=== PATIENT | male | born 1950 | race Caucasian/White ===

== ENCOUNTER → 2020-09-30 11:00 | Outpatient (BNVA) | payer MEDICARE, OTHER, SELFPAY | PROVIDERS: Visit Provider Urology | DX: Z76.89 Persons encountering health services in other specified circumstances (principal) | CPT/HCPCS: 51705; 99212 ==

== ENCOUNTER → 2020-11-14 13:04 | Outpatient (BNVA) | payer MEDICARE, OTHER, SELFPAY | PROVIDERS: Visit Provider Urology | DX: N31.9 Neuromuscular dysfunction of bladder, unspecified (principal) | CPT/HCPCS: 51705; 51710; 99212 ==

== ENCOUNTER 2020-11-23 14:07 | Inpatient (IN) | payer MEDICARE, OTHER, SELFPAY ==
[2020-11-23 14:16] VITALS: BP 150/74; PULSE 87; RESP 16; TEMP 37; O2SAT 96; BMI 27.8
--- NOTE | 2020-11-23 14:19 | ECG_ITS ---
Test Reason : SOB Blood Pressure : / mmHG Vent. Rate : 085 BPM Atrial Rate : 085 BPM P-R Int : 168 ms QRS Dur : 124 ms QT Int : 400 ms P-R-T Axes : 030 -10 005 degrees QTc Int : 476 ms Normal sinus rhythm Left ventricular hypertrophy with QRS widening Abnormal ECG When compared with ECG of 28-MAY-2016 16:40, T wave inversion now evident in Inferior leads Referred By: Monica Quinteros Electronically Signed By:WENDY SIGALA
--- NOTE | 2020-11-23 14:20 | XR_ITS ---
EXAMINATION: XR CHEST, PORTABLE CLINICAL INFORMATION: 69-year-old male patient with cough. COMPARISON: Last chest x-ray on 05/28/2016. (No acute disease). TECHNIQUE: AP semierect portable view of the chest was obtained. The time of examination was 2:26 PM. FINDINGS: The heart is normal in size. There is moderate uncoiling of the thoracic aorta. 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 Lungs are clear. There is no evidence of acute pulmonary parenchymal or pleural disease. XR/XR chest 1V IMPRESSION: No pneumonia. Substernal goiter.
--- NOTE | 2020-11-23 14:23 | ED_ITS ---
HPI - General Adult General Chief complaint: General Medical Stated complaint: Covid Symptoms Time Seen by Provider: 11/23/20 14:14 Source: patient and EMS Mode of arrival: EMS History of Present Illness HPI narrative: 69-year-old male with past medical history of CHF, CKD on dialysis M/W/F, chronic indwelling suprapubic catheter, diabetes, presenting to the ED complaining of nausea, nonbloody emesis and diarrhea, and dry cough x a few days. Admits last dialysis was on , missed dialysis yesterday. Reports decreased p.o. intake and generalized fatigue fever, chills, CP/SOB, abdominal pain, dysuria/hematuria, recent travel, sick contacts. Denies suspicious food intake Related Data Home Medications Medication Instructions Recorded Confirmed carvedilol 12.5 mg tablet 12.5 mg PO BID 11/14/20 lisinopril 20 mg tablet 20 mg PO BEDTIME 11/14/20 metoprolol tartrate 25 mg tablet 25 mg PO BID 11/14/20 norflurane-pentafluoropropane spray TOPICAL 11/14/20 topical spray warfarin 1 mg tablet 1 mg PO DAILY 11/14/20 warfarin 5 mg tablet mg PO 11/14/20 Previous Rx's Medication Instructions Recorded albuterol sulfate 2 puff INHALATION Q4-6H PRN #6.7 g 11/23/20 azithromycin See Rx Instructions .ROUTE 11/23/20 .COMPLEX #6 tab cefuroxime axetil 250 mg PO ONCE 7 Days #7 tab 11/23/20 Allergies Allergy/AdvReac Type Severity Reaction Status Date / Time morphine [MORPHINE] Allergy Severe NAUSEA & Unverified 08/14/20 15:27 VOMITING, vomiting, nausea and vomiting cat Allergy Unknown Uncoded 01/20/17 00:00 dust Allergy Unknown Uncoded 01/20/17 00:00 Review of Systems Review of Systems: Constitutional: No Weight loss, No Fever, No Chills, +Fatigue, No Malaise Cardiovascular: No Chest Pain, No SOB, No Dyspnea on Exertion, No Orthopnea, No Edema, No Palpitations Respiratory: + Cough, No Sputum, No Wheezing Gastrointestinal: + Nausea, + Vomiting, + Diarrhea, No Constipation, No Abdominal pain Genitourinary: No irregular bleeding, No Dysuria, No Urinary Frequency, No Hematuria Musculoskeletal: No joint pain, No Myalgias, No Joint Swelling Skin: No Skin Lesions, No rash Yes all other systems are reviewed and are negative [facility] Past Medical History Attestation statement: The following information was validated with the patient. Social History Social History Advance Directives: No Advance Directives Information Provided: Yes Physical Exam Vital Signs: Vital Signs: Last Vital Signs Temp 98.6 F 11/23/20 14:16 Pulse 87 11/23/20 14:16 Resp 16 11/23/20 14:16 BP 150/74 H 11/23/20 14:16 Pulse Ox 96 11/23/20 14:16 Body Mass Index 27.8 Const: General: cooperative Orientation/consciousness: patient oriented x3 Limitations: no limitations HENMT: Head: Yes normal to inspection Ears: hearing grossly normal bilaterally General nose exam: Normal external nose present Face and sinus: Yes normal facial exam Eyes: General: appearance normal, both eyes and all related structures EOM: EOMs intact bilaterally Neck: Neck: Yes normal visual inspection Resp: Effort & Inspection: normal respiratory effort Auscultation: clear to auscultation bilaterally, no crackles, no rhonchi and no wheezes Cardio: Rate: regular rate Heart sounds: S1 normal heart sound present and S2 normal heart sound present GI: Other: Chronic indwelling suprapubic catheter without surrounding infection Inspection: Yes normal to inspection Palpation (GI): Soft to palpation, nontender, no guarding and not rigid Skin: Rashes: no rashes Wounds: no wounds Neuro: General: patient oriented x3 Extrem: General: Yes normal to inspection Course Course Course Narrative: * H&H at baseline. No leukocytosis * Lipase elevated 181 CXR: IMPRESSION: No pneumonia. Substernal goiter * Patient is COVID-19 positive, and has UTI > will dose Abx based on renal function * Creatinine 13.4, potassium WNL. No indication for emergent dialysis at this time. Discussed importance of dialysis tomorrow with patient. He verbalized understanding. * 1700-- ED care transferred to [facility] pending ambulation trial with pulse ox Medical Decision Making MDM Narrative Medical decision making narrative: 69-year-old male with past medical history of CHF, CKD on dialysis M/W/F, chronic indwelling suprapubic catheter, diabetes, presenting to the ED complaining of nausea, nonbloody emesis and diarrhea, and dry cough x a few days. On exam VSS, NAD, nontoxic appearing, abdomen soft and nontender, lungs CTA. Concern for gastroenteritis vs food poisoning vs dehydration vs viral syndrome/COVID-19. Concern for acute on chronic renal failure due to missed dialysis/metabolic abnormalities. Low concern for pneumonia/ACS/PE Plan: EKG, labs, UA, CXR, COVID-19, reassess Lab Data Result diagrams: 11/23/20 15:39 11/23/20 16:27 Labs: Lab Results 11/23/20 11/23/20 11/23/20 Range/Units 15:39 15:39 15:39 WBC 8.9 (4.8-10.8) X10*3/uL RBC 3.38 L (4.60-5.80) X10*6/uL Hgb 10.3 L (14.0-18.0) g/dl Hct 30.7 L (42-52) % MCV 90.8 (80-98) fL MCH 30.5 (27.0-33.0) pg MCHC 33.6 (31.0-36.0) g/dl RDW 14.5 (11.0-16.0) % Plt Count 294 (160-400) X10*3/uL MPV 9.9 (9.4-12.4) fL Immature Gran % (Auto) 0.5 H (0.0-0.4) % Neut % (Auto) 71.6 (45-73) % Lymph % (Auto) 17.7 L (20-40) % [place] % (Auto) 9.3 (2-11) % Eos % (Auto) 0.6 (0-4) % Baso % (Auto) 0.3 (0-2) % Lymph # (Auto) 1.6 (1.2-4.9) X10*3/uL [place] # (Auto) 0.8 (0.1-1.2) X10*3/uL Eos # (Auto) 0.1 (0.0-0.4) X10*3/uL Baso # (Auto) 0.0 (0.0-0.2) X10*3/uL Abs Immat Gran (auto) 0.04 H (0.00-0.03) X10*3/uL Absolute Neuts (auto) 6.4 (2.0-8.3) X10*3/uL Absolute Nucleated RBC 0.000 (0.0-0.012) X10*3/uL Nucleated RBC % (auto) 0.0 (0.0-0.2) /100WBC PT 15.3 H (10.8-13.0) SEC INR 1.3 H (0.9-1.1) APTT 31.7 (24.1-38.0) SEC Sodium Cancelled Potassium Cancelled Chloride Cancelled Carbon Dioxide Cancelled Anion Gap Cancelled BUN Cancelled Creatinine Cancelled Estim Creat Clear Calc Cancelled Estimated GFR Cancelled Random Glucose Cancelled Calcium Cancelled Magnesium 2.5 (1.6-2.6) mg/dL Total Bilirubin Cancelled Direct Bilirubin Cancelled AST Cancelled ALT Cancelled Alkaline Phosphatase Cancelled B-Natriuretic Peptide (<100) pg/mL Total Protein Cancelled Albumin Cancelled Lipase (8-78) U/L Urine Color Urine Appearance Urine pH (5.0-8.0) Ur Specific Rex (1.005-1.025) Urine Protein (NEG-TRACE) MG/DL Urine Glucose (UA) (NEG) MG/DL Urine Ketones (NEG) MG/DL Urine Blood (NEG) Urine Nitrite (NEG) Ur Leukocyte Esterase (NEG) Urine RBC (0) /HPF Urine WBC (0-4) /HPF Ur Squamous Epith Cells /LPF Urine Bacteria /LPF Coronavirus (PCR) (Negative) Influenza Type A (PCR) (Negative) Influenza Type B (PCR) (Negative) RSV RNA Qual (PCR) (Negative) 11/23/20 11/23/20 11/23/20 Range/Units 15:39 15:39 15:58 WBC (4.8-10.8) X10*3/uL RBC (4.60-5.80) X10*6/uL Hgb (14.0-18.0) g/dl Hct (42-52) % MCV (80-98) fL MCH (27.0-33.0) pg MCHC (31.0-36.0) g/dl RDW (11.0-16.0) % Plt Count (160-400) X10*3/uL MPV (9.4-12.4) fL Immature Gran % (Auto) (0.0-0.4) % Neut % (Auto) (45-73) % Lymph % (Auto) (20-40) % [place] % (Auto) (2-11) % Eos % (Auto) (0-4) % Baso % (Auto) (0-2) % Lymph # (Auto) (1.2-4.9) X10*3/uL [place] # (Auto) (0.1-1.2) X10*3/uL Eos # (Auto) (0.0-0.4) X10*3/uL Baso # (Auto) (0.0-0.2) X10*3/uL Abs Immat Gran (auto) (0.00-0.03) X10*3/uL Absolute Neuts (auto) (2.0-8.3) X10*3/uL Absolute Nucleated RBC (0.0-0.012) X10*3/uL Nucleated RBC % (auto) (0.0-0.2) /100WBC PT (10.8-13.0) SEC INR (0.9-1.1) APTT (24.1-38.0) SEC Sodium Potassium Chloride Carbon Dioxide Anion Gap BUN Creatinine Estim Creat Clear Calc Estimated GFR Random Glucose Calcium Magnesium (1.6-2.6) mg/dL Total Bilirubin Direct Bilirubin AST ALT Alkaline Phosphatase B-Natriuretic Peptide 20 (<100) pg/mL Total Protein Albumin Lipase 181 H (8-78) U/L Urine Color Urine Appearance Urine pH (5.0-8.0) Ur Specific Rex (1.005-1.025) Urine Protein (NEG-TRACE) MG/DL Urine Glucose (UA) (NEG) MG/DL Urine Ketones (NEG) MG/DL Urine Blood (NEG) Urine Nitrite (NEG) Ur Leukocyte Esterase (NEG) Urine RBC (0) /HPF Urine WBC (0-4) /HPF Ur Squamous Epith Cells /LPF Urine Bacteria /LPF Coronavirus (PCR) POSITIVE A (Negative) Influenza Type A (PCR) NEGATIVE (Negative) Influenza Type B (PCR) NEGATIVE (Negative) RSV RNA Qual (PCR) NEGATIVE (Negative) 11/23/20 11/23/20 11/23/20 Range/Units 15:59 16:27 16:27 WBC (4.8-10.8) X10*3/uL RBC (4.60-5.80) X10*6/uL Hgb (14.0-18.0) g/dl Hct (42-52) % MCV (80-98) fL MCH (27.0-33.0) pg MCHC (31.0-36.0) g/dl RDW (11.0-16.0) % Plt Count (160-400) X10*3/uL MPV (9.4-12.4) fL Immature Gran % (Auto) (0.0-0.4) % Neut % (Auto) (45-73) % Lymph % (Auto) (20-40) % [place] % (Auto) (2-11) % Eos % (Auto) (0-4) % Baso % (Auto) (0-2) % Lymph # (Auto) (1.2-4.9) X10*3/uL [place] # (Auto) (0.1-1.2) X10*3/uL Eos # (Auto) (0.0-0.4) X10*3/uL Baso # (Auto) (0.0-0.2) X10*3/uL Abs Immat Gran (auto) (0.00-0.03) X10*3/uL Absolute Neuts (auto) (2.0-8.3) X10*3/uL Absolute Nucleated RBC (0.0-0.012) X10*3/uL Nucleated RBC % (auto) (0.0-0.2) /100WBC PT (10.8-13.0) SEC INR (0.9-1.1) APTT (24.1-38.0) SEC Sodium 135 Potassium 3.8 Chloride 91 L Carbon Dioxide 21 L Anion Gap 27 H BUN 75 H Creatinine 13.40 H* Estim Creat Clear Calc 5.8 Estimated GFR 4 Random Glucose 136 H Calcium 8.6 Magnesium (1.6-2.6) mg/dL Total Bilirubin 0.6 Direct Bilirubin 0.3 AST 16 ALT 13 Alkaline Phosphatase 82 B-Natriuretic Peptide (<100) pg/mL Total Protein 7.6 Albumin 4.3 Lipase (8-78) U/L Urine Color YELLOW Urine Appearance TURBID Urine pH 6.5 (5.0-8.0) Ur Specific Rex 1.020 (1.005-1.025) Urine Protein 3+ H (NEG-TRACE) MG/DL Urine Glucose (UA) NEG (NEG) MG/DL Urine Ketones NEG (NEG) MG/DL Urine Blood 3+ H (NEG) Urine Nitrite NEG (NEG) Ur Leukocyte Esterase 3+ H (NEG) Urine RBC 5-9 H (0) /HPF Urine WBC TNTC H (0-4) /HPF Ur Squamous Epith Cells TRACE /LPF Urine Bacteria 3+ /LPF Coronavirus (PCR) (Negative) Influenza Type A (PCR) (Negative) Influenza Type B (PCR) (Negative) RSV RNA Qual (PCR) (Negative) Discharge Plan Discharge Clinical Impression: COVID-19, Acute UTI Patient Disposition: Home, Self-Care Instructions: Urinary Tract Infection in Men (ED), COVID-19 (Coronavirus Disease 2019) (ED) Additional Instructions: YOU NEED DIALYSIS TOMORROW YOU HAVE COVID-19, AND URINARY TRACT INFECTION AZITHROMYCIN ANTIBIOTIC, TAKE PRESCRIBED WHICH WILL HELP WITH COVID-19 CEFTIN IS AN ANTIBIOTIC WHICH WILL TREAT YOUR UTI IF YOU HAVE FEVER, CHEST PAIN, SHORTNESS OF BREATH, ABDOMINAL DISTENTION, OR SWELLING IN HER LEGS, OR CANNOT OBTAIN DIALYSIS TOMORROW RETURN TO THE ED IMMEDIATELY CDC Guidelines for home isolation: - Stay away from others - WEAR A MASK if you are sick AND STAY HOME - Cover your mouth and nose with a tissue when you cough or sneeze. Dispose of tissues in a lined trash can and wash your hands immediately with soap and water for at least 20 seconds. If soap and water are not available, clean hands with alcohol-based hand lighting engineering technician that contains at least 60% alcohol. - Clean your hands often with soap and water for at least 20 seconds - Avoid touching your eyes, nose and mouth with unwashed hands - Do not share dishes, drinking glasses, cups, eating utensils, towels, or bedding with other people in your home. After using these items, wash them thoroughly with soap and water or put in the intelligent systems engineer. - Clean high-touch surfaces in your isolation area ( sick room and bathroom) every day; let a caregiver clean and disinfect high-touch surfaces in other areas of the home. Clean the area or item with soap and water or another detergent if it is dirty. Then, use a household disinfectant. - Limit contact with pets and animals: If you must care for a pet, wash your hands before and after interacting with them) Prescriptions: New azithromycin 250 mg tablet See Rx Instructions .ROUTE .COMPLEX Qty: 6 RF: 0 cefuroxime axetil 250 mg tablet 250 mg PO ONCE 7 Days Qty: 7 RF: 0 albuterol sulfate 90 mcg/actuation HFA aerosol inhaler 2 puff inhalation Q4-6H PRN (Reason: shortness of breath or wheezing) Qty: 6.7 RF: 0 No Action warfarin 5 mg tablet PO RF: 0 warfarin 1 mg tablet 1 mg PO DAILY RF: 0 Pain Ease Mist Crumrod Aerosol,Crumrod topical RF: 0 metoprolol tartrate 25 mg tablet 25 mg PO BID RF: 0 carvedilol 12.5 mg tablet 12.5 mg PO BID RF: 0 lisinopril 20 mg tablet 20 mg PO BEDTIME RF: 0 Referrals: Physician,Unknown [Primary Care Provider] - 2 days
[2020-11-23 15:48] LABS: Basophils Percent Auto 0.3 % (0-2); Eosinophils Absolute Auto 0.1 X10*3/uL (0.0-0.4); Eosinophils Percent Auto 0.6 % (0-4); Hematocrit 30.7 % (42-52); Hemoglobin 10.3 g/dl (14.0-18.0); Imm Gran Abs Auto 0.04 X10*3/uL (0.00-0.03); Imm Gran Pct Auto 0.5 % (0.0-0.4); Lymphocytes Absolute Auto 1.6 X10*3/uL (1.2-4.9); Lymphocytes Percent Auto 17.7 % (20-40); MANUAL DIFF FLAG NO; Mean Corpuscular HGB Conc 33.6 g/dl (31.0-36.0); Mean Corpuscular Hemoglobin 30.5 pg (27.0-33.0); Mean Corpuscular Volume 90.8 fL (80-98); Mean Platelet Volume 9.9 fL (9.4-12.4); Monocytes Absolute Auto 0.8 X10*3/uL (0.1-1.2); Monocytes Percent Auto 9.3 % (2-11); Neutrophils Absolute Auto 6.4 X10*3/uL (2.0-8.3); Neutrophils Percent Auto 71.6 % (45-73); Platelet Count 294 X10*3/uL (160-400); Red Blood Count 3.38 X10*6/uL (4.60-5.80); Red Cell Distribution Width 14.5 % (11.0-16.0); White Blood Count 8.9 X10*3/uL (4.8-10.8)
[2020-11-23] MEDS: ondansetron HCL 4 MG/2 ML VIAL IVPUSH (15:49)
[2020-11-23 15:52] LABS: INTERNATIONAL NORM RATIO 1.3 (0.9-1.1); Prothrombin Time 15.3 SEC (10.8-13.0)
[2020-11-23 15:54] LABS: Partial Thromboplastin Time 31.7 SEC (24.1-38.0)
[2020-11-23 16:09] LABS: Lipase 181 U/L (8-78)
[2020-11-23 16:12] LABS: B Type Natriuretic Peptide 20 pg/mL (<100)
[2020-11-23 16:14] LABS: Glucose Urine UA NEG (NEG); Leukocyte Esterase Urine 3+ (NEG); Nitrite Urine NEG (NEG); PH 6.5 (5.0-8.0); Urine Blood 3+ (NEG); Urine Ketones NEG (NEG); Urine Protein 3+ MG/DL (NEG-TRACE)
[2020-11-23 16:14] LABS: Magnesium 2.5 mg/dL (1.6-2.6)
[2020-11-23 16:20] LABS: Appearance Urine TURBID; Color Urine YELLOW
[2020-11-23 16:41] LABS: Bacteria Urine 3+ /LPF; Squamous Epithelial Cell Urine TRACE /LPF; WBC Urine TNTC /HPF (0-4)
[2020-11-23 16:46] LABS: Influenza A PCR NEGATIVE (Negative); Influenza B PCR NEGATIVE (Negative); Resp Syncy Virus RNA Qual PCR NEGATIVE (Negative); SARS COV2 PCR INHOUSE POSITIVE (Negative)
[2020-11-23 17:03] LABS: Alanine Aminotransferase 13 U/L (0-40); Albumin Level 4.3 g/dL (3.5-5.0); Alkaline Phosphatase 82 U/L (39-117); Aspartate Amino Transferase 16 U/L (5-37); Bilirubin Direct 0.3 mg/dL (0.0-0.5); Bilirubin Total 0.6 mg/dL (0.0-1.0); Total Protein 7.6 g/dL (6.5-8.0)
[2020-11-23 17:06] LABS: Anion Gap 27 (12-20); Blood Urea Nitrogen 75 mg/dL (9-16); Calcium 8.6 mg/dL (8.4-10.2); Carbon Dioxide 21 mmol/L (22-29); Chloride 91 mmol/L (96-108); Creatinine Clr Calc Pharmacy 5.8; Estimated Glomerular Filt Rate 4; Glucose Random 136 mg/dL (60-115); Potassium 3.8 mmol/l (3.3-5.1); Sodium 135 mmol/L (135-145)
--- NOTE | 2020-11-23 18:16 | PC.NURSE ---
pt work up mostly negative, per provider, pt able to be discharged if able to ambulate and secure dialysis services for tomorrow. pt ambulated while maintaining sp02 > 95%. pt expressing to this rn he does not feel safe going home living by himself. provider at bedside to discuss plan of care.
[2020-11-23 18:50] VITALS: BP 134/71; PULSE 80; RESP 24; TEMP 37.2; O2SAT 97
--- NOTE | 2020-11-23 19:10 | PC.NURSE ---
PT RESTING IN STRETCHER AWAITING FURTHER ORDERS. PT DENIES ANY COMPLAINTS AT THIS TIME. PT ALERT, RESPIRATIONS N/L. SKIN W/D. PT AWAITING FOR POSSIBLE ADMISSION. WILL CONTINUE TO FARRUKH PT.
[2020-11-23 20:00] VITALS: BP 130/68; PULSE 88; RESP 16; O2SAT 97
--- NOTE | 2020-11-23 21:09 | PC.NURSE ---
PT RESTING IN STRETCHER, WAKES TO VERBAL STIMULI, RESPIRATIONS REMAINS N/L. SKIN W/D. WILL CONTINUE TO MONTIOR PT.
[2020-11-23 22:00] VITALS: BP 134/70; PULSE 86; RESP 16; O2SAT 97
[2020-11-23] MEDS: Azithromycin 500 MG TABLET PO (22:08)
--- NOTE | 2020-11-23 23:00 | PC.NURSE ---
PT EATING CRACKERS. PT AWAKE AND ALERT, RESPIRATIONS EASY N/L. SKIN W/D. PT AWAITING FOR CASE MGT IN THE MORNING ALONG WITH DIALYSIS. PT DENIES ANY COMPLAINTS. WILL CONTINUE TO MONITOR PT.
[2020-11-24] VITALS (9 sets, daily range): BP systolic 113–152; BP diastolic 64–82; PULSE 67–96; RESP 16–18; TEMP 36.8–37.5; O2SAT 95–98
--- NOTE | 2020-11-24 00:39 | PC.NURSE ---
PT RESTING IN NAD. AWAITING FURTHER ORDERS.
--- NOTE | 2020-11-24 02:48 | PC.NURSE ---
PT SLEEPING, WAKES TO VERBAL STIMULI, RESPIRATIONS EASY, AND N/L. SKIN W/D/P. PT WAKES AND VERBALIZED NO COMPLAINTS. PT AWAITING FOR CASE MGT IN AM. PT GIVEN BLANKET AND PILLOW FOR COMFORT. PT FINISHED EATING SANDWICH. PT APPEARS COMFORTABLE AND APPEARS TO BEING FALLING BACK TO SLEEP. VS OBTAINED AND WNL. WILL CONTINUE TO MONITOR PT.
--- NOTE | 2020-11-24 05:29 | PC.NURSE ---
PT RESTING IN STRETCHER. DENIES COMPLAINTS AND AWAITING FURTHER ORDERS. PT IN NAD. AWAITING FOR DIALYSIS IN AM
--- NOTE | 2020-11-24 06:30 | PC.NURSE ---
PT SLEEPING, CHEST WALL RISING UP AND DOWN, PT IN NAD. PT AWAITING FOR CASE MGT AND DIALYSIS. WILL CONTINUE TO MONITOR PT.
--- NOTE | 2020-11-24 07:30 | PC.NURSE ---
pt sleeping, but easily arusable, pt alert and oriented, x3, respirations even and unlabored, ls clear. pt denies pain at this time, does have a dry cough, fistual on the left upper arm and suppra pubic cath in place. pt does reports feeling general weakness and lives by himself. 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 pt aware of plan to meet with case management this. pt provided with breakfast jeanne.
--- NOTE | 2020-11-24 09:28 | PC.NURSE ---
pt resting comfortably in no apparent distress at this time, vs stable
--- NOTE | 2020-11-24 11:20 | MHC.CM.ED ---
Addendum entered by Noemí Castillo 11/24/20 11:23: When patient is ready for discharge, [facility] will need to be contacted so that a dialysis time can be set up with their Covid unit. Original Note: Received case management consult overnight. Patient came to ER and found to be Covid positive. Patient is a dialysis patient at [facility] in [place]. T/W spoke with Ambar, brood station manager of [facility] via telephone at [phone]. He is active with their company. They will not be able to dialysis until 11/25 in the evening. Monica PA aware and will speak to Nephrology because his baseline creat has doubled. Continue to monitor for d/c needs.
--- NOTE | 2020-11-24 11:28 | PM.IMHP ---
History of Present Illness Date of Service: 11/24/20 <Libertad Valdez NP - Last Filed: 11/24/20 13:35> Chief Complaint: Abnormal labs <Libertad Valdez NP - Last Filed: 11/24/20 13:35> 69 year old man presenting with He reported some nausea, dry cough and diarrhea. He had been tested last Tuesday after dialysis and it was negative. Due to the holiday his usual dialysis schedule was switched to M,W,S. Apparently he missed dialysis on Tuesday. His creatinine was noted to be elevated at 13.4 with no signs of uremia and also found to have UTI. He was also noted to be positive for covid-19 with normal oxygenation. He ws supposed to go to [facility] night. He requires dialysis today therefore he will be admitted for ESRD requiring dialysis and UTI. <Libertad Valdez NP - Last Filed: 11/24/20 13:35> Review of Systems Review of Systems: Denies any recent fever chills or decrease in appetite respiratory denies any shortness of breath coverage production cardiovascular is adjustment of any PND or edema gastrointestinal denies any dysphagia abdominal pain nausea vomiting or diarrhea genitourinary denies any dysuria frequency or hematuria musculoskeletal denies any joint pain or swelling neuropsych denies any weakness or seizures all other systems reviewed are negative <Libertad Valdez NP - Last Filed: 11/24/20 13:35> [facility] Medical History: Medical History (Updated 11/24/20 @ 13:28 by Libertad Valdez NP) CAD (coronary artery disease) CVA (cerebral vascular accident) Diabetes mellitus HTN (hypertension) with goal to be determined Hyperlipidemia Multiple sclerosis <Libertad Valdez NP - Last Filed: 11/24/20 13:35> Cognitive capacity: No cardiac disease <Libertad Valdez NP - Last Filed: 11/24/20 13:35> Surgical History: Surgical History (Updated 11/24/20 @ 13:28 by Libertad Valdez NP) H/O cystostomy History of back surgery <Libertad Valdez NP - Last Filed: 11/24/20 13:35> Social History: Social History Household Members: None Housing: Condominium Alcohol intake: former Smoking Status: Never smoker Smoked in Last 30 Days: No Second Hand Smoke Exposure: No Use of substances other than those prescribed or required for medical reasons: No Currently Displaying Signs/Symptoms of Drug Intoxication Withdrawal: No Have you been hit, kicked, punched, or otherwise hurt by someone within the past year? If so, by whom?: No Do you feel safe in your current relationship?: No Current Relationship Is there a partner from a previous relationship who is making you feel unsafe now?: No Are you made to feel afraid or neglected: No Advance Directives: No Advance Directives Information Provided: Yes Do you have thoughts of harming others: None Do you have a plan to hurt others: No Plan Recently lost weight without trying: Yes service: No Current occupational status: retired <Libertad Valdez NP - Last Filed: 11/24/20 13:35> Meds Allergies/Adverse reactions: Allergies Allergy/AdvReac Type Severity Reaction Status Date / Time morphine [MORPHINE] Allergy Severe NAUSEA & Verified 11/24/20 18:38 VOMITING, vomiting, nausea and vomiting dust Allergy Mild Dry Eye Uncoded 11/24/20 18:38 cat Allergy Unknown Dry Eye Uncoded 11/24/20 18:38 <Libertad Valdez NP - Last Filed: 11/24/20 13:35> Home medications: Home Medications Medication Instructions Recorded Confirmed Type carvedilol 12.5 mg tablet 12.5 mg PO BID 11/14/20 11/23/20 History lisinopril 20 mg tablet 20 mg PO BEDTIME 11/14/20 11/23/20 History metoprolol tartrate 25 mg tablet 25 mg PO BID 11/14/20 11/23/20 History warfarin 1 mg tablet 1 mg PO DAILY 11/14/20 11/23/20 History warfarin 5 mg tablet 5 mg PO DAILY 11/14/20 11/23/20 History <Libertad Valdez NP - Last Filed: 11/24/20 13:35> Physical Exam Vital Signs and Narrative: Vital Signs: Last Vital Signs Temp 98.3 F 11/24/20 09:29 Pulse 75 11/24/20 07:29 Resp 18 11/24/20 07:29 BP 129/66 11/24/20 09:29 Pulse Ox 98 11/24/20 09:29 Body Mass Index 27.8 <Libertad Valdez NP - Last Filed: 11/24/20 13:35> Appearing in no acute distress head is normocephalic atraumatic eyes pupils sclera is anicteric mouth throat mucous membranes are intact and moist lung normal expansion heart regular rate rhythm positive nontender neuro patient is alert x3, no focal deficits <Libertad Valdez NP - Last Filed: 11/24/20 13:35> Results Labs CBC and Chem 7: : 11/25/20 06:03 11/25/20 06:03 <Libertad Valdez ARCHITECTURAL ENGINEERING TEACHER - Last Filed: 11/24/20 13:35> Labs: Laboratory Results - last 24 hr 11/23/20 11/23/20 11/23/20 15:39 15:39 15:39 MCV 90.8 MCH 30.5 MCHC 33.6 RDW 14.5 Plt Count 294 MPV 9.9 Immature Gran % (Auto) 0.5 H Neut % (Auto) 71.6 Lymph % (Auto) 17.7 L [place] % (Auto) 9.3 Eos % (Auto) 0.6 Baso % (Auto) 0.3 Lymph # (Auto) 1.6 [place] # (Auto) 0.8 Eos # (Auto) 0.1 Baso # (Auto) 0.0 Abs Immat Gran (auto) 0.04 H Absolute Neuts (auto) 6.4 Absolute Nucleated RBC 0.000 Nucleated RBC % (auto) 0.0 PT 15.3 H INR 1.3 H APTT 31.7 Anion Gap Cancelled Estim Creat Clear Calc Cancelled Estimated GFR Cancelled Random Glucose Cancelled Calcium Cancelled Magnesium 2.5 Total Bilirubin Cancelled Direct Bilirubin Cancelled AST Cancelled ALT Cancelled Alkaline Phosphatase Cancelled B-Natriuretic Peptide Total Protein Cancelled Albumin Cancelled Lipase Urine Color Urine Appearance Urine pH Ur Specific [place] Urine Protein Urine Glucose (UA) Urine Ketones Urine Blood Urine Nitrite Ur Leukocyte Esterase Urine RBC Urine WBC Ur Squamous Epith Cells Urine Bacteria Coronavirus (PCR) Influenza Type A (PCR) Influenza Type B (PCR) RSV RNA Qual (PCR) 11/23/20 11/23/20 11/23/20 15:39 15:39 15:58 MCV MCH MCHC RDW Plt Count MPV Immature Gran % (Auto) Neut % (Auto) Lymph % (Auto) [place] % (Auto) Eos % (Auto) Baso % (Auto) Lymph # (Auto) [place] # (Auto) Eos # (Auto) Baso # (Auto) Abs Immat Gran (auto) Absolute Neuts (auto) Absolute Nucleated RBC Nucleated RBC % (auto) PT INR APTT Anion Gap Estim Creat Clear Calc Estimated GFR Random Glucose Calcium Magnesium Total Bilirubin Direct Bilirubin AST ALT Alkaline Phosphatase B-Natriuretic Peptide 20 Total Protein Albumin Lipase 181 H Urine Color Urine Appearance Urine pH Ur Specific [place] Urine Protein Urine Glucose (UA) Urine Ketones Urine Blood Urine Nitrite Ur Leukocyte Esterase Urine RBC Urine WBC Ur Squamous Epith Cells Urine Bacteria Coronavirus (PCR) POSITIVE A Influenza Type A (PCR) NEGATIVE Influenza Type B (PCR) NEGATIVE RSV RNA Qual (PCR) NEGATIVE 11/23/20 11/23/20 11/23/20 15:59 16:27 16:27 MCV MCH MCHC RDW Plt Count MPV Immature Gran % (Auto) Neut % (Auto) Lymph % (Auto) [place] % (Auto) Eos % (Auto) Baso % (Auto) Lymph # (Auto) [place] # (Auto) Eos # (Auto) Baso # (Auto) Abs Immat Gran (auto) Absolute Neuts (auto) Absolute Nucleated RBC Nucleated RBC % (auto) PT INR APTT Anion Gap 27 H Estim Creat Clear Calc 5.8 Estimated GFR 4 Random Glucose 136 H Calcium 8.6 Magnesium Total Bilirubin 0.6 Direct Bilirubin 0.3 AST 16 ALT 13 Alkaline Phosphatase 82 B-Natriuretic Peptide Total Protein 7.6 Albumin 4.3 Lipase Urine Color YELLOW Urine Appearance TURBID Urine pH 6.5 Ur Specific [place] 1.020 Urine Protein 3+ H Urine Glucose (UA) NEG Urine Ketones NEG Urine Blood 3+ H Urine Nitrite NEG Ur Leukocyte Esterase 3+ H Urine RBC 5-9 H Urine WBC TNTC H Ur Squamous Epith Cells TRACE Urine Bacteria 3+ Coronavirus (PCR) Influenza Type A (PCR) Influenza Type B (PCR) RSV RNA Qual (PCR) <Libertad Valdez NP - Last Filed: 11/24/20 13:35> Imaging Radiologist's Impressions: Impressions Chest X-Ray 11/23/20 14:20 IMPRESSION: No pneumonia. Substernal goiter. <Libertad Valdez NP - Last Filed: 11/24/20 13:35> Assessment and Plan (1) Acute UTI: Status: Acute <Libertad Valdez NP - Last Filed: 11/24/20 13:35> (2) COVID-19: Status: Acute <Libertad Valdez NP - Last Filed: 11/24/20 13:35> 69 year old man admitted with asymptomatic covid 19 and ESRD requiring dialysis today ESRD on dialysis. Will need dialysis today, Nephrology consult. UTI. No sepsis. Rocephin, renally dosed medication. Follow urine culture. COVID 19. Normal oxygen, no symptoms. Monitor on isolation. CAD. Continue home medications. HTN. Continue Lisinopril. DVT prophylaxis with Warfarin. Discussed with Dr. Schreiber Full code <Libertad Valdez NP - Last Filed: 11/24/20 13:35>
--- NOTE | 2020-11-24 11:37 | PC.NURSE ---
hospitalist at bedside for evaluation
--- NOTE | 2020-11-24 12:28 | PC.NURSE ---
called [facility] to give to report awaiting call back
--- NOTE | 2020-11-24 12:52 | PC.NURSE ---
REPORT GIVEN TO [facility] RN
--- NOTE | 2020-11-24 15:46 | P.EN_ITS ---
Event Note Date of Service: 11/24/20 Event Note: Date of Service: August, Addendum to H and P by Mid-level Provider I saw and examined the patient and participated in the soria portion of the E/M service. I agree with the history and exam as documented by PRINCIPAL CYBER ENGINEER. Patient likely covid and has ESRD and couldn't get into covid dialysis and may become fluid overloaded and uremic Will admit for urgent dialysis. He is assymptomatic from covid at this point. Otherwise, I agree with assessment and plan as outlined in the H and P.
[2020-11-24] MEDS: Warfarin Sodium 5 MG TABLET PO (17:54)
[2020-11-24] MEDS: cefTRIAXone sodium 1 GM in 0.9 % Sodium Chloride 50 ML IV (17:54)
[2020-11-24] MEDS: 0.9 % Sodium Chloride Flush 3 ML SYRINGE IVFLUSH (17:54)
[2020-11-24] MEDS: Warfarin Sodium 1 MG TABLET PO (17:55)
[2020-11-24] MEDS: Metoprolol Tartrate 25 MG TABLET PO (20:51)
[2020-11-24] MEDS: lisinopriL 20 MG TABLET PO (20:51)
[2020-11-24] MEDS: carvediloL 12.5 MG TABLET PO (20:51)
[2020-11-25] VITALS: BP 92/51; PULSE 71; RESP 16; TEMP 36.8; O2SAT 97
[2020-11-25] MEDS: 0.9 % Sodium Chloride Flush 3 ML SYRINGE IVFLUSH ×2 (00:41→07:51)
[2020-11-25 04:00] VITALS: BP 93/51; PULSE 64; RESP 16; TEMP 36.4; O2SAT 98
[2020-11-25 05:01] VITALS: BP 96/54
[2020-11-25 06:37] LABS: MANUAL DIFF FLAG NO
[2020-11-25 06:51] LABS: Basophils Percent Auto 0.5 % (0-2); Eosinophils Absolute Auto 0.1 X10*3/uL (0.0-0.4); Eosinophils Percent Auto 1.7 % (0-4); Hemoglobin 10.6 g/dl (14.0-18.0); Imm Gran Abs Auto 0.07 X10*3/uL (0.00-0.03); Imm Gran Pct Auto 0.8 % (0.0-0.4); Lymphocytes Absolute Auto 1.5 X10*3/uL (1.2-4.9); Lymphocytes Percent Auto 17.7 % (20-40); Mean Corpuscular HGB Conc 33.1 g/dl (31.0-36.0); Mean Corpuscular Volume 90.7 fL (80-98); Mean Platelet Volume 10.6 fL (9.4-12.4); Monocytes Absolute Auto 0.6 X10*3/uL (0.1-1.2); Monocytes Percent Auto 6.5 % (2-11); Neutrophils Absolute Auto 6.2 X10*3/uL (2.0-8.3); Neutrophils Percent Auto 72.8 % (45-73); Platelet Count 297 X10*3/uL (160-400); Red Blood Count 3.53 X10*6/uL (4.60-5.80); Red Cell Distribution Width 14.1 % (11.0-16.0); White Blood Count 8.5 X10*3/uL (4.8-10.8)
[2020-11-25 07:19] LABS: Anion Gap 23 (12-20); Blood Urea Nitrogen 53 mg/dL (9-16); Calcium 8.6 mg/dL (8.4-10.2); Carbon Dioxide 23 mmol/L (22-29); Chloride 93 mmol/L (96-108); Estimated Glomerular Filt Rate 5; Glucose Random 213 mg/dL (60-115); Potassium 4.1 mmol/l (3.3-5.1); Sodium 135 mmol/L (135-145)
[2020-11-25 07:51] VITALS: BP 102/52; PULSE 64
[2020-11-25] MEDS: Metoprolol Tartrate 25 MG TABLET PO (07:51)
[2020-11-25 07:52] VITALS: BP 102/52; PULSE 64
[2020-11-25] MEDS: carvediloL 12.5 MG TABLET PO (07:52)
[2020-11-25 08:00] VITALS: BP 102/56; PULSE 63; RESP 18; TEMP 36.6; O2SAT 97
[2020-11-25 10:27] LABS: INTERNATIONAL NORM RATIO 1.3 (0.9-1.1); Prothrombin Time 15.1 SEC (10.8-13.0)
--- NOTE | 2020-11-25 10:52 | P.DS_ITS ---
DS: Providers Provider Date of admission: 11/24/20 12:04 Primary care physician: Unknown Physician Consults: 11/24/20 12:37 Consult to Nephrology Routine Consulting Provider: Fan Cuevas Reason for consultation: ESRD on dialysis Has provider been notified: No DS: Diagnosis Discharge Diagnosis (1) Acute UTI: Status: Acute (2) COVID-19: Status: Acute DS: Medications Discharge Medications Home Medications: Home Medications Medication Instructions Recorded Confirmed carvedilol 12.5 mg tablet 12.5 mg PO BID 11/14/20 11/23/20 lisinopril 20 mg tablet 20 mg PO BEDTIME 11/14/20 11/23/20 metoprolol tartrate 25 mg tablet 25 mg PO BID 11/14/20 11/23/20 warfarin 1 mg tablet 1 mg PO DAILY 11/14/20 11/23/20 warfarin 5 mg tablet 5 mg PO DAILY 11/14/20 11/23/20 Previous Rx's Medication Instructions Recorded albuterol sulfate 2 puff INHALATION Q4-6H PRN #6.7 g 11/23/20 azithromycin See Rx Instructions .ROUTE 11/23/20 .COMPLEX #6 tab cefuroxime axetil 250 mg PO ONCE 7 Days #7 tab 11/23/20 DS: Summary Hospital Course Hospital Course: Chief Complaint: Abnormal labs 69 year old man presenting with He reported some nausea, dry cough and diarrhea. He had been tested last Tuesday after dialysis and it was negative. Due to the holiday his usual dialysis schedule was switched to M,W,S. Apparently he missed dialysis on Tuesday. His creatinine was noted to be elevated at 13.4 with no signs of uremia and also found to have UTI. He was also noted to be positive for covid-19 with normal oxygenation. He ws supposed to go to his normal dialysis center however the [facility] dialysis area had no openings until tomorrow night. He requires dialysis today therefore he will be admitted for ESRD requiring dialysis and UTI. Hospital course:Essentially patient was admitted because he had covid and covid dialysis unit could not accomodate him dialysis. He is assymptomatic from from covid and he was on Azithro and cefuroxim and he will be advised to continue these upon discharge and he is all for dialysis at the [facility] unit. He is to observe self isolation as stated Time Spent with Patient Time attestation: Total time spent providing and/or coordinating discharge services: Physical Exam Vital Signs: Vital Signs: Last Vital Signs Temp 97.9 F 11/25/20 08:00 Pulse 63 11/25/20 08:00 Resp 18 11/25/20 08:00 BP 102/56 L 11/25/20 08:00 Pulse Ox 97 11/25/20 08:00 Body Mass Index 27.8 General: AO X 3, no acute distress Resp: CTA bilateral CVS: S1,S2,RRR GI: +BS, NT, no distention Skin: No rash Neuro: motor grossly intact Psych: appropriate affect DS: Data Data Completed and Pending Labs on day of discharge: 11/23/20 14:19 ECG 12 lead EKG Stat EKG Documentation DIRECTED ondansetron HCL [Zofran] 4 mg IVPUSH ONCE ONE 11/23/20 14:20 XR chest 1V Stat 11/23/20 15:39 B Type Natriuretic Peptide Stat Complete Blood Count Auto Diff Stat Lipase Stat Magnesium Stat Partial Thromboplastin Time Stat Prothrombin Time INR Stat 11/23/20 15:58 SARS-CoV2/FLU/RSV Stat 11/23/20 16:00 Urine Culture Routine 11/23/20 16:27 Basic Metabolic Panel Stat Liver Panel Stat 11/23/20 21:48 Azithromycin [Zithromax] 500 mg PO ONCE STA cefUROXime axetiL [Ceftin] 500 mg PO ONCE STA 11/24/20 11:54 Transfer Order Routine 11/24/20 12:51 cefTRIAXone sodium [Rocephin] 1 gm 0.9 % Sodium Chloride [Ns] 50 ml IV Q24H 11/24/20 17:48 cefTRIAXone sodium [Rocephin] 1 gm .ROUTE .STK-MED ONE 11/25/20 06:03 Basic Metabolic Panel DAILY@0600 Complete Blood Count Auto Diff DAILY@0600 11/25/20 09:32 Prothrombin Time INR Stat Laboratory Last Values WBC 8.5 X10*3/uL (4.8-10.8) 11/25/20 06:03 RBC 3.53 X10*6/uL (4.60-5.80) L 11/25/20 06:03 Hgb 10.6 g/dl (14.0-18.0) L 11/25/20 06:03 Hct 32.0 % (42-52) L 11/25/20 06:03 MCV 90.7 fL (80-98) 11/25/20 06:03 MCH 30.0 pg (27.0-33.0) 11/25/20 06:03 MCHC 33.1 g/dl (31.0-36.0) 11/25/20 06:03 RDW 14.1 % (11.0-16.0) 11/25/20 06:03 Plt Count 297 X10*3/uL (160-400) 11/25/20 06:03 MPV 10.6 fL (9.4-12.4) 11/25/20 06:03 Immature Gran % (Auto) 0.8 % (0.0-0.4) H 11/25/20 06:03 Neut % (Auto) 72.8 % (45-73) 11/25/20 06:03 Lymph % (Auto) 17.7 % (20-40) L 11/25/20 06:03 [place] % (Auto) 6.5 % (2-11) 11/25/20 06:03 Eos % (Auto) 1.7 % (0-4) 11/25/20 06:03 Baso % (Auto) 0.5 % (0-2) 11/25/20 06:03 Lymph # (Auto) 1.5 X10*3/uL (1.2-4.9) 11/25/20 06:03 [place] # (Auto) 0.6 X10*3/uL (0.1-1.2) 11/25/20 06:03 Eos # (Auto) 0.1 X10*3/uL (0.0-0.4) 11/25/20 06:03 Baso # (Auto) 0.0 X10*3/uL (0.0-0.2) 11/25/20 06:03 Abs Immat Gran (auto) 0.07 X10*3/uL (0.00-0.03) H 11/25/20 06:03 Absolute Neuts (auto) 6.2 X10*3/uL (2.0-8.3) 11/25/20 06:03 Absolute Nucleated RBC 0.000 X10*3/uL (0.0-0.012) 11/25/20 06:03 Nucleated RBC % (auto) 0.0 /100WBC (0.0-0.2) 11/25/20 06:03 PT 15.1 SEC (10.8-13.0) H 11/25/20 09:32 INR 1.3 (0.9-1.1) H 11/25/20 09:32 APTT 31.7 SEC (24.1-38.0) 11/23/20 15:39 Sodium 135 mmol/L (135-145) 11/25/20 06:03 Potassium 4.1 mmol/l (3.3-5.1) 11/25/20 06:03 Chloride 93 mmol/L (96-108) L 11/25/20 06:03 Carbon Dioxide 23 mmol/L (22-29) 11/25/20 06:03 Anion Gap 23 (12-20) H 11/25/20 06:03 BUN 53 mg/dL (9-16) H 11/25/20 06:03 Creatinine 9.77 mg/dL (0.5-1.4) H* 11/25/20 06:03 Estim Creat Clear Calc 8.0 11/25/20 06:03 Estimated GFR 5 11/25/20 06:03 Random Glucose 213 mg/dL (60-115) H D 11/25/20 06:03 Calcium 8.6 mg/dL (8.4-10.2) 11/25/20 06:03 Magnesium 2.5 mg/dL (1.6-2.6) 11/23/20 15:39 Total Bilirubin 0.6 mg/dL (0.0-1.0) 11/23/20 16:27 Direct Bilirubin 0.3 mg/dL (0.0-0.5) 11/23/20 16:27 AST 16 U/L (5-37) 11/23/20 16:27 ALT 13 U/L (0-40) 11/23/20 16:27 Alkaline Phosphatase 82 U/L (39-117) 11/23/20 16:27 B-Natriuretic Peptide 20 pg/mL (<100) 11/23/20 15:39 Total Protein 7.6 g/dL (6.5-8.0) 11/23/20 16:27 Albumin 4.3 g/dL (3.5-5.0) 11/23/20 16:27 Lipase 181 U/L (8-78) H 11/23/20 15:39 Urine Color YELLOW 11/23/20 15:59 Urine Appearance TURBID 11/23/20 15:59 Urine pH 6.5 (5.0-8.0) 11/23/20 15:59 Ur Specific [place] 1.020 (1.005-1.025) 11/23/20 15:59 Urine Protein 3+ MG/DL (NEG-TRACE) H 11/23/20 15:59 Urine Glucose (UA) NEG MG/DL (NEG) 11/23/20 15:59 Urine Ketones NEG MG/DL (NEG) 11/23/20 15:59 Urine Blood 3+ (NEG) H 11/23/20 15:59 Urine Nitrite NEG (NEG) 11/23/20 15:59 Ur Leukocyte Esterase 3+ (NEG) H 11/23/20 15:59 Urine RBC 5-9 /HPF (0) H 11/23/20 15:59 Urine WBC TNTC /HPF (0-4) H 11/23/20 15:59 Ur Squamous Epith Cells TRACE /LPF 11/23/20 15:59 Urine Bacteria 3+ /LPF 11/23/20 15:59 Coronavirus (PCR) POSITIVE (Negative) A 11/23/20 15:58 Influenza Type A (PCR) NEGATIVE (Negative) 11/23/20 15:58 Influenza Type B (PCR) NEGATIVE (Negative) 11/23/20 15:58 RSV RNA Qual (PCR) NEGATIVE (Negative) 11/23/20 15:58 Discharge Plan Discharge Anticipated Discharge Date/Time: 11/25/20 10:42 Patient Disposition: Home, Self-Care Referrals: Physician,Unknown [Primary Care Provider] - 2 days Discharge Medications: New azithromycin 250 mg tablet See Rx Instructions .ROUTE .COMPLEX Qty: 6 RF: 0 cefuroxime axetil 250 mg tablet 250 mg PO ONCE 7 Days Qty: 7 RF: 0 albuterol sulfate 90 mcg/actuation HFA aerosol inhaler 2 puff inhalation Q4-6H PRN (Reason: shortness of breath or wheezing) Qty: 6.7 RF: 0 Continued warfarin 5 mg tablet 5 mg PO DAILY RF: 0 warfarin 1 mg tablet 1 mg PO DAILY RF: 0 metoprolol tartrate 25 mg tablet 25 mg PO BID RF: 0 carvedilol 12.5 mg tablet 12.5 mg PO BID RF: 0 lisinopril 20 mg tablet 20 mg PO BEDTIME RF: 0 Discharge Orders: Discharge Order (Routine); Ordered 11/25/20 Ordered By: Shaggy Schreiber Diet: advance to usual diet Activity on Discharge: As tolerated Patient Instructions: Urinary Tract Infection in Men (ED), COVID-19 (Coronavirus Disease 2019) (ED) Activity Restrictions/Additional Instructions: YOU NEED DIALYSIS TOMORROW YOU HAVE COVID-19, AND URINARY TRACT INFECTION AZITHROMYCIN ANTIBIOTIC, TAKE PRESCRIBED WHICH WILL HELP WITH COVID-19 CEFTIN IS AN ANTIBIOTIC WHICH WILL TREAT YOUR UTI IF YOU HAVE FEVER, CHEST PAIN, SHORTNESS OF BREATH, ABDOMINAL DISTENTION, OR SWELLING IN HER LEGS, OR CANNOT OBTAIN DIALYSIS TOMORROW RETURN TO THE ED IMMEDIATELY CDC Guidelines for home isolation: - Stay away from others - WEAR A MASK if you are sick AND STAY HOME - Cover your mouth and nose with a tissue when you cough or sneeze. Dispose of tissues in a lined trash can and wash your hands immediately with soap and water for at least 20 seconds. If soap and water are not available, clean hands with alcohol-based hand talent acquisition project manager that contains at least 60% alcohol. - Clean your hands often with soap and water for at least 20 seconds - Avoid touching your eyes, nose and mouth with unwashed hands - Do not share dishes, drinking glasses, cups, eating utensils, towels, or bedding with other people in your home. After using these items, wash them thoroughly with soap and water or put in the mid level java developer. - Clean high-touch surfaces in your isolation area ( sick room and bathroom) every day; let a caregiver clean and disinfect high-touch surfaces in other areas of the home. Clean the area or item with soap and water or another detergent if it is dirty. Then, use a household disinfectant. - Limit contact with pets and animals: If you must care for a pet, wash your hands before and after interacting with them) Visit Report Forms: Patient Portal Discharge page Care Plan Goals: full recovery from covid and return to dialysis Health Concerns: covid 19 Plan of Treatment: take Azithro and cefuroxime for uti, observe isolation instruction above. Go to dialysis as scheduled and follow up with your Doctor in a week, call for appointment
--- NOTE | 2020-11-25 11:28 | MHC.CM.PN ---
IMM 11/25/20 Male 69 dxUTI ESRD. Pt lives alone HD [facility]- [facility] in [place]. DP resume HD Family called to transport. Pt is DC today. Info faxed to [facility].
== END 2020-11-25 12:52 | disposition home or self-care (01) | DRG 177 ==
LOC: HO.ED 17:02 → HO.IMC 11-24 12:23
PROVIDERS: Internal Medicine; Nurse Practitioner Acute Care; Physician Assistant; Admitting Provider Internal Medicine; Emergency Provider Emergency Medicine Emergency Medical Services; Visit Provider Internal Medicine
DX: U07.1 COVID-19 (principal); N18.6 End stage renal disease; N39.0 Urinary tract infection, site not specified; I13.2 Hypertensive heart and chronic kidney disease with heart failure and with stage 5 chronic kidney disease, or end stage renal disease; G35 Multiple sclerosis; E78.5 Hyperlipidemia, unspecified; I25.10 Atherosclerotic heart disease of native coronary artery without angina pectoris; E11.22 Type 2 diabetes mellitus with diabetic chronic kidney disease; Z96.0 Presence of urogenital implants; Z88.5 Allergy status to narcotic agent; Z99.2 Dependence on renal dialysis; Z79.01 Long term (current) use of anticoagulants; Z79.899 Other long term (current) drug therapy
CPT/HCPCS: 0241U; 36415; 71045; 80048; 80076; 81001; 83690; 83735; 83880; 85025; 85610; 85730; 87086; 90999; 93005; 96374; 99284; 99285; J0696; J2405

== ENCOUNTER 2020-11-27 00:48 | Emergency (ER) | payer MEDICARE, SELFPAY ==
[2020-11-27 01:27] VITALS: BP 99/75; PULSE 89; RESP 15; TEMP 36.7; O2SAT 98; BMI 27.3
--- NOTE | 2020-11-27 03:18 | ED_ITS ---
HPI - Male Genitourinary General Chief complaint: Urogenital-Male Stated complaint: CATHETER ISSUES Time Seen by Provider: 11/27/20 01:10 Source: patient Mode of arrival: ambulatory History of Present Illness HPI Narrative: This is a 69-year-old male who comes in with concerns that his Leal catheter balloon has decreased as he states his urinary output has decreased. On review of his documentation he was recently discharged and at that time was placed on antibiotics and has had noted decrease in oral intake and denies any fevers, chills. Related Data Home Medications Medication Instructions Recorded Confirmed carvedilol 12.5 mg tablet 12.5 mg PO BID 11/14/20 11/23/20 lisinopril 20 mg tablet 20 mg PO BEDTIME 11/14/20 11/23/20 metoprolol tartrate 25 mg tablet 25 mg PO BID 11/14/20 11/23/20 warfarin 1 mg tablet 1 mg PO DAILY 11/14/20 11/23/20 warfarin 5 mg tablet 5 mg PO DAILY 11/14/20 11/23/20 Previous Rx's Medication Instructions Recorded albuterol sulfate 2 puff INHALATION Q4-6H PRN #6.7 g 11/23/20 azithromycin See Rx Instructions .ROUTE 11/23/20 .COMPLEX #6 tab cefuroxime axetil 250 mg PO ONCE 7 Days #7 tab 11/23/20 Allergies Allergy/AdvReac Type Severity Reaction Status Date / Time morphine [MORPHINE] Allergy Severe NAUSEA & Verified 11/24/20 18:38 VOMITING, vomiting, nausea and vomiting dust Allergy Mild Dry Eye Uncoded 11/24/20 18:38 cat Allergy Unknown Dry Eye Uncoded 11/24/20 18:38 Review of Systems Review of Systems: Pertinent positives and negatives as stated in HPI 10 point review of systems otherwise negative. [facility] Past Medical History Source: nursing notes reviewed Medical History CAD (coronary artery disease) CVA (cerebral vascular accident) Diabetes mellitus HTN (hypertension) with goal to be determined Hyperlipidemia Multiple sclerosis Surgical History H/O cystostomy History of back surgery Social History Social History Household Members: None Housing: Condominium Alcohol intake: former Smoking Status: Never smoker Second Hand Smoke Exposure: No Use of substances other than those prescribed or required for medical reasons: No Advance Directives: No service: No Current occupational status: retired Physical Exam Vital Signs: Vital Signs: Last Vital Signs Temp 98.0 F 11/27/20 01:27 Pulse 89 11/27/20 01:27 Resp 15 11/27/20 01:27 BP 99/75 11/27/20 01:27 Pulse Ox 98 11/27/20 01:27 Body Mass Index 27.3 Vital signs reviewed GEN: NAD PULM: CTAB, no tachypnea CVS: No murmurs ABD: soft, non-tender, non-distended. : suprapubic catheter noted in position, on gentle retraction it is not sliding out, urine present in catheter, bedside ultrasound demonstrates a collapsed bladder and catheter balloon appears to be in place Course Course Course Narrative: This is a 69M who was reassured that the catheter appears to be in place, encouraged to drink more water as his UO may have decreased due to appetite issues associated with his recent illness. He was encouraged to follow up with Urology in the morning and continue with all home medications. Discharge Plan Discharge Clinical Impression: Leal catheter problem Qualifiers: Encounter type: initial encounter Qualified Code(s): T83.9XXA - Unspecified complication of genitourinary prosthetic device, implant and graft, initial encounter Patient Disposition: Home, Self-Care Instructions: Leal Catheter Placement and Care (ED) Additional Instructions: Please follow-up with the Urology office by calling in the morning. The note of your visit will be sent over to the office. Please do not hesitate to return to the emergency department should the pain developed acutely worsening or you develop any fevers, chills. Prescriptions: No Action azithromycin 250 mg tablet See Rx Instructions .ROUTE .COMPLEX Qty: 6 RF: 0 cefuroxime axetil 250 mg tablet 250 mg PO ONCE 7 Days Qty: 7 RF: 0 albuterol sulfate 90 mcg/actuation HFA aerosol inhaler 2 puff inhalation Q4-6H PRN (Reason: shortness of breath or wheezing) Qty: 6.7 RF: 0 warfarin 5 mg tablet 5 mg PO DAILY RF: 0 warfarin 1 mg tablet 1 mg PO DAILY RF: 0 metoprolol tartrate 25 mg tablet 25 mg PO BID RF: 0 carvedilol 12.5 mg tablet 12.5 mg PO BID RF: 0 lisinopril 20 mg tablet 20 mg PO BEDTIME RF: 0 Referrals: Akhil Valentino MD [Physician] - 2 days (Please re-evaluate for patient complaints regarding his suprapubic catheter.) Interventions: ED Discharge Assessment Last Done: 11/27/20 03:32 Discharge Date/Time: 11/27/20 03:45
--- NOTE | 2020-11-27 03:36 | PC.NURSE ---
Patient had bedside ultrasound down by ED provider which revealed a empty bladder. Note was sent to Dr. Burton by ED Provider and patient was discharged home.
== END 2020-11-27 03:45 | disposition home or self-care (01) ==
PROVIDERS: Emergency Provider Student in an Organized Health Care Education/Training Program
DX: T83.9XXA Unspecified complication of genitourinary prosthetic device, implant and graft, initial encounter (principal); Y73.8 Miscellaneous gastroenterology and urology devices associated with adverse incidents, not elsewhere classified; Y92.9 Unspecified place or not applicable; Z79.899 Other long term (current) drug therapy
CPT/HCPCS: 99284

== ENCOUNTER → 2021-01-21 13:06 | Outpatient (BNVA) | payer MEDICARE, SELFPAY | PROVIDERS: PCP Internal Medicine; Visit Provider Urology | DX: Z13.89 Encounter for screening for other disorder (principal) | CPT/HCPCS: 51705; 99212 ==

== ENCOUNTER → 2021-02-27 09:58 | Outpatient (BNVA) | payer MEDICARE, SELFPAY | PROVIDERS: PCP Internal Medicine; Visit Provider Urology | DX: Z46.6 Encounter for fitting and adjustment of urinary device (principal); N31.9 Neuromuscular dysfunction of bladder, unspecified | CPT/HCPCS: 51705; 52332; 99212 ==

== ENCOUNTER → 2021-04-16 14:27 | Outpatient (BNVA) | payer MEDICARE, SELFPAY | PROVIDERS: PCP Internal Medicine; Visit Provider Urology | DX: Z43.5 Encounter for attention to cystostomy (principal); R33.8 Other retention of urine | CPT/HCPCS: 51705; 99212 ==

== ENCOUNTER → 2021-06-04 13:14 | Outpatient (BNVA) | payer MEDICARE, SELFPAY | PROVIDERS: PCP Internal Medicine; Visit Provider Urology | DX: Z46.6 Encounter for fitting and adjustment of urinary device (principal); N31.9 Neuromuscular dysfunction of bladder, unspecified | CPT/HCPCS: 51701; 51705; 99212 ==

== ENCOUNTER → 2021-07-14 12:53 | Outpatient (BNVA) | payer MEDICARE, SELFPAY | PROVIDERS: PCP Internal Medicine; Visit Provider Urology | DX: N31.9 Neuromuscular dysfunction of bladder, unspecified (principal) | CPT/HCPCS: 51705; 99212 ==

== ENCOUNTER → 2021-08-25 12:56 | Outpatient (BNVA) | payer MEDICARE, SELFPAY | PROVIDERS: PCP Internal Medicine; Visit Provider Urology | DX: N31.9 Neuromuscular dysfunction of bladder, unspecified (principal) | CPT/HCPCS: 51701; 51705; 99212 ==

== ENCOUNTER → 2021-10-06 09:29 | Outpatient (BNVA) | payer MEDICARE, SELFPAY | PROVIDERS: PCP Internal Medicine; Visit Provider Urology | DX: N31.9 Neuromuscular dysfunction of bladder, unspecified (principal) | CPT/HCPCS: 51705 ==

== ENCOUNTER → 2021-11-17 09:58 | Outpatient (BNVA) | payer MEDICARE, SELFPAY | PROVIDERS: PCP Internal Medicine; Visit Provider Urology | DX: N31.9 Neuromuscular dysfunction of bladder, unspecified (principal) | CPT/HCPCS: 51705 ==

== ENCOUNTER 2021-12-17 15:47 | Outpatient (REF) | payer MEDICARE, SELFPAY ==
--- NOTE | ~2021-12-17 | US_ITS ---
EXAMINATION: US VENOUS ULTRASOUND WITH DOPPLER LOWER EXTREMITY, LEFT CLINICAL INFORMATION: Edema COMPARISON: May 28, 2016 TECHNIQUE: Ultrasound of the deep veins is performed from the hip to the calf with compression sonography and color and pulse Doppler assessment. Spectral analysis with color-flow imaging is performed. FINDINGS: There is normal venous compression and respiratory variation and augmented flow. The visualized common femoral vein, superficial femoral vein, profunda femoral vein, popliteal vein, and the trifurcation region shows no evidence of deep venous thrombosis. There is no significant popliteal fossa cyst. No popliteal artery aneurysm. US/US venous duplex LE LT IMPRESSION: No acute DVT demonstrated in the left lower extremity.
== END 2021-12-17 15:48 | disposition home or self-care (01) ==
LOC: HO.HMGCX 15:47
PROVIDERS: Visit Provider Physician Assistant Medical
DX: R60.9 Edema, unspecified (principal)
CPT/HCPCS: 93971

== ENCOUNTER → 2021-12-29 09:50 | Outpatient (BNVA) | payer MEDICARE, SELFPAY | PROVIDERS: PCP Internal Medicine; Visit Provider Urology | DX: Z43.5 Encounter for attention to cystostomy (principal); N31.9 Neuromuscular dysfunction of bladder, unspecified | CPT/HCPCS: 51705 ==

== ENCOUNTER 2022-02-05 13:06 | Inpatient (IN) | payer MEDICARE, SELFPAY ==
--- NOTE | ~2022-02-05 | CT_ITS ---
EXAMINATION: CT ABDOMEN AND PELVIS WITHOUT CONTRAST CLINICAL INFORMATION: Bacteremia COMPARISON: May 2016 TECHNIQUE: Multidetector volumetric imaging was performed from the superior aspect of the liver through the pubic symphysis. Sagittal and coronal reformatted images were obtained on the technologist's workstation. This CT examination was performed using dose optimization techniques as appropriate, variously including the following: *Automated exposure control *Adjustment of mA and/or kV according to patient size (this includes techniques or standardized protocols for targeted exams where dose is matched to indication/reason for exam; i.e. extremities or head) *Use of iterative reconstruction technique DLP: 714 mGy-cm FINDINGS: LUNG BASES: There is small bilateral pleural effusion and bibasilar atelectasis. There is small pericardial effusion stable since previous study. LIVER, GALLBLADDER, AND BILIARY TREE: The liver is normal in size, shape, and attenuation. No focal hepatic lesion or biliary ductal dilatation is present. Multiple high attenuation foci seen in the gallbladder most likely combination of calculi and sludge. CBD is not dilated. PANCREAS: There is mild peripancreatic stranding surrounding pancreatic head most likely extending from the stomach and duodenum, and less likely due to groove pancreatitis. SPLEEN: Spleen is enlarged measured 13.4 cm. Small splenules are seen adjacent to the upper pole of the spleen. ADRENAL GLANDS: Unremarkable. KIDNEYS AND URETERS: There are bilateral calculi seen in the parenchyma of both kidneys as well as prominence of collecting system of both kidneys. Ureters are not dilated. Revealed no evidence of urolithiasis. BLADDER: Bladder is circumferentially irregular multicystic with suprapubic catheter present the bladder is decompressed. GASTROINTESTINAL TRACT: There is small hiatal hernia. Stomach is distended by fluid and gas there is. Gastric and. Duodenal mesenteric stranding. Duodenum is dilated. No evidence of diverticulitis. Appendix not visualized. Loops of small bowel are unremarkable. ABDOMINAL WALL: No significant hernia is appreciated. LYMPH NODES: There are small retroperitoneal lymph nodes seen bilaterally as well as mesenteric lymph nodes adjacent to the stomach and pancreatic head. The largest retroperitoneal lymph node the largest mesenteric lymph node measured 14 mm on image 36 series 4 VASCULAR: Aorta is tortuous calcified but not dilated. PELVIC VISCERA: Unremarkable. OSSEOUS STRUCTURES: There are mild multilevel degenerative changes and levoscoliosis. There is narrowing cough L-3, L3-L4, L4-L5 intervertebral disc spaces with vacuum phenomenon. CT/CT abdomen pelvis wo con IMPRESSION: Cholelithiasis. Most likely gastroduodenitis, pancreatitis couldn't be excluded. Scattered mesenteric and retroperitoneal lymphadenopathy. Nephrolithiasis without hydronephrosis. Suprapubic catheter. There is no significant wall urinary bladder. Fleischner guidelines were followed.
--- NOTE | ~2022-02-05 | XR_ITS ---
EXAMINATION: XR CHEST CLINICAL INFORMATION: Shortness of breath COMPARISON: 02/05/2022. TECHNIQUE: Frontal view of the chest was obtained. FINDINGS: Multiple external artifacts overlie the thorax. The heart size is normal. Moderate aortic calcific atherosclerosis noted. Mild blunting of left costophrenic sulcus is present. No pneumothoraces. Mild diffuse pulmonary vascular indistinctness and peribronchial wall thickening is identified. No focal pulmonary consolidation. Left axillary vascular stents are noted. XR/XR chest 1V IMPRESSION: *Findings suspicious for mild pulmonary edema and small left pleural effusion. Findings are new compared with 02/05/2022.
--- NOTE | ~2022-02-05 | XR_ITS ---
EXAMINATION: XR CHEST CLINICAL INFORMATION: SOB. COMPARISON: Chest x-ray 02/07/2022 TECHNIQUE: 2 views of the chest were obtained. FINDINGS: The lungs are well-expanded and clear of acute process. Minimal blunting of left CP angle likely small pleural effusion The heart size is enlarged. The pulmonary vascularity is normal. There is mild spondylosis dorsal spine. XR/XR chest 2V IMPRESSION: There is no evidence of pulmonary edema at this time. Mild improvement of left pleural effusion. No acute pneumonic process.
--- NOTE | ~2022-02-05 | XR_ITS ---
EXAMINATION: XR CHEST CLINICAL INFORMATION: Shortness of breath COMPARISON: Previous chest x-ray most recent October 2020 TECHNIQUE: Frontal view of the chest was obtained. FINDINGS: The cardiac silhouette is enlarged but stable. Hilar and mediastinal contours are unremarkable. The lungs are clear. There is no pleural effusion or pneumothorax. There are stents in the left upper arm and axilla. There are degenerative changes of the spine. XR/XR chest 1V IMPRESSION: Stable enlargement of the cardiac silhouette. No evidence for acute disease in the chest.
[2022-02-05 13:17] VITALS: BP 175/100; BP 193/99; PULSE 115; PULSE 121; RESP 18; TEMP 35.6; O2SAT 98; BMI 27.3
--- NOTE | 2022-02-05 13:40 | ECG_ITS ---
Test Reason : DIZZINESS Blood Pressure : / mmHG Vent. Rate : 122 BPM Atrial Rate : 122 BPM P-R Int : 156 ms QRS Dur : 092 ms QT Int : 324 ms P-R-T Axes : 054 -27 093 degrees QTc Int : 461 ms Sinus tachycardia Left ventricular hypertrophy with repolarization abnormality ( R in aVL , [place] product ) Abnormal ECG When compared with ECG of 23-NOV-2020 14:45, Vent. rate has increased Non-specific change in ST segment in Inferior leads ST now depressed in Lateral leads T wave inversion no longer evident in Inferior leads T wave inversion now evident in Lateral leads Referred By: Sofia Gerber Electronically Signed By:IVAN BANDA MD
[2022-02-05 13:55] LABS: Basophils Percent Auto 0.1 % (0-2); Hemoglobin 12.8 g/dl (14.0-18.0); Imm Gran Abs Auto 0.12 X10*3/uL (0.00-0.03); Imm Gran Pct Auto 0.8 % (0.0-0.4); Lymphocytes Absolute Auto 0.5 X10*3/uL (1.2-4.9); Lymphocytes Percent Auto 2.9 % (20-40); MANUAL DIFF FLAG SCAN; Mean Corpuscular HGB Conc 32.8 g/dl (31.0-36.0); Mean Corpuscular Hemoglobin 29.2 pg (27.0-33.0); Mean Corpuscular Volume 88.8 fL (80.0-98.0); Mean Platelet Volume 11.7 fL (9.4-12.4); Monocytes Absolute Auto 0.5 X10*3/uL (0.1-1.2); Monocytes Percent Auto 3.2 % (2-11); Neutrophils Absolute Auto 14.8 x10*3/uL (2.0-8.3); Platelet Count 123 X10*3/uL (160-400); Red Blood Count 4.39 X10*6/uL (4.60-5.80); Red Cell Distribution Width 14.2 % (11.0-16.0); SCAN SMEAR FLAG 1; White Blood Count 15.9 X10*3/uL (4.8-10.8)
--- NOTE | 2022-02-05 14:01 | ED_ITS ---
HPI - Weakness General Chief complaint: Weakness Stated complaint: found on floor x4 days Time Seen by Provider: 02/05/22 13:14 Source: patient and EMS Mode of arrival: EMS Limitations: no limitations History of Present Illness HPI Narrative: 71-year-old male with a history end-stage renal disease on dialysis (M,W,F), coronary artery disease, hypertension, chronic suprapubic tube, diabetes here with reports of generalized weakness. Patient tells me he had dialysis last on Tuesday. Tuesday evening and started to have some nausea and vomiting with generalized weakness. Tuesday morning he woke up and felt like he had flu-like symptoms. he did a home COVID test that was positive. He is vaccinated for COVID. he did previously have COVID 11/24/2020. patient tells me that he woke up Tuesday evening after taking a nap and decided to sit in his recliner. When he tried to get up both of his legs felt very weak and he slid down landing on his buttocks. There was no hitting of the head or loss of consciousness. He tells me since late Tuesday he has been an able to get up on his own. He missed dialysis Tuesday and today. EMS was called for well check and found patient on the floor. Patient is complaining of some chills but has no other complaints. Related Data Home Medications Medication Instructions Recorded Confirmed torsemide 20 mg tablet 40 mg PO DAILY 07/14/21 02/05/22 warfarin 6 mg tablet 6 mg PO DAILY 07/14/21 02/05/22 losartan 50 mg tablet 50 mg PO DAILY 12/17/21 02/05/22 amlodipine 10 mg tablet 1 tab PO BEDTIME 02/05/22 02/05/22 carvedilol 25 mg tablet 1 tab PO BID 02/05/22 02/05/22 Allergies Allergy/AdvReac Type Severity Reaction Status Date / Time morphine [MORPHINE] Allergy Severe NAUSEA & Verified 12/17/21 14:44 VOMITING, vomiting, nausea and vomiting dust Allergy Mild Dry Eye Uncoded 12/17/21 14:44 cat Allergy Unknown Dry Eye Uncoded 12/17/21 14:44 Review of Systems Review of Systems: Yes all other systems are reviewed and are negative Constitutional: Constitutional: Reports no additional constitutional complaints, Denies body ache(s), Reports chills, Denies fever(s), Denies heada valdemar(s) and Reports weakness Eyes: Eyes: Reports no additional eye complaints and Denies change in vision ENT: Reports system reviewed and no additional complaints, except as documented, Denies dizziness, Denies headache(s), Denies nasal congestion, Denies nasal discharge and Denies neck pain Cardiovascular: Cardiovascular: Reports no additional cardiovascular complaints, Denies chest pain, Denies leg edema and Denies dyspnea Respiratory: Respiratory: Reports no additional respiratory complaints, Denies cough and Denies dyspnea Gastrointestinal: Gastrointestinal: Reports no additional gastrointestinal complaints, Denies abdominal pain, Denies diarrhea, Denies nausea and Denies vomiting Genitourinary: Genitourinary: Denies urinary incontinence Musculoskeletal: Musculoskeletal: Reports no additional musculoskeletal complaints, Denies back pain, Denies arthralgias, Denies joint swelling, Denies neck pain, Denies numbness and Denies tingling Integumentary/Breasts: Skin/Breast: Reports system reviewed and no additional complaints, except as docu and Denies rash Neurologic: Reports system reviewed and no additional complaints, except as documented, Denies Abnormal speech present, Denies dizziness, Denies headache(s), Denies numbness, Denies tingling and Reports weakness PMFSH Past Medical History Attestation statement: The following information was validated with the patient. Source: old records reviewed and nursing notes reviewed Medical History (Updated 02/05/22 @ 19:17 by Sofia Gerber NP) CAD (coronary artery disease) CVA (cerebral vascular accident) Diabetes mellitus HTN (hypertension) with goal to be determined Hyperlipidemia Multiple sclerosis Surgical History H/O cystostomy History of back surgery Social History Social History Household Members: None Housing: Condominium Alcohol intake: former Second Hand Smoke Exposure: No Advance Directives: No Advance Directives Information Provided: No service: No Current occupational status: retired Physical Exam Vital Signs: Vital Signs: Last Vital Signs Temp 101.3 F H 02/05/22 18:00 Pulse 85 02/05/22 18:45 Resp 21 H 02/05/22 18:45 BP 100/56 L 02/05/22 18:45 Pulse Ox 97 03/11/22 18:45 BMI result Body Mass Index 27.3 Const: Other: patient unkept, clothes are saturated in urine General: ill appearing Orientation/consciousness: patient oriented x3 Limitations: no limitations HENMT: Other: Tacky mucous membranes Head: Yes normal to inspection Ears: hearing grossly normal bilaterally General nose exam: Normal external nose present Face and sinus: Yes normal facial exam Eyes: General: appearance normal, both eyes and all related structures Pupils: Equal, round and reactive pupils present Neck: Neck: Yes normal visual inspection, Yes full ROM, Yes no lymphadenopathy and Yes no meningeal signs Chest: Chest palpation & inspection: normal inspection of the chest Resp: Other: tachypnea with a rate of 28, diminished breath sounds throughout Cardio: Rate: tachycardic ( tachycardia 123) Rhythm: regular rhythm Peripheral pulses: Peripheral pulses 2+ throughout GI: Inspection: Yes normal to inspection Palpation (GI): Soft to palpation and nontender Auscultation: normal bowel sounds : Other: suprapubic catheter noted General: Yes no CVA tenderness Penis: normal penis Back/Spine/Pelvis: Other: non blanchable erythema to the coccyx and buttocks Back: no CVA tenderness Thoracic/Lumbar Spine: thoracic and lumbar spine normal to inspection Neuro: Other: patient is diffusely weak x all four extremities General: patient oriented x3, moves all extremities, no meningeal signs, no focal motor deficits, normal sensation to monofilament and Unable to assess gait Cranial nerves: Yes Equa l, round and reactive pupils present, Yes Normal facial strength present and Yes Midline tongue present Cognition (Neuro): normal cognition Speech: No Abnormal speech present Gait exam (Neuro): Unable to assess gait Extrem: General: Yes normal to inspection, Yes no pedal edema and Yes no calf tenderness Course Course Course Narrative: 71-year-old male with a history of end-stage renal failure on dialysis here after slipping out of his recliner on Tuesday evening with inability to get up independently since then subsequently missing to dialysis session. home COVID t est on Tuesday was positive. On arrival the patient is unkept, ill-appearing, tachypneic, tachycardic at this time assumed to be from viral infection. Blood pressure is stable. Oxygen is stable. Will check labs, COVID test, CXR, UA. 1500- COVID screen is negative. Will send flu, RSV, COVID testing, labs show leukocytosis. Labs also show chronic kidney disease but normal potassium. Anticipate that patient will need dialysis. Elevated troponin with no EKG changes or chest pain. Likely secondary to elevated creatinine. 1715- spoke to Dr. Crowell about the patient as I anticipate he will need dialysis during this admission. 1730- UA is consistent with UTI. At this time infection is suspected. Antibiotics ordered. 1820-Bp 89/45. Alert and Oriented. This is due to dehydration and not infection. Discussed case with Dr. Mejia who will admit the patient MDM - Weakness MDM Narrative Medical decision making narrative: acute on chronic renal failure Differential Diagnosis Differential diagnosis: Likely UTI, anemia, hypoglycemia, rhabdomyolysis, sepsis and dehydration Medical Records Attestation: I reviewed the patient's medical records. Lab Data Attestation: I reviewed the patient's lab results. Result diagrams: 02/05/22 13:43 02/05/22 14:58 Labs: Lab Results 02/05/22 02/05/22 02/05/22 Range/Units 13:40 13:43 13:43 WBC 15.9 H (4.8-10.8) X10*3/uL RBC 4.39 L (4.60-5.80) X10*6/uL Hgb 12.8 L (14.0-18.0) g/dl Hct 39.0 L (42.0-52.0) % MCV 88.8 (80.0-98.0) fL MCH 29.2 (27.0-33.0) pg MCHC 32.8 (31.0-36.0) g/dl RDW 14.2 (11.0-16.0) % Plt Count 123 L (160-400) X10*3/uL MPV 11.7 (9.4-12.4) fL Immature Gran % (Auto) 0.8 H (0.0-0.4) % Neut % (Auto) 93.0 H (45-73) % Lymph % (Auto) 2.9 L (20-40) % Barron % (Auto) 3.2 (2-11) % Eos % (Auto) 0.0 (0-4) % Baso % (Auto) 0.1 (0-2) % Lymph # (Auto) 0.5 L (1.2-4.9) X10*3/uL Barron # (Auto) 0.5 (0.1-1.2) X10*3/uL Eos # (Auto) 0.0 (0.0-0.4) X10*3/uL Baso # (Auto) 0.0 (0.0-0.2) X10*3/uL Abs Immat Gran (auto) 0.12 H (0.00-0.03) X10*3/uL Absolute Neuts (auto) 14.8 H (2.0-8.3) x10*3/uL Absolute Nucleated RBC 0.000 (0.0-0.012) X10*3/uL Nucleated RBC % (auto) 0.0 (0.0-0.2) /100WBC Smear Tech's Comments VERIFIED PT (9.9-13.0) SEC INR (0.9-1.1) Sodium (135-145) mmol/L Potassium (3.3-5.1) mmol/L Chloride (96-108) mmol/L Carbon Dioxide (22-29) mmol/L Anion Gap (12-20) BUN (9-16) mg/dL Creatinine (0.5-1.4) mg/dL Estim Creat Clear Calc Estimated GFR Random Glucose (60-115) mg/dL Lactic Acid 2.8 H* (0.5-2.0) mmol/L Lactic Acid F/U @ 2Hr (0.5-2.0) mmol/L Calcium (8.4-10.2) mg/dL Magnesium (1.6-2.6) mg/dL Total Bilirubin (0.0-1.0) mg/dL Direct Bilirubin (0.0-0.5) mg/dL AST (5-37) U/L ALT (0-40) U/L Alkaline Phosphatase (39-117) U/L Total Creatine Kinase (38-174) U/L Troponin I High Sens (<3.5-35.0) ng/L Total Protein (6.5-8.0) g/dL Albumin (3.5-5.0) g/dL Urine Color Urine Appearance Urine pH (5.0-8.0) Ur Specific [place] (1.005-1.025) Urine Protein (NEG-TRACE) MG/DL Urine Glucose (UA) (NEG) MG/DL Urine Ketones (NEG) MG/DL Urine Blood (NEG) Urine Nitrite (NEG) Ur Leukocyte Esterase (NEG) Urine RBC (0) /HPF Urine WBC (0-4) /HPF Ur Squamous Epith Cells /LPF Amorphous Sediment /LPF Urine Bacteria /LPF COVID-19 (STACI) Negative (Negative) COVID-19 Clin Com See Note Influenza Type A (PCR) (Negative) Influenza Type B (PCR) (Negative) RSV RNA Qual (PCR) (Negative) SARS-CoV-2 RNA (RT-PCR) (Negative) 02/05/22 02/05/22 02/05/22 Range/Units 13:43 13:43 14:58 WBC (4.8-10.8) X10*3/uL RBC (4.60-5.80) X10*6/uL Hgb (14.0-18.0) g/dl Hct (42.0-52.0) % MCV (80.0-98.0) fL MCH (27.0-33.0) pg MCHC (31.0-36.0) g/dl RDW (11.0-16.0) % Plt Count (160-400) X10*3/uL MPV (9.4-12.4) fL Immature Gran % (Auto) (0.0-0.4) % Neut % (Auto) (45-73) % Lymph % (Auto) (20-40) % Barron % (Auto) (2-11) % Eos % (Auto) (0-4) % Baso % (Auto) (0-2) % Lymph # (Auto) (1.2-4.9) X10*3/uL Barron # (Auto) (0.1-1.2) X10*3/uL Eos # (Auto) (0.0-0.4) X10*3/uL Baso # (Auto) (0.0-0.2) X10*3/uL Abs Immat Gran (auto) (0.00-0.03) X10*3/uL Absolute Neuts (auto) (2.0-8.3) x10*3/uL Absolute Nucleated RBC (0.0-0.012) X10*3/uL Nucleated RBC % (auto) (0.0-0.2) /100WBC Smear Tech's Comments PT 16.8 H (9.9-13.0) SEC INR 1.5 H (0.9-1.1) Sodium 138 (135-145) mmol/L Potassium 4.8 (3.3-5.1) mmol/L Chloride 95 L (96-108) mmol/L Carbon Dioxide 17 L (22-29) mmol/L Anion Gap 31 H (12-20) BUN 124 H (9-16) mg/dL Creatinine 12.49 H* (0.5-1.4) mg/dL Estim Creat Clear Calc 5.6 Estimated GFR 4 Random Glucose 260 H (60-115) mg/dL Lactic Acid (0.5-2.0) mmol/L Lactic Acid F/U @ 2Hr (0.5-2.0) mmol/L Calcium 10.5 H D (8.4-10.2) mg/dL Magnesium 2.5 (1.6-2.6) mg/dL Total Bilirubin 1.1 H (0.0-1.0) mg/dL Direct Bilirubin 0.5 (0.0-0.5) mg/dL AST 55 H (5-37) U/L ALT 49 H (0-40) U/L Alkaline Phosphatase 150 H D (39-117) U/L Total Creatine Kinase 1263 H (38-174) U/L Troponin I High Sens 247.0 H* (<3.5-35.0) ng/L Total Protein 8.0 (6.5-8.0) g/dL Albumin 4.4 (3.5-5.0) g/dL Urine Color Urine Appearance Urine pH (5.0-8.0) Ur Specific [place] (1.005-1.025) Urine Protein (NEG-TRACE) MG/DL Urine Glucose (UA) (NEG) MG/DL Urine Ketones (NEG) MG/DL Urine Blood (NEG) Urine Nitrite (NEG) Ur Leukocyte Esterase (NEG) Urine RBC (0) /HPF Urine WBC (0-4) /HPF Ur Squamous Epith Cells /LPF Amorphous Sediment /LPF Urine Bacteria /LPF COVID-19 ([facility]I) (Negative) COVID-19 [facility] Influenza Type A (PCR) (Negative) Influenza Type B (PCR) (Negative) RSV RNA Qual (PCR) (Negative) SARS-CoV-2 RNA (RT-PCR) (Negative) 02/05/22 02/05/22 02/05/22 Range/Units 14:58 16:46 18:11 WBC (4.8-10.8) X10*3/uL RBC (4.60-5.80) X10*6/uL Hgb (14.0-18.0) g/dl Hct (42.0-52.0) % MCV (80.0-98.0) fL MCH (27.0-33.0) pg MCHC (31.0-36.0) g/dl RDW (11.0-16.0) % Plt Count (160-400) X10*3/uL MPV (9.4-12.4) fL Immature Gran % (Auto) (0.0-0.4) % Neut % (Auto) (45-73) % Lymph % (Auto) (20-40) % Barron % (Auto) (2-11) % Eos % (Auto) (0-4) % Baso % (Auto) (0-2) % Lymph # (Auto) (1.2-4.9) X10*3/uL Barron # (Auto) (0.1-1.2) X10*3/uL Eos # (Auto) (0.0-0.4) X10*3/uL Baso # (Auto) (0.0-0.2) X10*3/uL Abs Immat Gran (auto) (0.00-0.03) X10*3/uL Absolute Neuts (auto) (2.0-8.3) x10*3/uL Absolute Nucleated RBC (0.0-0.012) X10*3/uL Nucleated RBC % (auto) (0.0-0.2) /100WBC Smear Tech's Comments PT (9.9-13.0) SEC INR (0.9-1.1) Sodium (135-145) mmol/L Potassium (3.3-5.1) mmol/L Chloride (96-108) mmol/L Carbon Dioxide (22-29) mmol/L Anion Gap (12-20) BUN (9-16) mg/dL Creatinine (0.5-1.4) mg/dL Estim Creat Clear Calc Estimated GFR Random Glucose (60-115) mg/dL Lactic Acid (0.5-2.0) mmol/L Lactic Acid F/U @ 2Hr 1.7 (0.5-2.0) mmol/L Calcium (8.4-10.2) mg/dL Magnesium (1.6-2.6) mg/dL Total Bilirubin (0.0-1.0) mg/dL Direct Bilirubin (0.0-0.5) mg/dL AST (5-37) U/L ALT (0-40) U/L Alkaline Phosphatase (39-117) U/L Total Creatine Kinase (38-174) U/L Troponin I High Sens (<3.5-35.0) ng/L Total Protein (6.5-8.0) g/dL Albumin (3.5-5.0) g/dL Urine Color YELLOW Urine Appearance CLOUDY Urine pH 6.0 (5.0-8.0) Ur Specific [place] 1.015 (1.005-1.025) Urine Protein 3+ H (NEG-TRACE) MG/DL Urine Glucose (UA) 500 H (NEG) MG/DL Urine Ketones 15 (NEG) MG/DL Urine Blood 3+ H (NEG) Urine Nitrite NEG (NEG) Ur Leukocyte Esterase 2+ H (NEG) Urine RBC 5-9 H (0) /HPF Urine WBC 15-29 H (0-4) /HPF Ur Squamous Epith Cells TRACE /LPF Amorphous Sediment 2+ /LPF Urine Bacteria 2+ /LPF COVID-19 (STACI) (Negative) COVID-19 Clin Com Influenza Type A (PCR) NEGATIVE (Negative) Influenza Type B (PCR) NEGATIVE (Negative) RSV RNA Qual (PCR) NEGATIVE (Negative) SARS-CoV-2 RNA (RT-PCR) NEGATIVE (Negative) 02/05/22 Range/Units 18:11 WBC (4.8-10.8) X10*3/uL RBC (4.60-5.80) X10*6/uL Hgb (14.0-18.0) g/dl Hct (42.0-52.0) % MCV (80.0-98.0) fL MCH (27.0-33.0) pg MCHC (31.0-36.0) g/dl RDW (11.0-16.0) % Plt Count (160-400) X10*3/uL MPV (9.4-12.4) fL Immature Gran % (Auto) (0.0-0.4) % Neut % (Auto) (45-73) % Lymph % (Auto) (20-40) % Barron % (Auto) (2-11) % Eos % (Auto) (0-4) % Baso % (Auto) (0-2) % Lymph # (Auto) (1.2-4.9) X10*3/uL [place] # (Auto) (0.1-1.2) X10*3/uL Eos # (Auto) (0.0-0.4) X10*3/uL Baso # (Auto) (0.0-0.2) X10*3/uL Abs Immat Gran (auto) (0.00-0.03) X10*3/uL Absolute Neuts (auto) (2.0-8.3) x10*3/uL Absolute Nucleated RBC (0.0-0.012) X10*3/uL Nucleated RBC % (auto) (0.0-0.2) /100WBC Smear Tech's Comments PT (9.9-13.0) SEC INR (0.9-1.1) Sodium (135-145) mmol/L Potassium (3.3-5.1) mmol/L Chloride (96-108) mmol/L Carbon Dioxide (22-29) mmol/L Anion Gap (12-20) BUN (9-16) mg/dL Creatinine (0.5-1.4) mg/dL Estim Creat Clear Calc Estimated GFR Random Glucose (60-115) mg/dL Lactic Acid (0.5-2.0) mmol/L Lactic Acid F/U @ 2Hr (0.5-2.0) mmol/L Calcium (8.4-10.2) mg/dL Magnesium (1.6-2.6) mg/dL Total Bilirubin (0.0-1.0) mg/dL Direct Bilirubin (0.0-0.5) mg/dL AST (5-37) U/L ALT (0-40) U/L Alkaline Phosphatase (39-117) U/L Total Creatine Kinase (38-174) U/L Troponin I High Sens 236.3 H* (<3.5-35.0) ng/L Total Protein (6.5-8.0) g/dL Albumin (3.5-5.0) g/dL Urine Color Urine Appearance Urine pH (5.0-8.0) Ur Specific [place] (1.005-1.025) Urine Protein (NEG-TRACE) MG/DL Urine Glucose (UA) (NEG) MG/DL Urine Ketones (NEG) MG/DL Urine Blood (NEG) Urine Nitrite (NEG) Ur Leukocyte Esterase (NEG) Urine RBC (0) /HPF Urine WBC (0-4) /HPF Ur Squamous Epith Cells /LPF Amorphous Sediment /LPF Urine Bacteria /LPF COVID-19 (STACI) (Negative) COVID-19 Clin Com Influenza Type A (PCR) (Negative) Influenza Type B (PCR) (Negative) RSV RNA Qual (PCR) (Negative) SARS-CoV-2 RNA (RT-PCR) (Negative) Imaging Data Chest x-ray: Attestation: I personally reviewed and interpreted this imaging study as follows: Radiologist's impression: [place] [id number] XRay Report Signed Patient: Wilfred Phillip MR#: [id number] : 1950 Acct:[id number] Age/Sex: 71 / M ADM Date: 02/05/22 Loc: .ED Attending Dr: Ordering Physician: Sofia Gerber NP Date of Service: 02/05/22 Procedure(s): XR chest 1V Accession Number(s): [id number] cc: Sofia Gerber NP~ EXAMINATION: XR CHEST CLINICAL INFORMATION: Shortness of breath COMPARISON: Previous chest x-ray most recent October 2020 TECHNIQUE: Frontal view of the chest was obtained. FINDINGS: The cardiac silhouette is enlarged but stable. Hilar and mediastinal contours are unremarkable. The lungs are clear. There is no pleural effusion or pneumothorax. There are stents in the left upper arm and axilla. There are degenerative changes of the spine. XR/XR chest 1V IMPRESSION: Stable enlargement of the cardiac silhouette. No evidence for acute disease in the chest. ? ECG Data Attestation: I personally reviewed and interpreted this ECG as follows: ECG interpretation date: 02/05/22 ECG interpretation time: 13:53 Interpretation: sinus tachycardia with a rate of 122, normal AL, normal QRS, normal QT Discharge Plan Discharge Clinical Impression: Acute UTI, Rhabdomyolysis, Febrile, Leukocytosis, [id number] renal failure Patient Disposition: Admitted As Inpatient
[2022-02-05 14:03] LABS: INTERNATIONAL NORM RATIO 1.5 (0.9-1.1); Prothrombin Time 16.8 SEC (9.9-13.0)
[2022-02-05 14:06] LABS: Lactic Acid 2.8 mmol/L (0.5-2.0)
[2022-02-05 14:07] LABS: COVID-19 Test Negative (Negative); IDNOW Serial# 16C4AD1C
--- NOTE | 2022-02-05 14:10 | PHA.MEDREC ---
Pharmacy Consult ? Medication Reconciliation Pharmacy has completed the medication reconciliation. Patient is a very poor historian. Not sure of medications, reports no one helps him at home. Reports on both carvedilol and metoprolol. Carvedilol has been most recently filled. Patient Alledgely takes 6 mg Warfarin daily. He is getting both 6 mg and 1 mg tablets filled. If admitted, will follow closely to INR. Gisella Bartlett, PadmajaD
[2022-02-05 14:21] LABS: SLIDE REVIEW VERIFIED
[2022-02-05 15:43] LABS: Alanine Aminotransferase 49 U/L (0-40); Albumin Level 4.4 g/dL (3.5-5.0); Alkaline Phosphatase 150 U/L (39-117); Anion Gap 31 (12-20); Aspartate Amino Transferase 55 U/L (5-37); Bilirubin Direct 0.5 mg/dL (0.0-0.5); Bilirubin Total 1.1 mg/dL (0.0-1.0); Blood Urea Nitrogen 124 mg/dL (9-16); Calcium 10.5 mg/dL (8.4-10.2); Carbon Dioxide 17 mmol/L (22-29); Chloride 95 mmol/L (96-108); Creatinine Clr Calc Pharmacy 5.6; Estimated Glomerular Filt Rate 4; Glucose Random 260 mg/dL (60-115); Magnesium 2.5 mg/dL (1.6-2.6); Potassium 4.8 mmol/L (3.3-5.1); Sodium 138 mmol/L (135-145)
[2022-02-05 15:45] VITALS: BP 154/83; PULSE 112; RESP 22; TEMP 39.4; O2SAT 98
[2022-02-05 15:48] LABS: Reflex Lactate? Lactic Acid Added
[2022-02-05 15:54] LABS: Influenza A PCR NEGATIVE (Negative); Influenza B PCR NEGATIVE (Negative); Resp Syncy Virus RNA Qual PCR NEGATIVE (Negative); SARS COV2 PCR INHOUSE NEGATIVE (Negative)
[2022-02-05] MEDS: Acetaminophen 325 MG TABLET 975 MG PO (15:57)
[2022-02-05 17:00] LABS: Appearance Urine CLOUDY; Color Urine YELLOW; Glucose Urine UA 500 MG/DL (NEG); Leukocyte Esterase Urine 2+ (NEG); Nitrite Urine NEG (NEG); Specific Gravity - Urine 1.015 (1.005-1.025); UACC Culture Trigger YES; Urine Blood 3+ (NEG); Urine Ketones 15 MG/DL (NEG); Urine Protein 3+ MG/DL (NEG-TRACE)
[2022-02-05 17:20] LABS: Amorphous Sediment Urine 2+ /LPF; Squamous Epithelial Cell Urine TRACE /LPF
[2022-02-05 17:21] LABS: Bacteria Urine 2+ /LPF
[2022-02-05 18:00] VITALS: BP 89/45; PULSE 97; RESP 21; TEMP 38.5; O2SAT 95
[2022-02-05] MEDS: cefTRIAXone sodium 1 GM in 0.9 % Sodium Chloride 50 ML IV (18:01)
[2022-02-05] MEDS: 0.9 % Sodium Chloride 500 ML 999 ML IV (18:21)
[2022-02-05 18:34] LABS: ~Lactic Acid-LAB USE ONLY 1.7 mmol/L (0.5-2.0)
[2022-02-05 18:45] VITALS: BP 100/56; PULSE 85; RESP 21; O2SAT 97
[2022-02-05 18:48] LABS: Troponin-I High Sensitivity 236.3 ng/L (<3.5-35.0)
--- NOTE | 2022-02-05 18:57 | PM.IMHP ---
History of Present Illness Date of Service: 02/05/22 Chief Complaint: fever 71-year-old male with a history? end-stage renal disease on dialysis (M,W,F),? coronary artery disease, hypertension,? chronic suprapubic tube,? diabetes? here with reports of generalized weakness. ? Patient tells me he had dialysis last on Tuesday.? Tuesday evening and started to have some nausea and vomiting with generalized weakness.? Tuesday morning he woke up and felt like he had flu-like symptoms.? he did a home COVID test that was positive. ? He is vaccinated for COVID.? he did previously have COVID 11/24/2020.? patient tells me that he woke up Tuesday evening after taking a nap and decided to sit in his recliner.? When he tried to get up both of his legs felt very weak and he slid down landing on his buttocks.? There was no hitting of the head or loss of consciousness.? He tells me since late Tuesday he has been an able to get up on his own.? He missed dialysis Tuesday and today.? EMS was called for well check and found patient on the floor. ? Patient is complaining of some chills but has no other complaints. Review of Systems Review of Systems: Denies chest pain Denies shortness of breath Denies nausea vomiting diarrhea Admits fever and chills [facility] Medical History (Updated 02/05/22 @ 19:02 by Jimmy Mejia DO) CAD (coronary artery disease) CVA (cerebral vascular accident) Diabetes mellitus HTN (hypertension) with goal to be determined Hyperlipidemia Multiple sclerosis Surgical History H/O cystostomy History of back surgery Social History Household Members: None Housing: Condominium Alcohol intake: former Second Hand Smoke Exposure: No Advance Directives: No Advance Directives Information Provided: No service: No Current occupational status: retired Meds Allergies Allergy/AdvReac Type Severity Reaction Status Date / Time morphine [MORPHINE] Allergy Severe NAUSEA & Verified 12/17/21 14:44 VOMITING, vomiting, nausea and vomiting dust Allergy Mild Dry Eye Uncoded 12/17/21 14:44 cat Allergy Unknown Dry Eye Uncoded 12/17/21 14:44 Active Medications: Current Medications Heparin Sodium (Porcine) (Heparin Sodium,Porcine 5,000 Unit/Ml Vial) 5,000 unit SUBCUT Q12H [facility] Ceftriaxone Sodium 1 gm/ (Sodium Chloride) 50 mls @ 100 mls/hr IV Q24H [facility] Pharmacy Consult (Consult Rx Perform Med Rec) 1 each MISCELLANE ONCE PRN PRN Reason: Consult order Sodium Chloride (0.9 % Sodium Chloride Flush 3 Ml Syringe) 3 ml IVFLUSH QSHIFT [facility] Home Medications Medication Instructions Recorded Confirmed Last Taken Type torsemide 20 mg tablet 40 mg PO DAILY 07/14/21 02/05/22 Unknown History warfarin 6 mg tablet 6 mg PO DAILY 07/14/21 02/05/22 Unknown History losartan 50 mg tablet 50 mg PO DAILY 12/17/21 02/05/22 Unknown History amlodipine 10 mg tablet 1 tab PO BEDTIME 02/05/22 02/05/22 Unknown History carvedilol 25 mg tablet 1 tab PO BID 02/05/22 02/05/22 Unknown History Physical Exam Vital Signs and Narrative: Vital Signs: Last Vital Signs Temp 101.3 F H 02/05/22 18:00 Pulse 97 02/05/22 18:00 Resp 21 H 02/05/22 18:00 BP 89/45 L 02/05/22 18:00 Pulse Ox 95 02/05/22 18:00 BMI result Body Mass Index 27.3 Const: Other: Awake alert oriented x3 no acute distress HENMT: Other: Membranes dry Resp: Other: Clear to auscultation bilaterally no rales rhonchi or wheezes Cardio: Other: No S4; positive S1-S2; no S3 murmurs rubs gallops GI: Other: Soft nontender nondistended with normoactive bowel sounds Neuro: Other: Cranial nerves 2-12 grossly intact as tested. Motor is 5/5 in all extremities. Sensation intact. Cognition appropriate Extrem: Other: No edema bilaterally Results Labs CBC and Chem 7: 02/05/22 13:43 02/05/22 14:58 Labs: Laboratory Results - last 24 hr 02/05/22 02/05/22 02/05/22 13:40 13:43 13:43 MCV 88.8 MCH 29.2 MCHC 32.8 RDW 14.2 Plt Count 123 L MPV 11.7 Immature Gran % (Auto) 0.8 H Neut % (Auto) 93.0 H Lymph % (Auto) 2.9 L [place] % (Auto) 3.2 Eos % (Auto) 0.0 Baso % (Auto) 0.1 Lymph # (Auto) 0.5 L [place] # (Auto) 0.5 Eos # (Auto) 0.0 Baso # (Auto) 0.0 Abs Immat Gran (auto) 0.12 H Absolute Neuts (auto) 14.8 H Absolute Nucleated RBC 0.000 Nucleated RBC % (auto) 0.0 Smear Tech's Comments VERIFIED PT INR Anion Gap Estim Creat Clear Calc Estimated GFR Random Glucose Lactic Acid 2.8 H* Lactic Acid F/U @ 2Hr Calcium Magnesium Total Bilirubin Direct Bilirubin AST ALT Alkaline Phosphatase Total Creatine Kinase Total Protein Albumin Urine Color Urine Appearance Urine pH Ur Specific [place] Urine Protein Urine Glucose (UA) Urine Ketones Urine Blood Urine Nitrite Ur Leukocyte Esterase Urine RBC Urine WBC Ur Squamous Epith Cells Amorphous Sediment Urine Bacteria COVID-19 (STACI) Negative COVID-19 Clin Com See Note Influenza Type A (PCR) Influenza Type B (PCR) RSV RNA Qual (PCR) SARS-CoV-2 RNA (RT-PCR) 02/05/22 02/05/22 02/05/22 13:43 14:58 14:58 MCV MCH MCHC RDW Plt Count MPV Immature Gran % (Auto) Neut % (Auto) Lymph % (Auto) [place] % (Auto) Eos % (Auto) Baso % (Auto) Lymph # (Auto) [place] # (Auto) Eos # (Auto) Baso # (Auto) Abs Immat Gran (auto) Absolute Neuts (auto) Absolute Nucleated RBC Nucleated RBC % (auto) Smear Tech's Comments PT 16.8 H INR 1.5 H Anion Gap 31 H Estim Creat Clear Calc 5.6 Estimated GFR 4 Random Glucose 260 H Lactic Acid Lactic Acid F/U @ 2Hr Calcium 10.5 H D Magnesium 2.5 Total Bilirubin 1.1 H Direct Bilirubin 0.5 AST 55 H ALT 49 H Alkaline Phosphatase 150 H D Total Creatine Kinase 1263 H Total Protein 8.0 Albumin 4.4 Urine Color Urine Appearance Urine pH Ur Specific [place] Urine Protein Urine Glucose (UA) Urine Ketones Urine Blood Urine Nitrite Ur Leukocyte Esterase Urine RBC Urine WBC Ur Squamous Epith Cells Amorphous Sediment Urine Bacteria COVID-19 (STACI) COVID-19 Clin Com Influenza Type A (PCR) NEGATIVE Influenza Type B (PCR) NEGATIVE RSV RNA Qual (PCR) NEGATIVE SARS-CoV-2 RNA (RT-PCR) NEGATIVE 02/05/22 02/05/22 16:46 18:11 MCV MCH MCHC RDW Plt Count MPV Immature Gran % (Auto) Neut % (Auto) Lymph % (Auto) [place] % (Auto) Eos % (Auto) Baso % (Auto) Lymph # (Auto) [place] # (Auto) Eos # (Auto) Baso # (Auto) Abs Immat Gran (auto) Absolute Neuts (auto) Absolute Nucleated RBC Nucleated RBC % (auto) Smear Tech's Comments PT INR Anion Gap Estim Creat Clear Calc Estimated GFR Random Glucose Lactic Acid Lactic Acid F/U @ 2Hr 1.7 Calcium Magnesium Total Bilirubin Direct Bilirubin AST ALT Alkaline Phosphatase Total Creatine Kinase Total Protein Albumin Urine Color YELLOW Urine Appearance CLOUDY Urine pH 6.0 Ur Specific [place] 1.015 Urine Protein 3+ H Urine Glucose (UA) 500 H Urine Ketones 15 Urine Blood 3+ H Urine Nitrite NEG Ur Leukocyte Esterase 2+ H Urine RBC 5-9 H Urine WBC 15-29 H Ur Squamous Epith Cells TRACE Amorphous Sediment 2+ Urine Bacteria 2+ COVID-19 (STACI) COVID-19 Clin Com Influenza Type A (PCR) Influenza Type B (PCR) RSV RNA Qual (PCR) SARS-CoV-2 RNA (RT-PCR) Imaging Radiologist's Impressions: Impressions Chest X-Ray 02/05/22 14:15 IMPRESSION: Stable enlargement of the cardiac silhouette. No evidence for acute disease in the chest. Assessment and Plan (1) Acute UTI: Status: Acute (2) Diabetes mellitus: Status: Acute (3) HTN (hypertension) with goal to be determined: Status: Acute (4) CAD (coronary artery disease): Status: Acute Plan 71-year-old male with end-stage renal disease in the backdrop of diabetes and coronary artery disease presents after falling out of his chair spending approximately 72 hours on the floor. He states his last dialysis was Tuesday and he has not eaten or drank anything of significance since that time. States police came to the house because of his missed dialysis. In the emergency room CK was fairly unremarkable at 1263; meets sepsis criteria with hypotension tachycardia for fever initial lactic acid 2.8. Urine with active sediment 1. UTI(meets sepsis criteria) -sepsis focused exam completed -fluids initially less than protocol secondary to ESRD/missed HD -Will cover with CTX pending cultures -Continue fluids 150/hr overnight(discussed with renal) 2. ESRD on [place] LINER -Renal to see in am and dialyze as indicated -follow renals/divalents 3.Rhabdomyolysis -no indication for alkalinization -IVF ..NSS overnight -follow CKS in am 4. DMII -Sliding scale until more stable intake 5. HTN/CAD -hold meds overnight and reassess in am - add back as clinically appropriate -recheck INR in am Full Code Heparin Hospitalization required giving urosepsis and need for IV antibiotics along with the need for urgent hemodialysis Quality Stroke Does the patient have a stroke diagnosis?: No VTE Prior VTE?: No VTE Risk Level:: Medical - moderate - high VTE Device Contraindication: Treatment Not Indicated VTE Drug Contraindication: N/A - Med Ordered
[2022-02-05 20:33] VITALS: BP 111/56; PULSE 84; RESP 22; O2SAT 99
[2022-02-05 21:30] VITALS: BP 132/70; PULSE 83; RESP 15; TEMP 37.3; O2SAT 99
[2022-02-05] MEDS: 0.9 % Sodium Chloride 1,000 ML 150 ML IVCONT (21:49)
[2022-02-05 22:07] LABS: Glucose, Whole Blood 246 mg/dL (60-115)
[2022-02-05] MEDS: Insulin Lispro 100 UNIT/ML 3 ML VIAL SUBCUT (22:29)
[2022-02-06] MEDS: vancomycin HCL 1,250 MG in 0.9 % Sodium Chloride 250 ML 166.67 MG IV (02:47)
--- NOTE | 2022-02-06 03:41 | PC.NURSE ---
CALL RECEIVED FROM MILKING MACHINE OPERATOR AT 0133 REPORTING PRELIMINARY BLOOD CULTURE RESULTS #1 OF 2 WITH GRAM POSITIVE COCCI. HOSPITALIST ON DUTY NOTIFIED AND SHE ORDERED IV VANCOMYCIN WHICH WAS ADMINISTERED AFTER ORDER CAME THRU PHARMACY/JAN. RECEIVED CALL AGAIN AT 0336 FROM LAB WITH REPORT THAT CULTURE #2 ALSO GRAM POSITIVE COCCI AND HOSPITALIST WAS UPDATED VIA TIGER TEXT.
[2022-02-06] MEDS: 0.9 % Sodium Chloride 1,000 ML 150 ML IVCONT ×3 (04:34→23:39)
[2022-02-06 04:49] VITALS: BP 151/77; PULSE 93; RESP 22; TEMP 37.7
[2022-02-06 05:52] VITALS: BP 144/73; PULSE 94; RESP 28; O2SAT 96
[2022-02-06 06:48] LABS: MANUAL DIFF FLAG NO
[2022-02-06 07:01] LABS: INTERNATIONAL NORM RATIO 1.6 (0.9-1.1); Prothrombin Time 18.7 SEC (9.9-13.0)
[2022-02-06 07:15] LABS: Alanine Aminotransferase 62 U/L (0-40); Albumin Level 3.7 g/dL (3.5-5.0); Alkaline Phosphatase 155 U/L (39-117); Anion Gap 27 (12-20); Aspartate Amino Transferase 63 U/L (5-37); Bilirubin Total 0.7 mg/dL (0.0-1.0); Calcium 9.7 mg/dL (8.4-10.2); Carbon Dioxide 14 mmol/L (22-29); Chloride 98 mmol/L (96-108); Creatinine Clr Calc Pharmacy 5.5; Estimated Glomerular Filt Rate 4; Glucose Fasting 266 mg/dL (60-99); Potassium 4.5 mmol/L (3.3-5.1); Sodium 134 mmol/L (135-145); Total Protein 6.9 g/dL (6.5-8.0)
[2022-02-06 07:21] LABS: Basophils Percent Auto 0.2 % (0-2); Eosinophils Percent Auto 0.1 % (0-4); Hematocrit 34.6 % (42.0-52.0); Hemoglobin 11.4 g/dl (14.0-18.0); Imm Gran Abs Auto 0.08 X10*3/uL (0.00-0.03); Imm Gran Pct Auto 0.6 % (0.0-0.4); Lymphocytes Absolute Auto 0.6 X10*3/uL (1.2-4.9); Lymphocytes Percent Auto 4.5 % (20-40); Mean Corpuscular HGB Conc 32.9 g/dl (31.0-36.0); Mean Corpuscular Hemoglobin 29.2 pg (27.0-33.0); Mean Corpuscular Volume 88.7 fL (80.0-98.0); Mean Platelet Volume 11.4 fL (9.4-12.4); Monocytes Absolute Auto 0.6 X10*3/uL (0.1-1.2); Neutrophils Absolute Auto 11.2 x10*3/uL (2.0-8.3); Neutrophils Percent Auto 89.6 % (45-73); Platelet Count 106 X10*3/uL (160-400); Red Cell Distribution Width 14.5 % (11.0-16.0); White Blood Count 12.5 X10*3/uL (4.8-10.8)
[2022-02-06 07:41] LABS: Blood Urea Nitrogen 131 mg/dL (9-16)
[2022-02-06 07:49] LABS: Troponin-I High Sensitivity 155.8 ng/L (<3.5-35.0)
[2022-02-06 08:02] VITALS: BP 133/74; PULSE 90; RESP 31; TEMP 37.4; O2SAT 95
[2022-02-06 08:02] LABS: Glucose, Whole Blood 227 mg/dL (60-115)
[2022-02-06] MEDS: Insulin Lispro 100 UNIT/ML 3 ML VIAL SUBCUT ×3 (08:27→20:55)
--- NOTE | 2022-02-06 11:55 | PC.NURSE ---
pt to dialysis.
--- NOTE | 2022-02-06 14:13 | PC.NURSE ---
pt still at dialysis. poc not done, fluids not done.
--- NOTE | 2022-02-06 15:26 | HO.PM.IMPN ---
Subjective Subjective Date of Service: 02/06/22 Review of Systems Denies chest pain Denies shortness of breath Denies nausea vomiting diarrhea Admits fever and chills Physical Exam Vital Signs: Vital Signs: Last Vital Signs Temp 99.3 F 02/06/22 08:02 Pulse 90 02/06/22 08:02 Resp 31 H 02/06/22 08:02 BP 133/74 02/06/22 08:02 Pulse Ox 95 02/06/22 08:02 BMI result Body Mass Index 27.3 Const: Other: Awake alert oriented x3 no acute distress HENMT: Other: Membranes dry Resp: Other: Clear to auscultation bilaterally no rales rhonchi or wheezes Cardio: Other: No S4; positive S1-S2; no S3 murmurs rubs gallops GI: Other: Soft nontender nondistended with normoactive bowel sounds Neuro: Other: Cranial nerves 2-12 grossly intact as tested. Motor is 5/5 in all extremities. Sensation intact. Cognition appropriate Extrem: Other: No edema bilaterally Objective Data Active Medications Ceftriaxone Sodium 1 gm/ (Sodium Chloride) 50 mls @ 100 mls/hr IV Q24H [facility] Sodium Chloride (Ns) 1,000 mls @ 150 mls/hr IVCONT .Q6H40M [facility] Last Infusion: 02/06/22 11:59 Dose: 0 mls/hr Documented by: JERI Vancomycin HCl 1,000 mg/ (Sodium Chloride) 270 mls @ 270 mls/hr IV MOWEFR@1645 [facility] Insulin Human Lispro (Insulin Lispro 100 Unit/Ml 3 Ml Vial) 0 unit SUBCUT QIDACHS [facility]; Protocol Last Admin: 02/06/22 08:27 Dose: 4 unit Documented by: JERI Pharmacy Consult (Consult Rx Perform Med Rec) 1 each MISCELLANE ONCE PRN PRN Reason: Consult order Pharmacy Consult (Consult Rx Vancomycin Dosing) 1 each MISCELLANE DAILY PRN PRN Reason: Consult order Sodium Chloride (0.9 % Sodium Chloride Flush 3 Ml Syringe) 3 ml IVFLUSH QSHIFT [facility] Last Admin: 02/06/22 07:55 Dose: Not Given Documented by: JERI Non-Admin Reason: IV Running Warfarin Sodium (Warfarin Sodium 6 Mg Tablet) 6 mg PO DAILY@1800 [facility] Labs CBC & Chem 7: 02/06/22 06:40 02/06/22 06:40 Labs: Laboratory Results - last 24 hr 02/05/22 02/05/22 02/05/22 14:58 14:58 16:46 MCV MCH MCHC RDW Plt Count MPV Immature Gran % (Auto) Neut % (Auto) Lymph % (Auto) [place] % (Auto) Eos % (Auto) Baso % (Auto) Lymph # (Auto) [place] # (Auto) Eos # (Auto) Baso # (Auto) Abs Immat Gran (auto) Absolute Neuts (auto) Absolute Nucleated RBC Nucleated RBC % (auto) PT INR Anion Gap 31 H Estim Creat Clear Calc 5.6 Estimated GFR 4 POC Glucose Random Glucose 260 H Fasting Glucose Lactic Acid F/U @ 2Hr Calcium 10.5 H D Magnesium 2.5 Total Bilirubin 1.1 H Direct Bilirubin 0.5 AST 55 H ALT 49 H Alkaline Phosphatase 150 H D Total Creatine Kinase 1263 H Total Protein 8.0 Albumin 4.4 Urine Color YELLOW Urine Appearance CLOUDY Urine pH 6.0 Ur Specific [place] 1.015 Urine Protein 3+ H Urine Glucose (UA) 500 H Urine Ketones 15 Urine Blood 3+ H Urine Nitrite NEG Ur Leukocyte Esterase 2+ H Urine RBC 5-9 H Urine WBC 15-29 H Ur Squamous Epith Cells TRACE Amorphous Sediment 2+ Urine Bacteria 2+ Influenza Type A (PCR) NEGATIVE Influenza Type B (PCR) NEGATIVE RSV RNA Qual (PCR) NEGATIVE SARS-CoV-2 RNA (RT-PCR) NEGATIVE 02/05/22 02/05/22 02/06/22 18:11 22:03 06:40 MCV MCH MCHC RDW Plt Count MPV Immature Gran % (Auto) Neut % (Auto) Lymph % (Auto) [place] % (Auto) Eos % (Auto) Baso % (Auto) Lymph # (Auto) [place] # (Auto) Eos # (Auto) Baso # (Auto) Abs Immat Gran (auto) Absolute Neuts (auto) Absolute Nucleated RBC Nucleated RBC % (auto) PT 18.7 H INR 1.6 H Anion Gap Estim Creat Clear Calc Estimated GFR POC Glucose 246 H Random Glucose Fasting Glucose Lactic Acid F/U @ 2Hr 1.7 Calcium Magnesium Total Bilirubin Direct Bilirubin AST ALT Alkaline Phosphatase Total Creatine Kinase Total Protein Albumin Urine Color Urine Appearance Urine pH Ur Specific [place] Urine Protein Urine Glucose (UA) Urine Ketones Urine Blood Urine Nitrite Ur Leukocyte Esterase Urine RBC Urine WBC Ur Squamous Epith Cells Amorphous Sediment Urine Bacteria Influenza Type A (PCR) Influenza Type B (PCR) RSV RNA Qual (PCR) SARS-CoV-2 RNA (RT-PCR) 02/06/22 02/06/22 02/06/22 06:40 06:40 06:40 MCV 88.7 MCH 29.2 MCHC 32.9 RDW 14.5 Plt Count 106 L MPV 11.4 Immature Gran % (Auto) 0.6 H Neut % (Auto) 89.6 H Lymph % (Auto) 4.5 L [place] % (Auto) 5.0 Eos % (Auto) 0.1 Baso % (Auto) 0.2 Lymph # (Auto) 0.6 L [place] # (Auto) 0.6 Eos # (Auto) 0.0 Baso # (Auto) 0.0 Abs Immat Gran (auto) 0.08 H Absolute Neuts (auto) 11.2 H Absolute Nucleated RBC 0.000 Nucleated RBC % (auto) 0.0 PT INR Anion Gap 27 H Estim Creat Clear Calc 5.5 Estimated GFR 4 POC Glucose Random Glucose Fasting Glucose 266 H Lactic Acid F/U @ 2Hr Calcium 9.7 D Magnesium Total Bilirubin 0.7 Direct Bilirubin AST 63 H ALT 62 H Alkaline Phosphatase 155 H Total Creatine Kinase 536 H D Total Protein 6.9 Albumin 3.7 Urine Color Urine Appearance Urine pH Ur Specific [place] Urine Protein Urine Glucose (UA) Urine Ketones Urine Blood Urine Nitrite Ur Leukocyte Esterase Urine RBC Urine WBC Ur Squamous Epith Cells Amorphous Sediment Urine Bacteria Influenza Type A (PCR) Influenza Type B (PCR) RSV RNA Qual (PCR) SARS-CoV-2 RNA (RT-PCR) 02/06/22 07:46 MCV MCH MCHC RDW Plt Count MPV Immature Gran % (Auto) Neut % (Auto) Lymph % (Auto) [place] % (Auto) Eos % (Auto) Baso % (Auto) Lymph # (Auto) [place] # (Auto) Eos # (Auto) Baso # (Auto) Abs Immat Gran (auto) Absolute Neuts (auto) Absolute Nucleated RBC Nucleated RBC % (auto) PT INR Anion Gap Estim Creat Clear Calc Estimated GFR POC Glucose 227 H Random Glucose Fasting Glucose Lactic Acid F/U @ 2Hr Calcium Magnesium Total Bilirubin Direct Bilirubin AST ALT Alkaline Phosphatase Total Creatine Kinase Total Protein Albumin Urine Color Urine Appearance Urine pH Ur Specific [place] Urine Protein Urine Glucose (UA) Urine Ketones Urine Blood Urine Nitrite Ur Leukocyte Esterase Urine RBC Urine WBC Ur Squamous Epith Cells Amorphous Sediment Urine Bacteria Influenza Type A (PCR) Influenza Type B (PCR) RSV RNA Qual (PCR) SARS-CoV-2 RNA (RT-PCR) Microbiology Microbiology Results: Microbiology 02/05/22 14:58 Blood Culture - Preliminary Blood - Venous Prelim: GPC Gram Stain only 02/05/22 13:43 Blood Culture - Preliminary Blood - Venous Prelim: GPC Gram Stain only Assessment and Plan (1) Acute pyelonephritis: Status: Acute (2) Rhabdomyolysis: Status: Acute (3) [id number] renal failure: Status: Acute (4) Diabetes mellitus: Status: Acute Plan 71-year-old male with end-stage renal disease in the backdrop of diabetes and coronary artery disease presents after falling out of his chair spending approximately 72 hours on the floor. He states his last dialysis was Tuesday and he has not eaten or drank anything of significance since that time. States police came to the house because of his missed dialysis. In the emergency room CK was fairly unremarkable at 1263; meets sepsis criteria with hypotension tachycardia for fever initial lactic acid 2.8. Urine with active sediment 1. Acute pyelonephritis -Good response to IVFs -continue CTX/Vanco pending cultures(prelim 2/2GPC) 2. 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 DMII -Sliding scale until more stable intake 5. HTN/CAD -hold meds overnight and reassess in am - add back as clinically appropriate -recheck INR in am Full Code Heparin Hospitalization required giving urosepsis and need for IV antibiotics along with the need for urgent hemodialysis Quality Stroke Does the patient have a stroke diagnosis?: No VTE Prior VTE?: No VTE Risk Level:: Medical - moderate - high VTE Device Contraindication: Treatment Not Indicated VTE Drug Contraindication: N/A - Med Ordered
--- NOTE | 2022-02-06 15:40 | PC.NURSE ---
pt back from dialysis. vss, poc 156. pt sleeping at this time.
[2022-02-06 15:43] VITALS: BP 145/66; PULSE 101; RESP 26; O2SAT 98
[2022-02-06 15:45] LABS: Glucose, Whole Blood 156 mg/dL (60-115)
[2022-02-06 16:24] LABS: Vancomycin Random 12.5 mcg/mL (15-20)
[2022-02-06] MEDS: vancomycin HCL 500 MG in 0.9 % Sodium Chloride 100 ML 110 MG IV (18:04)
[2022-02-06] MEDS: Warfarin Sodium 6 MG TABLET PO (18:05)
[2022-02-06] MEDS: cefTRIAXone sodium 1 GM in 0.9 % Sodium Chloride 50 ML IV (18:05)
[2022-02-06 19:01] VITALS: BP 144/78; PULSE 111; RESP 31; O2SAT 97
[2022-02-06 20:09] VITALS: BP 137/70; PULSE 97; RESP 20; TEMP 36.7; O2SAT 96
[2022-02-06 20:12] LABS: Glucose, Whole Blood 184 mg/dL (60-115)
--- NOTE | 2022-02-06 21:58 | PC.NURSE ---
PT INCONTINENT OF LARGE AMOUNT OF SOFT STOOL. PT CLEANED AND REPOSITIONED, BEDDING CHANGED AND BARRIER CREAM APPLIED TO BOTTOM. RN AWARE
--- NOTE | 2022-02-06 23:06 | PC.NURSE ---
P bilateral buttocks redness,incontinent of stool I patient cleansed,ecp cream applied e will reposition q 2hr and monitor
[2022-02-07 01:14] VITALS: BP 165/68; PULSE 106; RESP 30; TEMP 37.4; O2SAT 95
[2022-02-07 05:57] VITALS: BP 159/63; PULSE 85; RESP 26; TEMP 37.7; O2SAT 95
[2022-02-07 07:13] LABS: MANUAL DIFF FLAG NO
[2022-02-07 07:22] LABS: Glucose, Whole Blood 192 mg/dL (60-115)
[2022-02-07 07:36] LABS: Alanine Aminotransferase 53 U/L (0-40); Alkaline Phosphatase 169 U/L (39-117); Anion Gap 19 (12-20); Aspartate Amino Transferase 47 U/L (5-37); Bilirubin Total 0.5 mg/dL (0.0-1.0); Blood Urea Nitrogen 89 mg/dL (9-16); Calcium 8.7 mg/dL (8.4-10.2); Carbon Dioxide 16 mmol/L (22-29); Chloride 103 mmol/L (96-108); Creatinine Clr Calc Pharmacy 8.3; Estimated Glomerular Filt Rate 6; Glucose Fasting 211 mg/dL (60-99); Potassium 3.8 mmol/L (3.3-5.1); Sodium 134 mmol/L (135-145); Total Protein 5.4 g/dL (6.5-8.0)
[2022-02-07] MEDS: Insulin Lispro 100 UNIT/ML 3 ML VIAL SUBCUT ×4 (07:56→22:06)
[2022-02-07 08:10] LABS: Basophils Percent Auto 0.2 % (0-2); Eosinophils Percent Auto 0.3 % (0-4); Hemoglobin 9.7 g/dl (14.0-18.0); Imm Gran Pct Auto 1.9 % (0.0-0.4); Lymphocytes Percent Auto 6.5 % (20-40); Mean Corpuscular HGB Conc 32.3 g/dl (31.0-36.0); Mean Corpuscular Volume 89.8 fL (80.0-98.0); Mean Platelet Volume 11.9 fL (9.4-12.4); Monocytes Percent Auto 8.9 % (2-11); Neutrophils Percent Auto 82.2 % (45-73); Platelet Count 87 X10*3/uL (160-400); Red Blood Count 3.34 X10*6/uL (4.60-5.80); Red Cell Distribution Width 14.6 % (11.0-16.0); White Blood Count 12.4 X10*3/uL (4.8-10.8)
[2022-02-07 08:11] LABS: Imm Gran Abs Auto 0.23 X10*3/uL (0.00-0.03); Lymphocytes Absolute Auto 0.8 X10*3/uL (1.2-4.9); Monocytes Absolute Auto 1.1 X10*3/uL (0.1-1.2); Neutrophils Absolute Auto 10.2 x10*3/uL (2.0-8.3)
[2022-02-07 08:45] LABS: INTERNATIONAL NORM RATIO 1.8 (0.9-1.1)
[2022-02-07 10:12] LABS: B Type Natriuretic Peptide 219 pg/mL (<100)
--- NOTE | 2022-02-07 11:05 | MHC.CM.PN ---
Addendum entered by Juliana Rios 02/07/22 11:08: PT REPORTS HE IS VACCINATED AGAINST COVID-19 HOWEVER NOT YET ELIGIBLE FOR THE BOOSTER Original Note: PT REPORTS HE LIVES ALONE AND IS INDEPENDENT WITH CARE AND MOBILITY AT [place] PT REPORTS HE HAS NO HOME SERVICES AND GOES TO [facility] FOR HD M-W- (1130 TO 1530) PT REPORTS HE OWNS A WALKER BUT DOES NOT USE IT PT REPORTS HE IS A AND DID USE THEIR SERVICES BUT AFTER HAVING SOME TROUBLE GETTING HIS MEDS HE CHANGED TO [employer] [facility] AND [facility] PT DOES DRIVE AT [place] BUT DID NOT DRIVE TO THE HOSPITAL IMM DELIVERED [place] RIGHTS, COPIES WERE SENT TO [facility] CURRENT DC PLAN IS HOME WITH RESUMPTION OF OP HD SERVICES TRANSPORTATION WILL BE PROVIDED BY FAMILY VS TAXI
--- NOTE | 2022-02-07 11:09 | P.PNIM_ITS ---
Subjective Subjective Date of Service: 02/07/22 Interval History: Feels better after dialysis; mildly short of breath Review of Systems Denies chest pain Denies shortness of breath Denies nausea vomiting diarrhea Admits fever and chills Physical Exam Vital Signs: Vital Signs: Last Vital Signs Temp 99.8 F 02/07/22 05:57 Pulse 85 02/07/22 05:57 Resp 26 H 02/07/22 05:57 BP 159/63 H 02/07/22 05:57 Pulse Ox 95 02/07/22 05:57 BMI result Body Mass Index 27.3 Const: Other: Awake alert oriented x3 no acute distress HENMT: Other: Membranes dry Resp: Other: Diminished at bases with scant crackles Cardio: Other: No S4; positive S1-S2; no S3 murmurs rubs gallops GI: Other: Soft nontender nondistended with normoactive bowel sounds Neuro: Other: Cranial nerves 2-12 grossly intact as tested. Motor is 5/5 in all extremities. Sensation intact. Cognition appropriate Extrem: Other: No edema bilaterally Objective Data Active Medications Furosemide (Furosemide 20 Mg/2 Ml Vial) 20 mg IVPUSH Q12H [facility]; Protocol Ceftriaxone Sodium 1 gm/ (Sodium Chloride) 50 mls @ 100 mls/hr IV Q24H [facility] Last Infusion: 02/06/22 20:50 Dose: 0 mls/hr Documented by: RAVI Vancomycin HCl 1,000 mg/ (Sodium Chloride) 270 mls @ 270 mls/hr IV MOWEFR@1645 [facility] Insulin Human Lispro (Insulin Lispro 100 Unit/Ml 3 Ml Vial) 0 unit SUBCUT QIDACHS [facility]; Protocol Last Admin: 02/07/22 07:56 Dose: 2 unit Documented by: JERI Pharmacy Consult (Consult Rx Perform Med Rec) 1 each MISCELLANE ONCE PRN PRN Reason: Consult order Pharmacy Consult (Consult Rx Vancomycin Dosing) 1 each MISCELLANE DAILY PRN PRN Reason: Consult order Sodium Chloride (0.9 % Sodium Chloride Flush 3 Ml Syringe) 3 ml IVFLUSH QSHIFT [facility] Last Admin: 02/07/22 08:09 Dose: Not Given Documented by: JERI Non-Admin Reason: IV Running Warfarin Sodium (Warfarin Sodium 6 Mg Tablet) 6 mg PO DAILY@1800 [facility] Last Admin: 03/12/22 18:05 Dose: 6 mg Documented by: JERI Labs CBC & Chem 7: 02/07/22 06:49 02/07/22 06:49 Labs: Laboratory Results - last 24 hr 02/06/22 02/06/22 02/06/22 15:10 15:41 20:06 MCV MCH MCHC RDW Plt Count MPV Immature Gran % (Auto) Neut % (Auto) Lymph % (Auto) [place] % (Auto) Eos % (Auto) Baso % (Auto) Lymph # (Auto) [place] # (Auto) Eos # (Auto) Baso # (Auto) Abs Immat Gran (auto) Absolute Neuts (auto) Absolute Nucleated RBC Nucleated RBC % (auto) PT INR Anion Gap Estim Creat Clear Calc Estimated GFR POC Glucose 156 H 184 H Fasting Glucose Calcium Total Bilirubin AST ALT Alkaline Phosphatase B-Natriuretic Peptide Total Protein Albumin Random Vancomycin 12.5 L 02/07/22 02/07/22 02/07/22 06:49 06:49 06:49 MCV 89.8 MCH 29.0 MCHC 32.3 RDW 14.6 Plt Count 87 L MPV 11.9 Immature Gran % (Auto) 1.9 H Neut % (Auto) 82.2 H Lymph % (Auto) 6.5 L [place] % (Auto) 8.9 Eos % (Auto) 0.3 Baso % (Auto) 0.2 Lymph # (Auto) 0.8 L [place] # (Auto) 1.1 Eos # (Auto) 0.0 Baso # (Auto) 0.0 Abs Immat Gran (auto) 0.23 H Absolute Neuts (auto) 10.2 H Absolute Nucleated RBC 0.000 Nucleated RBC % (auto) 0.0 PT INR Anion Gap 19 Estim Creat Clear Calc 8.3 Estimated GFR 6 POC Glucose Fasting Glucose 211 H Calcium 8.7 D Total Bilirubin 0.5 AST 47 H ALT 53 H Alkaline Phosphatase 169 H B-Natriuretic Peptide 219 H Total Protein 5.4 L D Albumin 3.0 L Random Vancomycin 02/07/22 02/07/22 07:01 08:26 MCV MCH MCHC RDW Plt Count MPV Immature Gran % (Auto) Neut % (Auto) Lymph % (Auto) [place] % (Auto) Eos % (Auto) Baso % (Auto) Lymph # (Auto) [place] # (Auto) Eos # (Auto) Baso # (Auto) Abs Immat Gran (auto) Absolute Neuts (auto) Absolute Nucleated RBC Nucleated RBC % (auto) PT 21.0 H INR 1.8 H Anion Gap Estim Creat Clear Calc Estimated GFR POC Glucose 192 H Fasting Glucose Calcium Total Bilirubin AST ALT Alkaline Phosphatase B-Natriuretic Peptide Total Protein Albumin Random Vancomycin Microbiology Microbiology Results: Microbiology 02/06/22 08:17 Urine Culture - Preliminary Urine clean catch - Urine palumbo top Culture in progress. 02/05/22 14:58 Blood Culture - Preliminary Blood - Venous Prelim: GPC Gram Stain only 02/05/22 13:43 Blood Culture - Preliminary Blood - Venous Prelim: GPC Gram Stain only Assessment and Plan (1) Acute pyelonephritis: Status: Acute (2) Rhabdomyolysis: Status: Acute (3) Ybspi-nn-pysrpat renal failure: Status: Acute Plan 71-year-old male with end-stage renal disease in the backdrop of diabetes and coronary artery disease presents after falling out of his chair spending approximately 72 hours on the floor. He states his last dialysis was Tuesday and he has not eaten or drank anything of significance since that time. States police came to the house because of his missed dialysis. In the emergency room CK was fairly unremarkable at 1263; meets sepsis criteria with hypotension tachycardia for fever initial lactic acid 2.8. Urine with active sediment 1. Acute pyelonephritis -Good response to IVFs...will D/C -continue CTX/Vanco pending cultures(prelim 2/2GPC) 2.SOB(mild CHF on xray) -Lasix x 2 doses - HD in am -DC IVFs 2. ESRD on [employer] -HD scheduled for 02/08 -follow renals/divalents 3.Rhabdomyolysis -resolved..DC IVFs 4. DMII -Sliding scale until more stable intake 5. HTN/CAD -hold meds overnight and reassess in am - add back as clinically appropriate -recheck INR in am Full Code Heparin Hospitalization required giving urosepsis and need for IV antibiotics along with the need for HD 02/08 prior to DC Quality Stroke Does the patient have a stroke diagnosis?: No VTE Prior VTE?: No VTE Risk Level:: Medical - moderate - high VTE Device Contraindication: Treatment Not Indicated VTE Drug Contraindication: N/A - Med Ordered
[2022-02-07 11:12] VITALS: BP 136/62; PULSE 83; RESP 31; TEMP 36.9; O2SAT 94
[2022-02-07 13:18] LABS: Glucose, Whole Blood 257 mg/dL (60-115)
[2022-02-07] MEDS: Furosemide 20 MG/2 ML VIAL IVPUSH ×2 (13:30→22:06)
[2022-02-07 16:00] VITALS: BP 175/69; PULSE 87; RESP 16; TEMP 36.6; O2SAT 97
--- NOTE | 2022-02-07 16:31 | PC.NURSE ---
report given to LINDA Delgado. pt will be transported to room 483. pt aware of plan.
[2022-02-07 17:10] VITALS: BP 156/71; PULSE 87; RESP 20; TEMP 36.1; O2SAT 98
--- NOTE | 2022-02-07 17:13 | PM.PNNEP ---
Subjective Subjective Date of Service: 02/07/22 Interval history: Seen and examined, events noted Feeling better ( I dictated consult yesterday and still its not in the EHR) Physical Exam Vital Signs: Vital Signs: Last Vital Signs Temp 96.9 F 02/07/22 17:10 Pulse 87 02/07/22 17:10 Resp 20 02/07/22 17:10 BP 156/71 H 02/07/22 17:10 Pulse Ox 98 02/07/22 17:10 BMI result Body Mass Index 27.3 Const: Other: Awake alert oriented x3 no acute distress General: ill appearing Orientation/consciousness: patient oriented x3 Limitations: no limitations HENMT: Other: Membranes dry Head: Yes normal to inspection Ears: hearing grossly normal bilaterally General nose exam: Normal external nose present Face and sinus: Yes normal facial exam Eyes: General: appearance normal, both eyes and all related structures Pupils: Equal, round and reactive pupils present Neck: Neck: Yes normal visual inspection, Yes full ROM, Yes no lymphadenopathy and Yes no meningeal signs Chest: Chest palpation & inspection: normal inspection of the chest Resp: Other: Diminished at bases with scant crackles Cardio: Other: No S4; positive S1-S2; no S3 murmurs rubs gallops Rate: tachycardic ( tachycardia 123) Rhythm: regular rhythm Peripheral pulses: Peripheral pulses 2+ throughout GI: Other: Soft nontender nondistended with normoactive bowel sounds Inspection: Yes normal to inspection Palpation (GI): Soft to palpation and nontender Auscultation: normal bowel sounds : General: Yes no CVA tenderness Penis: normal penis Back/Spine/Pelvis: Back: no CVA tenderness Thoracic/Lumbar Spine: thoracic and lumbar spine normal to inspection Neuro: Other: Cranial nerves 2-12 grossly intact as tested. Motor is 5/5 in all extremities. Sensation intact. Cognition appropriate General: patient oriented x3, moves all extremities, no meningeal signs, no focal motor deficits, normal sensation to monofilament and Unable to assess gait Cranial nerves: Yes Equal, round and reactive pupils present, Yes Normal facial strength present and Yes Midline tongue present Cognition (Neuro): normal cognition Speech: No Abnormal speech present Gait exam (Neuro): Unable to assess gait Extrem: Other: No edema bilaterally General: Yes normal to inspection, Yes no pedal edema and Yes no calf tenderness Objective Data Labs CBC & Chem 7: 02/07/22 06:49 03/13/22 06:49 Labs: Laboratory Results - last 24 hr 02/06/22 02/06/22 02/07/22 15:10 20:06 06:49 WBC 12.4 H RBC 3.34 L Hgb 9.7 L Hct 30.0 L MCV 89.8 MCH 29.0 MCHC 32.3 RDW 14.6 Plt Count 87 L MPV 11.9 Immature Gran % (Auto) 1.9 H Neut % (Auto) 82.2 H Lymph % (Auto) 6.5 L [place] % (Auto) 8.9 Eos % (Auto) 0.3 Baso % (Auto) 0.2 Lymph # (Auto) 0.8 L [place] # (Auto) 1.1 Eos # (Auto) 0.0 Baso # (Auto) 0.0 Abs Immat Gran (auto) 0.23 H Absolute Neuts (auto) 10.2 H Absolute Nucleated RBC 0.000 Nucleated RBC % (auto) 0.0 PT INR Sodium Potassium Chloride Carbon Dioxide Anion Gap BUN Creatinine Estim Creat Clear Calc Estimated GFR POC Glucose 184 H Fasting Glucose Calcium Total Bilirubin AST ALT Alkaline Phosphatase B-Natriuretic Peptide Total Protein Albumin Random Vancomycin 12.5 L 02/07/22 02/07/22 02/07/22 06:49 06:49 07:01 WBC RBC Hgb Hct MCV MCH MCHC RDW Plt Count MPV Immature Gran % (Auto) Neut % (Auto) Lymph % (Auto) [place] % (Auto) Eos % (Auto) Baso % (Auto) Lymph # (Auto) [place] # (Auto) Eos # (Auto) Baso # (Auto) Abs Immat Gran (auto) Absolute Neuts (auto) Absolute Nucleated RBC Nucleated RBC % (auto) PT INR Sodium 134 L Potassium 3.8 Chloride 103 Carbon Dioxide 16 L Anion Gap 19 BUN 89 H D Creatinine 8.48 H* Estim Creat Clear Calc 8.3 Estimated GFR 6 POC Glucose 192 H Fasting Glucose 211 H Calcium 8.7 D Total Bilirubin 0.5 AST 47 H ALT 53 H Alkaline Phosphatase 169 H B-Natriuretic Peptide 219 H Total Protein 5.4 L D Albumin 3.0 L Random Vancomycin 02/07/22 02/07/22 08:26 12:58 WBC RBC Hgb Hct MCV MCH MCHC RDW Plt Count MPV Immature Gran % (Auto) Neut % (Auto) Lymph % (Auto) [place] % (Auto) Eos % (Auto) Baso % (Auto) Lymph # (Auto) [place] # (Auto) Eos # (Auto) Baso # (Auto) Abs Immat Gran (auto) Absolute Neuts (auto) Absolute Nucleated RBC Nucleated RBC % (auto) PT 21.0 H INR 1.8 H Sodium Potassium Chloride Carbon Dioxide Anion Gap BUN Creatinine Estim Creat Clear Calc Estimated GFR POC Glucose 257 H Fasting Glucose Calcium Total Bilirubin AST ALT Alkaline Phosphatase B-Natriuretic Peptide Total Protein Albumin Random Vancomycin Microbiology Microbiology Results: Microbiology 02/05/22 14:58 Blood - Venous Blood Culture - Preliminary Staphylococcus species 02/05/22 13:43 Blood - Venous Blood Culture - Preliminary Staphylococcus species 02/06/22 08:17 Urine clean catch - Urine palumbo top Urine Culture - Preliminary Culture in progress. Procedures Date of Service Date of Service: 02/07/22 Assessment & Plan Assessment and plan (1) Acute pyelonephritis: Status: Acute (2) Rhabdomyolysis: Status: Acute (3) Eexhx-ee-attchcw renal failure: Status: Acute Plan 1. ESRD: [facility]; normally followed by [facility] ( Dr Ortega) but they were not avail to see so I saw PT and performed HD yesterday 2. SOB: improved 3. Gen muscle weakness andunable to get off the floor and no medi-alert system--needtoassess safety of beingat home alone 4. UTI 5. Rhabdo: mild, d/t beingonthefloor REC: HD againMonday to[facility] on [facility] schedule; again let [facility] service know of PT beingin thehospital but for now [facility]will cnt to provide care for the patient until [facility] gets invovlved Time Spent With Patient Time: Total time spent is greater than 50% in coordination of care (as documented) at patient's floor/unit and/or counseling patient: Progress Note: Quality Stroke Does the patient have a stroke diagnosis?: No
[2022-02-07 17:18] LABS: Glucose, Whole Blood 295 mg/dL (60-115)
[2022-02-07] MEDS: Warfarin Sodium 6 MG TABLET PO (18:33)
[2022-02-07 18:37] VITALS: BMI 27.3
[2022-02-07] MEDS: cefTRIAXone sodium 1 GM in 0.9 % Sodium Chloride 50 ML IV (18:37)
[2022-02-07 18:40] VITALS: BMI 27.3
[2022-02-07 19:19] VITALS: BP 168/69; PULSE 88; RESP 20; TEMP 36.8; O2SAT 95
[2022-02-07] MEDS: 0.9 % Sodium Chloride Flush 3 ML SYRINGE IVFLUSH (22:10)
[2022-02-07 22:31] LABS: Glucose, Whole Blood 241 mg/dL (60-115)
[2022-02-08 00:13] VITALS: BP 163/74; PULSE 89; RESP 20; TEMP 37.3; O2SAT 96
[2022-02-08 04:20] VITALS: BP 192/78; PULSE 84
[2022-02-08] MEDS: hydrALAZINE HCl 20 MG/ML VIAL 5 MG IVPUSH (04:24)
[2022-02-08 05:52] LABS: MANUAL DIFF FLAG NO
[2022-02-08 05:57] LABS: Basophils Percent Auto 0.2 % (0-2); Eosinophils Absolute Auto 0.1 X10*3/uL (0.0-0.4); Eosinophils Percent Auto 1.1 % (0-4); Hematocrit 30.1 % (42.0-52.0); Hemoglobin 9.8 g/dl (14.0-18.0); Imm Gran Abs Auto 0.47 X10*3/uL (0.00-0.03); Imm Gran Pct Auto 3.8 % (0.0-0.4); Lymphocytes Absolute Auto 1.3 X10*3/uL (1.2-4.9); Lymphocytes Percent Auto 10.7 % (20-40); Mean Corpuscular HGB Conc 32.6 g/dl (31.0-36.0); Mean Corpuscular Hemoglobin 28.8 pg (27.0-33.0); Mean Corpuscular Volume 88.5 fL (80.0-98.0); Mean Platelet Volume 12.5 fL (9.4-12.4); Monocytes Absolute Auto 1.3 X10*3/uL (0.1-1.2); Monocytes Percent Auto 10.2 % (2-11); Neutrophils Absolute Auto 9.2 x10*3/uL (2.0-8.3); Platelet Count 102 X10*3/uL (160-400); Red Cell Distribution Width 14.7 % (11.0-16.0); White Blood Count 12.4 X10*3/uL (4.8-10.8)
[2022-02-08 06:09] LABS: INTERNATIONAL NORM RATIO 1.7 (0.9-1.1); Prothrombin Time 20.1 SEC (9.9-13.0)
[2022-02-08 06:14] LABS: Alanine Aminotransferase 98 U/L (0-40); Albumin Level 2.9 g/dL (3.5-5.0); Alkaline Phosphatase 317 U/L (39-117); Anion Gap 21 (12-20); Aspartate Amino Transferase 90 U/L (5-37); Bilirubin Total 0.5 mg/dL (0.0-1.0); Blood Urea Nitrogen 117 mg/dL (9-16); Calcium 9.1 mg/dL (8.4-10.2); Carbon Dioxide 14 mmol/L (22-29); Chloride 102 mmol/L (96-108); Creatinine Clr Calc Pharmacy 7.1; Estimated Glomerular Filt Rate 5; Glucose Fasting 215 mg/dL (60-99); Potassium 4.1 mmol/L (3.3-5.1); Sodium 133 mmol/L (135-145); Total Protein 5.5 g/dL (6.5-8.0)
[2022-02-08 07:33] LABS: Glucose, Whole Blood 217 mg/dL (60-115)
[2022-02-08 07:38] VITALS: BP 158/74; PULSE 79; RESP 20; TEMP 36.7; O2SAT 96
[2022-02-08] MEDS: Insulin Lispro 100 UNIT/ML 3 ML VIAL SUBCUT ×3 (07:54→21:14)
[2022-02-08] MEDS: 0.9 % Sodium Chloride Flush 3 ML SYRINGE IVFLUSH ×3 (07:54→21:14)
--- NOTE | 2022-02-08 10:04 | CONS_ITS ---
DATE OF SERVICE: 02/06/2022 REASON FOR CONSULTATION: I was asked to see the patient to assist in evaluation and management of patient's dialysis needs. HISTORY OF PRESENT ILLNESS: In summary, patient is a 71-year-old gentleman, normally dialyzes at the [facility] and followed by a kidney care and apparently the hospital is having some difficulties getting touch with the kidney care and so they asked me to see the patient and take care of his dialysis needs. In summary, this is a 78-year-old gentleman as mentioned ESRD, normally dialyzes Tuesday, Tuesday, Tuesday at the [facility], who apparently was feeling unwell on Tuesday and then Tuesday. He was unable to get up. He says his legs were quite weak. He missed his dialysis on Tuesday and on Tuesday and the dialysis unit called for wellness check. He has not answered. EMS was sent to the house and found him on the floor. He denies any loss of consciousness. No fever, sweats, or chills. PAST MEDICAL HISTORY: Notable for ESRD, coronary disease, history of stroke, diabetes, hypertension, hyperlipidemia, and multiple sclerosis. MEDICATIONS: His medications on admission are noted in the admitting notes. Current medications are on the JAN. ALLERGIES: HE HAS ALLERGIES TO MORPHINE. SOCIAL HISTORY: He is a nonsmoker, nondrinker. No illicit drug use. REVIEW OF SYSTEMS: As noted above. PHYSICAL EXAMINATION: VITAL SIGNS: Blood pressure 130/70, heart rate in the 90s. He is afebrile. Room air sat 96%. HEAD: Atraumatic, normocephalic. NECK: Supple. Mucous membranes are moist. LUNGS: Breath sounds bilaterally. CARDIAC: Regular rate and rhythm. ABDOMEN: Soft. EXTREMITIES: Show no edema. LABORATORY DATA: Showed hemoglobin 11.4, hematocrit 34.6, white blood cell count 12.5. Sodium 134, potassium 4.5, chloride 98, bicarb 14. IMPRESSION: 1. End-stage renal disease. Patient missed dialysis x2 treatments, found on the floor, unable to get up on his own. 2. End-stage renal disease with dialyzing today and then get him back on his Tuesday, Tuesday, Tuesday schedule. 3. Generalized weakness. This is being further evaluated by the team. 4. Diabetes. SUGGESTIONS: At this time include dialysis. Continue his routine medications and workup by Medicine team regarding his generalized weakness. Need to make sure that he is safe if he does indeed get discharged back to home that he is in alert system and place if this happens again. MD SHANNON Ramsey/GOMEZ / [phone]
[2022-02-08 10:49] VITALS: BP 157/67; PULSE 78; RESP 20; TEMP 36.9; O2SAT 97
[2022-02-08 11:15] LABS: Glucose, Whole Blood 223 mg/dL (60-115)
--- NOTE | 2022-02-08 12:05 | P.PNNP_ITS ---
Subjective Subjective Date of Service: 02/08/22 Interval history: Seen and examined on HD . D/W HD RN Physical Exam Vital Signs: Vital Signs: Last Vital Signs Temp 98.4 F 02/08/22 10:49 Pulse 78 02/08/22 10:49 Resp 20 02/08/22 10:49 BP 157/67 H 02/08/22 10:49 Pulse Ox 97 02/08/22 10:49 BMI result Body Mass Index 27.3 Const: General: no acute distress Orientation/consciousness: patient oriented x3 Eyes: EOM: EOMs intact bilaterally Resp: Auscultation: diminished lung sounds Cardio: Rate: regular rate GI: Palpation (GI): Soft to palpation Neuro: General: patient oriented x3 Objective Data Labs CBC & Chem 7: 02/08/22 05:34 02/08/22 05:34 Labs: Laboratory Results - last 24 hr 02/05/22 02/07/22 02/07/22 14:58 12:58 17:14 WBC RBC Hgb Hct MCV MCH MCHC RDW Plt Count MPV Immature Gran % (Auto) Neut % (Auto) Lymph % (Auto) [place] % (Auto) Eos % (Auto) Baso % (Auto) Lymph # (Auto) [place] # (Auto) Eos # (Auto) Baso # (Auto) Abs Immat Gran (auto) Absolute Neuts (auto) Absolute Nucleated RBC Nucleated RBC % (auto) PT INR Sodium 138 Potassium 4.8 Chloride 95 L Carbon Dioxide 17 L Anion Gap 31 H BUN 124 H Creatinine 12.49 H* Estim Creat Clear Calc 5.6 Estimated GFR 4 POC Glucose 257 H 295 H Random Glucose 260 H Fasting Glucose Calcium 10.5 H D Magnesium 2.5 Total Bilirubin 1.1 H Direct Bilirubin 0.5 AST 55 H ALT 49 H Alkaline Phosphatase 150 H D Total Creatine Kinase 1263 H Total Protein 8.0 Albumin 4.4 02/07/22 02/08/22 02/08/22 21:57 05:34 05:34 WBC 12.4 H RBC 3.40 L Hgb 9.8 L Hct 30.1 L MCV 88.5 MCH 28.8 MCHC 32.6 RDW 14.7 Plt Count 102 L MPV 12.5 H Immature Gran % (Auto) 3.8 H Neut % (Auto) 74.0 H Lymph % (Auto) 10.7 L [place] % (Auto) 10.2 Eos % (Auto) 1.1 Baso % (Auto) 0.2 Lymph # (Auto) 1.3 [place] # (Auto) 1.3 H Eos # (Auto) 0.1 Baso # (Auto) 0.0 Abs Immat Gran (auto) 0.47 H Absolute Neuts (auto) 9.2 H Absolute Nucleated RBC 0.000 Nucleated RBC % (auto) 0.0 PT INR Sodium 133 L Potassium 4.1 Chloride 102 Carbon Dioxide 14 L Anion Gap 21 H BUN 117 H D Creatinine 9.92 H* Estim Creat Clear Calc 7.1 Estimated GFR 5 POC Glucose 241 H Random Glucose Fasting Glucose 215 H Calcium 9.1 Magnesium Total Bilirubin 0.5 Direct Bilirubin AST 90 H ALT 98 H Alkaline Phosphatase 317 H D Total Creatine Kinase Total Protein 5.5 L Albumin 2.9 L 02/08/22 02/08/22 02/08/22 05:34 07:30 10:52 WBC RBC Hgb Hct MCV MCH MCHC RDW Plt Count MPV Immature Gran % (Auto) Neut % (Auto) Lymph % (Auto) [place] % (Auto) Eos % (Auto) Baso % (Auto) Lymph # (Auto) [place] # (Auto) Eos # (Auto) Baso # (Auto) Abs Immat Gran (auto) Absolute Neuts (auto) Absolute Nucleated RBC Nucleated RBC % (auto) PT 20.1 H INR 1.7 H Sodium Potassium Chloride Carbon Dioxide Anion Gap BUN Creatinine Estim Creat Clear Calc Estimated GFR POC Glucose 217 H 223 H Random Glucose Fasting Glucose Calcium Magnesium Total Bilirubin Direct Bilirubin AST ALT Alkaline Phosphatase Total Creatine Kinase Total Protein Albumin Microbiology Microbiology Results: Microbiology 02/06/22 08:17 Urine clean catch - Urine palumbo top Urine Culture - Preliminary Staphylococcus species 02/05/22 14:58 Blood - Venous Blood Culture - Final Staphylococcus aureus 02/05/22 13:43 Blood - Venous Blood Culture - Final Staphylococcus aureus Procedures Date of Service Date of Service: 02/08/22 Assessment & Plan Assessment and plan (1) ESRD (end stage renal disease) on dialysis: Status: Acute Assessment and Plan: End Stage Renal Disease Usually gets HD on MWF Seen on HD this AM Continued vol optimization on HD Renal Diet; Phos binders with meals Dr Herrera Ortega his reporting manager was notified of this admission He shall arrange further inpatient follow up Time Spent With Patient Time: Total time spent is greater than 50% in coordination of care (as documented) at patient's floor/unit and/or counseling patient: Progress Note: Quality Stroke Does the patient have a stroke diagnosis?: No
--- NOTE | 2022-02-08 12:25 | MHC.CLN ---
RECOMMEND 2000DM 2GM NA LOW K, LOW PHOS DIET SECONDARY TO ESRD ON HD PER RENAL
--- NOTE | 2022-02-08 14:07 | P.CDIC_ITS ---
CDI Concurrent Query Documentation Clarification: PHYSICIAN'S DOCUMENTATION REQUEST Date of Query: 02/08/22 1408 Patient Name: Wilfred Phillip Admit Date: 02/05/22 Dear Doctor, A review of the medical record indicates additional documentation may be needed. Please review below and update the documentation accordingly. Clinical Indicators: Risk Factors/Clinical Indicators/Treatments Per MD progress note 02/07/22: short of breath, mild CHF on chest x-ray IV Lasix Please provide further specificity regarding the most likely type and acuity of CHF you are evaluating, treating, or monitoring. Examples include: Type: * Systolic * Diastolic * Combined Systolic/Diastolic * Other ? please specify * Unable to determine Acuity: * Acute * Chronic * Acute on chronic * Unable to determine Use of terms such as suspected, likely, concern for, or probable (associated with a specific diagnosis that is being evaluated, monitored, or treated as if it exists) are acceptable and can be coded in the inpatient setting, when documented at the time of discharge. Thank you, Brigette Awan RN Extension: [phone] Please use your independent medical judgment in providing your response. THIS QUERY IS PART OF THE PERMANENT MEDICAL RECORD Provider Response: Other Other Diagnosis: Acute systolic CHF
--- NOTE | 2022-02-08 14:13 | P.CDIC_ITS ---
CDI Concurrent Query Documentation Clarification: PHYSICIAN'S DOCUMENTATION REQUEST Date of Query: 02/08/22 1413 Patient Name: Wilfred Phillip Admit Date: 02/05/22 Dear Doctor, A review of the medical record indicates additional documentation may be needed. Please review below and update the documentation accordingly. Risk Factors/Clinical Indicators/Treatments Per ED note: chronic suprapubic tube Per H&P: UTI, Acute Pyelonephritis Please clarify the relationship between these conditions: * Yes, UTI is related to / associated with / due to chronic suprapubic tube * No, UTI is not related to / associated with / due to chronic suprapubic tube * Unable to determine Use of terms such as suspected, likely, concern for, or probable (associated with a specific diagnosis that is being evaluated, monitored, or treated as if it exists) are acceptable and can be coded in the inpatient setting, when documented at the time of discharge. Thank you, Brigette Awan RN Extension: [phone] Please use your independent medical judgment in providing your response. THIS QUERY IS PART OF THE PERMANENT MEDICAL RECORD Provider Response: Other Other Diagnosis: UTI is likely related to chronic suprapubic tube
--- NOTE | 2022-02-08 14:39 | PM.CNNEP ---
History of Present Illness Reason for Consult Consult date: 02/08/22 Reason for consult: ESRD care Chief Complaint Chief complaint: UTI History of Present Illness Narrative: Very pleasant 71-year-old gentleman with known medical history of ESRD secondary to diabetic nephropathy on intermittent hemodialysis followed by my partner Dr. Diony Erickson at the [facility] dialysis center in [place], who was brought into the hospital after missing dialysis last week Tuesday and Tuesday, and Tuesday a wellness call was sent where he was found at home after falling unable to stand up, came to the emergency room where he had evaluation found to have a blood pressure of 89/45 temperature 101.3 white count of 15,000 - influenza Covid testing white cells in the urine with 2+ bacteria, chest x-ray with stable cardiomegaly with no evidence of acute disease, and subsequent 2 sets of blood cultures positive for Staph aureus. He has been initiated on IV ceftriaxone was given IV fluids as there was concern for rhabdomyolysis, fortunately fluids were stopped patient feels very weak fatigue most of his weakness is in his lower extremities. So far has not been able to stand up or walk while he was in the hospital. He is receiving dialysis today denies any specific symptoms other than weakness. He received dialysis on Tuesday ordered by renal transplant [facility] appreciate their care and medicine care for the patient. Review of Systems Review of Systems Yes all other systems are reviewed and are negative PMFSH Past Medical History Medical History (Updated 02/08/22 @ 12:08 by Robert Vora MD) CAD (coronary artery disease) CVA (cerebral vascular accident) Diabetes mellitus HTN (hypertension) with goal to be determined Hyperlipidemia Multiple sclerosis Surgical History Surgical History H/O cystostomy History of back surgery Social History Social History (Updated 02/07/22 @ 18:42 by Noel Valentino RN) Household Members: None Housing: Condominium Are you a primary critical care nurse to a significant other at home: No Do you presently have visiting nurse or other home services: No 75 years or older and lives alone: No Alcohol intake: former Patient Tobacco Use Status: Never used Tobacco Second Hand Smoke Exposure: No service: Yes Current occupational status: retired Meds Allergies Allergy/AdvReac Type Severity Reaction Status Date / Time morphine [MORPHINE] Allergy Severe NAUSEA & Verified 12/17/21 14:44 VOMITING, vomiting, nausea and vomiting dust Allergy Mild Dry Eye Uncoded 12/17/21 14:44 cat Allergy Unknown Dry Eye Uncoded 12/17/21 14:44 Active Medications: Current Medications Furosemide (Furosemide 20 Mg/2 Ml Vial) 20 mg IVPUSH Q12H [facility]; Protocol Last Admin: 02/08/22 12:02 Dose: Not Given Documented by: Ceftriaxone Sodium 1 gm/ (Sodium Chloride) 50 mls @ 100 mls/hr IV Q24H [facility] Last Infusion: 02/07/22 19:27 Dose: Infused Documented by: Vancomycin HCl 1,000 mg/ (Sodium Chloride) 270 mls @ 270 mls/hr IV MOWEFR@1645 [facility] Insulin Human Lispro (Insulin Lispro 100 Unit/Ml 3 Ml Vial) 0 unit SUBCUT QIDACHS [facility]; Protocol Last Admin: 02/08/22 12:02 Dose: Not Given Documented by: Pharmacy Consult (Consult Rx Perform Med Rec) 1 each MISCELLANE ONCE PRN PRN Reason: Consult order Pharmacy Consult (Consult Rx Vancomycin Dosing) 1 each MISCELLANE DAILY PRN PRN Reason: Consult order Sodium Chloride (0.9 % Sodium Chloride Flush 3 Ml Syringe) 3 ml IVFLUSH QSHIFT [facility] Last Admin: 02/08/22 07:54 Dose: 3 ml Documented by: Warfarin Sodium (Warfarin Sodium 6 Mg Tablet) 6 mg PO DAILY@1800 [facility] Last Admin: 02/07/22 18:33 Dose: 6 mg Documented by: Home Medications Medication Instructions Recorded Confirmed Last Taken Type torsemide 20 mg tablet 40 mg PO DAILY 07/14/21 02/05/22 Unknown History warfarin 6 mg tablet 6 mg PO DAILY 07/14/21 02/05/22 Unknown History losartan 50 mg tablet 50 mg PO DAILY 12/17/21 02/05/22 Unknown History amlodipine 10 mg tablet 1 tab PO BEDTIME 02/05/22 02/05/22 Unknown History carvedilol 25 mg tablet 1 tab PO BID 02/05/22 02/05/22 Unknown History Physical Exam Vital Signs: Last Vital Signs Temp 98.4 F 02/08/22 10:49 Pulse 78 02/08/22 10:49 Resp 20 02/08/22 10:49 BP 157/67 H 02/08/22 10:49 Pulse Ox 97 02/08/22 10:49 BMI result Body Mass Index 27.3 Oral moist mucosa neck supple lungs are clear bilaterally heart S1-S2 no S3 no S4 murmurs or rubs rectum appreciate abdomen soft nontender positive bowel sounds suprapubic catheter. Urine is clear. Extremities show trace edema. Neurologic examination nonfocal. Results Lab Results Result Diagrams: 02/08/22 05:34 02/08/22 05:34 Lab results: Chemistry 02/05/22 02/06/22 02/07/22 14:58 06:40 06:49 Sodium 138 134 L 134 L Potassium 4.8 4.5 3.8 Carbon Dioxide 17 L 14 L 16 L BUN 124 H 131 H 89 H D Creatinine 12.49 H* 12.76 H* 8.48 H* Calcium 10.5 H D 9.7 D 8.7 D 02/08/22 05:34 Sodium 133 L Potassium 4.1 Carbon Dioxide 14 L BUN 117 H D Creatinine 9.92 H* Calcium 9.1 Hematology 02/05/22 02/06/22 02/07/22 13:43 06:40 06:49 WBC 15.9 H 12.5 H 12.4 H Hgb 12.8 L 11.4 L 9.7 L Plt Count 123 L 106 L 87 L 02/08/22 05:34 WBC 12.4 H Hgb 9.8 L Plt Count 102 L Urinalysis 02/05/22 16:46 Urine Color YELLOW Urine Appearance CLOUDY Urine pH 6.0 Ur Specific Satin 1.015 Urine Protein 3+ H Urine Glucose (UA) 500 H Urine Ketones 15 Urine Blood 3+ H Urine Nitrite NEG Ur Leukocyte Esterase 2+ H Urine RBC 5-9 H Urine WBC 15-29 H Ur Squamous Epith Cells TRACE 02/05 Blood cultures growing Staph aureus urine culture showing same organism Staphylococcus species. Blood cultures antibiogram sensitive to all antibiotics except penicillin. Assessment and Plan (1) ESRD (end stage renal disease) on dialysis: Status: Acute Patient continues to receive dialysis as per schedule today as tolerated treatment well. We will remove fluids as tolerated by hemodynamics. We will resume dialysis on Tuesday. (2) Acute pyelonephritis: Status: Acute Patient presented with bacteremia sepsis and urine culture positive for the same organism. Presently received ceftriaxone and vancomycin which I agree. However current Staph aureus is resistant to penicillin G. I would suggest to consult infectious disease for guidance on antibiotic therapy, if patient in need of oxacillin antibiotic will need Coe catheter for outpatient management. I would also like to have infectious disease guide work-up the source although it seems quite likely that it is a urinary tract we would like to make sure if concern for other potential's bacterial source seeding such as heart or bone. Meanwhile I would suggest to do a CAT scan of the abdomen and pelvis. Rule out collection. (3) Neurogenic urinary bladder disorder: Status: Acute Continue draining urine. Procedures Date of Service Date of Service: 02/08/22
[2022-02-08 15:05] VITALS: BP 147/76; PULSE 85; RESP 18; TEMP 36.7; O2SAT 98
--- NOTE | 2022-02-08 15:10 | HO.PM.IMPN ---
Subjective Subjective Date of Service: 02/08/22 Interval History: Feels better after dialysis; mildly short of breath Review of Systems Denies chest pain Denies shortness of breath Denies nausea vomiting diarrhea Admits fever and chills Physical Exam Vital Signs: Vital Signs: Last Vital Signs Temp 98.4 F 02/08/22 10:49 Pulse 78 02/08/22 10:49 Resp 20 02/08/22 10:49 BP 157/67 H 02/08/22 10:49 Pulse Ox 97 02/08/22 10:49 BMI result Body Mass Index 27.3 Const: Other: Awake alert oriented x3 no acute distress HENMT: Other: Membranes dry Resp: Other: Diminished at bases with scant crackles Cardio: Other: No S4; positive S1-S2; no S3 murmurs rubs gallops GI: Other: Soft nontender nondistended with normoactive bowel sounds Neuro: Other: Cranial nerves 2-12 grossly intact as tested. Motor is 5/5 in all extremities. Sensation intact. Cognition appropriate Extrem: Other: No edema bilaterally Objective Data Active Medications Furosemide (Furosemide 20 Mg/2 Ml Vial) 20 mg IVPUSH Q12H [facility]; Protocol Last Admin: 02/08/22 12:02 Dose: Not Given Documented by: CATHERINE Non-Admin Reason: Off unit: Dialysis Ceftriaxone Sodium 1 gm/ (Sodium Chloride) 50 mls @ 100 mls/hr IV Q24H [facility] Last Infusion: 02/07/22 19:27 Dose: 0 mls/hr Documented by: TOBY Vancomycin HCl 1,000 mg/ (Sodium Chloride) 270 mls @ 270 mls/hr IV [id number]@1645 [facility] Insulin Human Lispro (Insulin Lispro 100 Unit/Ml 3 Ml Vial) 0 unit SUBCUT QIDACHS [facility]; Protocol Last Admin: 02/08/22 12:02 Dose: Not Given Documented by: CATHERINE Non-Admin Reason: Off unit: Dialysis Pharmacy Consult (Consult Rx Perform Med Rec) 1 each MISCELLANE ONCE PRN PRN Reason: Consult order Pharmacy Consult (Consult Rx Vancomycin Dosing) 1 each MISCELLANE DAILY PRN PRN Reason: Consult order Sodium Chloride (0.9 % Sodium Chloride Flush 3 Ml Syringe) 3 ml IVFLUSH QSHIFT [facility] Last Admin: 02/08/22 07:54 Dose: 3 ml Documented by: CATHERINE Warfarin Sodium (Warfarin Sodium 6 Mg Tablet) 6 mg PO DAILY@1800 [facility] Last Admin: 02/07/22 18:33 Dose: 6 mg Documented by: TOBY Labs CBC & Chem 7: 02/08/22 05:34 02/08/22 05:34 Labs: Laboratory Results - last 24 hr 02/05/22 02/07/22 02/07/22 14:58 17:14 21:57 MCV MCH MCHC RDW Plt Count MPV Immature Gran % (Auto) Neut % (Auto) Lymph % (Auto) [place] % (Auto) Eos % (Auto) Baso % (Auto) Lymph # (Auto) [place] # (Auto) Eos # (Auto) Baso # (Auto) Abs Immat Gran (auto) Absolute Neuts (auto) Absolute Nucleated RBC Nucleated RBC % (auto) PT INR Anion Gap 31 H Estim Creat Clear Calc 5.6 Estimated GFR 4 POC Glucose 295 H 241 H Random Glucose 260 H Fasting Glucose Calcium 10.5 H D Magnesium 2.5 Total Bilirubin 1.1 H Direct Bilirubin 0.5 AST 55 H ALT 49 H Alkaline Phosphatase 150 H D Total Creatine Kinase 1263 H Total Protein 8.0 Albumin 4.4 02/08/22 02/08/22 02/08/22 05:34 05:34 05:34 MCV 88.5 MCH 28.8 MCHC 32.6 RDW 14.7 Plt Count 102 L MPV 12.5 H Immature Gran % (Auto) 3.8 H Neut % (Auto) 74.0 H Lymph % (Auto) 10.7 L [place] % (Auto) 10.2 Eos % (Auto) 1.1 Baso % (Auto) 0.2 Lymph # (Auto) 1.3 [place] # (Auto) 1.3 H Eos # (Auto) 0.1 Baso # (Auto) 0.0 Abs Immat Gran (auto) 0.47 H Absolute Neuts (auto) 9.2 H Absolute Nucleated RBC 0.000 Nucleated RBC % (auto) 0.0 PT 20.1 H INR 1.7 H Anion Gap 21 H Estim Creat Clear Calc 7.1 Estimated GFR 5 POC Glucose Random Glucose Fasting Glucose 215 H Calcium 9.1 Magnesium Total Bilirubin 0.5 Direct Bilirubin AST 90 H ALT 98 H Alkaline Phosphatase 317 H D Total Creatine Kinase Total Protein 5.5 L Albumin 2.9 L 02/08/22 02/08/22 07:30 10:52 MCV MCH MCHC RDW Plt Count MPV Immature Gran % (Auto) Neut % (Auto) Lymph % (Auto) [place] % (Auto) Eos % (Auto) Baso % (Auto) Lymph # (Auto) [place] # (Auto) Eos # (Auto) Baso # (Auto) Abs Immat Gran (auto) Absolute Neuts (auto) Absolute Nucleated RBC Nucleated RBC % (auto) PT INR Anion Gap Estim Creat Clear Calc Estimated GFR POC Glucose 217 H 223 H Random Glucose Fasting Glucose Calcium Magnesium Total Bilirubin Direct Bilirubin AST ALT Alkaline Phosphatase Total Creatine Kinase Total Protein Albumin Microbiology Microbiology Results: Microbiology 02/06/22 08:17 Urine Culture - Preliminary Urine clean catch - Urine palumbo top Staphylococcus species 02/05/22 14:58 Blood Culture - Final Blood - Venous Staphylococcus aureus 02/05/22 13:43 Blood Culture - Final Blood - Venous Staphylococcus aureus Assessment and Plan (1) Acute pyelonephritis: Status: Acute (2) ESRD (end stage renal disease) on dialysis: Status: Acute (3) Diabetes mellitus: Status: Acute Plan 71-year-old male with end-stage renal disease in the backdrop of diabetes and coronary artery disease presents after falling out of his chair spending approximately 72 hours on the floor. He states his last dialysis was Tuesday and he has not eaten or drank anything of significance since that time. [facility] police came to the house because of his missed dialysis. In the emergency room CK was fairly unremarkable at 1263; meets sepsis criteria with hypotension tachycardia for fever initial lactic acid 2.8. Urine with active sediment 1. 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 DMII -Sliding scale until more stable intake 5. HTN/CAD -hold meds overnight and reassess in am - add back as clinically appropriate -recheck INR in am Full Code Heparin Hospitalization required ; likely require 2 midnights secondary to GP bacteremia Quality Stroke Does the patient have a stroke diagnosis?: No VTE Prior VTE?: No VTE Risk Level:: Medical - moderate - high VTE Device Contraindication: Treatment Not Indicated VTE Drug Contraindication: N/A - Med Ordered
--- NOTE | 2022-02-08 15:37 | W.PM.IDCN ---
History of Present Illness Data of Consult Service Date: 02/08/22 Requesting physician: Jimmy Mejia Primary Care Provider: Cathy De La Cruz MD [facility] Reason for consult: MSSA bacteremia He presents with weakness and chills. He gets HD and has no problems with left dialysis graft put in in 2017. He has suprapubic catheter changed every six weeks since makes urine and last changed five weeks ago. He has some intermittent cloudy urine. Review of Systems Review of Systems: Yes all other systems are reviewed and are negative [facility] Past Medical History Medical History (Updated 02/08/22 @ 15:42 by Magdalene Stapleton MD) Bacteremia due to methicillin susceptible Staphylococcus aureus (MSSA) CAD (coronary artery disease) CVA (cerebral vascular accident) Diabetes mellitus HTN (hypertension) with goal to be determined Hyperlipidemia Multiple sclerosis Surgical History Surgical History H/O cystostomy History of back surgery Social History Social History Household Members: None Housing: Condominium Are you a primary transitional care liaison to a significant other at home: No Do you presently have visiting nurse or other home services: No 75 years or older and lives alone: No Alcohol intake: former Patient Tobacco Use Status: Never used Tobacco Second Hand Smoke Exposure: No service: Yes Current occupational status: retired [employer] Allergies Allergy/AdvReac Type Severity Reaction Status Date / Time morphine [MORPHINE] Allergy Severe NAUSEA & Verified 12/17/21 14:44 VOMITING, vomiting, nausea and vomiting dust Allergy Mild Dry Eye Uncoded 12/17/21 14:44 cat Allergy Unknown Dry Eye Uncoded 12/17/21 14:44 Active Medications: Current Medications Insulin Human Lispro (Insulin Lispro 100 Unit/Ml 3 Ml Vial) 0 unit SUBCUT QIDACHS [facility]; Protocol Last Admin: 02/08/22 12:02 Dose: Not Given Documented by: Pharmacy Consult (Consult Rx Perform Med Rec) 1 each MISCELLANE ONCE PRN PRN Reason: Consult order Pharmacy Consult (Consult Rx Vancomycin Dosing) 1 each MISCELLANE DAILY PRN PRN Reason: Consult order Sodium Chloride (0.9 % Sodium Chloride Flush 3 Ml Syringe) [facility] Last Admin: 02/08/22 07:54 Dose: 3 ml Documented by: Warfarin Sodium (Warfarin Sodium 6 Mg Tablet) 6 mg PO DAILY@1800 [facility] Last Admin: 02/07/22 18:33 Dose: 6 mg Documented by: Home Medications Medication Instructions Recorded Confirmed Last Taken Type torsemide 20 mg tablet 40 mg PO DAILY 07/14/21 02/05/22 Unknown History warfarin 6 mg tablet 6 mg PO DAILY 07/14/21 02/05/22 Unknown History losartan 50 mg tablet 50 mg PO DAILY 12/17/21 02/05/22 Unknown History amlodipine 10 mg tablet 1 tab PO BEDTIME 02/05/22 02/05/22 Unknown History carvedilol 25 mg tablet 1 tab PO BID 02/05/22 02/05/22 Unknown History Physical Exam Vital Signs: Vital Signs: Last Vital Signs Temp 98.0 F 02/08/22 15:05 Pulse 85 02/08/22 15:05 Resp 18 02/08/22 15:05 BP 147/76 H 02/08/22 15:05 Pulse Ox 98 02/08/22 15:05 BMI result Body Mass Index 27.3 Const: General: cooperative HENMT: Head: Yes normal to inspection Mouth: Normal oral and palatal mucosa present Eyes: General: appearance normal, both eyes and all related structures Resp: Effort & Inspection: normal respiratory effort Cardio: Rate: regular rate Rhythm: regular rhythm GI: Palpation (GI): Soft to palpation and nontender Extrem: Other: left arm graft looks clear suprapubic catheter looks unremarkable Results Labs CBC & Chem 7: 02/08/22 05:34 02/08/22 05:34 Labs: Short CBC 02/08/22 Range/Units 05:34 WBC 12.4 H (4.8-10.8) X10*3/uL Hgb 9.8 L (14.0-18.0) g/dl Hct 30.1 L (42.0-52.0) % Plt Count 102 L (160-400) X10*3/uL BMP 02/05/22 02/08/22 14:58 05:34 Sodium 138 133 L Potassium 4.8 4.1 Chloride 95 L 102 Carbon Dioxide 17 L 14 L BUN 124 H 117 H D Creatinine 12.49 H* 9.92 H* Calcium 10.5 H D 9.1 Cardiac Enzymes 02/05/22 Range/Units 14:58 Total Creatine Kinase 1263 H (38-174) U/L Liver Function 02/05/22 02/08/22 Range/Units 14:58 05:34 Total Bilirubin 1.1 H 0.5 (0.0-1.0) mg/dL Direct Bilirubin 0.5 (0.0-0.5) mg/dL AST 55 H 90 H (5-37) U/L ALT 49 H 98 H (0-40) U/L Alkaline Phosphatase 150 H D 317 H D (39-117) U/L Albumin 4.4 2.9 L (3.5-5.0) g/dL Microbiology Microbiology Results: Microbiology 02/06/22 08:17 Urine clean catch - Urine palumbo top Urine Culture - Preliminary Staphylococcus species 02/05/22 14:58 Blood - Venous Blood Culture - Final Staphylococcus aureus 02/05/22 13:43 Blood - Venous Blood Culture - Final Staphylococcus aureus Assessment and Plan (1) ESRD (end stage renal disease) on dialysis: Status: Acute (2) Acute pyelonephritis: Status: Acute (3) Bacteremia due to methicillin susceptible Staphylococcus aureus (MSSA): Status: Acute He has likely urine source of MSSA bacteremia as urine shows staph aureus. He has graft which looks unremarkable. He has no other complaints. Plan Would give IV Kefzol 2 g IV after each hemodialysis. for six weeks, done on February. Check echo if not done
[2022-02-08 16:54] LABS: Glucose, Whole Blood 206 mg/dL (60-115)
[2022-02-08] MEDS: ceFAZolin Sodium/Dextrose,Iso 2 GM/50 ML PIGGYBACK IV (17:47)
[2022-02-08 19:34] VITALS: BP 173/78; PULSE 85; RESP 18; TEMP 37.2; O2SAT 98
[2022-02-08 21:12] LABS: Glucose, Whole Blood 220 mg/dL (60-115)
[2022-02-09] VITALS: BP 134/62; PULSE 84; RESP 18; TEMP 37.1; O2SAT 97
[2022-02-09 03:17] VITALS: BP 163/78; PULSE 83; RESP 18; TEMP 36.9; O2SAT 98
[2022-02-09 07:32] VITALS: BP 163/76; PULSE 80; RESP 24; TEMP 36.8; O2SAT 97
[2022-02-09 08:40] LABS: Glucose, Whole Blood 220 mg/dL (60-115)
[2022-02-09] MEDS: Insulin Lispro 100 UNIT/ML 3 ML VIAL SUBCUT ×4 (08:56→21:55)
[2022-02-09] MEDS: 0.9 % Sodium Chloride Flush 3 ML SYRINGE IVFLUSH ×3 (08:56→23:49)
[2022-02-09 11:04] LABS: Glucose, Whole Blood 249 mg/dL (60-115)
[2022-02-09 11:51] VITALS: BP 164/86; PULSE 86; RESP 20; TEMP 36.7; O2SAT 99
--- NOTE | 2022-02-09 12:07 | P.CONNP_ITS ---
History of Present Illness Reason for Consult Consult date: 02/09/22 Chief Complaint Chief complaint: UTI History of Present Illness Narrative: jim jimenez 71-year-old gentleman with known medical history of ESRD secondary to diabetic nephropathy on intermittent hemodialysis followed by my partner Dr. Diony Erickson at the [facility] dialysis center in [place], who was brought into the hospital after missing dialysis last week Tuesday and Tuesday, and Tuesday a wellness call was sent where he was found at home after fa lling unable to stand up, came to the emergency room where he had evaluation found to have a blood pressure of 89/45 temperature 101.3 white count of 15,000 - influenza Covid testing white cells in the urine with 2+ bacteria, chest x-ray with stable cardiomegaly with no evidence of acute disease, and subsequent 2 sets of blood cultures positive for Staph aureus.? He has been initiated on IV ceftriaxone was given IV fluids as there was concern for rhabdomyolysis, fortunately fluids were stopped patient feels very weak fatigue most of his weakness is in his lower extremities.? So far has not been able to stand up or walk while he was in the hospital.? He is receiving dialysis today denies any specific symptoms other than weakness. He received dialysis on Tuesday ordered by [facility] appreciate their care and medicine care for the patient. Review of Systems Review of Systems Yes all other systems are reviewed and are negative PMFSH Past Medical History Medical History (Updated 02/08/22 @ 15:42 by Magdalene Stapleton MD) Bacteremia due to methicillin susceptible Staphylococcus aureus (MSSA) CAD (coronary artery disease) CVA (cerebral vascular accident) Diabetes mellitus HTN (hypertension) with goal to be determined Hyperlipidemia Multiple sclerosis Surgical History Surgical History H/O cystostomy History of back surgery Social History Social History Household Members: None Housing: Condominium Are you a primary hiv/aids care nurse to a significant other at home: No Do you presently have visiting nurse or other home services: No 75 years or older and lives alone: No Alcohol intake: former Patient Tobacco Use Status: Never used Tobacco Second Hand Smoke Exposure: No service: Yes Current occupational status: retired Meds Allergies Allergy/AdvReac Type Severity Reaction Status Date / Time morphine [MORPHINE] Allergy Severe NAUSEA & Verified 12/17/21 14:44 VOMITING, vomiting, nausea and vomiting dust Allergy Mild Dry Eye Uncoded 12/17/21 14:44 cat Allergy Unknown Dry Eye Uncoded 12/17/21 14:44 Active Medications: Current Medications Cefazolin Sodium/Dextrose (Ancef) 2 gm in 50 mls @ 100 mls/hr IV [id number] [facility] Last Infusion: 02/08/22 18:30 Dose: Infused Documented by: Insulin Human Lispro (Insulin Lispro 100 Unit/Ml 3 Ml Vial) 0 unit SUBCUT QIDACHS [facility]; Protocol Last Admin: 02/09/22 11:58 Dose: 4 unit Documented by: Pharmacy Consult (Consult Rx Perform Med Rec) 1 each MISCELLANE ONCE PRN PRN Reason: Consult order Pharmacy Consult (Consult Rx Vancomycin Dosing) 1 each MISCELLANE DAILY PRN PRN Reason: Consult order Sodium Chloride (0.9 % Sodium Chloride Flush 3 Ml Syringe) 3 ml IVFLUSH QSHIFT [facility] Last Admin: 02/09/22 08:56 Dose: 3 ml Documented by: Warfarin Sodium (Warfarin Sodium 6 Mg Tablet) 6 mg PO DAILY@1800 [facility] Last Admin: 02/07/22 18:33 Dose: 6 mg Documented by: Home Medications Medication Instructions Recorded Confirmed Last Taken Type torsemide 20 mg tablet 40 mg PO DAILY 07/14/21 02/05/22 Unknown History warfarin 6 mg tablet 6 mg PO DAILY 07/14/21 02/05/22 Unknown History losartan 50 mg tablet 50 mg PO DAILY 12/17/21 02/05/22 Unknown History amlodipine 10 mg tablet 1 tab PO BEDTIME 02/05/22 02/05/22 Unknown History carvedilol 25 mg tablet 1 tab PO BID 02/05/22 02/05/22 Unknown History Physical Exam Vital Signs: Last Vital Signs Temp 98.0 F 02/09/22 11:51 Pulse 86 02/09/22 11:51 Resp 20 02/09/22 11:51 BP 164/86 H 02/09/22 11:51 Pulse Ox 99 02/09/22 11:51 BMI result Body Mass Index 27.3 oral moist mucosa lungs clear s1s2 abd soft SP cath ext trace edema LUE AVG OK neuro non focal Results Lab Results Result Diagrams: 02/08/22 05:34 02/08/22 05:34 Lab results: Chemistry 02/05/22 02/07/22 02/08/22 14:58 06:49 05:34 Sodium 138 134 L 133 L Potassium 4.8 3.8 4.1 Carbon Dioxide 17 L 16 L 14 L BUN 124 H 89 H D 117 H D Creatinine 12.49 H* 8.48 H* 9.92 H* Calcium 10.5 H D 8.7 D 9.1 Hematology 02/07/22 02/08/22 06:49 05:34 WBC 12.4 H 12.4 H Hgb 9.7 L 9.8 L Plt Count 87 L 102 L 02/05 and 02/06 BCs and UCX Stap aureus Resistant to PCN Assessment and Plan (1) Bacteremia due to methicillin susceptible Staphylococcus aureus (MSSA): Status: Acute (2) ESRD (end stage renal disease) on dialysis: Status: Acute (3) Acute pyelonephritis: Status: Acute Plan HD as planned tomorrow MWF IV Antibx as per ID recs, will need 6 weeks antibx *source likely urinary tract, agree needs ECHO and consider ABD PELVIS CT r/o collection, repeat BCXs to document clearance consider Urology follow up to exchange SP Cath sooner than usual date on sched ule. Procedures Date of Service Date of Service: 02/09/22
--- NOTE | 2022-02-09 12:10 | P.CDIC_ITS ---
CDI Concurrent Query Documentation Clarification: PHYSICIAN'S DOCUMENTATION REQUEST Date of Query: 02/09/22 1212 Patient Name: Wilfred Phillip Admit Date: 02/05/22 Dear Doctor, A review of the medical record indicates additional documentation may be needed. Please review below and update the documentation accordingly. Clinical Indicators: Documentation includes the conditions of Sepsis and bacteremia. Additional clinical indicators in the record include: Risk Factors/Clinical Indicators/Treatments Per ID consult 02/08/22: He has likely urine source of MSSA bacteremia as urine shows staph aureus. Per H&P: Sepsis Has a chronic suprapubic tube blood culture: MSSA urine culture: staphylococcus Please clarify the relationship between these conditions: * Yes, Sepsis is related to / associated with / due to urine MSSA bacteremia * No, Sepsis is not related to / associated with / due to urine MSSA bacteremia * Unable to determine Use of terms such as suspected, likely, concern for, or probable (associated with a specific diagnosis that is being evaluated, monitored, or treated as if it exists) are acceptable and can be coded in the inpatient setting, when documented at the time of discharge. Thank you, Brigette Awan RN Extension: [phone] Please use your independent medical judgment in providing your response. THIS QUERY IS PART OF THE PERMANENT MEDICAL RECORD Provider Response: Other Other Diagnosis: Sepsis related to MSSA bacteremia
--- NOTE | 2022-02-09 13:00 | CA_ITS ---
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 Probable low normal LVEF. - Study is inadequate to evaluate for endocarditis. - There is a small loculated pericardial effusion overlying the left ventricle. Findings Left Ventricle Normal left ventricular cavity size. There is mildly increased left ventricular wall thickness. Diastolic function is indeterminate on the basis of available data. Due to poor image quality, LVEF cannot be assessed accurately. Probable low normal LVEF. Right Ventricle Normal right ventricular cavity size and systolic function. Atria The left atrium is normal in size. The right atrium was not well visualized. Aortic Valve The aortic valve was not well visualized. The mean gradient is 11 mmHg. Aortic valve measurements appear inaccurate due to being off axis. Mitral Valve The mitral valve appears normal. There is mild mitral annular calcification. There is no mitral valve regurgitation. There is no mitral valve stenosis. Pulmonic Valve The pulmonic valve was not well visualized. Tricuspid Valve There is trace tricuspid valve regurgitation. The pulmonary artery systolic pressure is normal. Great Vessels The asc aorta is normal in size. Venous The inferior vena cava is normal in size and collapses greater than 50% with inspiration. Pericardium/Pleural There is a small loculated pericardial effusion overlying the left ventricle. Prior Study Comparison No prior study available for comparison. Measurements 2D Linear Measurements IVSd: 1.23 0.6-0.9/0.6-1.0 cm LVIDd: 4.98 3.9-5.3/4.2-5.9 cm LVIDd Index: 2.44 2.4-3.2/2.2-3.1 cm/m2 LVIDs: 3.47 2.0-3.6 cm LVPWd: 1.23 0.7-1.1 cm LA Diam: 2.30 2.7-3.8/3.0-4.0 cm LAIDs Index: 1.13 1.5-2.3 cm/m2 LV Mass: 299.86 67-162/88-224 g LV Mass Index: 146.99 43-95/49-115 g/m2 LVOT Diam: 2.00 3.0+(-)1.3 cm Mitral Valve MV Pk E: 0.55 MV PK A: 0.76 MV Decel Time: 170.00 E/A: 0.70 E'Lateral: 7.29 E'Medial: 5.00 E/E' Med: 11.10 E/E' Lat: 7.60 PHT: 50.00 MVA PHT: 4.40 Decel [place]: 3.24 Aortic Valve AoV Pk Isacc: 2.02 AoV Mn Isacc: 1.53 AoV VTI: 0.38 AoV Pk Grad: 16.00 Aov Mn Grad: 11.00 FLOYD Cont.VTI: 0.89 LVOT LVOT Pk Isacc: 0.57 LVOT Mn Isacc: 0.38 LVOT VTI: 0.11 LVOT Pk Grad: 1.00 LVOT Mn Grad: 1.00 LVOT Diam: 2.00 LVOT Area: 3.14 Diastolic Function MV Pk E: 0.55 MV Pk A: 0.76 E/A: 0.70 E'Medial: 5.00 E/E' Med: 11.10 E' Laterial: 7.29 E/E' Lat: 7.60 Tricuspid Valve TR Pk Isacc: 1.94 TR Pk Grad: 15.00 Great Vessels Aorta Ao Asc: 3.70 2.1-3.4 cm Pulmonary Valve PV Pk Isacc: 1.28 Peak PV Grad: 7.00 Updated in Other Vendor System with Status of Final Deejay Delaney MD electronically signed on 02/09/2022 4:44:39 PM with status of Final
[2022-02-09] MEDS: Acetaminophen 325 MG TABLET 650 MG PO (13:06)
--- NOTE | 2022-02-09 15:01 | P.PNIM_ITS ---
Subjective Subjective Date of Service: 02/09/22 Interval History: Feels better after dialysis; noacute issues Review of Systems Denies chest pain Denies shortness of breath Denies nausea vomiting diarrhea Admits fever and chills Physical Exam Vital Signs: Vital Signs: Last Vital Signs Temp 98.0 F 02/09/22 11:51 Pulse 86 02/09/22 11:51 Resp 20 02/09/22 11:51 BP 164/86 H 02/09/22 11:51 Pulse Ox 99 02/09/22 11:51 BMI result Body Mass Index 27.3 Const: Other: Awake alert oriented x3 no acute distress HENMT: Other: Membranes dry Resp: Other: Diminished at bases with scant crackles Cardio: Other: No S4; positive S1-S2; no S3 murmurs rubs gallops GI: Other: Soft nontender nondistended with normoactive bowel sounds Neuro: Other: Cranial nerves 2-12 grossly intact as tested. Motor is 5/5 in all extremities. Sensation intact. Cognition appropriate Extrem: Other: No edema bilaterally Objective Data Active Medications Acetaminophen (Acetaminophen 325 Mg Tablet) 650 mg PO Q4H PRN PRN Reason: Pain, Moderate (Pain Scale 4-6 Last Admin: 02/09/22 13:06 Dose: 650 mg Documented by: LISA Cefazolin Sodium/Dextrose (Ancef) 2 gm in 50 mls @ 100 mls/hr IV [id number] [facility] Last Infusion: 02/08/22 18:30 Dose: 0 mls/hr Documented by: CATHERINE Insulin Human Lispro (Insulin Lispro 100 Unit/Ml 3 Ml Vial) 0 unit SUBCUT QIDAS [facility]; Protocol Last Admin: 02/09/22 11:58 Dose: 4 unit Documented by: LISA Pharmacy Consult (Consult Rx Perform Med Rec) 1 each MISCELLANE ONCE PRN PRN Reason: Consult order Pharmacy Consult (Consult Rx Vancomycin Dosing) 1 each MISCELLANE DAILY PRN PRN Reason: Consult order Sodium Chloride (0.9 % Sodium Chloride Flush 3 Ml Syringe) 3 ml IVFLUSH QSHIFT [facility] Last Admin: 02/09/22 08:56 Dose: 3 ml Documented by: LISA Warfarin Sodium (Warfarin Sodium 6 Mg Tablet) 6 mg PO DAILY@1800 [facility] Last Admin: 02/07/22 18:33 Dose: 6 mg Documented by: TOBY Labs CBC & Chem 7: 02/08/22 05:34 02/08/22 05:34 Labs: Laboratory Results - last 24 hr 02/08/22 02/08/22 02/09/22 16:50 21:09 08:36 POC Glucose 206 H 220 H 220 H 02/09/22 10:53 POC Glucose 249 H Microbiology Microbiology Results: Microbiology 02/06/22 08:17 Urine Culture - Final Urine clean catch - Urine palumbo top Staphylococcus aureus Assessment and Plan (1) Bacteremia due to methicillin susceptible Staphylococcus aureus (MSSA): Status: Acute (2) Acute pyelonephritis: Status: Acute (3) Diabetes mellitus: Status: Acute Plan 71-year-old male with end-stage renal disease in the backdrop of diabetes and c oronary artery disease presents after falling out of his chair spending approximately 72 hours on the floor. He states his last dialysis was Tuesday and he has not eaten or drank anything of significance since that time. States police came to the house because of his missed dialysis. In the emergency room CK was fairly unremarkable at 1263; meets sepsis criteria with hypotension tachycardia for fever initial lactic acid 2.8. Urine with active sediment 1. Acute pyelonephritiswith MSSA bacteremia -ID recommendations note. Kefzol 2g after HD -check CT abd/pelvis -check echo 2 ESRD on [employer] -HD scheduled for 02/08 -follow renals/divalents 3.Rhabdomyolysis -resolved..DC IVFs 4. DMII -Sliding scale until more stable intake 5. HTN/CAD -hold meds overnight and reassess in am - add back as clinically appropriate -recheck INR in am Full Code Heparin Hospitalization required ; likely require 1 midnights secondary to GP bacteremia Quality Stroke Does the patient have a stroke diagnosis?: No VTE Prior VTE?: No VTE Risk Level:: Medical - moderate - high VTE Device Contraindication: Treatment Not Indicated VTE Drug Contraindication: N/A - Med Ordered
[2022-02-09 15:28] LABS: INTERNATIONAL NORM RATIO 2.1 (0.9-1.1); Prothrombin Time 23.7 SEC (9.9-13.0)
[2022-02-09 17:08] LABS: Glucose, Whole Blood 232 mg/dL (60-115)
[2022-02-09 20:00] VITALS: BP 178/83; PULSE 80; RESP 16; TEMP 37.1; O2SAT 99
[2022-02-09 20:20] LABS: Glucose, Whole Blood 218 mg/dL (60-115)
[2022-02-09 23:34] VITALS: BP 171/89; PULSE 82; RESP 16; O2SAT 98
[2022-02-10] MEDS: Melatonin 3 MG TABLET 6 MG PO (00:58)
[2022-02-10] MEDS: Acetaminophen 325 MG TABLET 650 MG PO ×2 (03:42→10:28)
[2022-02-10 03:47] VITALS: BP 101/84; PULSE 70; RESP 16; O2SAT 94
[2022-02-10 07:10] LABS: Glucose, Whole Blood 199 mg/dL (60-115)
[2022-02-10 07:14] VITALS: BP 162/76; PULSE 75; RESP 20; TEMP 36.6; O2SAT 98
[2022-02-10] MEDS: Insulin Lispro 100 UNIT/ML 3 ML VIAL SUBCUT ×2 (07:50→12:15)
[2022-02-10] MEDS: 0.9 % Sodium Chloride Flush 3 ML SYRINGE IVFLUSH (07:51)
[2022-02-10 11:22] VITALS: BP 176/76; PULSE 83; RESP 18; TEMP 36.6; O2SAT 100
[2022-02-10 11:27] LABS: Glucose, Whole Blood 270 mg/dL (60-115)
[2022-02-10 11:34] LABS: COVID-19 Test Negative (Negative)
--- NOTE | 2022-02-10 12:34 | MHC.CM.PN ---
Per MD, Patient will be medically cleared for dc to SNF/STR today. Patient will dc to [facility] via [facility] today at 4PM. IMM addressed with Patient and a HCP completed; Original IMM given to Patient and a copy has been placed on the chart. HCP/Niece/Ekaterina has been notified of the dc plan. Patient is aware of and in agreement with the dc plan.
--- NOTE | 2022-02-10 13:49 | PM.DS ---
DS: Providers Provider Date of Service: 02/10/22 Date of admission: 02/05/22 18:45 Date of discharge: 02/10/22 Primary care physician: Cathy De La Cruz MD Consults: 02/05/22 18:48 Consult to Nephrology Routine Consulting Provider: Lloyd Crowell Reason for consultation: ESRD missed HD Has provider been notified: No 02/08/22 08:47 Consult to Infectious Diseases Routine Consulting Provider: Magdalene Stapleton Reason for consultation: MSSA bacteremia Has provider been notified: No DS: Diagnosis Discharge Diagnosis (1) Bacteremia due to methicillin susceptible Staphylococcus aureus (MSSA): Status: Acute (2) Acute pyelonephritis: Status: Acute (3) Diabetes mellitus: Status: Acute DS: Summary Hospital Course Hospital Course: 71-year-old male with a history? end-stage renal disease on dialysis (M,W,F),? coronary artery disease, hypertension,? chronic suprapubic tube,? diabetes? here with reports of generalized weakness. ? Patient tells me he had dialysis last on Tuesday.? Tuesday evening and started to have some nausea and vomiting with generalized weakness.? Tuesday morning he woke up and felt like he had flu-like symptoms.? he did a home COVID test that was positive. ? He is vaccinated for COVID.? he did previously have COVID 11/24/2020.? patient tells me that he woke up Tuesday evening after taking a nap and decided to sit in his recliner.? When he tried to get up both of his legs felt very weak and he slid down landing on his buttocks.? There was no hitting of the head or loss of consciousness.? He tells me since late Tuesday evening he has been an able to get up on his own.? He missed dialysis Tuesday and today.? EMS was called for well check and found patient on the floor. ? Patient is complaining of some chills but has no other complaints. Hospital Course Patient to telemetry and covered with ceftriaxone and vancomycin pending cultures. Ultimately blood cultures and urine cultures grew out methicillin sensitive Staph aureus. Infectious Disease was consulted and given culture results recommended Kefzol 2 g IV after each dialysis last dose to be given 03/19/2022. Patient is superpubic catheter was changed prior to his discharge should be changed every 6 weeks thereafter. He was dialyzed without issue while in-house. He will follow-up with Dr. Ortega as outpatient for ongoing dialysis. Dr. Ortega is aware of hospitalization and of medication regimen Time Spent with Patient Time attestation: Total time spent providing and/or coordinating discharge services: Discharge coordination time: Greater than 30 minutes Quality: Stroke Does the patient have a stroke diagnosis?: No Physical Exam Vital Signs: Vital Signs: Last Vital Signs Temp 97.8 F 02/10/22 11:22 Pulse 83 02/10/22 11:22 Resp 18 02/10/22 11:22 BP 176/76 H 02/10/22 11:22 Pulse Ox 100 02/10/22 11:22 BMI result Body Mass Index 27.3 Const: Other: Awake alert oriented x3 no acute distress HENMT: Other: Membranes dry Resp: Other: Diminished at bases with scant crackles Cardio: Other: No S4; positive S1-S2; no S3 murmurs rubs gallops GI: Other: Soft nontender nondistended with normoactive bowel sounds Neuro: Other: Cranial nerves 2-12 grossly intact as tested. Motor is 5/5 in all extremities. Sensation intact. Cognition appropriate Extrem: Other: No edema bilaterally DS: Data Data Completed and Pending Labs on day of discharge: Laboratory Results - last 24 hr 02/09/22 02/09/22 02/09/22 15:12 17:03 20:14 PT 23.7 H INR 2.1 H POC Glucose 232 H 218 H COVID-19 ([facility]) COVID-19 Clin Com 02/10/22 02/10/22 02/10/22 07:07 11:00 11:21 PT INR POC Glucose 199 H 270 H COVID-19 ([facility]) Negative COVID-19 Clin Com See Note Discharge Plan Discharge Patient Disposition: Xfer SNF Discharge Diagnosis: MSSA Bacteremia Referrals: [facility] [Outside] - 1 Week Cathy De La Cruz MD [Primary Care Provider] - 1 Week Discharge Medications: New cefazolin in dextrose (iso-os) 2 gram/50 mL Piggyback 2 g IV [id number] Qty: 18 0RF Continued carvedilol 25 mg tablet 1 tab PO BID 0RF amlodipine 10 mg tablet 1 tab PO BEDTIME 0RF losartan 50 mg tablet 50 mg PO DAILY 0RF warfarin 6 mg tablet 6 mg PO DAILY 0RF torsemide 20 mg tablet 40 mg PO DAILY 0RF Discharge Orders: Discharge Order (Routine); Ordered 02/10/22 Ordered By: Jimmy Mejia Diet: advance to usual diet Activity on Discharge: As tolerated Stand Alone Forms: Patient Portal Discharge page Care Plan Goals: Continue Kefzol 2 g after each dialysis for a total of 6 weeks. Last dose due 03/19/2022 Health Concerns: Continue previous meds as ordered. Any changes based on receiving facility Plan of Treatment: Suprapubic cath needs to be changed every 6 weeks Assessment: As per discharge summary
== END 2022-02-10 16:25 | disposition skilled nursing facility (03) | DRG 698 ==
LOC: HO.ED 13:57 → HO.EDOVER 18:55 → HO.IMC 02-07 15:49
PROVIDERS: Internal Medicine; Nurse Practitioner Family; Admitting Provider Hospitalist; Emergency Provider Emergency Medicine; PCP Internal Medicine; Visit Provider Hospitalist
DX: T83.518A Infection and inflammatory reaction due to other urinary catheter, initial encounter (principal); A41.01 Sepsis due to Methicillin susceptible Staphylococcus aureus; N18.6 End stage renal disease; I50.21 Acute systolic (congestive) heart failure; N10 Acute pyelonephritis; I13.2 Hypertensive heart and chronic kidney disease with heart failure and with stage 5 chronic kidney disease, or end stage renal disease; M62.82 Rhabdomyolysis; I25.10 Atherosclerotic heart disease of native coronary artery without angina pectoris; Z96.0 Presence of urogenital implants; Z20.822 Contact with and (suspected) exposure to COVID-19; E11.22 Type 2 diabetes mellitus with diabetic chronic kidney disease; Z86.16 Personal history of COVID-19; Z91.15 Patient's noncompliance with renal dialysis; Z99.2 Dependence on renal dialysis; Z86.73 Personal history of transient ischemic attack (TIA), and cerebral infarction without residual deficits; Z88.5 Allergy status to narcotic agent; Z79.01 Long term (current) use of anticoagulants; Z79.899 Other long term (current) drug therapy
CPT/HCPCS: 0241U; 36415; 71045; 71046; 74176; 80048; 80053; 80076; 80202; 81001; 81003; 82550; 82947; 83605; 83735; 83880; 84484; 85025; 85610; 87040; 87077; 87086; 87186; 87205; 87635; 90999; 93005; 93306; 96365; 97162; 99285; J0690; J0696; J1940; J3370

== ENCOUNTER 2022-02-11 06:05 | Outpatient (REF) | payer MEDICARE, SELFPAY ==
[2022-02-11 06:16] LABS: Basophils Absolute Auto 0.1 X10*3/uL (0.0-0.2); Basophils Percent Auto 0.3 % (0-2); Eosinophils Absolute Auto 0.3 X10*3/uL (0.0-0.4); Eosinophils Percent Auto 1.2 % (0-4); Hematocrit 30.7 % (42.0-52.0); Hemoglobin 10.2 g/dl (14.0-18.0); Imm Gran Pct Auto 4.3 % (0.0-0.4); Lymphocytes Absolute Auto 2.1 X10*3/uL (1.2-4.9); Lymphocytes Percent Auto 10.2 % (20-40); MANUAL DIFF FLAG SCAN; Mean Corpuscular HGB Conc 33.2 g/dl (31.0-36.0); Mean Corpuscular Hemoglobin 29.6 pg (27.0-33.0); Monocytes Absolute Auto 1.1 X10*3/uL (0.1-1.2); Monocytes Percent Auto 5.4 % (2-11); Neutrophils Absolute Auto 16.3 x10*3/uL (2.0-8.3); Neutrophils Percent Auto 78.6 % (45-73); Platelet Count 163 X10*3/uL (160-400); Red Blood Count 3.45 X10*6/uL (4.60-5.80); Red Cell Distribution Width 14.8 % (11.0-16.0); SCAN SMEAR FLAG 1; White Blood Count 20.7 X10*3/uL (4.8-10.8)
[2022-02-11 06:22] LABS: INTERNATIONAL NORM RATIO 1.7 (0.9-1.1); Prothrombin Time 19.4 SEC (9.9-13.0)
[2022-02-11 06:34] LABS: SLIDE REVIEW VERIFIED
[2022-02-11 06:35] LABS: Alanine Aminotransferase 21 U/L (0-40); Albumin Level 3.1 g/dL (3.5-5.0); Alkaline Phosphatase 552 U/L (39-117); Anion Gap 22 (12-20); Aspartate Amino Transferase 52 U/L (5-37); Bilirubin Total 0.6 mg/dL (0.0-1.0); Blood Urea Nitrogen 109 mg/dL (9-16); Calcium 9.1 mg/dL (8.4-10.2); Carbon Dioxide 14 mmol/L (22-29); Chloride 100 mmol/L (96-108); Estimated Glomerular Filt Rate 6; Glucose Random 273 mg/dL (60-115); Potassium 4.2 mmol/L (3.3-5.1); Sodium 132 mmol/L (135-145); Total Protein 6.1 g/dL (6.5-8.0)
== END 2022-02-11 06:06 | disposition home or self-care (01) ==
LOC: HO.MMNH1L 06:05
PROVIDERS: Visit Provider Family Medicine
DX: I25.10 Atherosclerotic heart disease of native coronary artery without angina pectoris (principal); I10 Essential (primary) hypertension
CPT/HCPCS: 36415; 80053; 85025; 85610

== ENCOUNTER 2022-02-15 00:47 | Outpatient (REF) | payer MEDICARE, SELFPAY ==
[2022-02-15 07:16] LABS: MANUAL DIFF FLAG NO
[2022-02-15 07:24] LABS: Prothrombin Time 34.7 SEC (9.9-13.0)
[2022-02-15 07:25] LABS: Basophils Percent Auto 0.2 % (0-2); Eosinophils Absolute Auto 0.3 X10*3/uL (0.0-0.4); Eosinophils Percent Auto 1.5 % (0-4); Hematocrit 25.8 % (42.0-52.0); Hemoglobin 8.4 g/dl (14.0-18.0); Imm Gran Abs Auto 0.35 X10*3/uL (0.00-0.03); Imm Gran Pct Auto 2.2 % (0.0-0.4); Lymphocytes Absolute Auto 1.7 X10*3/uL (1.2-4.9); Lymphocytes Percent Auto 10.5 % (20-40); Mean Corpuscular HGB Conc 32.6 g/dl (31.0-36.0); Mean Platelet Volume 11.3 fL (9.4-12.4); Monocytes Percent Auto 6.2 % (2-11); Neutrophils Absolute Auto 12.9 x10*3/uL (2.0-8.3); Neutrophils Percent Auto 79.4 % (45-73); Platelet Count 222 X10*3/uL (160-400); Red Cell Distribution Width 14.6 % (11.0-16.0); White Blood Count 16.2 X10*3/uL (4.8-10.8)
[2022-02-15 08:04] LABS: Anion Gap 23 (12-20); Blood Urea Nitrogen 88 mg/dL (9-16); Calcium 8.2 mg/dL (8.4-10.2); Carbon Dioxide 18 mmol/L (22-29); Chloride 94 mmol/L (96-108); Estimated Glomerular Filt Rate 6; Glucose Random 250 mg/dL (60-115); Potassium 4.7 mmol/L (3.3-5.1); Sodium 130 mmol/L (135-145)
== END 2022-02-15 00:48 | disposition home or self-care (01) ==
LOC: HO.MMNH1L 00:47
PROVIDERS: Visit Provider Family Medicine
DX: M62.82 Rhabdomyolysis (principal); I63.9 Cerebral infarction, unspecified; I25.10 Atherosclerotic heart disease of native coronary artery without angina pectoris; I10 Essential (primary) hypertension
CPT/HCPCS: 36415; 80048; 85025; 85610

== ENCOUNTER 2022-02-18 11:02 | Outpatient (REF) | payer MEDICARE, SELFPAY ==
[2022-02-18 11:34] LABS: INTERNATIONAL NORM RATIO 3.2 (0.9-1.1); Prothrombin Time 37.1 SEC (9.9-13.0)
== END 2022-02-18 11:03 | disposition home or self-care (01) ==
LOC: HO.MMNH1L 11:02
PROVIDERS: Visit Provider Family Medicine
DX: I48.91 Unspecified atrial fibrillation (principal)
CPT/HCPCS: 36415; 85610

== ENCOUNTER 2022-02-22 01:07 | Outpatient (REF) | payer MEDICARE, SELFPAY ==
[2022-02-22 06:53] LABS: INTERNATIONAL NORM RATIO 2.3 (0.9-1.1); Prothrombin Time 27.1 SEC (9.9-13.0)
[2022-02-22 07:29] LABS: Anion Gap 21 (12-20); Blood Urea Nitrogen 44 mg/dL (9-16); Calcium 8.9 mg/dL (8.4-10.2); Carbon Dioxide 21 mmol/L (22-29); Chloride 97 mmol/L (96-108); Estimated Glomerular Filt Rate 7; Glucose Random 191 mg/dL (60-115); Potassium 5.3 mmol/L (3.3-5.1); Sodium 134 mmol/L (135-145)
[2022-02-22 07:37] LABS: Hematocrit 29.1 % (42.0-52.0); Hemoglobin 8.7 g/dl (14.0-18.0); Mean Corpuscular HGB Conc 29.9 g/dl (31.0-36.0); Mean Corpuscular Hemoglobin 28.3 pg (27.0-33.0); Mean Platelet Volume 10.7 fL (9.4-12.4); Platelet Count 316 X10*3/uL (160-400); Red Blood Count 3.07 X10*6/uL (4.60-5.80); Red Cell Distribution Width 14.4 % (11.0-16.0); White Blood Count 11.5 X10*3/uL (4.8-10.8)
[2022-02-22 07:58] LABS: Mean Corpuscular Volume 94.8 fL (80.0-98.0)
== END 2022-02-22 01:08 | disposition home or self-care (01) ==
LOC: HO.MMNH1L 01:07
PROVIDERS: Visit Provider Family Medicine
DX: I25.10 Atherosclerotic heart disease of native coronary artery without angina pectoris (principal); I10 Essential (primary) hypertension
CPT/HCPCS: 36415; 80048; 85027; 85610

== ENCOUNTER 2022-03-04 10:41 | Outpatient (REF) | payer MEDICARE, SELFPAY | END 2022-03-04 10:42 | disposition home or self-care (01) | LOC: HO.MMNH1L 10:41 | PROVIDERS: Visit Provider Family Medicine | DX: Z13.89 Encounter for screening for other disorder (principal) ==

== ENCOUNTER → 2022-06-30 13:17 | Outpatient (BNVA) | payer MEDICARE, SELFPAY | PROVIDERS: PCP Internal Medicine; Visit Provider Urology | DX: N31.9 Neuromuscular dysfunction of bladder, unspecified (principal) | CPT/HCPCS: 51705 ==

== ENCOUNTER → 2022-08-26 08:34 | Outpatient (BNVA) | payer MEDICARE, SELFPAY | PROVIDERS: PCP Internal Medicine; Visit Provider Urology | DX: N31.9 Neuromuscular dysfunction of bladder, unspecified (principal) | CPT/HCPCS: 51705; 99212 ==

== ENCOUNTER 2022-10-15 16:52 | Inpatient (IN) | payer OTHER, MEDICARE, SELFPAY ==
--- NOTE | ~2022-10-15 | MR_ITS ---
EXAMINATION: MR LUMBAR SPINE WITHOUT AND WITH CONTRAST CLINICAL INFORMATION: Concern for osteomyelitis COMPARISON: CT abdomen and pelvis 10/15/2022, TECHNIQUE: MRI of the lumbar spine was obtained using routine sequences with and without contrast. Intravenous contrast: Gadavist 7 mL FINDINGS: Significantly motion degraded examination Destructive changes centered along the L4-L5 endplates with inferior subsidence of the vertebral body and L5, the latter of which demonstrates mild height loss is better demonstrated on prior CT. There is minimal edema in the L4-L5 disc space but significant marrow edema and enhancement involving the L4 and L5 vertebral bodies extending into the posterior elements. No paravertebral fluid collection or enhancement. No epidural fluid collection is identified. Disc osteophyte complex, facet arthropathy, and ligamentum flavum thickening at L4-L5 contribute to severe spinal canal stenosis with compression of the cauda equina nerve roots and moderate to severe bilateral neural foraminal narrowing. There is mild ventral epidural enhancement which is likely reactive. At L3-L4, multifactorial degenerative changes including disc bulge, facet arthropathy, and ligamentum flavum thickening contribute to moderate to severe spinal canal stenosis and moderate bilateral neural foraminal narrowing. No other significant spinal canal stenosis or high-grade neural foraminal narrowing. The remaining vertebral body heights are maintained. Degenerative disc space narrowing at L2-L3 and L3-L4. There are notable rounded T2/STIR hyperintense enhancing lesions involving the T12-L3 vertebral bodies as well as the left T11 articular pillar and left T12 pedicle which appear faintly present on prior CT and are favored to represent atypical hemangiomas. The conus medullaris terminates at T12-L1. The distal spinal cord appears normal. The cauda equina nerve roots appear normal where visualized superior to the L3-L4 disc space. Cholelithiasis. Multicystic kidneys and bilateral extrarenal pelvises versus pelviectasis. MR/MR lumbar spine wo/w con IMPRESSION: Significantly motion limited examination. 1. Redemonstration of destructive endplate changes at L4-L5 with inferior subsidence of the L4 vertebral body and mild L5 vertebral body height loss. This region demonstrates significant marrow edema and enhancement in the L4 and L5 vertebral bodies extending into the posterior elements but without significant paravertebral edema or fluid collection and minimal fluid in the disc space would be an unusual appearance for discitis osteomyelitis. Differential considerations include sequela of advanced degenerative changes and/or neurogenic/amyloid spondyloarthropathy depending on the clinical history. Multifactorial degenerative changes at L4-L5 also contributes to severe spinal canal stenosis with cauda equina nerve root compression and moderate to severe bilateral neural foraminal narrowing. 2. At L3-L4, multifactorial degenerative changes contribute to moderate to severe spinal canal stenosis and moderate bilateral neural foraminal narrowing. There is no other high-grade canal or neural foraminal stenosis. 3. 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
--- NOTE | ~2022-10-15 | CT_ITS ---
PROCEDURE: CT GUIDED BIOPSY, BONE CLINICAL INFORMATION: Destructive endplate changes L4 and L5 vertebra. COMPARISON: None TECHNIQUE: Following explaining CT fluoroscopy-guided L4 and L5 endplate/vertebral body biopsy and aspiration procedure, benefits and risk, a written consent was obtained. Patient was placed prone on CT fluoroscopy table and preliminary imaging was obtained through the lower lumbar spine. A marker was placed along the left para-midline region overlying the L4-L5 disc level. An optimal marker was selected, and the area cleaned and draped in the usual sterile manner. 1% local Xylocaine was injected at the marked site. Through a small skin incision, a 14-gauge guide needle was advanced from the skin into the L4-L5 vertebra with battery operated drill. A coaxial needle was advanced and 2 core bone biopsies were obtained. Bone marrow aspiration was performed with a syringe attached to the needle. Postprocedure, the guide needle was withdrawn and complete. Hemostasis achieved. Conscious sedation was utilized and patient monitored for [address] examination was performed using dose optimization techniques as appropriate, variously including the following: *Automated exposure control. *Adjustment of mA and/or kV according to patient size (this includes techniques or standardized protocols for targeted exams where dose is matched to indication/reason for exam; i.e. extremities or head). *Use of iterative reconstruction technique. DLP: 239 mGy-cm FINDINGS: On preliminary CT imaging, there is sclerosis involving the inferior endplate of L4 and superior endplate of L5 vertebra with heterogeneous-appearing bone marrow. A 2-core bone biopsies obtained at L4-L5 vertebra under CT fluoroscopy. CT/CT biopsy bone deep IMPRESSION: Successful CT fluoroscopy-guided 2-core bone biopsies at L4 and L5 vertebra and bone marrow aspiration was performed.
--- NOTE | ~2022-10-15 | CT_ITS ---
EXAMINATION: CT head/brain wo IV con CLINICAL INFORMATION: Reason for Exam vomiting, HTN COMPARISON: None. TECHNIQUE: Contiguous axial imaging was performed from the skull base to vertex without intravenous contrast. Sagittal and coronal reformatted images were obtained. This CT examination was performed using dose optimization techniques as appropriate, variously including the following: * Automated exposure control * Adjustment of mA and/or kV according to patient size (this includes techniques or standardized protocols for targeted exams where dose is matched to indication/reason for exam; i.e. extremities or head) Use of iterative reconstruction technique DLP: Total DLP for the CT brain, chest, abdomen and pelvis is 2006 mGy-cm with the CT chest abdomen pelvis reported separately FINDINGS: No acute osseous or soft tissue abnormality. Patchy paranasal sinus mucosal thickening. Physiologic mineralization in the basal ganglia. There is no evidence of acute intracranial hemorrhage or territorial infarction. No abnormal mass effect or midline shift is seen. Lindsey to white matter differentiation is well preserved. No extra-axial fluid collections are identified. No hydrocephalus. Proportional prominence of the ventricles and sulcal spaces is consistent with mild volume loss. Patchy periventricular and deep white matter hypoattenuation is consistent with mild small vessel ischemic changes. CT/CT head/brain wo IV con IMPRESSION: 1. No acute intracranial abnormality.
--- NOTE | ~2022-10-15 | XR_ITS ---
EXAMINATION: XR CHEST CLINICAL INFORMATION: Weakness COMPARISON: Chest x-ray 02/09/2022 TECHNIQUE: 2 views of the chest were obtained. FINDINGS: The lungs appear clear. No airspace consolidation, pleural effusion, or pneumothorax. Mildly tortuous descending thoracic aorta. No cardiomegaly or evidence of active pulmonary edema. No acute osseous injury. Multiple overlapping left axillary and brachial stents noted. XR/XR chest 2V IMPRESSION: No acute pulmonary process.
--- NOTE | ~2022-10-15 | CT_ITS ---
EXAMINATION: CT CHEST, ABDOMEN AND PELVIS WITHOUT CONTRAST CLINICAL INFORMATION: Abdominal pain and vomiting COMPARISON: CT abdomen pelvis 02/09/2022 TECHNIQUE: Multidetector volumetric imaging was performed from the thoracic inlet through the pubic symphysis. Sagittal and coronal reformatted images were obtained on the technologist's workstation. Axial MIP volume rendering provided. This CT examination was performed using dose optimization techniques as appropriate, variously including the following: *Automated exposure control *Adjustment of mA and/or kV according to patient size (this includes techniques or standardized protocols for targeted exams where dose is matched to indication/reason for exam; i.e. extremities or head) *Use of iterative reconstruction technique DLP: 2006 mGy-cm FINDINGS: CHEST: Lungs: No airspace consolidation. There are a few small sub-4 mm bilateral pulmonary nodules in the upper lobes, largest in the right upper lobe volume series 18 image 206 measuring 3 mm in size. Couple small calcified granulomas in the right lung as well. No suspicious appearing pulmonary nodules. Central through segmental airways are clear. Mediastinum: Normal heart size. Trace pericardial fluid. Extensive three-vessel coronary calcifications. Normal caliber thoracic aorta with mild vascular calcifications. No mediastinal or hilar lymphadenopathy. Multinodular appearance of the thyroid gland with enlargement of the right lobe due to a approximately 3.4 cm low-density nodule. Some of the smaller nodules have peripheral calcifications. Pleura: There is no significant effusion. No pleural mass or thickening. Chest Wall/Axilla: No axillary lymphadenopathy. Left brachial/axillary vascular stents and graft noted. ABDOMEN/PELVIS: Liver, Gallbladder, Biliary Tree: The liver is normal in size, shape, and attenuation. No focal hepatic lesion or biliary ductal dilatation is present. Cholelithiasis. No gallbladder wall thickening or pericholecystic inflammatory change. Pancreas: Unremarkable. Spleen: Unremarkable. Adrenal Glands: Unremarkable. Kidneys and Ureters: There are several small nonobstructing bilateral renal calculi. Mild fullness/distention of the renal pelvis bilaterally left greater than right. No significant hydronephrosis. Lobular renal cortical contours with small subcentimeter hypodense cortical lesions, likely small cysts, but too small to reliably characterize. Symmetric bilateral perirenal fascial stranding, nonspecific. Bladder: Diffusely thick-walled with suprapubic tube in place. Gastrointestinal Tract: Mild colonic diverticulosis. No evidence of acute diverticulitis. No dilated bowel loops to suggest obstruction. Normal appendix. No ascites or free air. Abdominal Wall: Small fat-containing left inguinal hernia. Lymphovascular Structures: Lymph nodes: No lymphadenopathy. Vascular: Mildly tortuous normal caliber abdominal aorta. Moderate vascular calcifications. Pelvic Viscera: Markedly enlarged prostate gland indenting into the bladder base. OSSEOUS STRUCTURES: Subacute healing appearing fractures of the left superior and inferior pubic rami. Subacute healing left sacral ala fracture. Development of severe endplate erosive change with sclerosis at L4-L5 highly suspicious for skeletal discitis osteomyelitis complex. No gross paravertebral fluid collection. Otherwise, similar appearance of multilevel degenerative disc disease in the lumbar spine. CT/CT abdomen pelvis wo IV con IMPRESSION: 1. 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 Recommend clinical correlation with history of discitis, pain and with elevated inflammatory markers. Alternatively, destructive amyloid spondyloarthropathy could have a similar appearance in the appropriate clinical setting/hemodialysis. 2. No acute intra-abdominal process identified. No evidence of bowel obstruction. 3. Prostatomegaly thick-walled urinary bladder with suprapubic tube in place. 4. Subacute healing fractures of the left superior and inferior pubic rami and left sacral ala. 5. Cholelithiasis. 6. Small nonobstructing bilateral renal calculi. 7. A few small sub-4 mm pulmonary nodules, likely benign. If patient is high risk for primary pulmonary malignancy consider optional chest CT follow-up in 12 months. If low risk, no further follow-up required for Fleischner Society guidelines. 8. Multinodular appearance of the thyroid gland approximately 3.4 cm nodule in the right thyroid lobe. Suggest nonemergent targeted ultrasound for evaluation.
[2022-10-15 17:12] VITALS: BP 164/75; BP 192/82; PULSE 77; PULSE 88; RESP 18; TEMP 36.7; O2SAT 98
--- NOTE | 2022-10-15 17:16 | ECG_ITS ---
Test Reason : NAUSEA Blood Pressure : / mmHG Vent. Rate : 078 BPM Atrial Rate : 078 BPM P-R Int : 166 ms QRS Dur : 092 ms QT Int : 436 ms P-R-T Axes : 000 211 123 degrees QTc Int : 497 ms Sinus rhythm with Premature supraventricular complexes Right superior axis deviation Prolonged QT Abnormal ECG When compared with ECG of 05-FEB-2022 13:53, Premature supraventricular complexes are now Present Vent. rate has decreased BY 44 BPM Questionable change in QRS axis ST no longer depressed in Lateral leads Referred By: Sofia Gerber Electronically Signed By:MIRYAM HUGGINS MD
--- NOTE | 2022-10-15 17:17 | ED_ITS ---
HPI - Nausea/Vomiting/Diarrhea General Chief complaint: Nausea/Vomiting/Diarrhea Stated complaint: vomiting x 1 week Time Seen by Provider: 10/15/22 16:52 Source: patient and EMS Mode of arrival: EMS Limitations: no limitations History of Present Illness HPI Narrative: 71-year-old male with a history of end-stage renal disease on dialysis (M,W,F),? coronary artery disease, hypertension,? chronic suprapubic tube,? diabetes presents with complaints of nausea, vomiting intermittent over the last 3 weeks with associated dizziness and weakness which is generalized. Patient denies any associated abdominal pain, diarrhea, constipation, fevers, cough, difficulty breathing, chest pain, headache. Patient reports prolonged hospitalization in January due to bacteremia. Patient reports since January he has had a 54 lb weight loss. Patient has been trying to drink Ensure and boost intermittently. He does have a chronic suprapubic catheter which he tells me is draining greater than a 1000 mL of urine daily which is unchanged from his baseline. Of note, the patient was recently diagnosed with a thyroid nodule which was felt to be cancers. Patient is pending surgery out in [place] for thyroidectomy. Also +black stool. No blood and no associated abdominal pain, hematemesis Associated nausea: Yes Related Data Home Medications Medication Instructions Recorded Confirmed torsemide 20 mg tablet 40 mg PO DAILY 07/14/21 10/14/22 losartan 50 mg tablet 50 mg PO DAILY 12/17/21 10/14/22 amlodipine 10 mg tablet 1 tab PO BEDTIME 02/05/22 10/14/22 carvedilol 25 mg tablet 1 tab PO BID 02/05/22 10/14/22 duloxetine 20 mg capsule,delayed 20 mg PO BID 10/14/22 10/14/22 release pantoprazole 40 mg tablet,delayed 40 mg PO DAILY 10/14/22 10/14/22 release vitamin B comp no.3-folic acid 1 1 tab PO DAILY 10/14/22 10/14/22 mg-vit C 60 mg-biotin 300 mcg tablet ([facility]) Allergies Allergy/AdvReac Type Severity Reaction Status Date / Time morphine [MORPHINE] Allergy Severe NAUSEA & Verified 10/14/22 15:36 VOMITING, vomiting, nausea and vomiting dust Allergy Mild Dry Eye Uncoded 10/14/22 15:36 cat Allergy Unknown Dry Eye Uncoded 11/17/22 15:36 Review of Systems Review of Systems: Yes all other systems are reviewed and are negative Constitutional: Constitutional: Reports no additional constitutional complai nts, Denies body ache(s), Denies chills, Denies fever(s), Denies headache(s), Reports weakness and Reports weight loss Eyes: Eyes: Reports no additional eye complaints and Denies change in vision ENT: Reports system reviewed and no additional complaints, except as documented, Denies dizziness, Denies headache(s), Denies nasal congestion, Denies nasal discharge and Denies neck pain Cardiovascular: Cardiovascular: Reports no additional cardiovascular complaint s, Denies chest pain, Denies leg edema and Denies dyspnea Respiratory: Respiratory: Reports no additional respiratory complaints, Denies cough and Denies dyspnea Gastrointestinal: Gastrointestinal: Reports no additional gastrointestinal complaints, Denies abdominal pain, Reports melena, Denies hematochezia, Denies diarrhea, Reports nausea, Reports vomiting and Denies hematemesis Genitourinary: Genitourinary: Denies urinary incontinence Musculoskeletal: Musculoskeletal: Reports no additional musculoskeletal complaints, Denies back pain, Denies arthralgias, Denies joint swelling, Denies neck pain, Denies numbness and Denies tingling Integumentary/Breasts: Skin/Breast: Reports system reviewed and no additional complaints, except as docu and Denies rash Neurologic: Reports system reviewed and no additional complaints, except as documented, Denies Abnormal speech present, Denies dizziness, Denies headache(s), Denies numbness, Denies tingling and Reports weakness PMFSH Past Medical History Attestation statement: The following information was validated with the patient. Source: old records reviewed and nursing notes reviewed Medical History Bacteremia due to methicillin susceptible Staphylococcus aureus (MSSA) CAD (coronary artery disease) CVA (cerebral vascular accident) Diabetes mellitus HTN (hypertension) with goal to be determined Hyperlipidemia Multiple sclerosis Surgical History H/O cystostomy History of back surgery Social History Social History Household Members: None Housing: Condominium Are you a primary urgent care technician to a significant other at home: No Do you presently have visiting nurse or other home services: No Alcohol intake: former Patient Tobacco Use Status: Never used Tobacco Second Hand Smoke Exposure: No Use of substances other than those prescribed or required for medical reasons: No Advance Directives: No Advance Directives Information Provided: No service: Yes Current occupational status: retired Physical Exam Vital Signs: Vital Signs: Last Vital Signs Temp 98.1 F 10/15/22 17:12 Pulse 74 10/15/22 23:21 Resp 18 10/15/22 23:21 BP 179/85 H 10/15/22 23:21 Pulse Ox 98 10/15/22 23:21 O2 Del Method 10/15/22 23:21 BMI result Body Mass Index 0.3 Const: General: cooperative, healthy appearing, comfortable and no acute distress Orientation/consciousness: patient oriented x3 Limitations: no limitations HEENT: Head: Yes normal to inspection Ears: hearing grossly normal bilaterally and TM's normal bilaterally General nose exam: Normal external nose present Face and sinus: Yes normal facial exam Mouth: Normal oral and palatal mucosa present Throat: Yes posterior oropharynx normal, Yes tonsils normal and Yes uvula midline Eyes: General: appearance normal, both eyes and all related structures Pupils: Equal, round and reactive pupils present Neck: Neck: Yes normal visual inspection, Yes full ROM, Yes no lymphadenopathy and Yes no meningeal signs Chest: Chest palpation & inspection: normal inspection of the chest Resp: Effort & Inspection: normal respiratory effort Auscultation: clear to auscultation bilaterally Cardio: Rate: regular rate Rhythm: regular rhythm Peripheral pulses: Peripheral pulses 2+ throughout GI: Other: +black stool on exam Inspection: Yes normal to inspection Palpation (GI): Soft to palpation and nontender Auscultation: normal bowel sounds Back/Spine/Pelvis: Thoracic/Lumbar Spine: thoracic and lumbar spine normal to inspection Skin: General skin exam: no rashes or lesions noted Neuro: General: patient oriented x3, moves all extremities, no meningeal signs, no focal motor deficits and normal sensation to monofilament Cranial nerves: Yes Equal, round and reactive pupils present Cognition (Neuro): normal cognition Speech: No Abnormal speech present Motor exam (neuro): 5/5 motor strength present throughout Sensory Exam: Normal double simultaneous stimulation for sensation Extrem: General: Yes normal to inspection, Yes no pedal edema and Yes no calf tenderness Course Course Course Narrative: Elevated BUN and creatinine with underlying chronic kidney disease. Patient did not go to dialysis today due to feeling unwell. Potassium is normal. Patient is elevated troponin which is likely secondary to chronic kidney disease. No reports of chest pain. EKG shows no ischemic changes. Plan to trend Reevaluation(s) Reevaluation #1: 2150- .? 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 Recommend clinical correlation with history of discitis, pain and with elevated inflammatory markers. Alternatively, destructive amyloid spondyloarthropathy could have a similar appearance in the appropriate clinical setting/hemodialysis. -of note patient was admitted in January of 2022 for MRSA bacteremia secondary to UTI. Patient was treated with IV Kefzol for 6 weeks. Patient denies any back pain. Planned add on inflammatory markers, repeat troponin. Will need admission Reevaluation #2: 0000-repeat troponin unchanged. Likely secondary to chronic kidney disease and not from ACS. EKG has no ischemic changes. Elevated inflammatory markers. Will discuss with Medicine for admission Medications Administered Discontinued Medications Generic Name Dose Route Start Last Admin Trade Name Freq PRN Reason Stop Dose Admin Ceftriaxone Sodium 1 gm/ 50 mls @ 100 mls/hr 10/15/22 22:10 10/15/22 23:16 Sodium Chloride IV 10/15/22 22:39 Infused ONCE ONE Infusion Vancomycin HCl 1,000 mg/ 535 mls @ 267.5 mls/hr 10/15/22 22:10 10/15/22 23:16 Vancomycin HCl 750 mg/ Sodium IV 10/16/22 00:09 267.5 mls/hr Chloride ONCE ONE Administration MDM - Nausea/Vomiting/Diarrhea MDM Narrative Medical decision making narrative: 71-year-old male with multiple medical problems with prolonged hospitalization earlier this year for bacteremia reports today a gradual weight loss since January of 54 lb which was unintentional now with 3 weeks of nausea, vomiting, generalized weakness and dizziness with position changes. Of note patient recently diagnosed with thyroid cancer with plans for total thyroidectomy out in [place]. On exam vitals are stable. No focal neurological finding. Lungs are clear. Abdomen soft nontender. Patient did miss dialysis today due to not feeling well. His business practices officer is Dr. Erickson Will need labs including blood cultures lactic acid, UA, EKG, chest x-ray, COVID screen, occcult stool, CT head/chest/abdomen Consider malignancy, metabolic cause, underlying infection, GI bleed Medical Records Attestation: I reviewed the patient's medical records. Lab Data Attestation: I reviewed the patient's lab results. Result diagrams: 10/15/22 17:56 10/15/22 17:56 Labs: Lab Results 10/15/22 10/15/2218 Range/Units 17:56 17:56 17:56 WBC 9.3 (4.8-10.8) X10*3/uL RBC 3.44 L (4.60-5.80) X10*6/uL Hgb 9.9 L (14.0-18.0) g/dl Hct 31.2 L (42.0-52.0) % MCV 90.7 (80.0-98.0) fL MCH 28.8 (27.0-33.0) pg MCHC 31.7 (31.0-36.0) g/dl RDW 14.9 (11.0-16.0) % Plt Count 205 D (160-400) X10*3/uL MPV 11.4 (9.4-12.4) fL Immature Gran % (Auto) 0.2 (0.0-0.4) % Neut % (Auto) 75.5 H (45-73) % Lymph % (Auto) 14.6 L (20-40) % Dixon % (Auto) 7.4 (2-11) % Eos % (Auto) 1.6 (0-4) % Baso % (Auto) 0.7 (0-2) % Lymph # (Auto) 1.4 (1.2-4.9) X10*3/uL Dixon # (Auto) 0.7 (0.1-1.2) X10*3/uL Eos # (Auto) 0.2 (0.0-0.4) X10*3/uL Baso # (Auto) 0.1 (0.0-0.2) X10*3/uL Abs Immat Gran (auto) 0.02 (0.00-0.03) X10*3/uL Absolute Neuts (auto) 7.1 (2.0-8.3) x10*3/uL Absolute Nucleated RBC 0.000 (0.0-0.012) X10*3/uL Nucleated RBC % (auto) 0.0 (0.0-0.2) /100WBC ESR (0-15) MM/HR Sodium 140 (135-145) mmol/L Potassium 5.0 (3.3-5.1) mmol/L Chloride 96 (96-108) mmol/L Carbon Dioxide 24 (22-29) mmol/L Anion Gap 25 H (12-20) BUN 150 H (9-16) mg/dL Creatinine 10.71 H* (0.5-1.4) mg/dL Estim Creat Clear Calc 6.4 Estimated GFR 5 Random Glucose 191 H (60-115) mg/dL Lactic Acid (0.5-2.0) mmol/L Calcium 10.3 H D (8.4-10.2) mg/dL Magnesium 2.7 H (1.6-2.6) mg/dL Total Bilirubin 0.5 (0.0-1.0) mg/dL Direct Bilirubin < 0.2 (0.0-0.5) mg/dL AST 18 (5-37) U/L ALT 12 (0-40) U/L Alkaline Phosphatase 107 (39-117) U/L Troponin I High Sens 123.1 H* (<3.5-35.0) ng/L C-Reactive Protein (< or = 0.50) mg/dL B-Natriuretic Peptide (<100) pg/mL Total Protein 7.3 (6.5-8.0) g/dL Albumin 4.4 (3.5-5.0) g/dL TSH 1.60 (0.32-4.0) uIU/mL Urine Color Urine Appearance Urine pH (5.0-9.0) Ur Specific [place] (1.005-1.025) Urine Protein (Neg-Trace) mg/dL Urine Glucose (UA) (Negative) mg/dL Urine Ketones (Negative) mg/dL Urine Blood (Negative) Urine Nitrite (Negative) Ur Leukocyte Esterase (Negative) Urine RBC (0-2) /HPF Urine WBC (0-5) /HPF Ur Squamous Epith Cells (0-2) /HPF Urine Bacteria (None Seen) Hyaline Casts (0-2) /LPF Stool Occult Blood (NEGATIVE) COVID-19 ([facility]ACI) (Negative) COVID-19 Clin Com 10/15/22 10/15/22 10/15/22 Range/Units 17:56 17:56 17:56 WBC (4.8-10.8) X10*3/uL RBC (4.60-5.80) X10*6/uL Hgb (14.0-18.0) g/dl Hct (42.0-52.0) % MCV (80.0-98.0) fL MCH (27.0-33.0) pg MCHC (31.0-36.0) g/dl RDW (11.0-16.0) % Plt Count (160-400) X10*3/uL MPV (9.4-12.4) fL Immature Gran % (Auto) (0.0-0.4) % Neut % (Auto) (45-73) % Lymph % (Auto) (20-40) % Dixon % (Auto) (2-11) % Eos % (Auto) (0-4) % Baso % (Auto) (0-2) % Lymph # (Auto) (1.2-4.9) X10*3/uL Dixon # (Auto) (0.1-1.2) X10*3/uL Eos # (Auto) (0.0-0.4) X10*3/uL Baso # (Auto) (0.0-0.2) X10*3/uL Abs Immat Gran (auto) (0.00-0.03) X10*3/uL Absolute Neuts (auto) (2.0-8.3) x10*3/uL Absolute Nucleated RBC (0.0-0.012) X10*3/uL Nucleated RBC % (auto) (0.0-0.2) /100WBC ESR (0-15) MM/HR Sodium (135-145) mmol/L Potassium (3.3-5.1) mmol/L Chloride (96-108) mmol/L Carbon Dioxide (22-29) mmol/L Anion Gap (12-20) BUN (9-16) mg/dL Creatinine (0.5-1.4) mg/dL Estim Creat Clear Calc Estimated GFR Random Glucose (60-115) mg/dL Lactic Acid 0.5 (0.5-2.0) mmol/L Calcium (8.4-10.2) mg/dL Magnesium (1.6-2.6) mg/dL Total Bilirubin (0.0-1.0) mg/dL Direct Bilirubin (0.0-0.5) mg/dL AST (5-37) U/L ALT (0-40) U/L Alkaline Phosphatase (39-117) U/L Troponin I High Sens (<3.5-35.0) ng/L C-Reactive Protein (< or = 0.50) mg/dL B-Natriuretic Peptide 1467 H (<100) pg/mL Total Protein (6.5-8.0) g/dL Albumin (3.5-5.0) g/dL TSH (0.32-4.0) uIU/mL Urine Color Urine Appearance Urine pH (5.0-9.0) Ur Specific [place] (1.005-1.025) Urine Protein (Neg-Trace) mg/dL Urine Glucose (UA) (Negative) mg/dL Urine Ketones (Negative) mg/dL Urine Blood (Negative) Urine Nitrite (Negative) Ur Leukocyte Esterase (Negative) Urine RBC (0-2) /HPF Urine WBC (0-5) /HPF Ur Squamous Epith Cells (0-2) /HPF Urine Bacteria (None Seen) Hyaline Casts (0-2) /LPF Stool Occult Blood (NEGATIVE) COVID-19 (STACI) Negative (Negative) COVID-19 Clin Com See Note 10/15/22 10/15/22 10/15/22 Range/Units 19:30 21:45 23:09 WBC (4.8-10.8) X10*3/uL RBC (4.60-5.80) X10*6/uL Hgb (14.0-18.0) g/dl Hct (42.0-52.0) % MCV (80.0-98.0) fL MCH (27.0-33.0) pg MCHC (31.0-36.0) g/dl RDW (11.0-16.0) % Plt Count (160-400) X10*3/uL MPV (9.4-12.4) fL Immature Gran % (Auto) (0.0-0.4) % Neut % (Auto) (45-73) % Lymph % (Auto) (20-40) % Dixon % (Auto) (2-11) % Eos % (Auto) (0-4) % Baso % (Auto) (0-2) % Lymph # (Auto) (1.2-4.9) X10*3/uL Dixon # (Auto) (0.1-1.2) X10*3/uL Eos # (Auto) (0.0-0.4) X10*3/uL Baso # (Auto) (0.0-0.2) X10*3/uL Abs Immat Gran (auto) (0.00-0.03) X10*3/uL Absolute Neuts (auto) (2.0-8.3) x10*3/uL Absolute Nucleated RBC (0.0-0.012) X10*3/uL Nucleated RBC % (auto) (0.0-0.2) /100WBC ESR (0-15) MM/HR Sodium (135-145) mmol/L Potassium (3.3-5.1) mmol/L Chloride (96-108) mmol/L Carbon Dioxide (22-29) mmol/L Anion Gap (12-20) BUN (9-16) mg/dL Creatinine (0.5-1.4) mg/dL Estim Creat Clear Calc Estimated GFR Random Glucose (60-115) mg/dL Lactic Acid (0.5-2.0) mmol/L Calcium (8.4-10.2) mg/dL Magnesium (1.6-2.6) mg/dL Total Bilirubin (0.0-1.0) mg/dL Direct Bilirubin (0.0-0.5) mg/dL AST (5-37) U/L ALT (0-40) U/L Alkaline Phosphatase (39-117) U/L Troponin I High Sens 112.0 H* (<3.5-35.0) ng/L C-Reactive Protein (< or = 0.50) mg/dL B-Natriuretic Peptide (<100) pg/mL Total Protein (6.5-8.0) g/dL Albumin (3.5-5.0) g/dL TSH (0.32-4.0) uIU/mL Urine Color Yellow Urine Appearance Clear Urine pH 8.5 (5.0-9.0) Ur Specific [place] 1.015 (1.005-1.025) Urine Protein >=1000 (4+) H (Neg-Trace) mg/dL Urine Glucose (UA) 250 H (Negative) mg/dL Urine Ketones Negative (Negative) mg/dL Urine Blood Small (1+) H (Negative) Urine Nitrite Negative (Negative) Ur Leukocyte Esterase Large (3+) H (Negative) Urine RBC 11-20 H (0-2) /HPF Urine WBC >50 H (0-5) /HPF Ur Squamous Epith Cells 0-2 (0-2) /HPF Urine Bacteria Trace (None Seen) Hyaline Casts 0-2 (0-2) /LPF Stool Occult Blood NEGATIVE (NEGATIVE) COVID-19 ([facility]ACI) (Negative) COVID-19 Clin Com 10/15/22 10/15/22 Range/Units 23:09 23:09 WBC (4.8-10.8) X10*3/uL RBC (4.60-5.80) X10*6/uL Hgb (14.0-18.0) g/dl Hct (42.0-52.0) % MCV (80.0-98.0) fL MCH (27.0-33.0) pg MCHC (31.0-36.0) g/dl RDW (11.0-16.0) % Plt Count (160-400) X10*3/uL MPV (9.4-12.4) fL Immature Gran % (Auto) (0.0-0.4) % Neut % (Auto) (45-73) % Lymph % (Auto) (20-40) % Dixon % (Auto) (2-11) % Eos % (Auto) (0-4) % Baso % (Auto) (0-2) % Lymph # (Auto) (1.2-4.9) X10*3/uL Dixon # (Auto) (0.1-1.2) X10*3/uL Eos # (Auto) (0.0-0.4) X10*3/uL Baso # (Auto) (0.0-0.2) X10*3/uL Abs Immat Gran (auto) (0.00-0.03) X10*3/uL Absolute Neuts (auto) (2.0-8.3) x10*3/uL Absolute Nucleated RBC (0.0-0.012) X10*3/uL Nucleated RBC % (auto) (0.0-0.2) /100WBC ESR 30 H (0-15) MM/HR Sodium (135-145) mmol/L Potassium (3.3-5.1) mmol/L Chloride (96-108) mmol/L Carbon Dioxide (22-29) mmol/L Anion Gap (12-20) BUN (9-16) mg/dL Creatinine (0.5-1.4) mg/dL Estim Creat Clear Calc Estimated GFR Random Glucose (60-115) mg/dL Lactic Acid (0.5-2.0) mmol/L Calcium (8.4-10.2) mg/dL Magnesium (1.6-2.6) mg/dL Total Bilirubin (0.0-1.0) mg/dL Direct Bilirubin (0.0-0.5) mg/dL AST (5-37) U/L ALT (0-40) U/L Alkaline Phosphatase (39-117) U/L Troponin I High Sens (<3.5-35.0) ng/L C-Reactive Protein 1.54 H (< or = 0.50) mg/dL B-Natriuretic Peptide (<100) pg/mL Total Protein (6.5-8.0) g/dL Albumin (3.5-5.0) g/dL TSH (0.32-4.0) uIU/mL Urine Color Urine Appearance Urine pH (5.0-9.0) Ur Specific [place] (1.005-1.025) Urine Protein (Neg-Trace) mg/dL Urine Glucose (UA) (Negative) mg/dL Urine Ketones (Negative) mg/dL Urine Blood (Negative) Urine Nitrite (Negative) Ur Leukocyte Esterase (Negative) Urine RBC (0-2) /HPF Urine WBC (0-5) /HPF Ur Squamous Epith Cells (0-2) /HPF Urine Bacteria (None Seen) Hyaline Casts (0-2) /LPF Stool Occult Blood (NEGATIVE) COVID-19 ([facility]ACI) (Negative) COVID-19 Clin Com Imaging Data Chest x-ray: Attestation: I personally reviewed and interpreted this imaging study as follows: Radiologist's impression: [address] [address] XRay Report Signed Patient: Wilfred Phillip MR#: [id number] : 1950 Acct:[id number] Age/Sex: 71 / M ADM Date: 10/15/22 Loc: HO.ED Attending Dr: Ordering Physician: Sofia Gerber NP Date of Service: 10/15/22 Procedure(s): XR chest 2V Accession Number(s): [id number] cc: Sofia Gerber DIE MECHANIC~ EXAMINATION: XR CHEST CLINICAL INFORMATION: Weakness COMPARISON: Chest x-ray 02/09/2022 TECHNIQUE: 2 views of the chest were obtained. FINDINGS: The lungs appear clear. No airspace consolidation, pleural effusion, or pneumothorax. Mildly tortuous descending thoracic aorta. No cardiomegaly or evidence of active pulmonary edema. No acute osseous injury. Multiple overlapping left axillary and brachial stents noted. XR/XR chest 2V IMPRESSION: No acute pulmonary process. ? Ct chest: Attestation: I personally reviewed and interpreted this imaging study as follows: Radiologist's impression: [address] [address] [address] Scan Report Signed Patient: Wilfred Phillip MR#: [id number] : 1950 Acct:[id number] Age/Sex: 71 / M ADM Date: 10/15/22 Loc: HO.ED Attending Dr: Ordering Physician: Sofia Gerber NP Date of Service: 10/15/22 Procedure(s): CT chest wo IV con Accession Number(s): [id number] cc: Sofia Gerber DIE MECHANIC~ EXAMINATION: CT CHEST, ABDOMEN AND PELVIS WITHOUT CONTRAST CLINICAL INFORMATION: Abdominal pain and vomiting COMPARISON: CT abdomen pelvis 02/09/2022 TECHNIQUE: Multidetector volumetric imaging was performed from the thoracic inlet through the pubic symphysis. Sagittal and coronal reformatted images were obtained on the technologist's workstation. Axial MIP volume rendering provided. This CT examination was performed using dose optimization techniques as appropriate, variously including the following: *Automated exposure control *Adjustment of mA and/or kV according to patient size (this includes techniques or standardized protocols for targeted exams where dose is matched to indication/reason for exam; i.e. extremities or head) *Use of iterative reconstruction technique DLP: 2006 mGy-cm FINDINGS: CHEST: Lungs: No airspace consolidation. There are a few small sub-4 mm bilateral pulmonary nodules in the upper lobes, largest in the right upper lobe volume series 18 image 206 measuring 3 mm in size. Couple small calcified granulomas in the right lung as well. No suspicious appearing pulmonary nodules. Central through segmental airways are clear. Mediastinum: Normal heart size. Trace pericardial fluid. Extensive three-vessel coronary calcifications. Normal caliber thoracic aorta with mild vascular calcifications. No mediastinal or hilar lymphadenopathy. Multinodular appearance of the thyroid gland with enlargement of the right lobe due to a approximately 3.4 cm low-density nodule. Some of the smaller nodules have peripheral calcifications. Pleura: There is no significant effusion. No pleural mass or thickening. Chest Wall/Axilla: No axillary lymphadenopathy. Left brachial/axillary vascular stents and graft noted. CT scan - abdomen: Attestation: I personally reviewed and interpreted this imaging study as follows: Radiologist's impression: ABDOMEN/PELVIS: Liver, Gallbladder, Biliary Tree: The liver is normal in size, shape, and attenuation. No focal hepatic lesion or biliary ductal dilatation is present. Cholelithiasis. No gallbladder wall thickening or pericholecystic inflammatory change. Pancreas: Unremarkable. Spleen: Unremarkable. Adrenal Glands: Unremarkable. Kidneys and Ureters: There are several small nonobstructing bilateral renal calculi. Mild fullness/distention of the renal pelvis bilaterally left greater than right. No significant hydronephrosis. Lobular renal cortical contours with small subcentimeter hypodense cortical lesions, likely small cysts, but too small to reliably characterize. Symmetric bilateral perirenal fascial stranding, nonspecific. Bladder: Diffusely thick-walled with suprapubic tube in place. Gastrointestinal Tract: Mild colonic diverticulosis. No evidence of acute diverticulitis. No dilated bowel loops to suggest obstruction. Normal appendix. No ascites or free air. Abdominal Wall: Small fat-containing left inguinal hernia. Lymphovascular Structures: Lymph nodes: No lymphadenopathy. Vascular: Mildly tortuous normal caliber abdominal aorta. Moderate vascular calcifications. Pelvic Viscera: Markedly enlarged prostate gland indenting into the bladder base. CT scan - head: Attestation: I personally reviewed and interpreted this imaging study as follows: Radiologist's impression: [address] [address] [address] Scan Report Signed Patient: Wilfred Phillip MR#: [id number] : 1950 Acct:[id number] Age/Sex: 71 / M ADM Date: 10/15/22 Loc: HO.ED Attending Dr: Ordering Physician: Sofia Gerber NP Date of Service: 10/15/22 Procedure(s): CT head/brain wo IV con Accession Number(s): [id number] cc: Sofia Gerber NP~ EXAMINATION: ?CT head/brain wo IV con CLINICAL INFORMATION: Reason for Exam vomiting, HTN COMPARISON: None. TECHNIQUE: Contiguous axial imaging was performed from the skull base to vertex without intravenous contrast. Sagittal and coronal reformatted images were obtained. This CT examination was performed using dose optimization techniques as appropriate, variously including the following: *? Automated exposure control *? Adjustment of mA and/or kV according to patient size (this includes techniques or standardized protocols for targeted exams where dose is matched to indication/reason for exam; i.e. extremities or head) Use of iterative reconstruction technique DLP: Total DLP for the CT brain, chest, abdomen and pelvis is 2006? mGy-cm with the CT chest abdomen pelvis reported separately FINDINGS: No acute osseous or soft tissue abnormality.? Patchy paranasal sinus mucosal thickening. Physiologic mineralization in the basal ganglia. There is no evidence of acute intracranial hemorrhage or territorial infarction.? No abnormal mass effect or midline shift is seen.? Lindsey to white matter differentiation is well preserved. No extra-axial fluid collections are identified. No hydrocephalus. Proportional prominence of the ventricles and sulcal spaces is consistent with mild volume loss. Patchy periventricular and deep white matter hypoattenuation is consistent with mild small vessel ischemic changes. ? CT/CT head/brain wo IV con IMPRESSION: ? 1.? No acute intracranial abnormality. ? ECG Data Attestation: I personally reviewed and interpreted this ECG as follows: ECG interpretation date: 10/15/22 ECG interpretation time: 18:36 Interpretation: Sinus rhythm with PVCs with rate is 78, normal AR, normal QRS, QTC is prolonged at 497 Discharge Plan Discharge Clinical Impression: Osteomyelitis Patient Disposition: Admitted As Inpatient
[2022-10-15 18:03] LABS: MANUAL DIFF FLAG NO
[2022-10-15 18:06] LABS: Basophils Absolute Auto 0.1 X10*3/uL (0.0-0.2); Basophils Percent Auto 0.7 % (0-2); Eosinophils Absolute Auto 0.2 X10*3/uL (0.0-0.4); Eosinophils Percent Auto 1.6 % (0-4); Hematocrit 31.2 % (42.0-52.0); Hemoglobin 9.9 g/dl (14.0-18.0); Imm Gran Abs Auto 0.02 X10*3/uL (0.00-0.03); Imm Gran Pct Auto 0.2 % (0.0-0.4); Lymphocytes Absolute Auto 1.4 X10*3/uL (1.2-4.9); Lymphocytes Percent Auto 14.6 % (20-40); Mean Corpuscular HGB Conc 31.7 g/dl (31.0-36.0); Mean Corpuscular Hemoglobin 28.8 pg (27.0-33.0); Mean Corpuscular Volume 90.7 fL (80.0-98.0); Mean Platelet Volume 11.4 fL (9.4-12.4); Monocytes Absolute Auto 0.7 X10*3/uL (0.1-1.2); Monocytes Percent Auto 7.4 % (2-11); Neutrophils Absolute Auto 7.1 x10*3/uL (2.0-8.3); Neutrophils Percent Auto 75.5 % (45-73); Platelet Count 205 X10*3/uL (160-400); Red Blood Count 3.44 X10*6/uL (4.60-5.80); Red Cell Distribution Width 14.9 % (11.0-16.0); White Blood Count 9.3 X10*3/uL (4.8-10.8)
[2022-10-15 18:20] LABS: Lactic Acid 0.5 mmol/L (0.5-2.0)
[2022-10-15 18:28] LABS: COVID-19 Test Negative (Negative); IDNOW Serial# 9DB6401D
[2022-10-15 18:31] LABS: B Type Natriuretic Peptide 1467 pg/mL (<100)
[2022-10-15 18:40] LABS: Alanine Aminotransferase 12 U/L (0-40); Albumin Level 4.4 g/dL (3.5-5.0); Alkaline Phosphatase 107 U/L (39-117); Anion Gap 25 (12-20); Aspartate Amino Transferase 18 U/L (5-37); Bilirubin Direct < 0.2 mg/dL (0.0-0.5); Bilirubin Total 0.5 mg/dL (0.0-1.0); Blood Urea Nitrogen 150 mg/dL (9-16); Calcium 10.3 mg/dL (8.4-10.2); Carbon Dioxide 24 mmol/L (22-29); Chloride 96 mmol/L (96-108); Creatinine Clr Calc Pharmacy 6.4; Estimated Glomerular Filt Rate 5; Glucose Random 191 mg/dL (60-115); Magnesium 2.7 mg/dL (1.6-2.6); Sodium 140 mmol/L (135-145); Total Protein 7.3 g/dL (6.5-8.0)
[2022-10-15 18:42] LABS: Troponin-I High Sensitivity 123.1 ng/L (<3.5-35.0)
[2022-10-15 19:40] LABS: OBS Int Ctl Valid YES; OBS1 NEGATIVE (NEGATIVE)
[2022-10-15 21:50] LABS: Appearance Urine Clear; Color Urine Yellow; Glucose Urine UA 250 mg/dL (Negative); Leukocyte Esterase Urine Large (3+) (Negative); Nitrite Urine Negative (Negative); PH 8.5 (5.0-9.0); Specific Gravity - Urine 1.015 (1.005-1.025); UMIC TRIGGER UACC YES; Urine Blood Small (1+) (Negative); Urine Ketones Negative (Negative); Urine Protein >=1000 (4+) mg/dL (Neg-Trace)
[2022-10-15 22:01] LABS: Bacteria Urine Trace (None Seen); Hyaline Casts Urine 0-2 /LPF (0-2); Squamous Epithelial Cell Urine 0-2 /HPF (0-2); UACC Culture Trigger YES; WBC Urine >50 /HPF (0-5)
[2022-10-15] MEDS: cefTRIAXone sodium 1 GM in 0.9 % Sodium Chloride 50 ML IV (22:52)
[2022-10-15] MEDS: vancomycin HCL 1,000 MG, vancomycin HCL 750 MG in 0.9 % Sodium Chloride 500 ML 267.5 MG IV (23:16)
[2022-10-15 23:21] VITALS: BP 179/85; PULSE 74; RESP 18; O2SAT 98
[2022-10-15 23:36] LABS: C Reactive Protein 1.54 mg/dL (< or = 0.50)
[2022-10-15 23:55] LABS: Erythrocyte Sedimentation Rate 30 MM/HR (0-15)
--- NOTE | 2022-10-16 00:48 | PM.IMHP ---
History of Present Illness Date of Service: 10/16/22 Chief Complaint: Nausea/vomiting This is a 71-year-old male with pertinent history of ESRD on dialysis (M/ W/ F), coronary artery disease, essential hypertension, chronic suprapubic catheter, PTSD, gastroesophageal reflux disease who presents to the emergency department for evaluation of generalized weakness /nausea/ vomiting. Patient states he has had nausea and nonbloody emesis for the last 2 weeks. He has gotten progressively weaker over the course of last 2-3 weeks. Admits chills but denies any fever. No change in color or odor of urine. No abdominal pain, chest discomfort, palpitations, shortness of breath. Patient states he only did 3-1/2 hours of dialysis session on Tuesday and missed is dialysis session on Tuesday as he was feeling unwell. Patient was admitted in January for bacteremia due to MSSA. States he has been losing weight since. Also complains of black stools, intermittently that he 1st noticed this week. Did not notice blood in stool or urine. Patient states he was diagnosed with a thyroid nodule and he was told he will need surgery for it In [place]. He has not scheduled it yet as he has been feeling unwell for the last few days. In the ER, imaging was concerning for ?vertebral osteomyelitis/discitis. Review of Systems Constitutional: Constitutional: Reports chills, Reports lethargy, Reports malaise and Reports weight loss Cardiovascular: Cardiovascular: Reports no additional cardiovascular complaints Respiratory: Respiratory: Reports no additional respiratory complaints Gastrointestinal: Gastrointestinal: Reports nausea and Reports vomiting Genitourinary: Genitourinary: Reports no additional male genitourinary complaints [facility] Medical History Bacteremia due to methicillin susceptible Staphylococcus aureus (MSSA) CAD (coronary artery disease) CVA (cerebral vascular accident) Diabetes mellitus HTN (hypertension) with goal to be determined Hyperlipidemia Multiple sclerosis Surgical History H/O cystostomy History of back surgery Social History Household Members: None Housing: Condominium Are you a primary memory care program director to a significant other at home: No Do you presently have visiting nurse or other home services: No Alcohol intake: former Patient Tobacco Use Status: Never used Tobacco Second Hand Smoke Exposure: No Use of substances other than those prescribed or required for medical reasons: No Advance Directives: No Advance Directives Information Provided: No service: Yes Current occupational status: retired Meds Allergies Allergy/AdvReac Type Severity Reaction Status Date / Time morphine [MORPHINE] Allergy Severe NAUSEA & Verified 10/14/22 15:36 VOMITING, vomiting, nausea and vomiting dust Allergy Mild Dry Eye Uncoded 10/14/22 15:36 cat Allergy Unknown Dry Eye Uncoded 10/14/22 15:36 Active Medications: Current Medications Acetaminophen (Acetaminophen 325 Mg Tablet) 650 mg PO Q6H PRN PRN Reason: Pain, Mild (Pain Scale 1-3) Enoxaparin Sodium (Enoxaparin Sodium 30 Mg/0.3 Ml Syringe) 30 mg SUBCUT Q24H [facility] Melatonin (Melatonin 3 Mg Tablet) 6 mg PO BEDTIME PRN PRN Reason: Insomnia Ondansetron HCl (Ondansetron Hcl 4 Mg/2 Ml Vial) 4 mg IVPUSH Q8H PRN PRN Reason: Nausea and Vomiting Pharmacy Consult (Consult Rx Perform Med Rec) 1 each MISCELLANE ONCE PRN PRN Reason: Consult order Pharmacy Consult (Consult Rx Vancomycin Dosing) 1 each MISCELLANE DAILY PRN PRN Reason: Consult order Sodium Chloride (0.9 % Sodium Chloride Flush 3 Ml Syringe) 3 ml IVFLUSH QSHIFT [facility] Home Medications Medication Instructions Recorded Confirmed Last Taken Type torsemide 20 mg tablet 40 mg PO DAILY 07/14/21 10/14/22 Unknown History losartan 50 mg tablet 50 mg PO DAILY 12/17/21 10/14/22 Unknown History amlodipine 10 mg tablet 1 tab PO BEDTIME 02/05/22 10/14/22 Unknown History carvedilol 25 mg tablet 1 tab PO BID 02/05/22 10/14/22 Unknown History duloxetine 20 mg capsule,delayed 20 mg PO BID 10/14/22 10/14/22 Unknown History release pantoprazole 40 mg tablet,delayed 40 mg PO DAILY 10/14/22 10/14/22 Unknown History release vitamin B comp no.3-folic acid 1 1 tab PO DAILY 10/14/22 10/14/22 Unknown History mg-vit C 60 mg-biotin 300 mcg tablet ([facility]-Thiago Rx) Physical Exam Vital Signs and Narrative: Vital Signs: Last Vital Signs Temp 98.1 F 10/15/22 17:12 Pulse 74 10/15/22 23:21 Resp 18 10/15/22 23:21 BP 179/85 H 10/15/22 23:21 Pulse Ox 98 10/15/22 23:21 O2 Del Method 10/15/22 23:21 BMI result Body Mass Index 0.3 Middle-aged male lying in bed in no distress Neck supple, no JVD Regular rate and rhythm, S1-S2 heard Regular breath sounds bilaterally, no wheezing or crackles appreciated Abdomen soft nontender, no guarding, no rigidity Patient is awake, alert and oriented to self, place, time and person ; no focal motor deficit Suprapubic catheter with clean site No spinal tenderness ; maculopapular rash over back Psych: Normal mood No pedal edema Results Labs CBC and Chem 7: 10/15/22 17:56 10/15/22 17:56 Labs: Laboratory Results - last 24 hr 10/15/22 10/15/22 10/15/22 17:56 17:56 17:56 MCV 90.7 MCH 28.8 MCHC 31.7 RDW 14.9 Plt Count 205 D MPV 11.4 Immature Gran % (Auto) 0.2 Neut % (Auto) 75.5 H Lymph % (Auto) 14.6 L [place] % (Auto) 7.4 Eos % (Auto) 1.6 Baso % (Auto) 0.7 Lymph # (Auto) 1.4 [place] # (Auto) 0.7 Eos # (Auto) 0.2 Baso # (Auto) 0.1 Abs Immat Gran (auto) 0.02 Absolute Neuts (auto) 7.1 Absolute Nucleated RBC 0.000 Nucleated RBC % (auto) 0.0 ESR Anion Gap 25 H Estim Creat Clear Calc 6.4 Estimated GFR 5 Random Glucose 191 H Lactic Acid Calcium 10.3 H D Magnesium 2.7 H Total Bilirubin 0.5 Direct Bilirubin < 0.2 AST 18 ALT 12 Alkaline Phosphatase 107 Troponin I High Sens 123.1 H* C-Reactive Protein B-Natriuretic Peptide Total Protein 7.3 Albumin 4.4 TSH 1.60 Urine Color Urine Appearance Urine pH Ur Specific Stewart Urine Protein Urine Glucose (UA) Urine Ketones Urine Blood Urine Nitrite Ur Leukocyte Esterase Urine RBC Urine WBC Ur Squamous Epith Cells Urine Bacteria Hyaline Casts Stool Occult Blood COVID-19 (STACI) COVID-19 Clin Com 10/15/22 10/15/22 10/15/22 17:56 17:56 17:56 MCV MCH MCHC RDW Plt Count MPV Immature Gran % (Auto) Neut % (Auto) Lymph % (Auto) [place] % (Auto) Eos % (Auto) Baso % (Auto) Lymph # (Auto) [place] # (Auto) Eos # (Auto) Baso # (Auto) Abs Immat Gran (auto) Absolute Neuts (auto) Absolute Nucleated RBC Nucleated RBC % (auto) ESR Anion Gap Estim Creat Clear Calc Estimated GFR Random Glucose Lactic Acid 0.5 Calcium Magnesium Total Bilirubin Direct Bilirubin AST ALT Alkaline Phosphatase Troponin I High Sens C-Reactive Protein B-Natriuretic Peptide 1467 H Total Protein Albumin TSH Urine Color Urine Appearance Urine pH Ur Specific Stewart Urine Protein Urine Glucose (UA) Urine Ketones Urine Blood Urine Nitrite Ur Leukocyte Esterase Urine RBC Urine WBC Ur Squamous Epith Cells Urine Bacteria Hyaline Casts Stool Occult Blood COVID-19 (STACI) Negative COVID-19 First Aid Shot Therapy Com See Note 10/15/22 10/15/22 10/15/22 19:30 21:45 23:09 MCV MCH MCHC RDW Plt Count MPV Immature Gran % (Auto) Neut % (Auto) Lymph % (Auto) [place] % (Auto) Eos % (Auto) Baso % (Auto) Lymph # (Auto) [place] # (Auto) Eos # (Auto) Baso # (Auto) Abs Immat Gran (auto) Absolute Neuts (auto) Absolute Nucleated RBC Nucleated RBC % (auto) ESR Anion Gap Estim Creat Clear Calc Estimated GFR Random Glucose Lactic Acid Calcium Magnesium Total Bilirubin Direct Bilirubin AST ALT Alkaline Phosphatase Troponin I High Sens 112.0 H* C-Reactive Protein B-Natriuretic Peptide Total Protein Albumin TSH Urine Color Yellow Urine Appearance Clear Urine pH 8.5 Ur Specific Stewart 1.015 Urine Protein >=1000 (4+) H Urine Glucose (UA) 250 H Urine Ketones Negative Urine Blood Small (1+) H Urine Nitrite Negative Ur Leukocyte Esterase Large (3+) H Urine RBC 11-20 H Urine WBC >50 H Ur Squamous Epith Cells 0-2 Urine Bacteria Trace Hyaline Casts 0-2 Stool Occult Blood NEGATIVE COVID-19 (STACI) COVID-19 First Aid Shot Therapy Com 10/15/22 10/15/22 23:09 23:09 MCV MCH MCHC RDW Plt Count MPV Immature Gran % (Auto) Neut % (Auto) Lymph % (Auto) [place] % (Auto) Eos % (Auto) Baso % (Auto) Lymph # (Auto) [place] # (Auto) Eos # (Auto) Baso # (Auto) Abs Immat Gran (auto) Absolute Neuts (auto) Absolute Nucleated RBC Nucleated RBC % (auto) ESR 30 H Anion Gap Estim Creat Clear Calc Estimated GFR Random Glucose Lactic Acid Calcium Magnesium Total Bilirubin Direct Bilirubin AST ALT Alkaline Phosphatase Troponin I High Sens C-Reactive Protein 1.54 H B-Natriuretic Peptide Total Protein Albumin TSH Urine Color Urine Appearance Urine pH Ur Specific Stewart Urine Protein Urine Glucose (UA) Urine Ketones Urine Blood Urine Nitrite Ur Leukocyte Esterase Urine RBC Urine WBC Ur Squamous Epith Cells Urine Bacteria Hyaline Casts Stool Occult Blood COVID-19 (STACI) COVID-19 Clin Com Imaging Radiologist's Impressions: Impressions Chest X-Ray 10/15/22 18:06 IMPRESSION: No acute pulmonary process. Head CT 10/15/22 21:03 IMPRESSION: 1. No acute intracranial abnormality. Abdomen/Pelvis CT 10/15/22 21:04 IMPRESSION: 1. 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 Recommend clinical correlation with history of discitis, pain and with elevated inflammatory markers. Alternatively, destructive amyloid spondyloarthropathy could have a similar appearance in the appropriate clinical setting/hemodialysis. 2. No acute intra-abdominal process identified. No evidence of bowel obstruction. 3. Prostatomegaly thick-walled urinary bladder with suprapubic tube in place. 4. Subacute healing fractures of the left superior and inferior pubic rami and left sacral ala. 5. Cholelithiasis. 6. Small nonobstructing bilateral renal calculi. 7. A few small sub-4 mm pulmonary nodules, likely benign. If patient is high risk for primary pulmonary malignancy consider optional chest CT follow-up in 12 months. If low risk, no further follow-up required for Fleischner Society guidelines. 8. Multinodular appearance of the thyroid gland approximately 3.4 cm nodule in the right thyroid lobe. Suggest nonemergent targeted ultrasound for evaluation. Chest CT 10/15/22 21:05 IMPRESSION: 1. 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 Recommend clinical correlation with history of discitis, pain and with elevated inflammatory markers. Alternatively, destructive amyloid spondyloarthropathy could have a similar appearance in the appropriate clinical setting/hemodialysis. 2. No acute intra-abdominal process identified. No evidence of bowel obstruction. 3. Prostatomegaly thick-walled urinary bladder with suprapubic tube in place. 4. Subacute healing fractures of the left superior and inferior pubic rami and left sacral ala. 5. Cholelithiasis. 6. Small nonobstructing bilateral renal calculi. 7. A few small sub-4 mm pulmonary nodules, likely benign. If patient is high risk for primary pulmonary malignancy consider optional chest CT follow-up in 12 months. If low risk, no further follow-up required for Fleischner Society guidelines. 8. Multinodular appearance of the thyroid gland approximately 3.4 cm nodule in the right thyroid lobe. Suggest nonemergent targeted ultrasound for evaluation. Assessment and Plan (1) Osteomyelitis: Status: Acute (2) ESRD (end stage renal disease) on dialysis: Status: Acute (3) CAD (coronary artery disease): Status: Acute (4) HTN (hypertension) with goal to be determined: Status: Acute (5) Neurogenic urinary bladder disorder: Status: Acute Plan This is a 71-year-old male with pertinent history of ESRD on dialysis (M/ W/ F), coronary artery disease, essential hypertension, chronic suprapubic catheter, PTSD, gastroesophageal reflux disease who presents to the emergency department for evaluation of generalized weakness /nausea/ vomiting. #. Imaging concerning for vertebral osteomyelitis/discitis -Patient has a history of bacteremia due to MSSA. Will admit patient and initiate empiric IV antibiotics (renally dosed). Consulting Infectious Disease for assistance. Obtaining MRI to further delineate the anatomy. Follow blood cultures. #. ESRD on dialysis (M/W/F) - Missed last hemodialysis session. Consulting Nephrology. #. Thyroid nodule -was diagnosed recently and states he needs sx for it. Will obtain TSH #. ?History of intermittent black stool -will repeat stool occult blood #. Pyuria in a pt with chronic suprapubic catheter -on abx as above. Follow urine culture #. Hyperglycemia with glycosuria -?history of DM. Iniaite accuchecks with SSI. Obtain A1c #. Elevated troponin -type 2, due to increased demand #. CAD #. HTN -continue home medications #. PTSD -continue duloxetine #. GERD -on pantoprazole #. Anemia of CKD -hb above transfusion threshold Med rec pending DVT Prophylaxis: Lovenox 30mg daily Full code Low salt diet with ensure Admit as inpatient and will require two night minimum hospital stay for IV antibiotics. Quality Stroke Does the patient have a stroke diagnosis?: No VTE Prior VTE?: No VTE Risk Level:: Medical - moderate - high VTE Device Contraindication: Treatment Not Indicated VTE Drug Contraindication: N/A - Med Ordered
[2022-10-16 01:29] VITALS: BP 166/86; PULSE 86; RESP 18; TEMP 36.7; O2SAT 96
[2022-10-16] MEDS: Enoxaparin Sodium 30 MG/0.3 ML SYRINGE SUBCUT ×2 (01:31→22:14)
[2022-10-16] MEDS: ondansetron HCL 4 MG/2 ML VIAL IVPUSH ×2 (03:32→11:50)
[2022-10-16 03:36] VITALS: BP 175/84; PULSE 78; RESP 14; TEMP 36.6; O2SAT 97
[2022-10-16 04:18] VITALS: BMI 22.7
[2022-10-16 06:33] LABS: MANUAL DIFF FLAG NO
[2022-10-16 06:44] LABS: Basophils Absolute Auto 0.1 X10*3/uL (0.0-0.2); Basophils Percent Auto 0.7 % (0-2); Eosinophils Absolute Auto 0.2 X10*3/uL (0.0-0.4); Eosinophils Percent Auto 2.2 % (0-4); Hematocrit 27.6 % (42.0-52.0); Imm Gran Abs Auto 0.04 X10*3/uL (0.00-0.03); Imm Gran Pct Auto 0.4 % (0.0-0.4); Lymphocytes Absolute Auto 1.4 X10*3/uL (1.2-4.9); Lymphocytes Percent Auto 13.5 % (20-40); Mean Corpuscular HGB Conc 32.6 g/dl (31.0-36.0); Mean Corpuscular Hemoglobin 29.5 pg (27.0-33.0); Mean Corpuscular Volume 90.5 fL (80.0-98.0); Mean Platelet Volume 11.7 fL (9.4-12.4); Monocytes Absolute Auto 0.8 X10*3/uL (0.1-1.2); Monocytes Percent Auto 7.2 % (2-11); Neutrophils Absolute Auto 8.1 x10*3/uL (2.0-8.3); Platelet Count 187 X10*3/uL (160-400); Red Blood Count 3.05 X10*6/uL (4.60-5.80); Red Cell Distribution Width 14.8 % (11.0-16.0); White Blood Count 10.6 X10*3/uL (4.8-10.8)
[2022-10-16 07:24] LABS: Glucose, Whole Blood 135 mg/dL (60-115)
[2022-10-16 07:24] LABS: Anion Gap 23 (12-20); Blood Urea Nitrogen 154 mg/dL (9-16); Calcium 9.5 mg/dL (8.4-10.2); Carbon Dioxide 19 mmol/L (22-29); Chloride 101 mmol/L (96-108); Creatinine Clr Calc Pharmacy 6.4; Estimated Glomerular Filt Rate 5; Glucose Random 151 mg/dL (60-115); Potassium 4.5 mmol/L (3.3-5.1); Sodium 138 mmol/L (135-145)
--- NOTE | 2022-10-16 07:39 | PHA.PROG ---
Admission Date/Time: October 16, 2022 00:43 Indication: OSTEO/DISCITIS Weight in k kg Adjusted body weight in Kg: [place] body weight in K Obesity Dosing Indication % IBW:0 Serum Creatinine - Last 168 Hours 10/15/22 10/16/22 17:56 06:06 Creatinine 10.71 H* 10.88 H* Estimated CrCl and GFR - Last 168 Hours 10/15/22 10/16/22 17:56 06:06 Estim Creat Clear Calc 6.4 6.4 Estimated GFR 5 5 Vancomycin Loading Dose: 1750 MG Current Vancomycin Dosing Regimen: POST DIALYSIS Vancomycin Monitoring using AUC goal of 400 - 600 range with trough as surrogate marker: Date and Time for next Vancomycin Level to be drawn: PRE-DIALYSIS RANDOM Pharmacist Comments on Vancomycin Plan:WILL NEED TO GET RANDOM LEVELS PRE-DIALYSIS AND DOSE PRN POST DIALYSIS Vancomycin dosing will take advantage of [employer] as a clinical decision support tool that uses Bayesian modeling to calculate individual patient's pharmacokinetic parameters and forecast the patient's drug concentration time course with the target goal AUC 24 range of 400 - 600 mg/L/hr.
[2022-10-16 08:00] VITALS: BP 193/92; PULSE 79; RESP 18; TEMP 36.7; O2SAT 94
--- NOTE | 2022-10-16 08:36 | PHA.MEDREC ---
Pharmacy Consult ? Medication Reconciliation Pharmacy has completed the medication reconciliation Patient had their own list with them..
[2022-10-16 09:20] LABS: Estimated Average Glucose 140 mg/dL; Hemoglobin A1c % 6.5 %
[2022-10-16] MEDS: cefEPime HCl 1 GM in 0.9 % Sodium Chloride 50 ML IV (11:08)
[2022-10-16] MEDS: 0.9 % Sodium Chloride Flush 3 ML SYRINGE IVFLUSH ×3 (11:13→22:39)
[2022-10-16 11:14] LABS: Glucose, Whole Blood 212 mg/dL (60-115)
[2022-10-16] MEDS: carvediloL 25 MG TABLET PO ×2 (11:34→22:14)
[2022-10-16] MEDS: QUEtiapine Fumarate 25 MG TABLET PO (11:35)
[2022-10-16] MEDS: ALPRAZolam 0.5 MG TABLET PO (11:35)
[2022-10-16] MEDS: Omeprazole 40 MG CAPSULE.DR PO (11:35)
[2022-10-16] MEDS: hydrOXYzine HCL 50 MG/ML VIAL IM (11:36)
--- NOTE | 2022-10-16 13:31 | HO.PM.IMPN ---
Subjective Subjective Date of Service: 10/16/22 Physical Exam Vital Signs: Vital Signs: Last Vital Signs Temp 98.0 F 10/16/22 08:00 Pulse 79 10/16/22 08:00 Resp 18 10/16/22 08:00 BP 193/92 H 10/16/22 08:00 Pulse Ox 94 10/16/22 08:00 O2 Del Method 10/16/22 08:00 BMI result Body Mass Index 22.7 Objective Data Active Medications Acetaminophen (Acetaminophen 325 Mg Tablet) 650 mg PO Q6H PRN PRN Reason: Pain, Mild (Pain Scale 1-3) Alprazolam (Alprazolam 0.5 Mg Tablet) 0.5 mg PO ONCE PRN PRN Reason: Anxiety Last Admin: 10/16/22 11:35 Dose: 0.5 mg Documented By: NOLAN Carvedilol (Carvedilol 25 Mg Tablet) 25 mg PO BID [facility]; Protocol Last Admin: 10/16/22 11:34 Dose: 25 mg Documented By: NOLAN Dextrose (Dextrose 50 % 25 Gm/50 Ml Syringe) 25 gm IVPUSH Q15M PRN; Protocol PRN Reason: per Hypoglycemia Standing Ord. Duloxetine HCl (Duloxetine Hcl 20 Mg Capsule.Dr) 20 mg PO DAILY [facility] Enoxaparin Sodium (Enoxaparin Sodium 30 Mg/0.3 Ml Syringe) 30 mg SUBCUT 2200 [facility] Last Admin: 10/16/22 01:31 Dose: 30 mg Documented By: WILTON Glucose (Glucose Gel 15 Gm Gel..Gram.) 15 gm PO Q15M PRN; Protocol PRN Reason: per Hypoglycemia Standing Ord. Hydrocortisone (Hydrocortisone 1 % Cream 28.35 Gm Tube) 1 appl TOPICAL BID [facility]; Protocol Cefepime HCl 1 gm/ Sodium (Chloride) 50 mls @ 100 mls/hr IV DAILY [facility] Last Admin: 10/16/22 11:08 Dose: 100 mls/hr Documented By: NOLAN Insulin Human Lispro (Insulin Lispro 100 Unit/Ml 3 Ml Vial) 0 unit SUBCUT QIDACHS [facility]; Protocol Last Admin: 10/16/22 10:32 Dose: Not Given Documented By: NOLAN Non-Admin Reason: No Insulin Coverage Melatonin (Melatonin 3 Mg Tablet) 6 mg PO BEDTIME PRN PRN Reason: Insomnia Multivitamins/Vitamin C (Multivitamin Tablet) 1 tab PO DAILY [facility] Omeprazole (Omeprazole 40 Mg Capsule.Dr) 40 mg PO DAILY@0630 [facility] Last Admin: 10/16/22 11:35 Dose: 40 mg Documented By: NOLAN Ondansetron HCl (Ondansetron Hcl 4 Mg/2 Ml Vial) 4 mg IVPUSH Q8H PRN PRN Reason: Nausea and Vomiting Last Admin: 10/16/22 11:50 Dose: 4 mg Documented By: NOLAN Pharmacy Consult (Consult Rx Vancomycin Dosing) 1 each MISCELLANE DAILY PRN PRN Reason: Consult order Pharmacy Consult (Consult Rx Perform Med Rec) 1 each MISCELLANE ONCE PRN PRN Reason: Consult order Quetiapine Fumarate (Quetiapine Fumarate 25 Mg Tablet) 25 mg PO ONCE PRN PRN Reason: anxiety/restlessness Last Admin: 10/16/22 11:35 Dose: 25 mg Documented By: NOLAN Sodium Chloride (0.9 % Sodium Chloride Flush 3 Ml Syringe) 3 ml IVFLUSH QSHIFT [facility] Last Admin: 10/16/22 11:13 Dose: 3 ml Documented By: NOALN Torsemide (Torsemide 20 Mg Tablet) 20 mg PO DAILY [facility]; Protocol Labs CBC & Chem 7: 10/16/22 06:06 10/16/22 06:06 Labs: Laboratory Results - last 24 hr 10/15/22 10/15/22 10/15/22 17:56 17:56 17:56 MCV 90.7 MCH 28.8 MCHC 31.7 RDW 14.9 Plt Count 205 D MPV 11.4 Immature Gran % (Auto) 0.2 Neut % (Auto) 75.5 H Lymph % (Auto) 14.6 L [place] % (Auto) 7.4 Eos % (Auto) 1.6 Baso % (Auto) 0.7 Lymph # (Auto) 1.4 [place] # (Auto) 0.7 Eos # (Auto) 0.2 Baso # (Auto) 0.1 Abs Immat Gran (auto) 0.02 Absolute Neuts (auto) 7.1 Absolute Nucleated RBC 0.000 Nucleated RBC % (auto) 0.0 ESR Anion Gap 25 H Estim Creat Clear Calc 6.4 Estimated GFR 5 POC Glucose Random Glucose 191 H Estimat Average Glucose Hemoglobin A1c % Lactic Acid Calcium 10.3 H D Magnesium 2.7 H Total Bilirubin 0.5 Direct Bilirubin < 0.2 AST 18 ALT 12 Alkaline Phosphatase 107 Troponin I High Sens 123.1 H* C-Reactive Protein B-Natriuretic Peptide Total Protein 7.3 Albumin 4.4 TSH 1.60 Urine Color Urine Appearance Urine pH Ur Specific [place] Urine Protein Urine Glucose (UA) Urine Ketones Urine Blood Urine Nitrite Ur Leukocyte Esterase Urine RBC Urine WBC Ur Squamous Epith Cells Urine Bacteria Hyaline Casts Stool Occult Blood COVID-19 ([facility]) COVID-19 Clin Com 10/15/22 10/15/22 10/15/22 17:56 17:56 17:56 MCV MCH MCHC RDW Plt Count MPV Immature Gran % (Auto) Neut % (Auto) Lymph % (Auto) [place] % (Auto) Eos % (Auto) Baso % (Auto) Lymph # (Auto) [place] # (Auto) Eos # (Auto) Baso # (Auto) Abs Immat Gran (auto) Absolute Neuts (auto) Absolute Nucleated RBC Nucleated RBC % (auto) ESR Anion Gap Estim Creat Clear Calc Estimated GFR POC Glucose Random Glucose Estimat Average Glucose Hemoglobin A1c % Lactic Acid 0.5 Calcium Magnesium Total Bilirubin Direct Bilirubin AST ALT Alkaline Phosphatase Troponin I High Sens C-Reactive Protein B-Natriuretic Peptide 1467 H Total Protein Albumin TSH Urine Color Urine Appearance Urine pH Ur Specific [place] Urine Protein Urine Glucose (UA) Urine Ketones Urine Blood Urine Nitrite Ur Leukocyte Esterase Urine RBC Urine WBC Ur Squamous Epith Cells Urine Bacteria Hyaline Casts Stool Occult Blood COVID-19 ([facility]I) Negative COVID-19 Clin Com See Note 10/15/22 10/15/22 10/15/22 19:30 21:45 23:09 MCV MCH MCHC RDW Plt Count MPV Immature Gran % (Auto) Neut % (Auto) Lymph % (Auto) [place] % (Auto) Eos % (Auto) Baso % (Auto) Lymph # (Auto) [place] # (Auto) Eos # (Auto) Baso # (Auto) Abs Immat Gran (auto) Absolute Neuts (auto) Absolute Nucleated RBC Nucleated RBC % (auto) ESR Anion Gap Estim Creat Clear Calc Estimated GFR POC Glucose Random Glucose Estimat Average Glucose Hemoglobin A1c % Lactic Acid Calcium Magnesium Total Bilirubin Direct Bilirubin AST ALT Alkaline Phosphatase Troponin I High Sens 112.0 H* C-Reactive Protein B-Natriuretic Peptide Total Protein Albumin TSH Urine Color Yellow Urine Appearance Clear Urine pH 8.5 Ur Specific [place] 1.015 Urine Protein >=1000 (4+) H Urine Glucose (UA) 250 H Urine Ketones Negative Urine Blood Small (1+) H Urine Nitrite Negative Ur Leukocyte Esterase Large (3+) H Urine RBC 11-20 H Urine WBC >50 H Ur Squamous Epith Cells 0-2 Urine Bacteria Trace Hyaline Casts 0-2 Stool Occult Blood NEGATIVE COVID-19 ([facility]I) COVID-19 [employer] Com 10/15/22 10/15/22 10/16/22 23:09 23:09 06:06 MCV 90.5 MCH 29.5 MCHC 32.6 RDW 14.8 Plt Count 187 MPV 11.7 Immature Gran % (Auto) 0.4 Neut % (Auto) 76.0 H Lymph % (Auto) 13.5 L [place] % (Auto) 7.2 Eos % (Auto) 2.2 Baso % (Auto) 0.7 Lymph # (Auto) 1.4 [place] # (Auto) 0.8 Eos # (Auto) 0.2 Baso # (Auto) 0.1 Abs Immat Gran (auto) 0.04 H Absolute Neuts (auto) 8.1 Absolute Nucleated RBC 0.000 Nucleated RBC % (auto) 0.0 ESR 30 H Anion Gap Estim Creat Clear Calc Estimated GFR POC Glucose Random Glucose Estimat Average Glucose Hemoglobin A1c % Lactic Acid Calcium Magnesium Total Bilirubin Direct Bilirubin AST ALT Alkaline Phosphatase Troponin I High Sens C-Reactive Protein 1.54 H B-Natriuretic Peptide Total Protein Albumin TSH Urine Color Urine Appearance Urine pH Ur Specific [place] Urine Protein Urine Glucose (UA) Urine Ketones Urine Blood Urine Nitrite Ur Leukocyte Esterase Urine RBC Urine WBC Ur Squamous Epith Cells Urine Bacteria Hyaline Casts Stool Occult Blood COVID-19 ([facility]ACI) COVID-19 Clin Com 10/16/22 10/16/22 10/16/22 06:06 06:06 07:09 MCV MCH MCHC RDW Plt Count MPV Immature Gran % (Auto) Neut % (Auto) Lymph % (Auto) [place] % (Auto) Eos % (Auto) Baso % (Auto) Lymph # (Auto) [place] # (Auto) Eos # (Auto) Baso # (Auto) Abs Immat Gran (auto) Absolute Neuts (auto) Absolute Nucleated RBC Nucleated RBC % (auto) ESR Anion Gap 23 H Estim Creat Clear Calc 6.4 Estimated GFR 5 POC Glucose 135 H Random Glucose 151 H Estimat Average Glucose 140 Hemoglobin A1c % 6.5 Lactic Acid Calcium 9.5 D Magnesium Total Bilirubin Direct Bilirubin AST ALT Alkaline Phosphatase Troponin I High Sens C-Reactive Protein B-Natriuretic Peptide Total Protein Albumin TSH Urine Color Urine Appearance Urine pH Ur Specific [place] Urine Protein Urine Glucose (UA) Urine Ketones Urine Blood Urine Nitrite Ur Leukocyte Esterase Urine RBC Urine WBC Ur Squamous Epith Cells Urine Bacteria Hyaline Casts Stool Occult Blood COVID-19 ([facility]ACI) COVID-19 [employer] Com 10/16/22 11:01 MCV MCH MCHC RDW Plt Count MPV Immature Gran % (Auto) Neut % (Auto) Lymph % (Auto) [place] % (Auto) Eos % (Auto) Baso % (Auto) Lymph # (Auto) [place] # (Auto) Eos # (Auto) Baso # (Auto) Abs Immat Gran (auto) Absolute Neuts (auto) Absolute Nucleated RBC Nucleated RBC % (auto) ESR Anion Gap Estim Creat Clear Calc Estimated GFR POC Glucose 212 H Random Glucose Estimat Average Glucose Hemoglobin A1c % Lactic Acid Calcium Magnesium Total Bilirubin Direct Bilirubin AST ALT Alkaline Phosphatase Troponin I High Sens C-Reactive Protein B-Natriuretic Peptide Total Protein Albumin TSH Urine Color Urine Appearance Urine pH Ur Specific [place] Urine Protein Urine Glucose (UA) Urine Ketones Urine Blood Urine Nitrite Ur Leukocyte Esterase Urine RBC Urine WBC Ur Squamous Epith Cells Urine Bacteria Hyaline Casts Stool Occult Blood COVID-19 (STACI) COVID-19 [employer] Com Microbiology Microbiology Results: Microbiology 10/15/22 21:45 Urine Culture - Preliminary Urine Catheterized - Leal Catheter Culture in progress. Assessment and Plan (1) ESRD (end stage renal disease) on dialysis: Status: Acute (2) Abnormal magnetic resonance imaging of bone: Status: Acute Plan This is a 71-year-old male with pertinent history of ESRD on dialysis (M/ W/ F), coronary artery disease, essential hypertension, chronic suprapubic catheter, PTSD, gastroesophageal reflux disease who presents to the emergency department for evaluation of generalized weakness /nausea/ vomiting. # concern for vertebral osteomyelitis/discitis Patient has a history of bacteremia due to MSSA Empiric IV antibiotics (renally dosed) Consulting Infectious Disease MRI showing no significant evidence for OM, concern over metastatic lesions?, reported spinal stenosis. Follow blood cultures. # ESRD on dialysis (M/W/F) Missed last hemodialysis session. Consulting Nephrology. # Thyroid nodule was diagnosed recently and states he needs sx for it. Will obtain TSH # History of intermittent black stool will repeat stool occult blood # Pyuria in a pt with chronic suprapubic catheter on abx as above. Follow urine culture # Hyperglycemia with glycosuria history of DM. Iniaite accuchecks with SSI. Obtain A1c # Elevated troponin type 2, due to increased demand # CAD # HTN continue home medications # PTSD continue duloxetine # GERD on pantoprazole # Anemia of CKD hb above transfusion threshold DVT Prophylaxis Lovenox 30mg Admit as inpatient and will require overnight minimum hospital stay for IV antibiotics pending ID eval and MRI result Quality Stroke Does the patient have a stroke diagnosis?: No VTE Prior VTE?: No VTE Risk Level:: Medical - moderate - high VTE Device Contraindication: Treatment Not Indicated VTE Drug Contraindication: N/A - Med Ordered
--- NOTE | 2022-10-16 14:18 | MHC.CM.PN ---
PT REPORTS HE LIVES ALONE AND IS INDEPENDENT WITH CARE HE SAYS HE HAS A WALKER THAT HE DOES NOT USE, AND HAS NO HOME SERVICES HE REPORTS [facility] [address] HCP ON FILE HE IS COVID [facility] IMM AND [facility] RIGHTS DELIVERED CURRENT DC PLAN IS HOME WITH NO SERVICES PT WILL ATTEMPT TO ARRANGE TRANSPORT, BUT MAY NEED SHUTTLE/LYFT
[2022-10-16 15:30] VITALS: BP 166/81; PULSE 63; RESP 20; TEMP 36.4; O2SAT 96
[2022-10-16] MEDS: Torsemide 20 MG TABLET PO (15:33)
[2022-10-16 15:57] LABS: Glucose, Whole Blood 205 mg/dL (60-115)
[2022-10-16] MEDS: Insulin Lispro 100 UNIT/ML 3 ML VIAL SUBCUT ×2 (16:49→22:14)
[2022-10-16] MEDS: Hydrocortisone 1 % Cream 28.35 GM TUBE 1 APPL TOPICAL ×2 (16:49→22:15)
--- NOTE | 2022-10-16 16:57 | PM.CNNEP ---
History of Present Illness Reason for Consult Consult date: 10/16/22 Reason for consult: ESRD needing dialysis Chief Complaint Chief complaint: Nausea/vomiting History of Present Illness Narrative: 71-year-old male with a history of end-stage renal disease on dialysis (M,W,F),? coronary artery disease, hypertension,? chronic suprapubic tube,? diabetes presents with complaints of nausea, vomiting intermittent over the last 3 weeks with associated dizziness and weakness.? He has also had melena and hematemesis. His BUN is very high at 150. He missed his dialysis yesterday.? Patient reports since January he has had a 54 lb weight loss.? Patient has been trying to drink Ensure and boost intermittently.? He does continue to make a liter of urine daily. Of note, the patient was recently diagnosed with a thyroid cancer and is scheduled for thyroidectomy in [place]. He had an MrI of his back showing findings of possible discitis. He had prior MRSA bacteremia in January. ID is to see pt to advise further. Review of Systems Review of Systems Yes all other systems are reviewed and are negative Constitutional: Reports no additional constitutional complaints, Denies body ache(s), Reports chills, Denies fever(s), Denies headache(s), Reports lethargy, Reports malaise, Reports weakness and Reports weight loss Eyes: Reports no additional eye complaints and Denies change in vision Reports system reviewed and no additional complaints, except as documented, Denies dizziness, Denies headache(s), Denies nasal congestion, Denies nasal discharge and Denies neck pain Cardiovascular: Reports no additional cardiovascular complaints, Denies chest pain, Denies leg edema and Denies dyspnea Respiratory: Reports no additional respiratory complaints, Denies cough and Denies dyspnea Gastrointestinal: Reports no additional gastrointestinal complaints, Denies abdominal pain, Reports melena, Denies hematochezia, Denies diarrhea, Reports nausea, Reports vomiting and Denies hematemesis Genitourinary: Reports no additional male genitourinary complaints and Denies urinary incontinence Musculoskeletal: Reports no additional musculoskeletal complaints, Denies back pain, Denies arthralgias, Denies joint swelling, Denies neck pain, Denies numbness and Denies tingling Skin/Breast: Reports system reviewed and no additional complaints, except as docu and Denies rash Reports system reviewed and no additional complaints, except as documented, Denies Abnormal speech present, Denies dizziness, Denies headache(s), Denies numbness, Denies tingling and Reports weakness PMFSH Past Medical History Medical History Bacteremia due to methicillin susceptible Staphylococcus aureus (MSSA) CAD (coronary artery disease) CVA (cerebral vascular accident) Diabetes mellitus HTN (hypertension) with goal to be determined Hyperlipidemia Multiple sclerosis Surgical History Surgical History H/O cystostomy History of back surgery Social History Social History Household Members: None Housing: House Are you a primary inspector health care facilities to a significant other at home: No Do you presently have visiting nurse or other home services: Yes (one more PT apt per pt) 75 years or older and lives alone: No Alcohol intake: former Patient Tobacco Use Status: Never used Tobacco Second Hand Smoke Exposure: No service: Yes Current occupational status: retired Meds Allergies Allergy/AdvReac Type Severity Reaction Status Date / Time morphine [MORPHINE] Allergy Severe NAUSEA & Verified 10/14/22 15:36 VOMITING, vomiting, nausea and vomiting dust Allergy Mild Dry Eye Uncoded 10/14/22 15:36 cat Allergy Unknown Dry Eye Uncoded 10/14/22 15:36 Active Medications: Current Medications Acetaminophen (Acetaminophen 325 Mg Tablet) 650 mg PO Q6H PRN PRN Reason: Pain, Mild (Pain Scale 1-3) Alprazolam (Alprazolam 0.5 Mg Tablet) 0.5 mg PO ONCE PRN PRN Reason: Anxiety Last Admin: 10/16/22 11:35 Dose: 0.5 mg Carvedilol (Carvedilol 25 Mg Tablet) 25 mg PO BID [facility]; Protocol Last Admin: 10/16/22 11:34 Dose: 25 mg Dextrose (Dextrose 50 % 25 Gm/50 Ml Syringe) 25 gm IVPUSH Q15M PRN; Protocol PRN Reason: per Hypoglycemia Standing Ord. Duloxetine HCl (Duloxetine Hcl 20 Mg Capsule.Dr) 20 mg PO DAILY [facility] Enoxaparin Sodium (Enoxaparin Sodium 30 Mg/0.3 Ml Syringe) 30 mg SUBCUT 2200 [facility] Last Admin: 10/16/22 01:31 Dose: 30 mg Glucose (Glucose Gel 15 Gm Gel..Gram.) 15 gm PO Q15M PRN; Protocol PRN Reason: per Hypoglycemia Standing Ord. Hydrocortisone (Hydrocortisone 1 % Cream 28.35 Gm Tube) 1 appl TOPICAL BID [facility]; Protocol Last Admin: 10/16/22 16:49 Dose: 1 appl Cefepime HCl 1 gm/ Sodium (Chloride) 50 mls @ 100 mls/hr IV DAILY [facility] Last Infusion: 10/16/22 14:58 Dose: Infused Insulin Human Lispro (Insulin Lispro 100 Unit/Ml 3 Ml Vial) 0 unit SUBCUT QIDACHS [facility]; Protocol Last Admin: 10/16/22 16:49 Dose: 4 unit Melatonin (Melatonin 3 Mg Tablet) 6 mg PO BEDTIME PRN PRN Reason: Insomnia Multivitamins/Vitamin C (Multivitamin Tablet) 1 tab PO DAILY [facility] Omeprazole (Omeprazole 40 Mg Capsule.Dr) 40 mg PO DAILY@0630 [facility] Last Admin: 10/16/22 11:35 Dose: 40 mg Ondansetron HCl (Ondansetron Hcl 4 Mg/2 Ml Vial) 4 mg IVPUSH Q8H PRN PRN Reason: Nausea and Vomiting Last Admin: 10/16/22 11:50 Dose: 4 mg Pharmacy Consult (Consult Rx Vancomycin Dosing) 1 each MISCELLANE DAILY PRN PRN Reason: Consult order Pharmacy Consult (Consult Rx Perform Med Rec) 1 each MISCELLANE ONCE PRN PRN Reason: Consult order Quetiapine Fumarate (Quetiapine Fumarate 25 Mg Tablet) 25 mg PO ONCE PRN PRN Reason: anxiety/restlessness Last Admin: 10/16/22 11:35 Dose: 25 mg Sodium Chloride (0.9 % Sodium Chloride Flush 3 Ml Syringe) [address] [facility] Last Admin: 10/16/22 16:54 Dose: 3 ml Torsemide (Torsemide 20 Mg Tablet) 20 mg PO DAILY [facility]; Protocol Last Admin: 10/16/22 15:33 Dose: 20 mg Home Medications Medication Instructions Recorded Confirmed Last Taken Type torsemide 20 mg tablet 20 mg PO DAILY 07/14/21 10/16/22 10/15/22 History carvedilol 25 mg tablet 1 tab PO BID 02/05/22 10/16/22 10/15/22 History duloxetine 20 mg capsule,delayed 20 mg PO DAILY 1110/16/22 10/15/22 History release pantoprazole 40 mg tablet,delayed 40 mg PO DAILY@0630 10/14/22 10/16/22 10/15/22 History release vitamin B comp no.3-folic acid 1 1 tab PO DAILY 10/14/22 10/16/22 10/15/22 History mg-vit C 60 mg-biotin 300 mcg tablet ([facility]) Physical Exam Vital Signs: Last Vital Signs Temp 97.6 F 10/16/22 15:30 Pulse 63 10/16/22 15:30 Resp 20 10/16/22 15:30 BP 166/81 H 10/16/22 15:30 Pulse Ox 96 10/16/22 15:30 O2 Del Method 10/16/22 15:30 BMI result Body Mass Index 22.7 Pt is lethargic and difficult to arouse during my exam He is unable to give me a history Const General: cooperative, healthy appearing, comfortable and no acute distress Orientation/consciousness: patient oriented x3 Limitations: no limitations HEENT Head: Yes normal to inspection Ears: hearing grossly normal bilaterally and TM's normal bilaterally General nose exam: Normal external nose present Face and sinus: Yes normal facial exam Mouth: Normal oral and palatal mucosa present Throat: Yes posterior oropharynx normal, Yes tonsils normal and Yes uvula midline Eyes General: appearance normal, both eyes and all related structures Pupils: Equal, round and reactive pupils present Neck Neck: Yes normal visual inspection, Yes full ROM, Yes no lymphadenopathy and Yes no meningeal signs Chest Chest palpation & inspection: normal inspection of the chest Resp Effort & Inspection: normal respiratory effort Auscultation: clear to auscultation bilaterally Cardio Other: The pt has a LUe AVG with bruit and thrill He has no JVD but has a Harsh decrescendo systolic murmur RUSB Rate: regular rate Rhythm: regular rhythm Peripheral pulses: Peripheral pulses 2+ throughout GI Other: +black stool on exam Inspection: Yes normal to inspection Palpation (GI): Soft to palpation and nontender Auscultation: normal bowel sounds Back/Spine/Pelvis Thoracic/Lumbar Spine: thoracic and lumbar spine normal to inspection Skin General skin exam: no rashes or lesions noted Neuro General: patient oriented x3, moves all extremities, no meningeal signs, no focal motor deficits and normal sensation to monofilament Cranial nerves: Yes Equal, round and reactive pupils present Cognition (Neuro): normal cognition Speech: No Abnormal speech present Gait exam (Neuro): Normal gait present Motor exam (neuro): 5/5 motor strength present throughout Sensory Exam: Normal double simultaneous stimulation for sensation Extrem General: Yes normal to inspection, Yes no pedal edema and Yes no calf tenderness Results Lab Results Result Diagrams: 10/16/22 06:06 10/16/22 06:06 Lab results: Chemistry 10/15/22 10/16/22 17:56 06:06 Sodium 140 138 Potassium 5.0 4.5 Carbon Dioxide 24 19 L BUN 150 H 154 H Creatinine 10.71 H* 10.88 H* Calcium 10.3 H D 9.5 D Hematology 10/15/22 10/16/22 17:56 06:06 WBC 9.3 10.6 Hgb 9.9 L 9.0 L Plt Count 205 D 187 Urinalysis 10/15/22 21:45 Urine Color Yellow Urine Appearance Clear Urine pH 8.5 Ur Specific [place] 1.015 Urine Protein >=1000 (4+) H Urine Glucose (UA) 250 H Urine Ketones Negative Urine Blood Small (1+) H Urine Nitrite Negative Ur Leukocyte Esterase Large (3+) H Urine RBC 11-20 H Urine WBC >50 H Ur Squamous Epith Cells 0-2 Hyaline Casts 0-2 Assessment and Plan (1) ESRD (end stage renal disease) on dialysis: Status: Acute (2) Neurogenic urinary bladder disorder: Status: Acute (3) Azotemia: Status: Acute (4) Anemia: Status: Acute (5) Obtundation: Status: Acute Plan This is a 71-year-old male with pertinent history of ESRD on dialysis (M/ W/ F), coronary artery disease, essential hypertension, chronic suprapubic catheter, PTSD, gastroesophageal reflux disease who presents to the emergency department for evaluation of generalized weakness /nausea/ vomiting. He missed dialysis yesterday. He is marked azotemic and obtunded presently. He may have a GIB given drop in Hg and report of melena. There is also concern for vertebral osteo/discitis and he may be septic. 1. ESRD: given azotemia, obtundation, may be uremic and will dialyze tonight and tomorrow 2. Azotemia /possible GIB: recommend DDAVP 30 mcg IV; track H/H 3. Discitis: ID to see and advise Procedures Date of Service Date of Service: 10/16/22
[2022-10-16 18:10] LABS: Glucose, Whole Blood 172 mg/dL (60-115)
--- NOTE | 2022-10-16 19:10 | PC.NURSE ---
Patient not in room , in dialysis at this time.
--- NOTE | 2022-10-16 22:00 | PC.NURSE ---
Patient return to room from dialysis on a stretcher. Pt is A/O X 4, respiration is even and non-labored. Bleeding to fistula/ access, bleeding under control, dressing applied and IS C/D/I. Pt is aware of paln of care.
[2022-10-16 22:05] LABS: Glucose, Whole Blood 193 mg/dL (60-115)
[2022-10-16 23:49] VITALS: BP 160/80; PULSE 66; RESP 14; TEMP 36.3; O2SAT 93
[2022-10-17] MEDS: Omeprazole 40 MG CAPSULE.DR PO (06:18)
[2022-10-17 06:24] LABS: Hematocrit 28.7 % (42.0-52.0); Mean Corpuscular HGB Conc 31.4 g/dl (31.0-36.0); Mean Corpuscular Hemoglobin 28.4 pg (27.0-33.0); Mean Corpuscular Volume 90.5 fL (80.0-98.0); Mean Platelet Volume 11.3 fL (9.4-12.4); Platelet Count 163 X10*3/uL (160-400); Red Blood Count 3.17 X10*6/uL (4.60-5.80); Red Cell Distribution Width 14.6 % (11.0-16.0); White Blood Count 7.6 X10*3/uL (4.8-10.8)
[2022-10-17 07:23] LABS: Anion Gap 17 (12-20); Blood Urea Nitrogen 74 mg/dL (9-16); Calcium 9.4 mg/dL (8.4-10.2); Carbon Dioxide 23 mmol/L (22-29); Chloride 102 mmol/L (96-108); Creatinine Clr Calc Pharmacy 10.2; Estimated Glomerular Filt Rate 8; Glucose Random 92 mg/dL (60-115); Sodium 138 mmol/L (135-145); Thyroid Stimulating Hormone 1.82 uIU/mL (0.32-4.0)
[2022-10-17 07:49] VITALS: BP 198/91; PULSE 67; RESP 20; TEMP 36.9; O2SAT 96
[2022-10-17 07:59] LABS: Glucose, Whole Blood 97 mg/dL (60-115)
--- NOTE | 2022-10-17 12:22 | P.PNIM_ITS ---
Subjective Subjective Date of Service: 10/17/22 Interval History: the patient was seen and evaluated this morning Laying in bed, feels better overall after 1st session of dialysis Denies any fever, chills or shortness of breath No reported other overnight events. Systemic review: No fever, chills or weakness No chest pain, palpitation No shortness of breath or coughing No abdominal pain, nausea or vomiting No urinary symptoms No reported rash Physical Exam Vital Signs: Vital Signs: Last Vital Signs Temp 98.4 F 10/17/22 07:49 Pulse 67 10/17/22 07:49 Resp 20 10/17/22 07:49 BP 198/91 H 10/17/22 07:49 Pulse Ox 96 10/17/22 07:49 O2 Del Method 10/17/22 07:49 BMI result Body Mass Index 22.7 Const: Other: Constitutional : Awake, interactive, not in distress Neck : Normal inspection, Supple Cardiovascular : RRR, no JVP, no lower extremity edema Respiratory : good bilateral air entry, no crackles, wheezes or rhonchi Gastrointestinal: soft, lax, Normal bowel sounds, Non tender Skin : Warm, Dry, fistula site rash of 2 x 2 cm Neurological : Alert & oriented x3, No focal deficit , CN 2-12 within normal Objective Data Active Medications Acetaminophen (Acetaminophen 325 Mg Tablet) 650 mg PO Q6H PRN PRN Reason: Pain, Mild (Pain Scale 1-3) Alprazolam (Alprazolam 0.5 Mg Tablet) 0.5 mg PO ONCE PRN PRN Reason: Anxiety Last Admin: 10/16/22 11:35 Dose: 0.5 mg Documented By: NOLAN Carvedilol (Carvedilol 25 Mg Tablet) 25 mg PO BID [facility]; Protocol Last Admin: 10/16/22 22:14 Dose: 25 mg Documented By: MARY Dextrose (Dextrose 50 % 25 Gm/50 Ml Syringe) 25 gm IVPUSH Q15M PRN; Protocol PRN Reason: per Hypoglycemia Standing Ord. Duloxetine HCl (Duloxetine Hcl 20 Mg Capsule.Dr) 20 mg PO DAILY [facility] Enoxaparin Sodium (Enoxaparin Sodium 30 Mg/0.3 Ml Syringe) 30 mg SUBCUT 2200 [facility] Last Admin: 10/16/22 22:14 Dose: 30 mg Documented By: MARY Glucose (Glucose Gel 15 Gm Gel..Gram.) 15 gm PO Q15M PRN; Protocol PRN Reason: per Hypoglycemia Standing Ord. Hydrocortisone (Hydrocortisone 1 % Cream 28.35 Gm Tube) 1 appl TOPICAL BID [facility]; Protocol Last Admin: 10/16/22 22:15 Dose: 1 appl Documented By: MARY Cefepime HCl 1 gm/ Sodium (Chloride) 50 mls @ 100 mls/hr IV DAILY [facility] Last Infusion: 10/16/22 14:58 Dose: 0 mls/hr Documented By: NOLAN Vancomycin HCl 750 mg/ Sodium (Chloride) 265 mls @ 265 mls/hr IV [id number] [facility] Insulin Human Lispro (Insulin Lispro 100 Unit/Ml 3 Ml Vial) 0 unit SUBCUT QIDACHS [facility]; Protocol Last Admin: 10/17/22 09:21 Dose: Not Given Documented By: DENNIS Non-Admin Reason: No Insulin Coverage Melatonin (Melatonin 3 Mg Tablet) 6 mg PO BEDTIME PRN PRN Reason: Insomnia Multivitamins/Vitamin C (Multivitamin Tablet) 1 tab PO DAILY [facility] Omeprazole (Omeprazole 40 Mg Capsule.Dr) 40 mg PO DAILY@0630 [facility] Last Admin: 10/17/22 06:18 Dose: 40 mg Documented By: MARY Ondansetron HCl (Ondansetron Hcl 4 Mg/2 Ml Vial) 4 mg IVPUSH Q8H PRN PRN Reason: Nausea and Vomiting Last Admin: 10/16/22 11:50 Dose: 4 mg Documented By: NOLAN Pharmacy Consult (Consult Rx Vancomycin Dosing) 1 each MISCELLANE DAILY PRN PRN Reason: Consult order Pharmacy Consult (Consult Rx Perform Med Rec) 1 each MISCELLANE ONCE PRN PRN Reason: Consult order Quetiapine Fumarate (Quetiapine Fumarate 25 Mg Tablet) 25 mg PO ONCE PRN PRN Reason: anxiety/restlessness Last Admin: 10/16/22 11:35 Dose: 25 mg Documented By: NOLAN Sodium Chloride (0.9 % Sodium Chloride Flush 3 Ml Syringe) 3 ml IVFLUSH QSHIFT [facility] Last Admin: 10/17/22 10:59 Dose: Not Given Documented By: NOLAN Non-Admin Reason: Given in Dialysis Torsemide (Torsemide 20 Mg Tablet) 20 mg PO DAILY [facility]; Protocol Last Admin: 10/16/22 15:33 Dose: 20 mg Documented By: NOLAN Labs CBC & Chem 7: 10/17/22 06:04 10/17/22 06:04 Labs: Laboratory Results - last 24 hr 10/16/22 10/16/22 10/16/22 15:39 18:06 21:59 MCV MCH MCHC RDW Plt Count MPV Absolute Nucleated RBC Nucleated RBC % (auto) Anion Gap Estim Creat Clear Calc Estimated GFR POC Glucose 205 H 172 H 193 H Random Glucose Calcium TSH 10/17/22 10/17/22 10/17/22 06:04 06:04 07:51 MCV 90.5 MCH 28.4 MCHC 31.4 RDW 14.6 Plt Count 163 MPV 11.3 Absolute Nucleated RBC 0.000 Nucleated RBC % (auto) 0.0 Anion Gap 17 Estim Creat Clear Calc 10.2 Estimated GFR 8 POC Glucose 97 Random Glucose 92 Calcium 9.4 TSH 1.82 Microbiology Microbiology Results: Microbiology 10/15/22 21:45 Urine Culture - Final Urine Catheterized - Leal Catheter 10/15/22 19:31 Blood Culture - Preliminary Blood - Venous No growth after 24 hours. 10/15/22 19:30 Blood Culture - Preliminary Blood - Venous No growth after 24 hours. Assessment and Plan (1) Abnormal magnetic resonance imaging of bone: Status: Acute (2) Azotemia: Status: Acute (3) ESRD (end stage renal disease) on dialysis: Status: Acute Plan This is a 71-year-old male with pertinent history of ESRD on dialysis (M/ W/ F), coronary artery disease, essential hypertension, chronic suprapubic catheter, PTSD, gastroesophageal reflux disease who presents to the emergency department for evaluation of generalized weakness /nausea/ vomiting. 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 Will likely need outpatient neurosurgery evaluation Pending ID evaluation Follow blood cultures. # ESRD on dialysis (M/W/F) Had dialysis session yesterday, secondary as such in today Continue after that on his regular schedule MWF Nephrology following # Thyroid nodule was diagnosed recently and states he needs sx for it. Will obtain TSH # History of intermittent black stool will repeat stool occult blood # Pyuria in a pt with chronic suprapubic catheter on abx as above. Follow urine culture # Hyperglycemia with glycosuria history of DM. Iniaite accuchecks with SSI. Obtain A1c # Elevated troponin type 2, due to increased demand # CAD # HTN continue home medications # PTSD continue duloxetine # GERD on pantoprazole # Anemia of CKD hb above transfusion threshold DVT Prophylaxis Lovenox 30mg Admit as inpatient and will require overnight minimum hospital stay for IV antibiotics pending ID eval and HD session for safe discharge plan Quality Stroke Does the patient have a stroke diagnosis?: No VTE Prior VTE?: No VTE Risk Level:: Medical - moderate - high VTE Device Contraindication: Treatment Not Indicated VTE Drug Contraindication: N/A - Med Ordered
[2022-10-17 12:46] VITALS: BP 163/72; PULSE 67; RESP 20; TEMP 36.7; O2SAT 99
[2022-10-17 13:06] LABS: Glucose, Whole Blood 141 mg/dL (60-115)
--- NOTE | 2022-10-17 14:19 | P.PNNP_ITS ---
Subjective Subjective Date of Service: 10/17/22 Interval history: the patient was seen and evaluated this morning Laying in bed, feels better overall after 1st session of dialysis Denies any fever, chills or shortness of breath No reported other overnight events. Systemic review: No fever, chills or weakness No chest pain, palpitation No shortness of breath or coughing No abdominal pain, nausea or vomiting No urinary symptoms No reported rash Physical Exam Vital Signs: Vital Signs: Last Vital Signs Temp 98.0 F 10/17/22 12:46 Pulse 67 10/17/22 12:46 Resp 20 10/17/22 12:46 BP 163/72 H 10/17/22 12:46 Pulse Ox 99 10/17/22 12:46 O2 Del Method 10/17/22 12:46 BMI result Body Mass Index 22.7 Const: Other: Constitutional : Awake, interactive, not in distress Neck : Normal inspection, Supple Cardiovascular : RRR, no JVP, no lower extremity edema Respiratory : good bilateral air entry, no crackles, wheezes or rhonchi Gastrointestinal: soft, lax, Normal bowel sounds, Non tender Skin : Warm, Dry, fistula site rash of 2 x 2 cm Neurological : Alert & oriented x3, No focal deficit , CN 2-12 within normal General: cooperative, healthy appearing, comfortable and no acute distress HEENT: Head: Yes normal to inspection Ears: hearing grossly normal bilaterally and TM's normal bilaterally General nose exam: Normal external nose present Face and sinus: Yes normal facial exam Mouth: Normal oral and palatal mucosa present Throat: Yes posterior oropharynx normal, Yes tonsils normal and Yes uvula midline Neck: Neck: Yes normal visual inspection, Yes full ROM and Yes no lymphadenopathy Resp: Effort & Inspection: normal respiratory effort Auscultation: clear to auscultation bilaterally Cardio: Other: The pt has a LUe AVG with bruit and thrill He has no JVD but has a Harsh decrescendo systolic murmur RUSB Rate: regular rate Rhythm: regular rhythm Peripheral pulses: Peripheral pulses 2+ t hroughout GI: Other: +black stool on exam Inspection: Yes normal to inspection Palpation (GI): Soft to palpation and nontender Auscultation: normal bowel sounds Back/Spine/Pelvis: Thoracic/Lumbar Spine: thoracic and lumbar spine normal to inspection Skin: General skin exam: no rashes or lesions noted Neuro: General: moves all extremities, no focal motor deficits and normal sens ation to monofilament Cognition (Neuro): normal cognition Speech: No Abnormal speech present Gait exam (Neuro): Normal gait present Motor exam (neuro): 5/5 motor strength present throughout Sensory Exam: Normal double simultaneous stimulation for sensation Extrem: General: Yes normal to inspection, Yes no pedal edema and Yes no calf tenderness Objective Data Labs CBC & Chem 7: 10/17/22 06:04 10/17/22 06:04 Labs: Laboratory Results - last 24 hr 10/16/22 10/16/22 10/16/22 15:39 18:06 21:59 WBC RBC Hgb Hct MCV MCH MCHC RDW Plt Count MPV Absolute Nucleated RBC Nucleated RBC % (auto) Sodium Potassium Chloride Carbon Dioxide Anion Gap BUN Creatinine Estim Creat Clear Calc Estimated GFR POC Glucose 205 H 172 H 193 H Random Glucose Calcium TSH 10/17/22 10/17/22 10/17/22 06:04 06:04 07:51 WBC 7.6 RBC 3.17 L Hgb 9.0 L Hct 28.7 L MCV 90.5 MCH 28.4 MCHC 31.4 RDW 14.6 Plt Count 163 MPV 11.3 Absolute Nucleated RBC 0.000 Nucleated RBC % (auto) 0.0 Sodium 138 Potassium 4.0 Chloride 102 Carbon Dioxide 23 Anion Gap 17 BUN 74 H Creatinine 6.83 H* Estim Creat Clear Calc 10.2 Estimated GFR 8 POC Glucose 97 Random Glucose 92 Calcium 9.4 TSH 1.82 10/17/22 12:48 WBC RBC Hgb Hct MCV MCH MCHC RDW Plt Count MPV Absolute Nucleated RBC Nucleated RBC % (auto) Sodium Potassium Chloride Carbon Dioxide Anion Gap BUN Creatinine Estim Creat Clear Calc Estimated GFR POC Glucose 141 H Random Glucose Calcium TSH Microbiology Microbiology Results: Microbiology 10/15/22 21:45 Urine Catheterized - Leal Catheter Urine Culture - Final 10/15/22 19:31 Blood - Venous Blood Culture - Preliminary No growth after 24 hours. 10/15/22 19:30 Blood - Venous Blood Culture - Preliminary No growth after 24 hours. Procedures Date of Service Date of Service: 10/17/22 Assessment & Plan Assessment and plan (1) ESRD (end stage renal disease) on dialysis: Status: Acute (2) Neurogenic urinary bladder disorder: Status: Acute (3) Osteomyelitis: Status: Acute Plan the pt has ESRD and presented quite uremic with very high BUN and creat. He undertook dialysis yesterday and today he is more alert and feeling better. He may also have been septic as etiology of obtundation yesterday with abnormal MRI showing osteomyelitis. Plan: Dialysis today Id to see and advise Time Spent With Patient Time: Total time spent is greater than 50% in coordination of care (as documented) at patient's floor/unit and/or counseling patient: Progress Note: Quality Stroke Does the patient have a stroke diagnosis?: No
[2022-10-17] MEDS: Multivitamin TABLET 1 TAB PO (14:48)
[2022-10-17] MEDS: carvediloL 25 MG TABLET PO ×2 (14:48→20:16)
[2022-10-17] MEDS: DULoxetine HCl 20 MG CAPSULE.DR PO (14:49)
[2022-10-17] MEDS: amLODIPine Besylate 5 MG TABLET PO (14:49)
[2022-10-17] MEDS: Torsemide 20 MG TABLET PO (14:49)
[2022-10-17] MEDS: 0.9 % Sodium Chloride Flush 3 ML SYRINGE IVFLUSH (14:51)
[2022-10-17] MEDS: cefEPime HCl 1 GM in 0.9 % Sodium Chloride 50 ML IV (14:56)
[2022-10-17] MEDS: Hydrocortisone 1 % Cream 28.35 GM TUBE 1 APPL TOPICAL ×2 (14:59→20:40)
[2022-10-17 15:14] LABS: Vancomycin Random 13.7 mcg/mL (15-20)
[2022-10-17 16:00] VITALS: BP 152/74; PULSE 70; RESP 18; TEMP 37.1; O2SAT 98
--- NOTE | 2022-10-17 16:39 | PC.NURSE ---
skin cleansed around suprapubic catheter,dry and intact
[2022-10-17 16:43] LABS: Glucose, Whole Blood 232 mg/dL (60-115)
[2022-10-17] MEDS: Insulin Lispro 100 UNIT/ML 3 ML VIAL SUBCUT (16:47)
[2022-10-17] MEDS: vancomycin HCL 500 MG in 0.9 % Sodium Chloride 100 ML 110 MG IV (17:09)
[2022-10-17 19:53] VITALS: BP 149/66; PULSE 68; RESP 16; TEMP 36.7; O2SAT 99
[2022-10-17 20:13] LABS: Glucose, Whole Blood 107 mg/dL (60-115)
[2022-10-17] MEDS: Acetaminophen 325 MG TABLET 650 MG PO (20:39)
[2022-10-17 23:48] VITALS: BP 151/72; PULSE 67; RESP 16; TEMP 37; O2SAT 98
[2022-10-18] MEDS: 0.9 % Sodium Chloride Flush 3 ML SYRINGE IVFLUSH ×3 (01:08→15:58)
[2022-10-18] MEDS: ondansetron HCL 4 MG/2 ML VIAL IVPUSH (01:32)
[2022-10-18 07:54] VITALS: BP 168/79; PULSE 68; RESP 17; TEMP 36.6; O2SAT 98
[2022-10-18] MEDS: cefEPime HCl 1 GM in 0.9 % Sodium Chloride 50 ML IV (08:24)
[2022-10-18 08:26] LABS: Glucose, Whole Blood 117 mg/dL (60-115)
[2022-10-18] MEDS: Hydrocortisone 1 % Cream 28.35 GM TUBE 1 APPL TOPICAL ×2 (08:32→18:15)
--- NOTE | 2022-10-18 10:18 | PM.PNNEP ---
Subjective Subjective Date of Service: 10/19/22 Interval history: the patient was seen and evaluated this morning Laying in bed, feels better overall after 1st session of dialysis Denies any fever, chills or shortness of breath No reported other overnight events. Systemic review: No fever, chills or weakness No chest pain, palpitation No shortness of breath or coughing No abdominal pain, nausea or vomiting No urinary symptoms No reported rash Physical Exam Vital Signs: Vital Signs: Last Vital Signs Temp 97.8 F 10/18/22 07:54 Pulse 68 10/18/22 07:54 Resp 17 10/18/22 07:54 BP 168/79 H 10/18/22 07:54 Pulse Ox 98 10/18/22 07:54 O2 Del Method 10/18/22 07:54 BMI result Body Mass Index 22.7 Const: Other: Constitutional : Awake, interactive, not in distress Neck : Normal inspection, Supple Cardiovascular : RRR, no JVP, no lower extremity edema Respiratory : good bilateral air entry, no crackles, wheezes or rhonchi Gastrointestinal: soft, lax, Normal bowel sounds, Non tender Skin : Warm, Dry, fistula site rash of 2 x 2 cm Neurological : Alert & oriented x3, No focal deficit , CN 2-12 within normal Objective Data Labs CBC & Chem 7: 10/17/22 06:04 10/17/22 06:04 Labs: Laboratory Results - last 24 hr 10/17/22 10/17/22 10/17/22 06:04 12:48 14:30 POC Glucose 141 H Estimat Average Glucose Cancelled Hemoglobin A1c % Cancelled Random Vancomycin 13.7 L 10/17/22 10/17/22 10/18/22 16:30 20:06 07:57 POC Glucose 232 H 107 117 H Estimat Average Glucose Hemoglobin A1c % Random Vancomycin Microbiology Microbiology Results: Microbiology 10/15/22 19:31 Blood - Venous Blood Culture - Preliminary No growth after 48 hours. 10/15/22 19:30 Blood - Venous Blood Culture - Preliminary No growth after 48 hours. 10/15/22 21:45 Urine Catheterized - Leal Catheter Urine Culture - Final Procedures Date of Service Date of Service: 10/18/22 Assessment & Plan Assessment and plan (1) ESRD (end stage renal disease) on dialysis: Status: Acute Plan ESRD Had HD yesterday No s/s of uremia Await MRI Resume DAVID for anemia Progress Note: Quality Stroke Does the patient have a stroke diagnosis?: No
[2022-10-18 11:23] VITALS: BP 164/76; PULSE 66; RESP 19; TEMP 36.6; O2SAT 100
[2022-10-18 12:17] LABS: Glucose, Whole Blood 116 mg/dL (60-115)
--- NOTE | 2022-10-18 12:31 | HE.PHANOTE ---
VANCO DOSING PATIENT NOT SCHEDULED FOR DIALYSIS TODAY. WILL FOLLOW UP IN AM TOMRROW 10/19
--- NOTE | 2022-10-18 14:13 | HO.PM.IMPN ---
Subjective Subjective Date of Service: 10/18/22 Interval History: the patient was seen and evaluated this morning Laying in bed, feels better overall after 2 sessions of dialysis no more nausea No reported other overnight events. Systemic review: No fever, chills or weakness No chest pain, palpitation No shortness of breath or coughing No abdominal pain, nausea or vomiting No urinary symptoms No reported rash Physical Exam Vital Signs: Vital Signs: Last Vital Signs Temp 97.9 F 10/18/22 11:23 Pulse 66 10/18/22 11:23 Resp 19 10/18/22 11:23 BP 164/76 H 10/18/22 11:23 Pulse Ox 100 10/18/22 11:23 O2 Del Method 10/18/22 11:23 BMI result Body Mass Index 22.7 Const: Other: Constitutional : Awake, interactive, not in distress Neck : Normal inspection, Supple Cardiovascular : RRR, no JVP, no lower extremity edema Respiratory : good bilateral air entry, no crackles, wheezes or rhonchi Gastrointestinal: soft, lax, Normal bowel sounds, Non tender Skin : Warm, Dry, fistula site rash of 2 x 2 cm Neurological : Alert & oriented x3, No focal deficit , CN 2-12 within normal Objective Data Active Medications Acetaminophen (Acetaminophen 325 Mg Tablet) 650 mg PO Q6H PRN PRN Reason: Pain, Mild (Pain Scale 1-3) Last Admin: 10/17/22 20:39 Dose: 650 mg Documented By: RAVI Alprazolam (Alprazolam 0.5 Mg Tablet) 0.5 mg PO ONCE PRN PRN Reason: Anxiety Last Admin: 10/16/22 11:35 Dose: 0.5 mg Documented By: NOLAN Carvedilol (Carvedilol 25 Mg Tablet) 25 mg PO BID [facility]; Protocol Last Admin: 10/18/22 08:32 Dose: Not Given Documented By: LIONEL Non-Admin Reason: NPO Dextrose (Dextrose 50 % 25 Gm/50 Ml Syringe) 25 gm IVPUSH Q15M PRN; Protocol PRN Reason: per Hypoglycemia Standing Ord. Duloxetine HCl (Duloxetine Hcl 20 Mg Capsule.Dr) 20 mg PO DAILY [facility] Last Admin: 10/18/22 08:32 Dose: Not Given Documented By: LIONEL Non-Admin Reason: NPO Enoxaparin Sodium (Enoxaparin Sodium 30 Mg/0.3 Ml Syringe) 30 mg SUBCUT 2200 [facility] Last Admin: 10/16/22 22:14 Dose: 30 mg Documented By: MARY Glucose (Glucose Gel 15 Gm Gel..Gram.) 15 gm PO Q15M PRN; Protocol PRN Reason: per Hypoglycemia Standing Ord. Hydrocortisone (Hydrocortisone 1 % Cream 28.35 Gm Tube) 1 appl TOPICAL BID [facility]; Protocol Last Admin: 10/18/22 08:32 Dose: 1 appl Documented By: LIONEL Cefepime HCl 1 gm/ Sodium (Chloride) 50 mls @ 100 mls/hr IV DAILY [facility] Last Infusion: 10/18/22 10:05 Dose: 0 mls/hr Documented By: LIONEL Vancomycin HCl 750 mg/ Sodium (Chloride) 265 mls @ 265 mls/hr IV [id number] [facility] Insulin Human Lispro (Insulin Lispro 100 Unit/Ml 3 Ml Vial) 0 unit SUBCUT QIDACHS [facility]; Protocol Last Admin: 10/18/22 13:20 Dose: Not Given Documented By: LIONEL Non-Admin Reason: No Insulin Coverage Melatonin (Melatonin 3 Mg Tablet) 6 mg PO BEDTIME PRN PRN Reason: Insomnia Multivitamins/Vitamin C (Multivitamin Tablet) 1 tab PO DAILY [facility] Last Admin: 10/18/22 10:05 Dose: Not Given Documented By: LIONEL Non-Admin Reason: NPO Omeprazole (Omeprazole 40 Mg Capsule.Dr) 40 mg PO DAILY@0630 [facility] Last Admin: 10/18/22 05:50 Dose: Not Given Documented By: KATHRIN Non-Admin Reason: PLANNED PROCEDURE, ?NPO Ondansetron HCl (Ondansetron Hcl 4 Mg/2 Ml Vial) 4 mg IVPUSH Q8H PRN PRN Reason: Nausea and Vomiting Last Admin: 10/18/22 01:32 Dose: 4 mg Documented By: KATHRIN Pharmacy Consult (Consult Rx Vancomycin Dosing) 1 each MISCELLANE DAILY PRN PRN Reason: Consult order Pharmacy Consult (Consult Rx Perform Med Rec) 1 each MISCELLANE ONCE PRN PRN Reason: Consult order Quetiapine Fumarate (Quetiapine Fumarate 25 Mg Tablet) 25 mg PO ONCE PRN PRN Reason: anxiety/restlessness Last Admin: 10/16/22 11:35 Dose: 25 mg Documented By: NOLAN Sodium Chloride (0.9 % Sodium Chloride Flush 3 Ml Syringe) 3 ml IVFLUSH QSHIFT [facility] Last Admin: 10/18/22 08:25 Dose: 3 ml Documented By: LIONEL Torsemide (Torsemide 20 Mg Tablet) 20 mg PO DAILY [facility]; Protocol Last Admin: 10/18/22 10:05 Dose: Not Given Documented By: LIONEL Non-Admin Reason: NPO Labs CBC & Chem 7: 10/17/22 06:04 10/17/22 06:04 Labs: Laboratory Results - last 24 hr 10/17/22 10/17/22 10/17/22 06:04 14:30 16:30 POC Glucose 232 H Estimat Average Glucose Cancelled Hemoglobin A1c % Cancelled Random Vancomycin 13.7 L 10/17/22 10/18/22 10/18/22 20:06 07:57 11:21 POC Glucose 107 117 H 116 H Estimat Average Glucose Hemoglobin A1c % Random Vancomycin Microbiology Microbiology Results: Microbiology 10/15/22 19:31 Blood Culture - Preliminary Blood - Venous No growth after 48 hours. 10/15/22 19:30 Blood Culture - Preliminary Blood - Venous No growth after 48 hours. Assessment and Plan (1) ESRD (end stage renal disease) on dialysis: Status: Acute (2) Abnormal magnetic resonance imaging of bone: Status: Acute Plan This is a 71-year-old male with pertinent history of ESRD on dialysis (M/ W/ F), coronary artery disease, essential hypertension, chronic suprapubic catheter, PTSD, gastroesophageal reflux disease who presents to the emergency department for evaluation of generalized weakness /nausea/ vomiting. 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 Will likely need outpatient neurosurgery evaluation ID input appreciated: DC Abx to do bone biopsy for definite answer Follow blood cultures. # ESRD on dialysis (M/W/F) Had dialysis session yesterday, secondary as such in today Continue after that on his regular schedule MWF Nephrology following # Thyroid nodule was diagnosed recently and states he needs sx for it. Will obtain TSH # History of intermittent black stool will repeat stool occult blood # Pyuria in a pt with chronic suprapubic catheter on abx as above. Follow urine culture # Hyperglycemia with glycosuria history of DM. Iniaite accuchecks with SSI. Obtain A1c # Elevated troponin type 2, due to increased demand # CAD # HTN continue home medications # PTSD continue duloxetine # GERD on pantoprazole # Anemia of CKD hb above transfusion threshold DVT Prophylaxis Lovenox 30mg Admit as inpatient and will require overnight minimum hospital stay for bone biopsy and HD session for safe discharge plan Quality Stroke Does the patient have a stroke diagnosis?: No VTE Prior VTE?: No VTE Risk Level:: Medical - moderate - high VTE Device Contraindication: Treatment Not Indicated VTE Drug Contraindication: N/A - Med Ordered
[2022-10-18 14:58] LABS: Prothrombin Time 11.8 SEC (10.0-13.1)
[2022-10-18 15:01] LABS: Partial Thromboplastin Time 27.5 SEC (26.0-36.4)
--- NOTE | 2022-10-18 15:52 | W.PM.IDCN ---
History of Present Illness Data of Consult Service Date: 10/18/22 Requesting physician: Radha Dos Santos Primary Care Provider: Unknown Physician HPI Reason for consult: possible osteomyelitis/diskiitis He presents with nausea and vomiting. CT concern and then MRI over osteomyelitis spine. Patient says had fall in January and spent six months unable to walk. He has had three herniated discs in past. He has no back complaints at this time and no neuropathy. Review of Systems Review of Systems: Yes all other systems are reviewed and are negative PMFSH Past Medical History Medical History Bacteremia due to methicillin susceptible Staphylococcus aureus (MSSA) CAD (coronary artery disease) CVA (cerebral vascular accident) Diabetes mellitus HTN (hypertension) with goal to be determined Hyperlipidemia Multiple sclerosis Family History Family history: reviewed and not pertinent Surgical History Surgical History H/O cystostomy History of back surgery Social History Social History Household Members: None Housing: House Are you a primary care process manager to a significant other at home: No Do you presently have visiting nurse or other home services: Yes (one more PT apt per pt) 75 years or older and lives alone: No Alcohol intake: former Patient Tobacco Use Status: Never used Tobacco Second Hand Smoke Exposure: No service: Yes Current occupational status: retired Meds Allergies Allergy/AdvReac Type Severity Reaction Status Date / Time morphine [MORPHINE] Allergy Severe NAUSEA & Verified 10/14/22 15:36 VOMITING, vomiting, nausea and vomiting dust Allergy Mild Dry Eye Uncoded 10/14/22 15:36 cat Allergy Unknown Dry Eye Uncoded 10/14/22 15:36 Active Medications: Current Medications Acetaminophen (Acetaminophen 325 Mg Tablet) 650 mg PO Q6H PRN PRN Reason: Pain, Mild (Pain Scale 1-3) Last Admin: 10/17/22 20:39 Dose: 650 mg Alprazolam (Alprazolam 0.5 Mg Tablet) 0.5 mg PO ONCE PRN PRN Reason: Anxiety Last Admin: 10/16/22 11:35 Dose: 0.5 mg Carvedilol (Carvedilol 25 Mg Tablet) 25 mg PO BID [facility]; Protocol Last Admin: 10/18/22 08:32 Dose: Not Given Dextrose (Dextrose 50 % 25 Gm/50 Ml Syringe) 25 gm IVPUSH Q15M PRN; Protocol PRN Reason: per Hypoglycemia Standing Ord. Duloxetine HCl (Duloxetine Hcl 20 Mg Capsule.) 20 mg PO DAILY [facility] Last Admin: 10/18/22 08:32 Dose: Not Given Enoxaparin Sodium (Enoxaparin Sodium 30 Mg/0.3 Ml Syringe) 30 mg SUBCUT 2200 [facility] Last Admin: 10/16/22 22:14 Dose: 30 mg Glucose (Glucose Gel 15 Gm Gel..Gram.) 15 gm PO Q15M PRN; Protocol PRN Reason: per Hypoglycemia Standing Ord. Hydrocortisone (Hydrocortisone 1 % Cream 28.35 Gm Tube) 1 appl TOPICAL BID [facility]; Protocol Last Admin: 10/18/22 08:32 Dose: 1 appl Insulin Human Lispro (Insulin Lispro 100 Unit/Ml 3 Ml Vial) 0 unit SUBCUT QIDACHS [facility]; Protocol Last Admin: 10/18/22 13:20 Dose: Not Given Melatonin (Melatonin 3 Mg Tablet) 6 mg PO BEDTIME PRN PRN Reason: Insomnia Multivitamins/Vitamin C (Multivitamin Tablet) 1 tab PO DAILY [facility] Last Admin: 10/18/22 10:05 Dose: Not Given Omeprazole (Omeprazole 40 Mg Capsule.) 40 mg PO DAILY@0630 [facility] Last Admin: 10/18/22 05:50 Dose: Not Given Ondansetron HCl (Ondansetron Hcl 4 Mg/2 Ml Vial) 4 mg IVPUSH Q8H PRN PRN Reason: Nausea and Vomiting Last Admin: 10/18/22 01:32 Dose: 4 mg Pharmacy Consult (Consult Rx Perform Med Rec) 1 each MISCELLANE ONCE PRN PRN Reason: Consult order Quetiapine Fumarate (Quetiapine Fumarate 25 Mg Tablet) 25 mg PO ONCE PRN PRN Reason: anxiety/restlessness Last Admin: 10/16/22 11:35 Dose: 25 mg Sodium Chloride (0.9 % Sodium Chloride Flush 3 Ml Syringe) 3 ml IVFLUSH QSHIFT [facility] Last Admin: 10/18/22 08:25 Dose: 3 ml Torsemide (Torsemide 20 Mg Tablet) 20 mg PO DAILY [facility]; Protocol Last Admin: 10/18/22 10:05 Dose: Not Given Home Medications Medication Instructions Recorded Confirmed Last Taken Type torsemide 20 mg tablet 20 mg PO DAILY 07/14/21 10/16/22 10/15/22 History carvedilol 25 mg tablet 1 tab PO BID 02/05/22 10/16/22 10/15/22 History duloxetine 20 mg capsule,delayed 20 mg PO DAILY 10/14/22 10/16/22 10/15/22 History release pantoprazole 40 mg tablet,delayed 40 mg PO DAILY@0630 10/14/22 10/16/22 10/15/22 History release vitamin B comp no.3-folic acid 1 1 tab PO DAILY 10/14/22 10/16/22 10/15/22 History mg-vit C 60 mg-biotin 300 mcg tablet ([facility]) Physical Exam Vital Signs: Vital Signs: Last Vital Signs Temp 97.9 F 10/18/22 11:23 Pulse 66 10/18/22 11:23 Resp 19 10/18/22 11:23 BP 164/76 H 10/18/22 11:23 Pulse Ox 100 10/18/22 11:23 O2 Del Method 10/18/22 11:23 BMI result Body Mass Index 22.7 Const: General: cooperative HEENT: Head: Yes normal to inspection Face and sinus: Yes normal facial exam Mouth: Normal oral and palatal mucosa present Teeth and gingiva: dentition normal Eyes: General: appearance normal, both eyes and all related structures Pupils: Equal, round and reactive pupils present Resp: Effort & Inspection: normal respiratory effort Cardio: Rate: regular rate Rhythm: regular rhythm GI: Palpation (GI): Soft to palpation and nontender : General: Yes no CVA tenderness Back/Spine/Pelvis: Back: no CVA tenderness Skin: General skin exam: no rashes or lesions noted Neuro: General: moves all extremities Cranial nerves: Yes Equal, round and reactive pupils present Extrem: General: Yes normal to inspection Psych: Appearance: grossly normal Results Labs CBC & Chem 7: 10/17/22 06:04 10/17/22 06:04 Microbiology Microbiology Results: Microbiology 10/15/22 19:31 Blood - Venous Blood Culture - Preliminary No growth after 48 hours. 10/15/22 19:30 Blood - Venous Blood Culture - Preliminary No growth after 48 hours. 10/15/22 21:45 Urine Catheterized - Leal Catheter Urine Culture - Final Assessment and Plan (1) ESRD (end stage renal disease) on dialysis: Status: Acute (2) Abnormal magnetic resonance imaging of bone: Status: Acute He has currently no back pain or weakness. ESR is not very high. Acute osteomyelitis is unlikely Plan Would not give antibiotics at this time. Biopsy evaluate malignancy versus infection IR biopsy
--- NOTE | 2022-10-18 16:07 | MHC.CLN ---
NUTRITION CONSULT FOR WEIGHT LOSS. WEIGHT LOSS X 8 MONTHS=-16.9%. PATIENT WITH BACTEREMIA 02/16 AND REPORTS WEIGHT LOSS SINCE THEN. RECEIVES HEMODIALYSIS. DIET=2 GRAM SODIUM. NPO 10/19 FOR PROCEDURE. LIKES CHOCOLATE ENSURE BUT PRODUCT NOT RECOMMENDED WITH DIALYSIS AND DM. INTAKE VARIABLE WITH AVERAGE ABOUT 50%. CONTINUE TO PROVIDE FOOD PREFERENCES ABLE. RD WILL FOLLOW UP 10/20 FOR INTAKE/POSSIBLE SUPPLEMENT.
[2022-10-18 16:16] VITALS: BMI 22.7
[2022-10-18 16:16] LABS: Glucose, Whole Blood 214 mg/dL (60-115)
[2022-10-18 16:28] VITALS: BP 160/70; PULSE 70; RESP 20; TEMP 36.5; O2SAT 98
[2022-10-18] MEDS: Insulin Lispro 100 UNIT/ML 3 ML VIAL SUBCUT (16:34)
[2022-10-18] MEDS: Multivitamin TABLET 1 TAB PO (18:12)
[2022-10-18] MEDS: DULoxetine HCl 20 MG CAPSULE.DR PO ×2 (18:13→18:19)
[2022-10-18] MEDS: Omeprazole 40 MG CAPSULE.DR PO (18:13)
[2022-10-18] MEDS: carvediloL 25 MG TABLET PO (18:13)
[2022-10-18] MEDS: Torsemide 20 MG TABLET PO (18:14)
[2022-10-18 20:54] LABS: Glucose, Whole Blood 93 mg/dL (60-115)
[2022-10-18 23:01] VITALS: BP 156/68; PULSE 68; RESP 18; TEMP 36.7; O2SAT 99
[2022-10-19] VITALS (9 sets, daily range): BP systolic 136–188; BP diastolic 37–86; PULSE 56–71; RESP 17–18; TEMP 36.1–37.1; O2SAT 96–100
[2022-10-19] MEDS: 0.9 % Sodium Chloride Flush 3 ML SYRINGE IVFLUSH ×2 (00:22→16:53)
[2022-10-19 02:03] LABS: OBS Int Ctl Valid YES; OBS1 NEGATIVE (NEGATIVE)
[2022-10-19 07:21] LABS: Glucose, Whole Blood 114 mg/dL (60-115)
[2022-10-19] MEDS: amLODIPine Besylate 5 MG TABLET PO (09:54)
[2022-10-19] MEDS: carvediloL 25 MG TABLET PO ×2 (09:54→21:12)
--- NOTE | 2022-10-19 10:35 | PM.PNNEP ---
Subjective Subjective Date of Service: 10/20/22 Interval history: Events noted Await Bone biopsy Refusing HD today Physical Exam Vital Signs: Vital Signs: Last Vital Signs Temp 98.7 F 10/19/22 07:12 Pulse 69 10/19/22 07:12 Resp 18 10/19/22 07:12 BP 188/86 H 10/19/22 07:25 Pulse Ox 96 10/19/22 07:25 O2 Del Method 10/19/22 07:25 BMI result Body Mass Index 22.7 Const: Other: Constitutional : Awake, interactive, not in distress Neck : Normal inspection, Supple Cardiovascular : RRR, no JVP, no lower extremity edema Respiratory : good bilateral air entry, no crackles, wheezes or rhonchi Gastrointestinal: soft, lax, Normal bowel sounds, Non tender Skin : Warm, Dry, fistula site rash of 2 x 2 cm Neurological : Alert & oriented x3, No focal deficit , CN 2-12 within normal Objective Data Labs CBC & Chem 7: 10/17/22 06:04 10/17/22 06:04 Labs: Laboratory Results - last 24 hr 10/18/22 10/18/22 10/18/22 11:21 14:29 15:55 PT 11.8 INR 1.0 APTT 27.5 POC Glucose 116 H 214 H Stool Collect Date Stool Occult Blood Stool 2 Collect Date Stool Occult Blood #2 Stool 3 Collect Date Stool Occult Blood #3 10/18/22 10/19/22 10/19/22 19:53 01:36 01:36 PT INR APTT POC Glucose 93 Stool Collect Date Cancelled Stool Occult Blood Cancelled NEGATIVE Stool 2 Collect Date Cancelled Stool Occult Blood #2 Cancelled Stool 3 Collect Date Cancelled Stool Occult Blood #3 Cancelled 10/19/22 07:10 PT INR APTT POC Glucose 114 Stool Collect Date Stool Occult Blood Stool 2 Collect Date Stool Occult Blood #2 Stool 3 Collect Date Stool Occult Blood #3 Microbiology Microbiology Results: Microbiology 10/15/22 19:31 Blood - Venous Blood Culture - Preliminary No growth after 48 hours. 10/15/22 19:30 Blood - Venous Blood Culture - Preliminary No growth after 48 hours. 10/15/22 21:45 Urine Catheterized - Leal Catheter Urine Culture - Final Procedures Date of Service Date of Service: 10/19/22 Assessment & Plan Assessment and plan (1) ESRD (end stage renal disease) on dialysis: Status: Acute Plan ESRD Had HD 10/17 Refusing HD todayWill need HD tomorrow No s/s of uremia Resume DAVID for anemia Time Spent With Patient Time: Total time spent is greater than 50% in coordination of care (as documented) at patient's floor/unit and/or counseling patient: Progress Note: Quality Stroke Does the patient have a stroke diagnosis?: No
--- NOTE | 2022-10-19 11:29 | PM.DS ---
DS: Providers Provider Date of admission: 10/16/22 00:43 Primary care physician: Unknown Physician Consults: 10/16/22 00:43 Consult to Infectious Diseases Routine Consulting Provider: Magdalene Stapleton Reason for consultation: vertebral osteomyelitis/discitis Consult to Nephrology Routine Consulting Provider: Sudha Rowland Reason for consultation: ESRD on dailysis DS: Diagnosis Discharge Diagnosis (1) ESRD (end stage renal disease) on dialysis: Status: Acute (2) Missed dialysis: Status: Acute (3) Azotemia: Status: Acute (4) Abnormal magnetic resonance imaging of bone: Status: Acute DS: Summary Hospital Course Hospital Course: Admission note HPI This is a 71-year-old male with pertinent history of ESRD on dialysis (M/ W/ F), coronary artery disease, essential hypertension, chronic suprapubic catheter, PTSD, gastroesophageal reflux disease who presents to the emergency department for evaluation of generalized weakness /nausea/ vomiting.? Patient states he has had nausea and nonbloody emesis for the last 2 weeks.? He has gotten progressively weaker over the course of last 2-3 weeks.? Admits chills but denies any fever.? No change in color or odor of urine.? No abdominal pain, chest discomfort, palpitations, shortness of breath.? Patient states he only did 3-1/2 hours of dialysis session on Tuesday and missed is dialysis session on Tuesday as he was feeling unwell.? Patient was admitted in January for bacteremia due to MSSA.? States he has been losing weight since.? Also complains of black stools, intermittently that he 1st noticed this week.? Did not notice blood in stool or urine.? Patient states he was diagnosed with a thyroid nodule and he was told he will need surgery for it? In [place].? He has not scheduled it yet as he has been feeling unwell for the last few days. In the ER, imaging was concerning for ?vertebral osteomyelitis/discitis. Hospital course The patient was admitted to the hospital for evaluation of nausea and vomiting. Believed to be secondary to missing dialysis as outpatient. Abdominal pain was evaluated by CT scan which was concerning for abnormal finding suggestive of possible vertebral osteomyelitis/discitis. The patient was started on IV antibiotics of vancomycin given previous history of MSSA bacteremia. MRI was done showing no concerns over osteomyelitis with lower than expected ESR. Evaluated by Infectious Disease specialist who recommended to discontinue antibiotic with no evidence of acute osteomyelitis. The area of question at L4-L5 level was biopsied to rule out any possible malignancy versus dystrophic changes from being on dialysis. MRI was also showing signs of spinal stenosis which will need further evaluation as outpatient with Neurosurgery. The patient had 2 surgeons of dialysis on Tuesday and Tuesday. Refused to do section on Tuesday reporting that he will follow with his regular dialysis on Tuesday. Followed by Nephrology during hospital stay. Amlodipine was added to his medications for better control of blood pressure. Continue dialysis as scheduled. Follow with PCP for pathology result To see neurosurgery as outpatient for evaluation of spinal stenosis Amlodipine prescribed for elevated BP readings. monitor BP at home for 1 week and discuss findings with PCP. Time Spent with Patient Time attestation: Total time spent providing and/or coordinating discharge services: Physical Exam Vital Signs: Vital Signs: Last Vital Signs Temp 98.7 F 10/19/22 07:12 Pulse 69 10/19/22 07:12 Resp 18 10/19/22 07:12 BP 188/86 H 10/19/22 07:25 Pulse Ox 96 10/19/22 07:25 O2 Del Method 10/19/22 07:25 BMI result Body Mass Index 22.7 Const: Other: Constitutional : Awake, interactive, not in distress Neck : Normal inspection, Supple Cardiovascular : RRR, no JVP, no lower extremity edema Respiratory : good bilateral air entry, no crackles, wheezes or rhonchi Gastrointestinal: soft, lax, Normal bowel sounds, Non tender Skin : Warm, Dry, fistula site rash of 2 x 2 cm Neurological : Alert & oriented x3, No focal deficit , CN 2-12 within normal DS: Data Data Completed and Pending Completed studies during hospitalization [Text1]: Procedures Performance of Urinary Filtration, Intermittent, Less than 6 Hours Per Day (02/05/22) Labs on day of discharge: Laboratory Results - last 24 hr 10/18/22 10/18/22 10/18/22 11: 14:29 15:55 PT 11.8 INR 1.0 APTT 27.5 POC Glucose 116 H 214 H Stool Collect Date Stool Occult Blood Stool 2 Collect Date Stool Occult Blood #2 Stool 3 Collect Date Stool Occult Blood #3 10/18/22 10/19/22 10/19/22 19:53 01:36 01:36 PT INR APTT POC Glucose 93 Stool Collect Date Cancelled Stool Occult Blood Cancelled NEGATIVE Stool 2 Collect Date Cancelled Stool Occult Blood #2 Cancelled Stool 3 Collect Date Cancelled Stool Occult Blood #3 Cancelled 10/19/22 07:10 PT INR APTT POC Glucose 114 Stool Collect Date Stool Occult Blood Stool 2 Collect Date Stool Occult Blood #2 Stool 3 Collect Date Stool Occult Blood #3 Preliminary micro results at discharge 10/15/22 19:31 Blood Culture - Preliminary Blood - Venous No growth after 48 hours. 10/15/22 19:30 Blood Culture - Preliminary Blood - Venous No growth after [address] scan - abdomen: Radiologist's impression: ITS Impressions Chest X-Ray 10/15/22 18:06 IMPRESSION: No acute pulmonary process. Head CT 10/15/22 21:03 IMPRESSION: 1. No acute intracranial abnormality. Abdomen/Pelvis CT 10/15/22 21:04 IMPRESSION: 1. 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 Recommend clinical correlation with history of discitis, pain and with elevated inflammatory markers. Alternatively, destructive amyloid spondyloarthropathy could have a similar appearance in the appropriate clinical setting/hemodialysis. 2. No acute intra-abdominal process identified. No evidence of bowel obstruction. 3. Prostatomegaly thick-walled urinary bladder with suprapubic tube in place. 4. Subacute healing fractures of the left superior and inferior pubic rami and left sacral ala. 5. Cholelithiasis. 6. Small nonobstructing bilateral renal calculi. 7. A few small sub-4 mm pulmonary nodules, likely benign. If patient is high risk for primary pulmonary malignancy consider optional chest CT follow-up in 12 months. If low risk, no further follow-up required for Fleischner Society guidelines. 8. Multinodular appearance of the thyroid gland approximately 3.4 cm nodule in the right thyroid lobe. Suggest nonemergent targeted ultrasound for evaluation. Chest CT 10/15/22 21:05 IMPRESSION: 1. 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 Recommend clinical correlation with history of discitis, pain and with elevated inflammatory markers. Alternatively, destructive amyloid spondyloarthropathy could have a similar appearance in the appropriate clinical setting/hemodialysis. 2. No acute intra-abdominal process identified. No evidence of bowel obstruction. 3. Prostatomegaly thick-walled urinary bladder with suprapubic tube in place. 4. Subacute healing fractures of the left superior and inferior pubic rami and left sacral ala. 5. Cholelithiasis. 6. Small nonobstructing bilateral renal calculi. 7. A few small sub-4 mm pulmonary nodules, likely benign. If patient is high risk for primary pulmonary malignancy consider optional chest CT follow-up in 12 months. If low risk, no further follow-up required for Fleischner Society guidelines. 8. Multinodular appearance of the thyroid gland approximately 3.4 cm nodule in the right thyroid lobe. Suggest nonemergent targeted ultrasound for evaluation. Lumbar Spine MRI 10/16/22 13:18 IMPRESSION: Significantly motion limited examination. 1. Redemonstration of destructive endplate changes at L4-L5 with inferior subsidence of the L4 vertebral body and mild L5 vertebral body height loss. This region demonstrates significant marrow edema and enhancement in the L4 and L5 vertebral bodies extending into the posterior elements but without significant paravertebral edema or fluid collection and minimal fluid in the disc space would be an unusual appearance for discitis osteomyelitis. Differential considerations include sequela of advanced degenerative changes and/or neurogenic/amyloid spondyloarthropathy depending on the clinical history. Multifactorial degenerative changes at L4-L5 also contributes to severe spinal canal stenosis with cauda equina nerve root compression and moderate to severe bilateral neural foraminal narrowing. 2. At L3-L4, multifactorial degenerative changes contribute to moderate to severe spinal canal stenosis and moderate bilateral neural foraminal narrowing. There is no other high-grade canal or neural foraminal stenosis. 3. There are multiple rounded enhancing lesions involving the lower thoracic and lumbar spine, which likely represent atypical hemangiomas Above impression was discussed with Dr Dos Santos on 10/16/2022 at 2:30 PM Discharge Plan Discharge Anticipated Discharge Date/Time: 10/19/22 14:00 Patient Disposition: Home, Self-Care Discharge Diagnosis: Missed dialysis Abnormal lumbar MRI Referrals: Physician,Unknown J [Primary Care Provider] - 1 Week Discharge Medications: New amlodipine 5 mg Tablet 5 mg PO DAILY Qty: 30 0RF Protocol: Hold for SBP< HOLD for SBP < : 90 Continued carvedilol 25 mg tablet 1 tab PO BID pantoprazole 40 mg tablet,delayed release (/GUILLERMO) 40 mg PO DAILY@0630 [facility] 1-60-300 mg-mg-mcg tablet 1 tab PO DAILY duloxetine 20 mg capsule,delayed release(DR/EC) 20 mg PO DAILY torsemide 20 mg tablet 20 mg PO DAILY Diet: Advance to usual diet Activity on Discharge: As tolerated Stand Alone Forms: Patient Portal Discharge page Care Plan Goals: Read below Health Concerns: Read below Plan of Treatment: Read below Assessment: You were admitted to the hospital for evaluation of weakness and nausea. believed to be a result of missing dialysis. an image of your back was concerning for abnormal findings of L4-L5. you were treated primarly with antibiotics which was discontinued as no evidenece of infection found. bone biopsy was done to L4-L5 area pending final result. Continue dialysis as scheduled. Follow with PCP for pathology result To see neurosurgery as outpatient for evaluation of spinal stenosis Amlodipine prescribed for elevated BP readings. monitor BP at home for 1 week and discuss findings with PCP.
--- NOTE | 2022-10-19 12:40 | MHC.CM.PN ---
HOME - SELF CARE RN AWARE OF PLAN.
[2022-10-19] MEDS: Lidocaine HCl 1 % MPF 5 ML VIAL SUBCUT (13:20)
[2022-10-19 13:55] LABS: Glucose, Whole Blood 155 mg/dL (60-115)
--- NOTE | 2022-10-19 15:09 | HO.PM.IMPN ---
Subjective Subjective Date of Service: 10/19/22 Interval History: the patient was seen and evaluated this morning Laying in bed, feels better overall after 2 sessions of dialysis no more nausea, refused dialysis today No reported other overnight events. Systemic review: No fever, chills or weakness No chest pain, palpitation No shortness of breath or coughing No abdominal pain, nausea or vomiting No urinary symptoms No reported rash Physical Exam Vital Signs: Vital Signs: Last Vital Signs Temp 97.2 F 10/19/22 13:27 Pulse 61 10/19/22 13:27 Resp 18 10/19/22 13:27 BP 140/64 H 10/19/22 13:27 Pulse Ox 99 10/19/22 13:27 O2 Del Method 10/19/22 13:27 BMI result Body Mass Index 22.7 Const: Other: Constitutional : Awake, interactive, not in distress Neck : Normal inspection, Supple Cardiovascular : RRR, no JVP, no lower extremity edema Respiratory : good bilateral air entry, no crackles, wheezes or rhonchi Gastrointestinal: soft, lax, Normal bowel sounds, Non tender Skin : Warm, Dry, fistula site rash of 2 x 2 cm Neurological : Alert & oriented x3, No focal deficit , CN 2-12 within normal Objective Data Active Medications Acetaminophen (Acetaminophen 325 Mg Tablet) 650 mg PO Q6H PRN PRN Reason: Pain, Mild (Pain Scale 1-3) Last Admin: 10/17/22 20:39 Dose: 650 mg Documented By: RAVI Alprazolam (Alprazolam 0.5 Mg Tablet) 0.5 mg PO ONCE PRN PRN Reason: Anxiety Last Admin: 10/16/22 11:35 Dose: 0.5 mg Documented By: NOLAN Amlodipine Besylate (Amlodipine Besylate 5 Mg Tablet) 5 mg PO DAILY [facility]; Protocol Last Admin: 10/19/22 09:54 Dose: 5 mg Documented By: MANUEL Carvedilol (Carvedilol 25 Mg Tablet) 25 mg PO BID [facility]; Protocol Last Admin: 10/19/22 09:54 Dose: 25 mg Documented By: MANUEL Dextrose (Dextrose 50 % 25 Gm/50 Ml Syringe) 25 gm IVPUSH Q15M PRN; Protocol PRN Reason: per Hypoglycemia Standing Ord. Duloxetine HCl (Duloxetine Hcl 20 Mg Capsule.Dr) 20 mg PO DAILY [facility] Last Admin: 10/18/22 18:13 Dose: 20 mg Documented By: RAVI Enoxaparin Sodium (Enoxaparin Sodium 30 Mg/0.3 Ml Syringe) 30 mg SUBCUT 2200 [facility] Last Admin: 10/16/22 22:14 Dose: 30 mg Documented By: MARY Glucose (Glucose Gel 15 Gm Gel..Gram.) 15 gm PO Q15M PRN; Protocol PRN Reason: per Hypoglycemia Standing Ord. Hydrocortisone (Hydrocortisone 1 % Cream 28.35 Gm Tube) 1 appl TOPICAL BID [facility]; Protocol Last Admin: 10/19/22 09:42 Dose: Not Given Documented By: MANUEL Non-Admin Reason: Patient Refused Insulin Human Lispro (Insulin Lispro 100 Unit/Ml 3 Ml Vial) 0 unit SUBCUT QIDACHS [facility]; Protocol Last Admin: 10/19/22 11:15 Dose: Not Given Documented By: MANUEL Non-Admin Reason: Not In Room Melatonin (Melatonin 3 Mg Tablet) 6 mg PO BEDTIME PRN PRN Reason: Insomnia Multivitamins/Vitamin C (Multivitamin Tablet) 1 tab PO DAILY [facility] Last Admin: 10/19/22 09:42 Dose: Not Given Documented By: MANUEL Non-Admin Reason: Patient Refused Omeprazole (Omeprazole 40 Mg Capsule.) 40 mg PO DAILY@0630 [facility] Last Admin: 10/19/22 05:50 Dose: Not Given Documented By: KATHRIN Non-Admin Reason: NPO Ondansetron HCl (Ondansetron Hcl 4 Mg/2 Ml Vial) 4 mg IVPUSH Q8H PRN PRN Reason: Nausea and Vomiting Last Admin: 10/18/22 01:32 Dose: 4 mg Documented By: KATHRIN Quetiapine Fumarate (Quetiapine Fumarate 25 Mg Tablet) 25 mg PO ONCE PRN PRN Reason: anxiety/restlessness Last Admin: 10/16/22 11:35 Dose: 25 mg Documented By: NOLAN Sodium Chloride (0.9 % Sodium Chloride Flush 3 Ml Syringe) 3 ml IVFLUSH QSHIFT [facility] Last Admin: 10/19/22 09:31 Dose: Not Given Documented By: MANUEL Non-Admin Reason: NPO Torsemide (Torsemide 20 Mg Tablet) 20 mg PO DAILY [facility]; Protocol Last Admin: 10/19/22 09:42 Dose: Not Given Documented By: MANUEL Non-Admin Reason: Patient Refused Labs CBC & Chem 7: 10/17/22 06:04 10/17/22 06:04 Labs: Laboratory Results - last 24 hr 10/18/22 10/18/22 10/19/22 15:55 19:53 01:36 POC Glucose 214 H 93 Stool Collect Date Cancelled Stool Occult Blood Cancelled Stool 2 Collect Date Cancelled Stool Occult Blood #2 Cancelled Stool 3 Collect Date Cancelled Stool Occult Blood #3 Cancelled 10/19/22 10/19/22 10/19/22 01:36 07:10 13:51 POC Glucose 114 155 H Stool Collect Date Stool Occult Blood NEGATIVE Stool 2 Collect Date Stool Occult Blood #2 Stool 3 Collect Date Stool Occult Blood #3 Assessment and Plan (1) Missed dialysis: Status: Acute (2) ESRD (end stage renal disease) on dialysis: Status: Acute Plan This is a 71-year-old male with pertinent history of ESRD on dialysis (M/ W/ F), coronary artery disease, essential hypertension, chronic suprapubic catheter, PTSD, gastroesophageal reflux disease who presents to the emergency department for evaluation of generalized weakness /nausea/ vomiting. 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 Will likely need outpatient neurosurgery evaluation DC Empiric IV antibiotics ID input appreciated: DC Abx to do bone biopsy for definite answer Follow blood cultures. # ESRD on dialysis (M/W/F) Had dialysis session yesterday, secondary as such in today Continue after that on his regular schedule F Nephrology following, to do HD tomorrow before DC home # Thyroid nodule was diagnosed recently and states he needs sx for it. Will obtain TSH # History of intermittent black stool will repeat stool occult blood # Pyuria in a pt with chronic suprapubic catheter on abx as above. Follow urine culture # Hyperglycemia with glycosuria history of DM. Iniaite accuchecks with SSI. Obtain A1c # Elevated troponin type 2, due to increased demand # CAD # HTN continue home medications # PTSD continue duloxetine # GERD on pantoprazole # Anemia of CKD hb above transfusion threshold DVT Prophylaxis Lovenox 30mg Admit as inpatient and will require overnight minimum hospital stay for bone biopsy and HD session for safe discharge plan Quality Stroke Does the patient have a stroke diagnosis?: No VTE Prior VTE?: No VTE Risk Level:: Medical - moderate - high VTE Device Contraindication: Treatment Not Indicated VTE Drug Contraindication: N/A - Med Ordered
--- NOTE | 2022-10-19 15:18 | MHC.CM.PN ---
PATIENT ACTIVE WITH [facility] HE [facility] HE HAS A WALKER AND WHEELCHAIR BUT PRIMARILY USES THE WHEEL CHAIR. PLAN IS HD HERE TOMORROW AND DC HOME. PATIENT WILL CALL [facility] IMM 10/19 IN CHART
[2022-10-19 15:45] LABS: Glucose, Whole Blood 244 mg/dL (60-115)
[2022-10-19 15:46] LABS: Vancomycin Random 14.2 mcg/mL (15-20)
--- NOTE | 2022-10-19 15:57 | HE.PHANOTE ---
YOEL ALICIA PT GOT DIALYSIS, NO NEED FOR DOSE TODAY. WILL GET ANOTHER TROUGH FOR TOMORROW AFTER DIALYSIS PHILIP
[2022-10-19] MEDS: Insulin Lispro 100 UNIT/ML 3 ML VIAL SUBCUT ×2 (16:53→21:14)
[2022-10-19 20:00] LABS: Glucose, Whole Blood 224 mg/dL (60-115)
[2022-10-20 07:13] VITALS: BP 172/74; PULSE 67; RESP 19; TEMP 36.6; O2SAT 98
[2022-10-20 07:27] LABS: Glucose, Whole Blood 90 mg/dL (60-115)
[2022-10-20] MEDS: DULoxetine HCl 20 MG CAPSULE.DR PO (08:23)
[2022-10-20] MEDS: Multivitamin TABLET 1 TAB PO (08:23)
[2022-10-20] MEDS: carvediloL 25 MG TABLET PO ×2 (08:23→20:43)
[2022-10-20] MEDS: Torsemide 20 MG TABLET PO (08:23)
[2022-10-20] MEDS: amLODIPine Besylate 5 MG TABLET PO (08:24)
[2022-10-20 10:58] LABS: Glucose, Whole Blood 180 mg/dL (60-115)
--- NOTE | 2022-10-20 11:15 | MHC.CLN ---
F/U RECEIVES HEMODIALYSIS. DIET=2 GRAM SODIUM. INTAKE 50-100%. WAS NPO 10/19 FOR PROCEDURE. CONTINUE TO PROVIDE FOOD PREFERENCES ABLE. FOLLOW FOR INTAKE, LABS.
--- NOTE | 2022-10-20 11:50 | PM.PNNEP ---
Subjective Subjective Date of Service: 11/08/22 Interval history: Events noted Seen during HD s/p Bone biopsy Physical Exam Vital Signs: Vital Signs: Last Vital Signs Temp 98 F 10/20/22 07:13 Pulse 67 10/20/22 07:13 Resp 19 10/20/22 07:13 BP 172/74 H 10/20/22 07:13 Pulse Ox 98 10/20/22 07:13 O2 Del Method 10/20/22 07:13 BMI result Body Mass Index 22.7 Const: General: cooperative and no acute distress Eyes: General: appearance normal, both eyes and all related structures Resp: Auscultation: clear to auscultation bilaterally GI: Palpation (GI): Soft to palpation and nontender : General: Yes no CVA tenderness Back/Spine/Pelvis: Back: no CVA tenderness Objective Data Labs CBC & Chem 7: 10/17/22 06:04 10/17/22 06:04 Labs: Laboratory Results - last 24 hr 10/19/22 10/19/22 10/19/22 13:51 15:03 15:22 POC Glucose 155 H 244 H Random Vancomycin 14.2 L 10/19/22 10/20/22 10/20/22 19:49 07:11 10:53 POC Glucose 224 H 90 180 H Random Vancomycin Microbiology Microbiology Results: Microbiology 10/19/22 12:00 Bone Gram Stain - Final 10/19/22 12:00 Bone Routine Culture - Preliminary No growth to date. 10/19/22 12:00 Bone Anaerobic Culture - Preliminary No growth to date. 10/15/22 19:31 Blood - Venous Blood Culture - Preliminary No growth after 48 hours. 10/15/22 19:30 Blood - Venous Blood Culture - Preliminary No growth after 48 hours. 10/15/22 21:45 Urine Catheterized - Leal Catheter Urine Culture - Final Procedures Date of Service Date of Service: 10/20/22 Assessment & Plan Assessment and plan (1) ESRD (end stage renal disease) on dialysis: Status: Acute Plan HD today No s.s of uremia HTN Volume removal with HD and reassess BP s/p Bone biopsy Time Spent With Patient Time: Total time spent is greater than 50% in coordination of care (as documented) at patient's floor/unit and/or counseling patient: Progress Note: Quality Stroke Does the patient have a stroke diagnosis?: No
--- NOTE | 2022-10-20 12:32 | PM.DS ---
DS: Providers Provider Date of Service: 10/21/22 Date of admission: 10/16/22 00:43 Primary care physician: Unknown Physician Consults: 10/16/22 00:43 Consult to Infectious Diseases Routine Consulting Provider: Magdalene Stapleton Reason for consultation: vertebral osteomyelitis/discitis Consult to Nephrology Routine Consulting Provider: Sudha Rowland Reason for consultation: ESRD on dailysis DS: Diagnosis Discharge Diagnosis (1) ESRD (end stage renal disease) on dialysis: Status: Acute DS: Summary Hospital Course Hospital Course: Admission note HPI This is a 71-year-old male with pertinent history of ESRD on dialysis (M/ W/ F), coronary artery disease, essential hypertension, chronic suprapubic catheter, PTSD, gastroesophageal reflux disease who presents to the emergency department for evaluation of generalized weakness /nausea/ vomiting.? Patient states he has had nausea and nonbloody emesis for the last 2 weeks.? He has gotten progressively weaker over the course of last 2-3 weeks.? Admits chills but denies any fever.? No change in color or odor of urine.? No abdominal pain, chest discomfort, palpitations, shortness of breath.? Patient states he only did 3-1/2 hours of dialysis session on Tuesday and missed is dialysis session on Tuesday as he was feeling unwell.? Patient was admitted in January for bacteremia due to MSSA.? States he has been losing weight since.? Also complains of black stools, intermittently that he 1st noticed this week.? Did not notice blood in stool or urine.? Patient states he was diagnosed with a thyroid nodule and he was told he will need surgery for it? In [place].? He has not scheduled it yet as he has been feeling unwell for the last few days. In the ER, imaging was concerning for ?vertebral osteomyelitis/discitis. Hospital course The patient was admitted to the hospital for evaluation of nausea and vomiting. Believed to be secondary to missing dialysis as outpatient. Abdominal pain was evaluated by CT scan which was concerning for abnormal finding suggestive of possible vertebral osteomyelitis/discitis. The patient was started on IV antibiotics of vancomycin given previous history of MSSA bacteremia. MRI was done showing no concerns over osteomyelitis with lower than expected ESR. Evaluated by Infectious Disease specialist who recommended to discontinue antibiotic with no evidence of acute osteomyelitis. The area of question at L4-L5 level was biopsied to rule out any possible malignancy versus dystrophic changes from being on dialysis. MRI was also showing signs of spinal stenosis which will need further evaluation as outpatient with Neurosurgery. The patient had 2 surgeons of dialysis on Tuesday and Tuesday. Refused to do section on Tuesday reporting that he will follow with his regular dialysis on Tuesday. Followed by Nephrology during hospital stay. Amlodipine was added to his medications for better control of blood pressure. prior to discharge there was concern about suicidal ideation, he was seen by N who felt this would be best managed as outpatient. Continue dialysis as scheduled. Follow with PCP for pathology result To see neurosurgery as outpatient for evaluation of spinal stenosis Amlodipine prescribed for elevated BP readings. monitor BP at home for 1 week and discuss findings with PCP. Time Spent with Patient Time attestation: Total time spent providing and/or coordinating discharge services: Discharge coordination time: Greater than 30 minutes Quality: Safe Use of Opioids Does Pt have an Active Cancer Diagnosis on the Problem List?: No Quality: Stroke Does the patient have a stroke diagnosis?: No Physical Exam Vital Signs: Vital Signs: Last Vital Signs Temp 98 F 10/20/22 07:13 Pulse 67 10/20/22 07:13 Resp 19 10/20/22 07:13 BP 172/74 H 10/20/22 07:13 Pulse Ox 98 10/20/22 07:13 O2 Del Method 10/20/22 07:13 BMI result Body Mass Index 22.7 Const: General: cooperative and no acute distress Eyes: General: appearance normal, both eyes and all related structures Resp: Auscultation: clear to auscultation bilaterally GI: Palpation (GI): Soft to palpation and nontender : General: Yes no CVA tenderness Back/Spine/Pelvis: Back: no CVA tenderness Neuro: Other: no signs of cauda equina, denies saddle anasthesia, fecal incontinence DS: Data Data Completed and Pending Completed studies during hospitalization [Text1]: Procedures Performance of Urinary Filtration, Intermittent, Less than 6 Hours Per Day (02/05/22) Pending studies at discharge: Pending at discharge 10/19/22 12:29 Surgical Path [Surgical] [PTH] Routine Labs on day of discharge: Laboratory Results - last 24 hr 10/19/22 10/19/22 10/19/22 13:51 15:03 15:22 POC Glucose 155 H 244 H Random Vancomycin 14.2 L 10/19/22 10/20/22 10/20/22 19:49 07:11 10:53 POC Glucose 224 H 90 180 H Random Vancomycin Preliminary micro results at discharge 10/19/22 12:00 Routine Culture - Preliminary Bone No growth to date. Anaerobic Culture - Preliminary No growth to date. 10/15/22 19:31 Blood Culture - Preliminary Blood - Venous No growth after 48 hours. 10/15/22 19:30 Blood Culture - Preliminary Blood - Venous No growth after 48 hours. Discharge Plan Discharge Anticipated Discharge Date/Time: 10/20/22 12:31 Patient Disposition: Home Health Service Discharge Diagnosis: Missed dialysis Abnormal lumbar MRI Referrals: Physician,Unknown J [Primary Care Provider] - 1 Week Discharge Medications: New amlodipine 5 mg Tablet 5 mg PO DAILY Qty: 30 0RF Protocol: Hold for SBP< HOLD for SBP < : 90 Continued carvedilol 25 mg tablet 1 tab PO BID pantoprazole 40 mg tablet,delayed release (DR/EC) 40 mg PO DAILY@0630 [facility] 1-60-300 mg-mg-mcg tablet 1 tab PO DAILY duloxetine 20 mg capsule,delayed release(DR/EC) 20 mg PO DAILY torsemide 20 mg tablet 20 mg PO DAILY Discharge Orders: Discharge Order (Routine); Ordered 10/21/22 Ordered By: Hernandez Dotson Diet: Advance to usual diet Activity on Discharge: As tolerated Stand Alone Forms: Patient Portal Discharge page Care Plan Goals: Read below Health Concerns: Read below Plan of Treatment: Read below Assessment: You were admitted to the hospital for evaluation of weakness and nausea. believed to be a result of missing dialysis. an image of your back was concerning for abnormal findings of L4-L5. you were treated primarly with antibiotics which was discontinued as no evidenece of infection found. bone biopsy was done to L4-L5 area pending final result. Continue dialysis as scheduled. Follow with PCP for pathology result To see neurosurgery as outpatient for evaluation of spinal stenosis Amlodipine prescribed for elevated BP readings. monitor BP at home for 1 week and discuss findings with PCP. Discharge Date/Time: 10/21/22 13:48
[2022-10-20] MEDS: Insulin Lispro 100 UNIT/ML 3 ML VIAL SUBCUT ×3 (12:57→20:43)
--- NOTE | 2022-10-20 13:55 | HO.PM.IMPN ---
Subjective Subjective Date of Service: 10/20/22 Interval History: cc: N/V interval history: suicidal ideation Cardiovascular Cardiovascular: Reports no additional cardiovascular complaints Respiratory Respiratory: Reports no additional respiratory complaints Physical Exam Vital Signs: Vital Signs: Last Vital Signs Temp 98 F 10/20/22 07:13 Pulse 67 10/20/22 07:13 Resp 19 10/20/22 07:13 BP 172/74 H 10/20/22 07:13 Pulse Ox 98 10/20/22 07:13 O2 Del Method 10/20/22 07:13 BMI result Body Mass Index 22.7 Const: General: cooperative and no acute distress Eyes: General: appearance normal, both eyes and all related structures Resp: Auscultation: clear to auscultation bilaterally GI: Palpation (GI): Soft to palpation and nontender : General: Yes no CVA tenderness Back/Spine/Pelvis: Back: no CVA tenderness Neuro: Other: no signs of cauda equina, denies saddle anasthesia, fecal incontinence Objective Data Active Medications Acetaminophen (Acetaminophen 325 Mg Tablet) 650 mg PO Q6H PRN PRN Reason: Pain, Mild (Pain Scale 1-3) Last Admin: 10/17/22 20:39 Dose: 650 mg Documented By: RAVI Alprazolam (Alprazolam 0.5 Mg Tablet) 0.5 mg PO ONCE PRN PRN Reason: Anxiety Last Admin: 10/16/22 11:35 Dose: 0.5 mg Documented By: NOLAN Amlodipine Besylate (Amlodipine Besylate 5 Mg Tablet) 5 mg PO DAILY [facility]; Protocol Last Admin: 10/20/22 08:24 Dose: 5 mg Documented By: CATHERINE Carvedilol (Carvedilol 25 Mg Tablet) 25 mg PO BID [facility]; Protocol Last Admin: 10/20/22 08:23 Dose: 25 mg Documented By: CATHERINE Dextrose (Dextrose 50 % 25 Gm/50 Ml Syringe) 25 gm IVPUSH Q15M PRN; Protocol PRN Reason: per Hypoglycemia Standing Ord. Duloxetine HCl (Duloxetine Hcl 20 Mg Capsule.Dr) 20 mg PO DAILY [facility] Last Admin: 10/20/22 08:23 Dose: 20 mg Documented By: CATHERINE Enoxaparin Sodium (Enoxaparin Sodium 30 Mg/0.3 Ml Syringe) 30 mg SUBCUT 2200 [facility] Last Admin: 10/16/22 22:14 Dose: 30 mg Documented By: MARY Glucose (Glucose Gel 15 Gm Gel..Gram.) 15 gm PO Q15M PRN; Protocol PRN Reason: per Hypoglycemia Standing Ord. Hydrocortisone (Hydrocortisone 1 % Cream 28.35 Gm Tube) 1 appl TOPICAL BID [facility]; Protocol Last Admin: 10/20/22 08:25 Dose: Not Given Documented By: CATHERINE Non-Admin Reason: Patient Refused Vancomycin HCl 750 mg/ Sodium (Chloride) 265 mls @ 265 mls/hr IV MoWeFr@2000 [facility] Insulin Human Lispro (Insulin Lispro 100 Unit/Ml 3 Ml Vial) 0 unit SUBCUT QIDACHS [facility]; Protocol Last Admin: 10/20/22 12:57 Dose: 2 unit Documented By: CATHERINE Melatonin (Melatonin 3 Mg Tablet) 6 mg PO BEDTIME PRN PRN Reason: Insomnia Multivitamins/Vitamin C (Multivitamin Tablet) 1 tab PO DAILY [facility] Last Admin: 10/20/22 08:23 Dose: 1 tab Documented By: CATHERINE Omeprazole (Omeprazole 40 Mg Capsule.Dr) 40 mg PO DAILY@0630 [facility] Last Admin: 10/20/22 05:48 Dose: Not Given Documented By: HANY Non-Admin Reason: Patient Refused Ondansetron HCl (Ondansetron Hcl 4 Mg/2 Ml Vial) 4 mg IVPUSH Q8H PRN PRN Reason: Nausea and Vomiting Last Admin: 10/18/22 01:32 Dose: 4 mg Documented By: KATHRIN Quetiapine Fumarate (Quetiapine Fumarate 25 Mg Tablet) 25 mg PO ONCE PRN PRN Reason: anxiety/restlessness Last Admin: 10/16/22 11:35 Dose: 25 mg Documented By: NOLAN Sodium Chloride (0.9 % Sodium Chloride Flush 3 Ml Syringe) 3 ml IVFLUSH QSHIFT [facility] Last Admin: 10/20/22 08:30 Dose: Not Given Documented By: CATHERINE Non-Admin Reason: Patient Refused Torsemide (Torsemide 20 Mg Tablet) 20 mg PO DAILY [facility]; Protocol Last Admin: 10/20/22 08:23 Dose: 20 mg Documented By: CATHERINE Labs CBC & Chem 7: 10/17/22 06:04 10/17/22 06:04 Labs: Laboratory Results - last 24 hr 10/19/22 10/19/22 10/19/22 13:51 15:03 15:22 POC Glucose 155 H 244 H Random Vancomycin 14.2 L 10/19/22 10/20/22 10/20/22 19:49 07:11 10:53 POC Glucose 224 H 90 180 H Random Vancomycin Microbiology Microbiology Results: Microbiology 10/19/22 12:00 Gram Stain - Final Bone Routine Culture - Preliminary No growth to date. Anaerobic Culture - Preliminary No growth to date. Assessment and Plan (1) Missed dialysis: Status: Acute (2) ESRD (end stage renal disease) on dialysis: Status: Acute Plan This is a 71-year-old male with pertinent history of ESRD on dialysis (M/ W/ F), coronary artery disease, essential hypertension, chronic suprapubic catheter, PTSD, gastroesophageal reflux disease who presents to the emergency department for evaluation of generalized weakness /nausea/ vomiting. 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 Will likely need outpatient neurosurgery evaluation DC Empiric IV antibiotics ID input appreciated: DC Abx s/p bone biopsy follow up path Follow blood cultures - negative to date no signs of cauda equina SI 1:1, BHN eval ESRD on dialysis (M/W/F) continue HD Thyroid nodule was diagnosed recently and states he needs sx for it. Will obtain TSH History of intermittent black stool hgb stable DM insulin pocs ?CAD not on antiplatlet HTN coreg PTSD continue duloxetine GERD on pantoprazole DVT Prophylaxis Lovenox 30mg reason for continued hospitalization:SI Quality Stroke Does the patient have a stroke diagnosis?: No VTE Prior VTE?: No VTE Risk Level:: Medical - moderate - high VTE Device Contraindication: Treatment Not Indicated VTE Drug Contraindication: N/A - Med Ordered
--- NOTE | 2022-10-20 14:00 | MHC.CM.PN ---
[facility] MADE AWARE THAT DC WILL NOT OCCUR TODAY ORIGINALLY PLANNED. RN AND UNIT ALSO AWARE.
--- NOTE | 2022-10-20 14:16 | PC.NURSE ---
Patient is suicidal, he said he would end his life anytime before tonight midnight at home after he gets discharged. Dr marcus, cancelled his discharge. Nurse central office operator supervisor and nurse manage are aware, 1:1 sitter in the room.
[2022-10-20] MEDS: QUEtiapine Fumarate 25 MG TABLET PO (14:34)
[2022-10-20 15:15] VITALS: BP 150/68; PULSE 67; RESP 20; TEMP 36.5; O2SAT 99
[2022-10-20 15:30] LABS: Glucose, Whole Blood 267 mg/dL (60-115)
[2022-10-20] MEDS: 0.9 % Sodium Chloride Flush 3 ML SYRINGE IVFLUSH ×2 (17:05→19:29)
[2022-10-20 17:10] LABS: Vancomycin Random 11.8 mcg/mL (15-20)
[2022-10-20] MEDS: vancomycin HCL 500 MG in 0.9 % Sodium Chloride 100 ML 110 MG IV (18:30)
[2022-10-20 19:23] VITALS: BP 147/74; PULSE 72; RESP 19; TEMP 36.8; O2SAT 98
[2022-10-20 19:33] LABS: Glucose, Whole Blood 284 mg/dL (60-115)
[2022-10-20] MEDS: Hydrocortisone 1 % Cream 28.35 GM TUBE 1 APPL TOPICAL (20:45)
[2022-10-21] VITALS: BP 168/85; PULSE 62; RESP 18; TEMP 36.7; O2SAT 100
[2022-10-21] MEDS: Omeprazole 40 MG CAPSULE.DR PO (06:27)
[2022-10-21 07:04] VITALS: BP 158/70; PULSE 65; RESP 18; TEMP 36.1; O2SAT 100
[2022-10-21 07:11] LABS: Glucose, Whole Blood 145 mg/dL (60-115)
--- NOTE | 2022-10-21 08:02 | P.PNNP_ITS ---
Subjective Subjective Date of Service: 10/21/22 Interval history: cc: N/V interval history: suicidal ideation Physical Exam Vital Signs: Vital Signs: Last Vital Signs Temp 97 F 10/21/22 07:04 Pulse 65 10/21/22 07:04 Resp 18 10/21/22 07:04 BP 158/70 H 10/21/22 07:04 Pulse Ox 100 10/21/22 07:04 O2 Del Method 10/21/22 07:04 BMI result Body Mass Index 22.7 Const: General: cooperative, healthy appearing, comfortable and no acute d istress Orientation/consciousness: patient oriented x3 Limitations: no limitations HEENT: Head: Yes normal to inspection Ears: hearing grossly normal bilaterally and TM's normal bilaterally General nose exam: Normal external nose present Face and sinus: Yes normal facial exam Mouth: Normal oral and palatal mucosa present Teeth and gingiva: dentition normal Throat: Yes posterior oropharynx normal, Yes tonsils normal and Yes uvula midline Eyes: General: appearance normal, both eyes and all related structures Pupils: Equal, round and reactive pupils present Neck: Neck: Yes normal visual inspection, Yes full ROM, Yes no lymphadenopathy and Yes no meningeal signs Chest: Chest palpation & inspection: normal inspection of the chest Resp: Effort & Inspection: normal respiratory effort Auscultation: clear to auscultation bilaterally Cardio: Rate: regular rate Rhythm: regular rhythm Peripheral pulses: Peripheral pulses 2+ throughout GI: Inspection: Yes normal to inspection Palpation (GI): Soft to palpation and nontender Auscultation: normal bowel sounds : General: Yes no CVA tenderness Back/Spine/Pelvis: Back: no CVA tenderness Thoracic/Lumbar Spine: thoracic and lumbar spine normal to inspection Skin: General skin exam: no rashes or lesions noted Neuro: Other: no signs of cauda equina, denies saddle anasthesia, fecal incontinence General: patient oriented x3, moves all extremities, no meningeal signs, no focal motor deficits and normal sensation to monofilament Cranial nerves: Yes Equal, round and reactive pupils present Cognition (Neuro): normal cognition Speech: No Abnormal speech present Gait exam (Neuro): Normal gait present Motor exam (neuro): 5/5 motor strength present throughout Sensory Exam: Normal double simultaneous stimulation for sensation Extrem: General: Yes normal to inspection, Yes no pedal edema and Yes no calf tenderness Psych: Appearance: grossly normal Objective Data Labs CBC & Chem 7: 10/17/22 06:04 10/17/22 06:04 Labs: Laboratory Results - last 24 hr 10/20/22 10/20/22 10/20/22 10:53 15:19 15:45 POC Glucose 180 H 267 H Random Vancomycin 11.8 L 10/20/22 10/21/22 19:26 07:04 POC Glucose 284 H 145 H Random Vancomycin Microbiology Microbiology Results: Microbiology 10/19/22 12:00 Bone Gram Stain - Final 10/19/22 12:00 Bone Routine Culture - Final No growth after 2 days 10/19/22 12:00 Bone Anaerobic Culture - Preliminary No growth to date. 10/15/22 19:31 Blood - Venous Blood Culture - Final No growth after 5 days. 10/15/22 19:30 Blood - Venous Blood Culture - Final No growth after 5 days. 10/15/22 21:45 Urine Catheterized - Leal Catheter Urine Culture - Final Procedures Date of Service Date of Service: 10/21/22 Assessment & Plan Assessment and plan (1) Missed dialysis: Status: Acute (2) ESRD (end stage renal disease) on dialysis: Status: Acute Plan This is a 71-year-old male with pertinent history of ESRD on dialysis (M/ W/ F), coronary artery disease, essential hypertension, chronic suprapubic catheter, PTSD, gastroesophageal reflux disease who presents to the emergency department for evaluation of generalized weakness /nausea/ vomiting. 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 Will likely need outpatient neurosurgery evaluation DC Empiric IV antibiotics ID input appreciated: DC Abx s/p bone biopsy follow up path Follow blood cultures - negative to date no signs of cauda equina SI 1:1, BHN eval ESRD on dialysis (M/W/F) continue HD will resume OP HD after d/c Progress Note: Quality Stroke Does the patient have a stroke diagnosis?: No
[2022-10-21] MEDS: 0.9 % Sodium Chloride Flush 3 ML SYRINGE IVFLUSH (08:32)
[2022-10-21] MEDS: DULoxetine HCl 20 MG CAPSULE.DR PO (08:32)
[2022-10-21] MEDS: Torsemide 20 MG TABLET PO (08:32)
[2022-10-21] MEDS: carvediloL 25 MG TABLET PO (08:32)
[2022-10-21] MEDS: amLODIPine Besylate 5 MG TABLET PO (08:32)
[2022-10-21] MEDS: Hydrocortisone 1 % Cream 28.35 GM TUBE 1 APPL TOPICAL (08:33)
[2022-10-21] MEDS: Multivitamin TABLET 1 TAB PO (08:33)
--- NOTE | 2022-10-21 09:29 | HO.PM.IMPN ---
Subjective Subjective Date of Service: 10/21/22 Interval History: cc: N/V interval history: suicidal ideation Cardiovascular Cardiovascular: Reports no additional cardiovascular complaints Respiratory Respiratory: Reports no additional respiratory complaints Neurologic Neurologic: Denies Abnormal speech present Physical Exam Vital Signs: Vital Signs: Last Vital Signs Temp 97 F 10/21/22 07:04 Pulse 65 10/21/22 07:04 Resp 18 10/21/22 07:04 BP 158/70 H 10/21/22 07:04 Pulse Ox 100 10/21/22 07:04 O2 Del Method 10/21/22 07:04 BMI result Body Mass Index 22.7 Const: General: cooperative, healthy appearing, comfortable and no acute distress Orientation/consciousness: patient oriented x3 Limitations: no limitations HEENT: Head: Yes normal to inspection Ears: hearing grossly normal bilaterally and TM's normal bilaterally General nose exam: Normal external nose present Face and sinus: Yes normal facial exam Mouth: Normal oral and palatal mucosa present Teeth and gingiva: dentition normal Throat: Yes posterior oropharynx normal, Yes tonsils normal and Yes uvula midline Eyes: General: appearance normal, both eyes and all related structures Pupils: Equal, round and reactive pupils present Neck: Neck: Yes normal visual inspection, Yes full ROM, Yes no lymphadenopathy and Yes no meningeal signs Chest: Chest palpation & inspection: normal inspection of the chest Resp: Effort & Inspection: normal respiratory effort Auscultation: clear to auscultation bilaterally Cardio: Rate: regular rate Rhythm: regular rhythm Peripheral pulses: Peripheral pulses 2+ throughout GI: Inspection: Yes normal to inspection Palpation (GI): Soft to palpation and nontender Auscultation: normal bowel sounds : General: Yes no CVA tenderness Back/Spine/Pelvis: Back: no CVA tenderness Thoracic/Lumbar Spine: thoracic and lumbar spine normal to inspection Skin: General skin exam: no rashes or lesions noted Neuro: Other: no signs of cauda equina, denies saddle anasthesia, fecal incontinence General: patient oriented x3, moves all extremities, no meningeal signs, no focal motor deficits and normal sensation to monofilament Cranial nerves: Yes Equal, round and reactive pupils present Cognition (Neuro): normal cognition Speech: No Abnormal speech present Gait exam (Neuro): Normal gait present Motor exam (neuro): 5/5 motor strength present throughout Sensory Exam: Normal double simultaneous stimulation for sensation Extrem: General: Yes normal to inspection, Yes no pedal edema and Yes no calf tenderness Psych: Appearance: grossly normal Objective Data Active Medications Acetaminophen (Acetaminophen 325 Mg Tablet) 650 mg PO Q6H PRN PRN Reason: Pain, Mild (Pain Scale 1-3) Last Admin: 10/17/22 20:39 Dose: 650 mg Documented By: RAVI Alprazolam (Alprazolam 0.5 Mg Tablet) 0.5 mg PO DAILY PRN PRN Reason: Anxiety Amlodipine Besylate (Amlodipine Besylate 5 Mg Tablet) 5 mg PO DAILY COUNTS INCLUDE 234 BEDS AT THE [facility]; Protocol Last Admin: 10/21/22 08:32 Dose: 5 mg Documented By: AMEYA Carvedilol (Carvedilol 25 Mg Tablet) 25 mg PO BID COUNTS INCLUDE 234 BEDS AT THE [facility]; Protocol Last Admin: 10/21/22 08:32 Dose: 25 mg Documented By: AMEYA Dextrose (Dextrose 50 % 25 Gm/50 Ml Syringe) 25 gm IVPUSH Q15M PRN; Protocol PRN Reason: per Hypoglycemia Standing Ord. Duloxetine HCl (Duloxetine Hcl 20 Mg Capsule.Dr) 20 mg PO DAILY COUNTS INCLUDE 234 BEDS AT THE [facility] Last Admin: 10/21/22 08:32 Dose: 20 mg Documented By: AMEYA Enoxaparin Sodium (Enoxaparin Sodium 30 Mg/0.3 Ml Syringe) 30 mg SUBCUT 2200 COUNTS INCLUDE 234 BEDS AT THE [facility] Last Admin: 10/16/22 22:14 Dose: 30 mg Documented By: MARY Glucose (Glucose Gel 15 Gm Gel..Gram.) 15 gm PO Q15M PRN; Protocol PRN Reason: per Hypoglycemia Standing Ord. Hydrocortisone (Hydrocortisone 1 % Cream 28.35 Gm Tube) 1 appl TOPICAL BID COUNTS INCLUDE 234 BEDS AT THE [facility]; Protocol Last Admin: 10/21/22 08:33 Dose: 1 appl Documented By: AMEYA Vancomycin HCl 750 mg/ Sodium (Chloride) 265 mls @ 265 mls/hr IV MoWeFr@2000 COUNTS INCLUDE 234 BEDS AT THE [facility] Insulin Human Lispro (Insulin Lispro 100 Unit/Ml 3 Ml Vial) 0 unit SUBCUT QIDACHS COUNTS INCLUDE 234 BEDS AT THE [facility]; Protocol Last Admin: 10/21/22 07:45 Dose: Not Given Documented By: AMEYA Non-Admin Reason: No Insulin Coverage Melatonin (Melatonin 3 Mg Tablet) 6 mg PO BEDTIME PRN PRN Reason: Insomnia Multivitamins/Vitamin C (Multivitamin Tablet) 1 tab PO DAILY COUNTS INCLUDE 234 BEDS AT THE [facility] Last Admin: 10/21/22 08:33 Dose: 1 tab Documented By: AMEYA Omeprazole (Omeprazole 40 Mg Capsule.) 40 mg PO DAILY@0630 COUNTS INCLUDE 234 BEDS AT THE [facility] Last Admin: 10/21/22 06:27 Dose: 40 mg Documented By: JOESPH Ondansetron HCl (Ondansetron Hcl 4 Mg/2 Ml Vial) 4 mg IVPUSH Q8H PRN PRN Reason: Nausea and Vomiting Last Admin: 10/18/22 01:32 Dose: 4 mg Documented By: KATHRIN Quetiapine Fumarate (Quetiapine Fumarate 25 Mg Tablet) 25 mg PO DAILY PRN PRN Reason: anxiety/restlessness Last Admin: 10/20/22 14:34 Dose: 25 mg Documented By: CATHERINE Sodium Chloride (0.9 % Sodium Chloride Flush 3 Ml Syringe) 3 ml IVFLUSH QSHIFT COUNTS INCLUDE 234 BEDS AT THE [facility] Last Admin: 10/21/22 08:32 Dose: 3 ml Documented By: AMEYA Torsemide (Torsemide 20 Mg Tablet) 20 mg PO DAILY COUNTS INCLUDE 234 BEDS AT THE [facility]; Protocol Last Admin: 10/21/22 08:32 Dose: 20 mg Documented By: AMEYA Labs CBC & Chem 7: 10/17/22 06:04 10/17/22 06:04 Labs: Laboratory Results - last 24 hr 10/20/22 10/20/22 10/20/22 10:53 15:19 15:45 POC Glucose 180 H 267 H Random Vancomycin 11.8 L 10/20/22 10/21/22 19:26 07:04 POC Glucose 284 H 145 H Random Vancomycin Microbiology Microbiology Results: Microbiology 10/19/22 12:00 Gram Stain - Final Bone Routine Culture - Final No growth after 2 days Anaerobic Culture - Preliminary No growth to date. 10/15/22 19:31 Blood Culture - Final Blood - Venous No growth after 5 days. 10/15/22 19:30 Blood Culture - Final Blood - Venous No growth after 5 days. Assessment and Plan (1) Missed dialysis: Status: Acute (2) ESRD (end stage renal disease) on dialysis: Status: Acute Plan This is a 71-year-old male with pertinent history of ESRD on dialysis (M/ W/ F), coronary artery disease, essential hypertension, chronic suprapubic catheter, PTSD, gastroesophageal reflux disease who presents to the emergency department for evaluation of generalized weakness /nausea/ vomiting. 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 Will likely need outpatient neurosurgery evaluation DCed Empiric IV antibiotics ID input appreciated: DC Abx s/p bone biopsy follow up path Follow blood cultures - negative to date no signs of cauda equina SI 1:1, BHN eval ESRD on dialysis (M/W/F) continue HD Thyroid nodule was diagnosed recently and states he needs sx for it. tsh normal History of intermittent black stool hgb stable DM insulin pocs ?CAD not on antiplatlet HTN coreg PTSD continue duloxetine GERD on pantoprazole DVT Prophylaxis Lovenox 30mg reason for continued hospitalization:SI Quality Stroke Does the patient have a stroke diagnosis?: No VTE Prior VTE?: No VTE Risk Level:: Medical - moderate - high VTE Device Contraindication: Treatment Not Indicated VTE Drug Contraindication: N/A - Med Ordered
[2022-10-21 11:33] LABS: Glucose, Whole Blood 266 mg/dL (60-115)
--- NOTE | 2022-10-21 11:37 | MHC.CARE ---
Pt is a 71 year old, , ?Tamazight speaking, single, male who initially presented to [facility] on 10[place]15/22 for medical complaints and subsequently medically admitted.? Today, CARE Team consult was placed for Pt who sated to staff he felt suicidal upon discharge on 10/20. Today,? Pt denies the current SI/HI/VH/AH. ? Pt stated yesterday feelings of frustration due to feeling sick after receiving his dialysis and feeling unwell enough to be discharged home to take care of himself. Pt states he has no prior IPLOC admissions, suicide attempts or gestures. Pt reports he currently receives all his care through the [place]. Pt has an upcoming PCP appt and [facility] Pt is advocating for discharge home and would like additional in home supports if possible.? Pt stated he was doing well? physically and mentally till this past year when he had medical problems resulting in lengthy hospital admissions and loss of his independence.? Pt was born and raised in [place], [place]. Pt was in the [employer] from [id number].? Pt had experienced trauma during his time of service. Pt is single and with no children. Pt reports since discharge? he has been actively involved in the [employer] and they are his primary support. ? 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 Pt has one brother who last year which was difficult ofr him. Pt denies family hx of mental health or substance use. Pt at this time does not meet criteria for IPLOC at this time. Pt does not endorse current SI/HI/VH/AH. Pt has no hx of prior SA or gestures. Pt has formal and informal support through the [facility] and [employer]. CARE Team provided pt with the 988 suicide prevention line and encouraged Pt to return to the ED if in need of additional mental health supports.? CARE Team discussed the case with Dr. Dotson and provide RIVERA Andrews an update.
[2022-10-21] MEDS: Insulin Lispro 100 UNIT/ML 3 ML VIAL SUBCUT (11:52)
--- NOTE | 2022-10-21 12:15 | MHC.CM.PN ---
Addendum entered by Juliana Rios 10/21/22 14:17: NO LYFT SERVICE AVAILABLE PT TRANSPORTED VIA [employer]S COVERING FOR CHAIR VAN Original Note: CM MET WITH PT TO DISCUSS DC PLAN PT REPORTS HE IS FEELING BETTER HE REPORTS HE WAS ABLE TO KEEP HIS BREAKFAST DOWN THIS MORNING HE REPORTS HE FEELS COMFORTABLE DISCHARGING HOME TODAY HE IS UNABLE TO SECURE A RIDE CM DID TRY TO ARRANGE A CHAIR VAN, ARIELLE REPORTS THEY ARE CONCERNED THE PT WILL RECEIVE A BLS TRANSPORT BILL SINCE THEY DO NOT HAVE A CHAIR VAN AVAILABLE ON THE HOLIDAY CM CALLED THE [facility] TO DETERMINE IF THEY WOULD COVER A CHAIR VAN HOME, THEY ARE UNABLE TO SINCE THE PT IS NOT COMING OR GOING FROM A [facility] FACILITY AND CAME IN VIA 911 CALL PT IS NOW READY TO LEAVE, HE IS EATING HIS LUNCH ONCE HIS LUNCH IS COMPLETE, CM WILL ATTEMPT TO SECURE A LYFT
== END 2022-10-21 13:48 | disposition home health service (06) | DRG 682 ==
LOC: HO.ED 10-16 00:09 → HO.EDOVER 10-16 00:52 → HO.S3 10-16 02:51
PROVIDERS: Nurse Practitioner Family; Radiology Diagnostic Radiology; Student in an Organized Health Care Education/Training Program; Admitting Provider Student in an Organized Health Care Education/Training Program; Emergency Provider Emergency Medicine; PCP Internal Medicine; Visit Provider Internal Medicine
PROC: 079T3ZX Drainage of Bone Marrow, Percutaneous Approach, Diagnostic (ICD-10-PCS; principal; 2022-10-19 11:00)
DX: I12.0 Hypertensive chronic kidney disease with stage 5 chronic kidney disease or end stage renal disease (principal); N18.6 End stage renal disease; R45.851 Suicidal ideations; I25.10 Atherosclerotic heart disease of native coronary artery without angina pectoris; G35 Multiple sclerosis; C73 Malignant neoplasm of thyroid gland; E78.5 Hyperlipidemia, unspecified; E11.65 Type 2 diabetes mellitus with hyperglycemia; F43.10 Post-traumatic stress disorder, unspecified; K21.9 Gastro-esophageal reflux disease without esophagitis; E11.22 Type 2 diabetes mellitus with diabetic chronic kidney disease; N31.9 Neuromuscular dysfunction of bladder, unspecified; M48.061 Spinal stenosis, lumbar region without neurogenic claudication; D63.0 Anemia in neoplastic disease; D63.1 Anemia in chronic kidney disease; M46.46 Discitis, unspecified, lumbar region; Z20.822 Contact with and (suspected) exposure to COVID-19; Z96.0 Presence of urogenital implants; Z91.15 Patient's noncompliance with renal dialysis; Z99.2 Dependence on renal dialysis; Z88.5 Allergy status to narcotic agent; Z79.899 Other long term (current) drug therapy
CPT/HCPCS: 20225; 36415; 70450; 71046; 71250; 72158; 74176; 77012; 80048; 80076; 80202; 81001; 81003; 82272; 82947; 83036; 83605; 83735; 83880; 84443; 84484; 85025; 85027; 85610; 85652; 85730; 86140; 87040; 87070; 87073; 87086; 87205; 87635; 88307; 88311; 88342; 90935; 90999; 93005; 99152; 99153; 99285; A9585; J0692; J0696; J0885; J1650; J2405; J3370

== ENCOUNTER → 2022-12-06 08:47 | Outpatient (BNVA) | payer OTHER, SELFPAY | PROVIDERS: PCP Internal Medicine; Visit Provider Urology | DX: N31.9 Neuromuscular dysfunction of bladder, unspecified (principal) | CPT/HCPCS: 51705 ==

== ENCOUNTER → 2023-01-18 10:15 | Outpatient (BNVA) | payer OTHER, SELFPAY | PROVIDERS: PCP Internal Medicine; Visit Provider Urology | DX: N31.9 Neuromuscular dysfunction of bladder, unspecified (principal) | CPT/HCPCS: 51705 ==

== ENCOUNTER → 2023-03-08 13:53 | Outpatient (BNVA) | payer MEDICARE, SELFPAY | PROVIDERS: PCP Internal Medicine; Visit Provider Urology | DX: N31.9 Neuromuscular dysfunction of bladder, unspecified (principal) | CPT/HCPCS: 99212 ==

== ENCOUNTER → 2023-04-20 09:40 | Outpatient (BNVA) | payer MEDICARE, SELFPAY | PROVIDERS: PCP Internal Medicine; Visit Provider Urology | DX: N31.9 Neuromuscular dysfunction of bladder, unspecified (principal) | CPT/HCPCS: 51705 ==

== ENCOUNTER → 2023-06-30 08:34 | Outpatient (BNVA) | payer MEDICARE, SELFPAY | PROVIDERS: PCP Internal Medicine; Visit Provider Urology | DX: N31.9 Neuromuscular dysfunction of bladder, unspecified (principal) | CPT/HCPCS: 51705 ==

== ENCOUNTER → 2023-08-11 09:43 | Outpatient (BNVA) | payer MEDICARE, SELFPAY | PROVIDERS: PCP Internal Medicine; Visit Provider Urology | DX: Z43.5 Encounter for attention to cystostomy (principal); N31.9 Neuromuscular dysfunction of bladder, unspecified | CPT/HCPCS: 51705 ==

== ENCOUNTER 2023-09-22 11:07 | Outpatient (AMB) | payer MEDICARE, SELFPAY ==
--- NOTE | 2023-09-22 11:15 | A.OFFVIS_ITS ---
Intake Intake Visit Reasons: 6m/SPT change Intake Note: Patient presents today for 6 mo SPT change: Meds- None Allergies to Antibiotic- No Known Allergies Blood Thinner- None Three Knife Trimmer Required: No Accompanied by: Other Relationship Allergies morphine [MORPHINE] Allergy (Severe, Verified 03/08/23 14:20) NAUSEA & VOMITING, vomiting, nausea and vomiting HPI HPI Comments History of Present Illness Details Jordi is a very pleasant male.. He is a patient of Dr. Daniel. He is seen for the following urologic issues - neurogenic bladder Here for SPT change Replaced in 6 weeks Sixteen [place] yellow catheter Has lost 50 lb. Only recently has recovered enough strength to start driving again Follow-up in 6 months for review Neurogenic Bladder: They are here for further management for incomplete emptying neurogenic bladder. Urinary retention initially found after ER visit for spontaneous retention seen May 2016 at [facility]. Had gone to [facility] with lower extremity swelling. Known type II diabetic. CT scan demonstrated bilateral hydronephrosis with thickened bladder wall. Was diagnosed with renal failure. Leal catheter placed with 1700 cc. He did develop hematuria due to bladder decompression. Has been on dialysis.. Imaging results US shows May 2016 bilateral hydronephrosis 06/13 , US shows, no retention, no hydronephrosis. Associated conditions Alzhiemers No CAD No CVA No Diabetes Yes Multiple sclerosis No renal replacement therapy Yes Spinal injury/surgery No Current management SPT. Therapeutic plan suprapubic tube - change in 6 W [facility] Medical History Bacteremia due to methicillin susceptible Staphylococcus aureus (MSSA) Multiple sclerosis CVA (cerebral vascular accident) CAD (coronary artery disease) Diabetes mellitus Hyperlipidemia HTN (hypertension) with goal to be determined Surgical History History of back surgery H/O cystostomy Social History Household Members: None Housing: House Are you a primary child care leader to a significant other at home: No Do you presently have visiting nurse or other home services: Yes (one more PT apt per pt) 75 years or older and lives alone: No Alcohol intake: former 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 Tobacco Use Status: Never used Tobacco Second Hand Smoke Exposure: No service: Yes Current occupational status: retired Review of Systems Const Denies chills and Denies fever(s) Card Reports no additional complaints and Denies syncope Resp Denies cough GI Denies abdominal pain and Denies heartburn Reports as per HPI and Denies change in libido Neuro Denies syncope Psych Denies change in libido Endo Denies change in libido Physical Exam Const General: cooperative, healthy appearing, comfortable and no acute distress Orientation/consciousness: patient oriented x3 HEENT Face and sinus: Yes normal facial exam Mouth: moist mucous membranes Neck Neck: Yes normal visual inspection, Yes full ROM and Yes trachea midline Chest Chest palpation & inspection: normal inspection of the chest Resp Effort & Inspection: normal respiratory effort, able to speak in complete sentences and no respiratory distress GI Inspection: Yes normal to inspection Back/Spine/Pelvis Cervical Spine: normal cervical lordosis Thoracic/Lumbar Spine: thoracic and lumbar spine normal to inspection Skin General skin exam: no rashes or lesions noted Neuro General: patient oriented x3, gait normal, tone normal and moves all extremities Extrem General: Yes normal to inspection and Yes capillary refill normal Office Procedures Bladder/Catheter Procedure Details: pt presents to office for 6 week cath change. 18 fr SP tube with 7.5 ml balloon deflated and removed. 18 Fr antonina SP inserted with 7.5 ml balloon with blue plug. Pt tolerated procedure well. Will change in 6 weeks [id number] Temporary Bladder Catheter Procedure code (CPT) selection complete Assessment & Plan Assessment & Plan (1) Neurogenic urinary bladder disorder: Code(s): N31.9 - Neuromuscular dysfunction of bladder, unspecified Plan Six month follow-up Orders: Orders AMB Bladder/Catheter Procedure 09/22/23 N31.9 - Neuromuscular dysfunction of bladder, unspecified Patient Instructions: Imaging studies, laboratory and physical exam results were discussed and reviewed in detail. No major barriers to patient understanding were identified. An opportunity to ask questions regarding the treatment plan was provided. All questions were answered. The patient expressed understanding and agreement with the above treatment plan. The patient is aware they should contact our office by phone for worsening of their current condition or the appearance of new urologic symptoms. Compliance is encouraged with any medications and followup testing that is ordered. It is a privilege to participate in the urologic care of your patient. If you have any questions or concerns regarding treatment for the above conditions, or other urologic issues, please do not hesitate to contact me. The office telephone contact is [phone]. This note is constructed using voice recognition software. While every effort has been made to ensure accuracy recreation manager errors may have been included. Yours sincerely, Dr Akhil Valentino MD, [facility] - Urology Providers of Expert, Compassionate Care for the Genitourinary System Coding Level of Care Code Est Pt Level 3 (64875) Diagnoses Neurogenic urinary bladder disorder N31.9 CPT Codes Bladder/Catheter Procedure - CPT: 32169-Mdlzyc Temporary Bladder Catheter ([id number])
== END 2023-09-22 11:29 | disposition home or self-care (01) ==
LOC: HO.HUSH 11:07
PROVIDERS: PCP Internal Medicine; Visit Provider Urology
DX: N31.9 Neuromuscular dysfunction of bladder, unspecified (principal)
CPT/HCPCS: 51705

== ENCOUNTER → 2023-09-22 11:07 | Outpatient (BNVA) | payer MEDICARE, SELFPAY | PROVIDERS: PCP Internal Medicine; Visit Provider Urology | DX: N31.9 Neuromuscular dysfunction of bladder, unspecified (principal); G35 Multiple sclerosis; E11.9 Type 2 diabetes mellitus without complications; Z91.85 Personal history of military service | CPT/HCPCS: 51705 ==

== ENCOUNTER → 2023-11-29 09:50 | Outpatient (BNVA) | payer MEDICARE, OTHER, SELFPAY | PROVIDERS: PCP Internal Medicine; Visit Provider Urology | DX: Z43.5 Encounter for attention to cystostomy (principal); N31.9 Neuromuscular dysfunction of bladder, unspecified | CPT/HCPCS: 51705 ==

== ENCOUNTER 2023-12-02 11:24 | Inpatient (IN) | payer OTHER, SELFPAY ==
--- NOTE | ~2023-12-02 | IR_ITS ---
Left upper extremity graft thrombolysis and venous angioplasty Clinical history: Occluded left arm AV graft Procedures: 1. Ultrasound-guided access into the left upper arm loop graft. Permanent images were stored in PACS. 2. Left upper arm loop graft fistulogram 3. Central venogram 4. Thrombolysis of occluded left upper arm loop graft 5. Angioplasty of left upper arm loop graft and venous outflow 6. Angioplasty of left upper arm loop graft arterial anastomosis Clinicians: ANTONINA Griggs Dr. MEDICATIONS: - Versed 1 mg, Fentanyl 75 mcg, Lidocaine 1% 10 mL SQ - Antibiotics: None - For additional details, please see nursing flowsheet Complications: None Estimated blood loss: 30 cc Specimens: None Fluoroscopy time: 19.1 minutes Moderate sedation time: 90 minutes PROCEDURE NOTE: The procedure, risks, benefits, and alternatives were carefully explained to the patient and written informed consent was obtained. The patient was placed supine on the fluoroscopy table. A timeout was performed. The right arm was prepped and draped in usual sterile fashion. Maximum barrier technique was utilized. Local anesthesia was administered to the access site with 1% lidocaine. Under ultrasound guidance, the left upper arm loop graft was accessed with a 5 fr micropuncture set towards the venous outflow tract. Over a 0.035 wire, a 6 Grenadian sheath was placed. Using a KMP catheter and a 0.035 Glidewire, a central venogram was performed, demonstrating a patent central outflow. Digital subtraction angiography demonstrated an occluded left upper arm loop graft extending to the end of the left axillary vein stent. A total of 6 mg of TPA was administered throughout the entire graft and venous outflow stent. The left axillary stent and left upper loop graft proximal to the access site was then angioplastied with an 8 mm x 6 mm balloon. Next, under ultrasound guidance, the left upper arm loop graft was accessed with a 5 Grenadian micropuncture set towards the arterial inflow. A 6 Grenadian sheath was placed over an 0.035 wire. An 0.035 Glidewire was then used to cross the arterial anastomosis and into the left brachial artery. Over the wire, a 4 Ff Charan balloon was used to pull the arterial plug and establish flow within the graft. A subsequent arteriogram demonstrated a moderate grade stenosis at the arterial anastomosis. The Glidewire was changed for a Bentson wire. Over the wire, the arterial anastomosis was angioplastied with a 6 mm x 3 cm balloon. A follow-up arteriogram demonstrated a good result with improved flow throughout the graft. There was some residual thrombus located in the mid graft and at the end of the left axillary vein stent. The 6 Grenadian sheath towards the arterial inflow was removed. Over the wire, the left left axillary vein stent was angioplastied with a 10 mm x 6 cm balloon. A subsequent venogram demonstrated a good result with a patent graft with minimal residual thrombus present. The venous outflow sheath was then removed. 3-0 Ethilon pressure suture was placed at each access site. There was no evidence of hematoma noted at either access site. A dry test was applied and secured with Tegaderm at each access site. The patient was stable after the procedure and was transferred to the PACU. The procedure was performed under moderate sedation and with a dedicated nurse with continuous monitoring of vital signs. Permanent images of the left arm were saved and sent to PACS. 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 Rosenberg
[2023-12-02 11:38] VITALS: BP 120/80; PULSE 41; O2SAT 94; BMI 24.5
--- NOTE | 2023-12-02 11:45 | PC.NURSE ---
a&ox4, vss and up to date. 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 pt comes in today d/t increase in generalized full body edema/diarrhea/weakness x 1 week. pt presents to ED w/ 3+ pitting edema in all extremities. no sob/wob noted. respirations even and unlabored. pt able to speak in full/clear sentences w/o difficulty. ED provider bedside assessing pt at this time. call garcia placed within reach.
--- NOTE | 2023-12-02 11:56 | ED.GENADULT ---
HPI - General Adult General Chief complaint: General Medical Stated complaint: full body edema per ems Time Seen by Provider: 12/02/23 11:28 Source: patient Mode of arrival: EMS History of Present Illness HPI narrative: 72-year-old male arrives via EMS from [place] with complaints of increasing edema over the past 3 days. Patient has a history of hypertension, diabetes, ESRD on dialysis every Tuesday/Tuesday/Tuesday. He did not get dialysis today. Patient denies fever, chills, nausea, vomiting, abdominal discomfort, shortness of breath, but states he did experience some chest pressure just as he arrived to the emergency department that increases with deep inspiration Related Data Home Medications Medication Instructions Recorded Confirmed torsemide 20 mg tablet 20 mg PO DAILY 07/14/21 10/16/22 carvedilol 25 mg tablet 1 tab PO BID 02/05/22 10/16/22 duloxetine 20 mg capsule,delayed 20 mg PO DAILY 10/14/22 10/16/22 release pantoprazole 40 mg tablet,delayed 40 mg PO DAILY@0630 10/14/22 10/16/22 release vitamin B comp no.3-folic acid 1 1 tab PO DAILY 10/14/22 10/16/22 mg-vit C 60 mg-biotin 300 mcg tablet (Tabatha-Thiago Rx) Previous Rx's Medication Instructions Recorded amlodipine 5 mg tablet 5 mg PO DAILY #30 tabs 10/19/22 amoxicillin 875 mg-potassium 1 tab PO BID 5 days #10 tabs 12/02/23 clavulanate 125 mg tablet Allergies Allergy/AdvReac Type Severity Reaction Status Date / Time morphine [MORPHINE] Allergy Severe NAUSEA & Verified 12/02/23 11:38 VOMITING, vomiting, nausea and vomiting Review of Systems Review of Systems: Pertinent positives and negatives as stated in HPI PMFSH Past Medical History Source: nursing notes reviewed Onset Date is defined in the Problem List Problems that require an onset date and time if occurred within 24 hrs of arrival to the ED Aortic Dissection and Rupture; Neurologic impairment; Cardiopulmonary Arrest; Endotracheal Intubation; Insertion or Replacement of Mechanical Circulatory Assist Device Medical History Bacteremia due to methicillin susceptible Staphylococcus aureus (MSSA) Multiple sclerosis CVA (cerebral vascular accident) CAD (coronary artery disease) Diabetes mellitus Hyperlipidemia HTN (hypertension) with goal to be determined Surgical History History of back surgery H/O cystostomy Social History Social History Household Members: None Housing: House Are you a primary primary care pediatrician to a significant other at home: No Do you presently have visiting nurse or other home services: Yes (one more PT apt per pt) Alcohol intake: former 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 GENERAL: Well developed, well nourished, in no acute distress. HEAD: Normocephalic/atraumatic EYES: PERRLA, EOMI EARS: Ext canals without abnormality NOSE: Nares patent bilateral OROPHARYNX: no oral lesions noted, posterior pharynx clear NECK: Supple, no adenopathy LUNGS: Normal breath sounds. No adventitious sounds or accessory muscle use. CARDIOVASCULAR: Regular rate and rhythm without noted murmurs, no JVD 2 to 3+ pitting edema bilaterally ABDOMEN: Soft, non-tender, non-distended with bowel sounds MUSCULOSKELETAL: No tenderness, deformities, or effusions noted on gross inspection. EXTREMITIES: No cyanosis, clubbing or edema. LEFT UPPER EXTREMITY: Fistula in place with good thrill and bruit SKIN: Inspection of the skin reveals no rashes NEUROLOGIC: Alert and oriented x 4. Strength and sensation to light touch were grossly intact x 4. Medical Decision Making Medical Decision Making MDM Narrative: 72-year-old male with history and clinical presentation consistent with new anasarca predominantly on extremities. DDX: Will evaluate for possible etiologies, electrolyte/anemia/low albumin and also discuss with rooming house keeper. I reviewed all investigations and patient has a very mild leukocytosis and chest x-ray findings that suggest pneumonia, after discussion with Dr. Crowell patient will be treated with Augmentin. Otherwise, patient has stable normocytic anemia without thrombocytopenia. Chemistry indices demonstrate renal findings consistent with end-stage renal disease and the need for dialysis. Liver enzymes are elevated without evidence of nausea, vomiting, patient has no abdominal discomfort and therefore will not proceed with ultrasound of the gallbladder. Viral testing is negative. 1440: I discussed the case in its entirety with Dr. Crowell, nephrology, he is agrees with treating the pneumonia identified on the chest x-ray with Augmentin and has made arrangements for patient to attend dialysis at 16:00. Patient will also be diuresed with 40 mg of Lasix although he is not hypoxic nor is he tachycardic. Patient is otherwise stable for discharge with diagnosis mild jaundice which can be further evaluated in the outpatient setting by the primary care doctor and treatment for pneumonia. Differential Diagnosis Differential Diagnoses: The differential diagnosis associated with the presentation includes Please see the discussion above Admission/Observation Consideration of admission/observation: Escalation of care including admission/observation considered Please see the discussion above Consult Healthcare Provider Management of the patient was discussed with: Manager Privacy Please see the discussion above Lab Data MDM Lab Attestation statement: I reviewed the patient's lab results. Please see the discussion above 12/02/23 12:25 12/02/23 12:25 Labs: Lab Results 12/02/23 12/02/23 Range/Units 11:59 12:25 WBC 11.8 H (4.8-10.8) X10*3/uL RBC 3.99 L D (4.60-5.80) X10*6/uL Hgb 12.5 L D (14.0-18.0) g/dl Hct 38.4 L D (42.0-52.0) % MCV 96.2 (80.0-98.0) fL MCH 31.3 (27.0-33.0) pg MCHC 32.6 (31.0-36.0) g/dl RDW 15.9 (11.0-16.0) % Plt Count 328 D (160-400) X10*3/uL MPV 10.3 (9.4-12.4) fL Immature Gran % (Auto) 0.4 (0.0-0.4) % Neut % (Auto) 81.6 H (45-73) % Lymph % (Auto) 7.4 L (20-40) % [place] % (Auto) 5.5 (2-11) % Eos % (Auto) 4.6 H (0-4) % Baso % (Auto) 0.5 (0-2) % Lymph # (Auto) 0.9 L (1.2-4.9) X10*3/uL [place] # (Auto) 0.7 (0.1-1.2) X10*3/uL Eos # (Auto) 0.6 H (0.0-0.4) X10*3/uL Baso # (Auto) 0.1 (0.0-0.2) X10*3/uL Abs Immat Gran (auto) 0.05 H (0.00-0.03) X10*3/uL Absolute Neuts (auto) 9.7 H (2.0-8.3) x10*3/uL Absolute Nucleated RBC 0.000 (0.0-0.012) X10*3/uL Nucleated RBC % (auto) 0.0 (0.0-0.2) /100WBC Sodium 141 (135-145) mmol/L Potassium 4.0 (3.3-5.1) mmol/L Chloride 94 L (96-108) mmol/L Carbon Dioxide 31 H (22-29) mmol/L Anion Gap 20 (12-20) BUN 41 H (9-16) mg/dL Creatinine 5.58 H* (0.5-1.4) mg/dL Estim Creat Clear Calc 11.7 Estimated GFR 10 Random Glucose 191 H (60-115) mg/dL Calcium 9.8 (8.4-10.2) mg/dL Total Bilirubin 1.5 H (0.0-1.0) mg/dL AST 172 H (5-37) U/L ALT 149 H (0-40) U/L Alkaline Phosphatase 559 H (39-117) U/L Total Protein 6.6 (6.5-8.0) g/dL Albumin 3.1 L (3.5-5.0) g/dL Influenza Type A (PCR) NEGATIVE (Negative) Influenza Type B (PCR) NEGATIVE (Negative) RSV RNA Qual (PCR) NEGATIVE (Negative) SARS-CoV-2 RNA (RT-PCR) NEGATIVE (Negative) Independent Interpretation I performed an independent interpretation of an: EKG Interpretation: Normal sinus rhythm, HR-92, no STEMI, MT/QRS/QTC is within normal limits. Radiology Impression Discussion of test interpretation with radiology: I have reviewed the radiologist's reading. Radiologist Impression: Please see the discussion above External Record Review External record reviewed: Outpatient record, Prior outpatient labs and Prior outpatient radiology Chronic Conditions Patient?s care impacted by: Diabetes, Hypertension and Other ESRD on dialysis Critical Care Time Critical Care Time Critical Care Time: Yes Total Critical Care Time: 60 Attestation: I personally attest to this time spent taking care of the patient. Discharge Plan Discharge Clinical Impression: Anasarca, Jaundice, Pneumonia Patient Disposition: Xfer Other Instructions: Jaundice (ED), Pneumonia (ED), Edema (ED) Additional Instructions: 1. Resume all home medications as prescribed. 2. Complete the entire course of antibiotics as prescribed. 3. Follow-up with primary care doctor for further evaluation of liver enzymes. 4. Arrangements have been made for you to attend dialysis at 16:[address] [facility] Return to the ER for any worsening symptoms. Prescriptions: New amoxicillin-pot clavulanate 875-125 mg tablet 1 tab PO BID 5 Days Qty: 10 0RF No Action carvedilol 25 mg tablet 1 tab PO BID amlodipine 5 mg Tablet 5 mg PO DAILY Qty: 30 0RF Protocol: Hold for SBP< HOLD for SBP < : 90 pantoprazole 40 mg tablet,delayed release (DR/EC) 40 mg PO DAILY@0630 Tabatha-Thiago Rx 1-60-300 mg-mg-mcg tablet 1 tab PO DAILY duloxetine 20 mg capsule,delayed release(DR/EC) 20 mg PO DAILY torsemide 20 mg tablet 20 mg PO DAILY
--- NOTE | 2023-12-02 12:27 | PC.NURSE ---
20gIV placed in the right AC - labs obtained and sent to lab.
--- NOTE | 2023-12-02 13:05 | PC.NURSE ---
xray bedside at this time.
[2023-12-02 13:19] VITALS: BP 133/73; PULSE 90; RESP 17; O2SAT 97
[2023-12-02 15:32] VITALS: BP 134/83; PULSE 96; RESP 14; O2SAT 97
--- NOTE | 2023-12-02 15:36 | PC.NURSE ---
vss and up to date. nsr on the embalmer apprentice. medication administered per provider order. pt speaking w/ inbound call center representative from [facility] at this time.
--- NOTE | 2023-12-02 16:06 | PC.NURSE ---
assumed care of pt at 1600 - pt waiting for ambulance transport back to facility to receive dialysis
--- NOTE | 2023-12-02 18:18 | MHC.CM.ED ---
Addendum entered by Daxa Fam 12/02/23 18:19: Grace Nassar [facility] [phone] Original Note: [facility] left card with registration. Registration gave card to CM. Attmepted to call Grace Nassar, but office was closed and unable to leave a message. Pt was not referred to and is awaiting transport to [facility].
--- NOTE | 2023-12-02 19:58 | PM.IMHP ---
History of Present Illness Date of Service: 12/02/23 Chief Complaint: Edema This is a 72-year-old male with pertinent history of ESRD on hemodialysis (M/ W/ F), gastroesophageal reflux disease, mood disorder, essential hypertension, coronary artery disease who presents to the emergency department for evaluation of increasing edema. Patient states he has been having worsening swelling all over, that started 2 days prior to presentation. He missed his hemodialysis session on the day of presentation. his last hemodialysis session was on Tuesday. Denies shortness of breath, orthopnea or PND. Does endorse cough that started 2 days prior to presentation. It is associated with pleuritic chest discomfort. No fever, chills, nausea, vomiting, palpitations, abdominal pain, changes in bowel habits. Nephrology was consulted from the ER and plan was to get him for outpatient hemodialysis session in the day. Unfortunately patient was not discharged and no ambulance was able to get him for hemodialysis session. Nephrology was re-consulted who requested admission with plans for hemodialysis in a.m. Review of Systems Constitutional: Constitutional: Reports no additional constitutional complaints Cardiovascular: Cardiovascular: Reports no additional cardiovascular complaints Respiratory: Respiratory: Reports cough and Reports pain with cough Gastrointestinal: Gastrointestinal: Reports no additional gastrointestinal complaints Genitourinary: Genitourinary: Reports no additional male genitourinary complaints [facility] Medical History Bacteremia due to methicillin susceptible Staphylococcus aureus (MSSA) Multiple sclerosis CVA (cerebral vascular accident) CAD (coronary artery disease) Diabetes mellitus Hyperlipidemia HTN (hypertension) with goal to be determined Pertinent family history: no family history of early CAD Surgical History History of back surgery H/O cystostomy Social History Household Members: None Housing: House Are you a primary home care giver to a significant other at home: No Do you presently have visiting nurse or other home services: Yes (one more PT apt per pt) Alcohol intake: former 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 Tobacco Use Status: Never used Tobacco Smoked in Last 30 Days: No Second Hand Smoke Exposure: No Use of substances other than those prescribed or required for medical reasons: No Advance Directives: Yes Advance Directives on File: Yes Advance Directives Date on File: 06/30/22 service: Yes Current occupational status: retired Meds Allergies Allergy/AdvReac Type Severity Reaction Status Date / Time morphine [MORPHINE] Allergy Severe NAUSEA & Verified 12/02/23 11:38 VOMITING, vomiting, nausea and vomiting Home Medications Medication Instructions Recorded Confirmed Last Taken Type torsemide 20 mg tablet 20 mg PO DAILY 07/14/21 10/16/22 10/15/22 History carvedilol 25 mg tablet 1 tab PO BID 02/05/22 10/16/22 10/15/22 History duloxetine 20 mg capsule,delayed 20 mg PO DAILY 10/14/22 10/16/22 10/15/22 History release pantoprazole 40 mg tablet,delayed 40 mg PO DAILY@0630 10/14/22 10/16/22 10/15/22 History release vitamin B comp no.3-folic acid 1 1 tab PO DAILY 10/14/22 10/16/22 10/15/22 History mg-vit C 60 mg-biotin 300 mcg tablet (Tabatha-Thiago Rx) Physical Exam Vital Signs and Narrative: Vital Signs: Last Vital Signs Pulse 96 12/02/23 15:32 Resp 14 12/02/23 15:32 BP 134/83 12/02/23 15:32 Pulse Ox 97 12/02/23 15:32 O2 Del Method Room Air 12/02/23 15:32 BMI result Body Mass Index 24.5 Middle-aged male lying in bed in no distress Neck supple Regular rate and rhythm, S1-S2 heard Right sided crackles Abdomen soft nontender, no guarding, no rigidity Patient is awake, alert and oriented to self, place, time and person ; no focal motor deficit Left upper extremity fistula + Psych: Normal mood Bilateral pedal edema Results Labs 12/02/23 12:25 12/02/23 12:25 Labs: Laboratory Results - last 24 hr 12/02/23 12/02/23 11:59 12:25 MCV 96.2 MCH 31.3 MCHC 32.6 RDW 15.9 Plt Count 328 D MPV 10.3 Immature Gran % (Auto) 0.4 Neut % (Auto) 81.6 H Lymph % (Auto) 7.4 L [place] % (Auto) 5.5 Eos % (Auto) 4.6 H Baso % (Auto) 0.5 Lymph # (Auto) 0.9 L [place] # (Auto) 0.7 Eos # (Auto) 0.6 H Baso # (Auto) 0.1 Abs Immat Gran (auto) 0.05 H Absolute Neuts (auto) 9.7 H Absolute Nucleated RBC 0.000 Nucleated RBC % (auto) 0.0 Anion Gap 20 Estim Creat Clear Calc 11.7 Estimated GFR 10 Random Glucose 191 H Calcium 9.8 Total Bilirubin 1.5 H AST 172 H ALT 149 H Alkaline Phosphatase 559 H Total Protein 6.6 Albumin 3.1 L Influenza Type A (PCR) NEGATIVE Influenza Type B (PCR) NEGATIVE RSV RNA Qual (PCR) NEGATIVE SARS-CoV-2 RNA (RT-PCR) NEGATIVE Imaging Radiologist's Impressions: Impressions Chest X-Ray 12/02/23 13:02 IMPRESSION: There is an opacity overlying the medial aspect of the right lower lung for which pneumonia is suspected. There is very mild blunting of the right costophrenic angle. A tiny right pleural effusion is not excluded. Assessment and Plan (1) Anasarca: Status: Acute (2) Missed dialysis: Status: Acute Plan This is a 72-year-old male with pertinent history of ESRD on hemodialysis (M/ W/ F), gastroesophageal reflux disease, mood disorder, essential hypertension, coronary artery disease who presents to the emergency department for evaluation of increasing edema. #. Anasarca in a patient with ESRD on dialysis (M/W/F) due to missed HD session -Consulted Nephrology in ER with plans to dialyse in am. On torsemide #. Hyperglycemia -?history of DM. Initiate accuchecks with SSI. Obtain A1c #. Right sided pneumonia -Initiating empiric IV abx for CAP while in the hospital. No sepsis #. CAD #. HTN -continue home medications #. PTSD -continue duloxetine #. GERD -on pantoprazole #. Anemia of CKD -hb above transfusion threshold Med rec pending DVT Prophylaxis: Heparin Full code Low salt diet Quality Stroke Does the patient have a stroke diagnosis?: No VTE Prior VTE?: No VTE Risk Level:: Medical - moderate - high VTE Device Contraindication: Treatment Not Indicated VTE Drug Contraindication: N/A - Med Ordered
[2023-12-02 20:10] VITALS: BP 158/83; PULSE 78; RESP 20; TEMP 36.3; O2SAT 99
--- NOTE | 2023-12-02 20:23 | PC.NURSE ---
blood cultures and lactic previously ordered by ed provider; cancelled per Dr. De Jesus request.
--- NOTE | 2023-12-02 20:27 | MHC.CM.ED ---
Addendum entered by Daxa Fam 12/02/23 21:01: Per hospitalist, pt will have dialysis in the morning. Original Note: 1914. [facility] transport arrived. ? if patient is going to [facility] or to dialysis. Review of records. Dr. Amin, consulted with Dr. Crowell and he arranged for dialysis at [facility] for a 1600 chair.. project analyst booked transport per Dr. Amin. S arrived and was questioning where patient was going. Called [facility]. [facility] [place] dialysis is closed, will re-open at 5am. Called [facility], patient is not a resident. Pt is awake. CM spoke with patient. Patient is very angry. States he has been here all day without food or water. Patient lives alone in a condo. Is W/C bound. Has indwelling F/C. A&Ox4. States he has 2 aides, M-F. States he gets [employer] [employer] 2 hours/tuesday, 3 hours/, 1.5 hours/, 3 hours/ and 3 hours on Tuesday. Pt has services through [facility] and [facility]. As noted, patient was seen by [facility]. Pt states it was because he was out of food, but that was because he lost his debit card. States he now has food. As noted, [facility] clinical case manager did not speak with RN or CM. Unable to leave a message at [facility]. Pt is a . Is vet connected. [facility] Gutiérrez notified of above. Will speak with Dr. De Jesus to admit. CM spoke with [facility] Clinical Coordinators about above concerns. Pt will be transferred to Over Flow Unit. CM will follow for any discharge needs.
--- NOTE | 2023-12-02 20:41 | PHA.MEDREC ---
Pharmacy Consult ? Medication Reconciliation Pharmacy has completed the medication reconciliation. [facility]. Patient confirmed medications based on list. Patient reports he only takes amlodipine on days he does not go to dialysis. Gisella Bartlett, PadmajaD
--- NOTE | 2023-12-02 21:12 | MHC.CM.ED ---
IMM reviewed and signed. Copy given. Per Dr. De Jesus, pt will have dialysis in the morning at [facility]
--- NOTE | 2023-12-02 21:28 | PC.NURSE ---
this rn assumed care of pt. pt resting in stretcher at this time, no acute distress noted. 22G placed in R forearm at this time. pt has self draining bradley in placed and drained it at this time.
--- NOTE | 2023-12-02 21:30 | PC.NURSE ---
delay in antibiotic administration due to pt needing Access.
--- NOTE | 2023-12-02 21:58 | PC.NURSE ---
pt refusing labs at this time, aware.
[2023-12-02 22:25] VITALS: BP 141/69; PULSE 115; RESP 18; TEMP 38.1; O2SAT 94
--- NOTE | 2023-12-02 23:12 | PC.NURSE ---
stag2 2 lucita buttock
--- NOTE | 2023-12-02 23:14 | HO.SKINPHOTO ---
Location: Category: Stage: Length: Width: Depth: cm Location: Category: Stage: Length: Width: Depth: cm Location: Category: Stage: Length: Width: Depth: cm Location: Category: Stage: Length: Width: Depth: cm Location: Category: Stage: Length: Width: Depth: cm Location: Category: Stage: Length: Width: Depth: cm right great toe
--- NOTE | 2023-12-02 23:15 | HO.SKINPHOTO ---
Location: Category: Stage: Length: Width: Depth: cm Location: Category: Stage: Length: Width: Depth: cm Location: Category: Stage: Length: Width: Depth: cm Location: Category: Stage: Length: Width: Depth: cm Location: Category: Stage: Length: Width: Depth: cm Location: Category: Stage: Length: Width: Depth: cm left lower leg
--- NOTE | 2023-12-02 23:21 | HO.SKINPHOTO ---
Location: Category: Stage: Length: Width: Depth: cm Location: Category: Stage: Length: Width: Depth: cm Location: Category: Stage: Length: Width: Depth: cm Location: Category: Stage: Length: Width: Depth: cm Location: Category: Stage: Length: Width: Depth: cm Location: Category: Stage: Length: Width: Depth: cm right knee
--- NOTE | 2023-12-02 23:23 | HO.SKINPHOTO ---
Location: Category: Stage: Length: Width: Depth: cm Location: Category: Stage: Length: Width: Depth: cm Location: Category: Stage: Length: Width: Depth: cm Location: Category: Stage: Length: Width: Depth: cm Location: Category: Stage: Length: Width: Depth: cm Location: Category: Stage: Length: Width: Depth: cm left knee
[2023-12-03] VITALS: RESP 20
[2023-12-03 03:48] VITALS: BP 120/67; PULSE 95; RESP 14; TEMP 37.1; O2SAT 97
[2023-12-03 07:36] LABS: Anion Gap 16 (12-20); Blood Urea Nitrogen 46 mg/dL (9-16); Carbon Dioxide 31 mmol/L (22-29); Chloride 96 mmol/L (96-108); Creatinine Clr Calc Pharmacy 10.7; Estimated Glomerular Filt Rate 9; Glucose Random 143 mg/dL (60-115); Potassium 3.4 mmol/L (3.3-5.1); Sodium 140 mmol/L (135-145)
[2023-12-03 07:42] VITALS: BP 135/75; PULSE 100; RESP 16; TEMP 36.3; O2SAT 94
[2023-12-03 14:34] VITALS: BP 106/66; PULSE 98; RESP 18; O2SAT 100
[2023-12-03 16:00] VITALS: BP 112/64; PULSE 81; RESP 16; TEMP 36.8; O2SAT 95
--- NOTE | 2023-12-03 16:32 | HO.PM.IMPN ---
Subjective Subjective Date of Service: 12/03/23 Review of Systems Follow up anasarca feeling better no pain Physical Exam Vital Signs: Vital Signs: Last Vital Signs Temp 98.2 F 12/03/23 16:00 Pulse 81 12/03/23 16:00 Resp 16 12/03/23 16:00 BP 112/64 12/03/23 16:00 Pulse Ox 95 12/03/23 16:00 O2 Del Method Room Air 12/03/23 16:00 BMI result Body Mass Index 24.5 Appearing in no acute distress lung sounds are clear to auscultation heart regular rate rhythm, clear S1, S2 positive bowel sounds, abdomen is soft, nontender neuro patient is alert x3, no focal deficits Nephrostomy in place Objective Data Active Medications Acetaminophen (Acetaminophen 325 Mg Tablet) 650 mg PO Q6H PRN PRN Reason: Pain, Mild (Pain Scale 1-3) Amlodipine Besylate (Amlodipine Besylate 5 Mg Tablet) 5 mg PO SUTUTHSA@0900 [facility]; Protocol Last Admin: 12/03/23 08:38 Dose: Not Given Documented By: DENAE Non-Admin Reason: getting HD today Carvedilol (Carvedilol 3.125 Mg Tablet) 3.125 mg PO BID [facility]; Protocol Last Admin: 12/03/23 08:37 Dose: 3.125 mg Documented By: DENAE Clopidogrel Bisulfate (Clopidogrel Bisulfate 75 Mg Tablet) 75 mg PO DAILY [facility] Last Admin: 12/03/23 08:38 Dose: 75 mg Documented By: DENAE Dextrose (Dextrose 50 % 25 Gm/50 Ml Syringe) 25 gm IVPUSH Q15M PRN; Protocol PRN Reason: per Hypoglycemia Standing Ord. Glucose (Glucose Gel 15 Gm Gel..Gram.) 15 gm PO Q15M PRN; Protocol PRN Reason: per Hypoglycemia Standing Ord. Heparin Sodium (Porcine) (Heparin Sodium,Porcine 5,000 Unit/Ml Vial) 5,000 unit SUBCUT Q12H [facility] Last Admin: 12/03/23 08:39 Dose: Not Given Documented By: DENAE Non-Admin Reason: Patient Refused Ceftriaxone Sodium 1 gm/ (Sodium Chloride) 50 mls @ 100 mls/hr IV Q24H [facility] Last Infusion: 12/02/23 22:35 Dose: Infused Documented By: ULISES Azithromycin 500 mg/ Sodium (Chloride) 250 mls @ 125 mls/hr IV Q24H [facility] Last Infusion: 12/03/23 01:11 Dose: Infused Documented By: ULISES Insulin Human Lispro (Insulin Lispro 100 Unit/Ml 3 Ml Vial) 0 unit SUBCUT QIDACHS [facility]; Protocol Last Admin: 12/03/23 11:39 Dose: Not Given Documented By: DENAE Non-Admin Reason: Off unit: Dialysis Isosorbide Mononitrate (Isosorbide Mononitrate 30 Mg Tab.Er.24h) 30 mg PO DAILY [facility]; Protocol Last Admin: 12/03/23 08:37 Dose: 30 mg Documented By: DENAE Melatonin (Melatonin 3 Mg Tablet) 6 mg PO BEDTIME PRN PRN Reason: Insomnia Multivitamins/Vitamin C (Multivitamin Tablet) 1 tab PO DAILY [facility] Last Admin: 12/03/23 08:37 Dose: 1 tab Documented By: DENAE Ondansetron HCl (Ondansetron Hcl 4 Mg/2 Ml Vial) 4 mg IVPUSH Q8H PRN PRN Reason: Nausea and Vomiting Sodium Chloride (0.9 % Sodium Chloride Flush 3 Ml Syringe) 3 ml IVFLUSH QSHIFT [facility] Last Admin: 12/03/23 08:37 Dose: 3 ml Documented By: DENAE Labs 12/03/23 06:23 12/03/23 06:23 Labs: Laboratory Results - last 24 hr 12/02/23 12/02/23 12/03/23 21:25 21:36 06:23 MCV 96.2 MCH 30.9 MCHC 32.1 RDW 15.9 Plt Count 259 MPV 10.2 Immature Gran % (Auto) 0.5 H Neut % (Auto) 84.3 H Lymph % (Auto) 6.9 L [place] % (Auto) 4.5 Eos % (Auto) 3.2 Baso % (Auto) 0.6 Lymph # (Auto) 1.0 L [place] # (Auto) 0.6 Eos # (Auto) 0.5 H Baso # (Auto) 0.1 Abs Immat Gran (auto) 0.07 H Absolute Neuts (auto) 12.0 H Absolute Nucleated RBC 0.000 Nucleated RBC % (auto) 0.0 Anion Gap 16 Estim Creat Clear Calc 10.7 Estimated GFR 9 POC Glucose 215 H Random Glucose 143 H Estimat Average Glucose 143 Hemoglobin A1c % 6.6 H Calcium 9.0 D Urine Color Yellow Urine Appearance Cloudy Urine pH >= 9.0 Ur Specific [place] 1.010 Urine Protein 300 (3+) H Urine Glucose (UA) 250 H Urine Ketones Negative Urine Blood Moderate (2+) H Urine Nitrite Negative Ur Leukocyte Esterase Large (3+) H Urine RBC 11-20 H Urine WBC >50 H Ur Squamous Epith Cells 0-2 Urine Bacteria 3+ Hyaline Casts 0-2 12/03/23 12/03/23 07:44 14:28 MCV MCH MCHC RDW Plt Count MPV Immature Gran % (Auto) Neut % (Auto) Lymph % (Auto) Island % (Auto) Eos % (Auto) Baso % (Auto) Lymph # (Auto) [place] # (Auto) Eos # (Auto) Baso # (Auto) Abs Immat Gran (auto) Absolute Neuts (auto) Absolute Nucleated RBC Nucleated RBC % (auto) Anion Gap Estim Creat Clear Calc Estimated GFR POC Glucose 139 H 171 H Random Glucose Estimat Average Glucose Hemoglobin A1c % Calcium Urine Color Urine Appearance Urine pH Ur Specific [place] Urine Protein Urine Glucose (UA) Urine Ketones Urine Blood Urine Nitrite Ur Leukocyte Esterase Urine RBC Urine WBC Ur Squamous Epith Cells Urine Bacteria Hyaline Casts Microbiology Microbiology Results: Microbiology 12/02/23 Unknown Urine Culture - Preliminary Urine clean catch - Urine palumbo top Gram negative [place] Assessment and Plan (1) Pneumonia: Status: Acute (2) Anasarca: Status: Acute Plan This is a 72-year-old male with pertinent history of ESRD on hemodialysis (M/ W/ F), gastroesophageal reflux disease, mood disorder, essential hypertension, coronary artery disease who presents to the emergency department for evaluation of increasing edema. Anasarca in a patient with ESRD on dialysis (M/W/F) due to missed HD session better today after dialysis Nephrology following for dialysis scheduling On torsemide Hyperglycemia with history of DM2 not previously on medication accuchecks with SSI. A1c 6.6 Right sided pneumonia Rocephin and azithromycin supplemental oxygen as needed CAD HTN continue home medications PTSD continue duloxetine GERD on pantoprazole Anemia of CKD hb above transfusion threshold DVT Prophylaxis: Heparin Attending Dr. Schreiber Full code Quality Stroke Does the patient have a stroke diagnosis?: No VTE Prior VTE?: No VTE Risk Level:: Medical - moderate - high VTE Device Contraindication: Treatment Not Indicated VTE Drug Contraindication: N/A - Med Ordered
[2023-12-03 19:47] VITALS: BP 110/60; PULSE 81; RESP 16; TEMP 36.6; O2SAT 97
[2023-12-04 04:00] VITALS: BP 103/68; PULSE 77; RESP 16; TEMP 36.4; O2SAT 96
[2023-12-04 07:43] VITALS: BP 106/62; PULSE 79; RESP 17; TEMP 36.3; O2SAT 96
--- NOTE | 2023-12-04 11:05 | HO.PM.IMPN ---
Subjective Subjective Date of Service: 12/04/23 Review of Systems Follow up anasarca feeling better no pain Physical Exam Vital Signs: Vital Signs: Last Vital Signs Temp 97.3 F 12/04/23 07:43 Pulse 79 12/04/23 07:43 Resp 17 12/04/23 07:43 BP 106/62 12/04/23 07:43 Pulse Ox 96 12/04/23 07:43 O2 Del Method Room Air 12/04/23 07:43 BMI result Body Mass Index 24.5 Appearing in no acute distress lung sounds are clear to auscultation heart regular rate rhythm, clear S1, S2 positive bowel sounds, abdomen is soft, nontender neuro patient is alert x3, no focal deficits Objective Data Active Medications Acetaminophen (Acetaminophen 325 Mg Tablet) 650 mg PO Q6H PRN PRN Reason: Pain, Mild (Pain Scale 1-3) Amlodipine Besylate (Amlodipine Besylate 5 Mg Tablet) 5 mg PO SUTUTHSA@0900 [facility]; Protocol Last Admin: 12/04/23 09:37 Dose: Not Given Documented By: DENAE Non-Admin Reason: Physician Held Med Carvedilol (Carvedilol 3.125 Mg Tablet) 3.125 mg PO BID [facility]; Protocol Last Admin: 12/04/23 09:37 Dose: Not Given Documented By: DENAE Non-Admin Reason: Physician Held Med Clopidogrel Bisulfate (Clopidogrel Bisulfate 75 Mg Tablet) 75 mg PO DAILY [facility] Last Admin: 12/04/23 09:53 Dose: 75 mg Documented By: DENAE Dextrose (Dextrose 50 % 25 Gm/50 Ml Syringe) 25 gm IVPUSH Q15M PRN; Protocol PRN Reason: per Hypoglycemia Standing Ord. Glucose (Glucose Gel 15 Gm Gel..Gram.) 15 gm PO Q15M PRN; Protocol PRN Reason: per Hypoglycemia Standing Ord. Heparin Sodium (Porcine) (Heparin Sodium,Porcine 5,000 Unit/Ml Vial) 5,000 unit SUBCUT Q12H [facility] Last Admin: 12/04/23 09:53 Dose: Not Given Documented By: DENAE Non-Admin Reason: Patient Refused Ceftriaxone Sodium 1 gm/ (Sodium Chloride) 50 mls @ 100 mls/hr IV Q24H [facility] Last Infusion: 12/03/23 20:25 Dose: Infused Documented By: ULISES Azithromycin 500 mg/ Sodium (Chloride) 250 mls @ 125 mls/hr IV Q24H [facility] Last Infusion: 12/03/23 22:32 Dose: Infused Documented By: ULISES Insulin Human Lispro (Insulin Lispro 100 Unit/Ml 3 Ml Vial) 0 unit SUBCUT QIDACHS [facility]; Protocol Last Admin: 12/04/23 08:05 Dose: Not Given Documented By: DENAE Non-Admin Reason: No Insulin Coverage Isosorbide Mononitrate (Isosorbide Mononitrate 30 Mg Tab.Er.24h) 30 mg PO DAILY [facility]; Protocol Last Admin: 12/04/23 09:37 Dose: Not Given Documented By: DENAE Non-Admin Reason: Physician Held Med Melatonin (Melatonin 3 Mg Tablet) 6 mg PO BEDTIME PRN PRN Reason: Insomnia Multivitamins/Vitamin C (Multivitamin Tablet) 1 tab PO DAILY [facility] Last Admin: 12/04/23 09:53 Dose: 1 tab Documented By: DENAE Ondansetron HCl (Ondansetron Hcl 4 Mg/2 Ml Vial) 4 mg IVPUSH Q8H PRN PRN Reason: Nausea and Vomiting Last Admin: 12/03/23 22:09 Dose: 4 mg Documented By: ULISES Sodium Chloride (0.9 % Sodium Chloride Flush 3 Ml Syringe) 3 ml IVFLUSH QSHIFT [facility] Last Admin: 12/04/23 09:53 Dose: 3 ml Documented By: DENAE Labs 12/03/23 06:23 12/03/23 06:23 Labs: Laboratory Results - last 24 hr 12/03/23 12/03/23 12/03/23 14:28 16:34 20:33 POC Glucose 171 H 210 H 210 H 12/04/23 07:45 POC Glucose 93 Microbiology Microbiology Results: Microbiology 12/02/23 Unknown Urine Culture - Final Urine clean catch - Urine palumbo top Pseudomonas aeruginosa Assessment and Plan (1) Pneumonia: Status: Acute (2) Anasarca: Status: Acute Plan This is a 72-year-old male with pertinent history of ESRD on hemodialysis (M/ W/ F), gastroesophageal reflux disease, mood disorder, essential hypertension, coronary artery disease who presents to the emergency department for evaluation of increasing edema. Anasarca in a patient with ESRD on dialysis (M/W/F) due to missed HD session better today after dialysis Nephrology following for dialysis scheduling On torsemide Hyperglycemia with history of DM2 not previously on medication accuchecks with SSI. A1c 6.6 Right sided pneumonia Rocephin and azithromycin supplemental oxygen as needed CAD HTN continue home medications PTSD continue duloxetine GERD on pantoprazole Anemia of CKD hb above transfusion threshold Dispo PT consult, CM loking into options for LTC DVT Prophylaxis: Heparin Attending Dr. Schreiber Full code Quality Stroke Does the patient have a stroke diagnosis?: No VTE Prior VTE?: No VTE Risk Level:: Medical - moderate - high VTE Device Contraindication: Treatment Not Indicated VTE Drug Contraindication: N/A - Med Ordered
--- NOTE | 2023-12-04 11:21 | MHC.CM.PN ---
Pt requested to change his HCP. New HCP completed, original (and copies) given to Pt and copy furnished in paper chart. D/C plan is now LTC; he indicates he has no one to care for him and is unable to continue at home alone any longer. He has both [employer] and per previous note, he is also [facility]. Will need to find out which one is prime at SNF LOC, and then which Centers are contracted. CM to follow.
--- NOTE | 2023-12-04 11:41 | MHC.CM.PN ---
Met w/Pt RE LTC placement (he wished to discuss where he does not want to go); explained options are typically dictated by contracts that each payer source has w/certain Centers, unless he has the ability to pay privately. He said he is not able to pay privately and will have to revisit his flexibility as to where he is willing to go; he explained he has been to 3 Centers in the recent past and had run into an insurance issue. He said he will talk to his new HCP who is coming to see him tomorrow about where he will go according to where his insurance will cover, and reconnect with CM. CM reminded him that insurances/coverage source will need to be verified w/Centers and if he is unable to pay privately, those said Centers would be his choices if there are beds available for him. Pt verbalized understanding. CM to follow.
[2023-12-04 15:31] VITALS: BP 98/57; PULSE 81; RESP 15; TEMP 36.1; O2SAT 99
--- NOTE | 2023-12-04 19:24 | PC.NURSE ---
Pt refusing all IV antibiotics, this nurse explained to need for the IV antibiotic treatment and Pt still refusing. MD Dr De Jesus made aware, no new orders at this time.
[2023-12-04 19:51] VITALS: BP 114/70; PULSE 84; RESP 18; TEMP 36.7; O2SAT 96
[2023-12-05 03:15] VITALS: BP 109/65; PULSE 79; RESP 17; TEMP 36.7; O2SAT 97
[2023-12-05 07:23] VITALS: BP 122/80; PULSE 80; RESP 18; TEMP 36.6; O2SAT 97
--- NOTE | 2023-12-05 10:24 | HO.PM.IMPN ---
Subjective Subjective Date of Service: 12/05/23 Review of Systems Follow up anasarca feeling better no pain Physical Exam Vital Signs: Vital Signs: Last Vital Signs Temp 97.8 F 12/05/23 07:23 Pulse 80 12/05/23 07:23 Resp 18 12/05/23 07:23 BP 122/80 12/05/23 07:23 Pulse Ox 97 12/05/23 07:23 O2 Del Method Room Air 12/05/23 07:23 BMI result Body Mass Index 24.5 Appearing in no acute distress lung sounds are clear to auscultation heart regular rate rhythm, clear S1, S2 positive bowel sounds, abdomen is soft, nontender neuro patient is alert x3, no focal deficits WC bound Objective Data Active Medications Acetaminophen (Acetaminophen 325 Mg Tablet) 650 mg PO Q6H PRN PRN Reason: Pain, Mild (Pain Scale 1-3) Amlodipine Besylate (Amlodipine Besylate 5 Mg Tablet) 5 mg PO SUTUTHSA@0900 [facility]; Protocol Last Admin: 12/04/23 09:37 Dose: Not Given Documented By: DENAE Non-Admin Reason: Physician Held Med Carvedilol (Carvedilol 3.125 Mg Tablet) 3.125 mg PO BID [facility]; Protocol Last Admin: 12/05/23 08:07 Dose: 3.125 mg Documented By: RAH Clopidogrel Bisulfate (Clopidogrel Bisulfate 75 Mg Tablet) 75 mg PO DAILY [facility] Last Admin: 12/05/23 08:07 Dose: 75 mg Documented By: RAH Dextrose (Dextrose 50 % 25 Gm/50 Ml Syringe) 25 gm IVPUSH Q15M PRN; Protocol PRN Reason: per Hypoglycemia Standing Ord. Glucose (Glucose Gel 15 Gm Gel..Gram.) 15 gm PO Q15M PRN; Protocol PRN Reason: per Hypoglycemia Standing Ord. Heparin Sodium (Porcine) (Heparin Sodium,Porcine 5,000 Unit/Ml Vial) 5,000 unit SUBCUT Q12H [facility] Last Admin: 12/05/23 08:09 Dose: Not Given Documented By: RAH Non-Admin Reason: Patient Refused Ceftriaxone Sodium 1 gm/ (Sodium Chloride) 50 mls @ 100 mls/hr IV Q24H [facility] Last Admin: 12/04/23 19:24 Dose: Not Given Documented By: KAREEM Non-Admin Reason: Patient Refused Azithromycin 500 mg/ Sodium (Chloride) 250 mls @ 125 mls/hr IV Q24H [facility] Last Admin: 12/04/23 19:24 Dose: Not Given Documented By: KAREEM Non-Admin Reason: Patient Refused Insulin Human Lispro (Insulin Lispro 100 Unit/Ml 3 Ml Vial) 0 unit SUBCUT QIDACHS [facility]; Protocol Last Admin: 12/05/23 08:08 Dose: 2 unit Documented By: RAH Isosorbide Mononitrate (Isosorbide Mononitrate 30 Mg Tab.Er.24h) 30 mg PO DAILY [facility]; Protocol Last Admin: 12/05/23 08:07 Dose: 30 mg Documented By: RAH Melatonin (Melatonin 3 Mg Tablet) 6 mg PO BEDTIME PRN PRN Reason: Insomnia Multivitamins/Vitamin C (Multivitamin Tablet) 1 tab PO DAILY [facility] Last Admin: 12/05/23 08:07 Dose: 1 tab Documented By: RAH Ondansetron HCl (Ondansetron Hcl 4 Mg/2 Ml Vial) 4 mg IVPUSH Q8H PRN PRN Reason: Nausea and Vomiting Last Admin: 12/03/23 22:09 Dose: 4 mg Documented By: ULISES Sodium Chloride (0.9 % Sodium Chloride Flush 3 Ml Syringe) 3 ml IVFLUSH QSHIFT [facility] Last Admin: 12/05/23 08:08 Dose: 3 ml Documented By: RAH Labs 12/03/23 06:23 12/03/23 06:23 Labs: Laboratory Results - last 24 hr 12/03/23 12/04/23 12/04/23 10:34 11:35 16:54 POC Glucose 151 H 186 H Hep Bs Antigen Negative Hep Bs Antibody GRAYZONE Hep B Core Total Ab Nonreactive 12/04/23 12/05/23 19:50 07:26 POC Glucose 184 H 198 H Hep Bs Antigen Hep Bs Antibody Hep B Core Total Ab Microbiology Microbiology Results: Microbiology 12/02/23 Unknown Urine Culture - Final Urine clean catch - Urine palumbo top Pseudomonas aeruginosa Assessment and Plan (1) Pneumonia: Status: Acute (2) Anasarca: Status: Acute Plan This is a 72-year-old male with pertinent history of ESRD on hemodialysis (M/ W/ F), gastroesophageal reflux disease, mood disorder, essential hypertension, coronary artery disease who presents to the emergency department for evaluation of increasing edema. Anasarca in a patient with ESRD on dialysis (M/W/F) due to missed HD session better today after dialysis Nephrology following for dialysis scheduling On torsemide Hyperglycemia with history of DM2 not previously on medication accuchecks with SSI. A1c 6.6 Right sided pneumonia Rocephin and azithromycin supplemental oxygen as needed CAD HTN continue home medications PTSD continue duloxetine GERD on pantoprazole Anemia of CKD hb above transfusion threshold Dispo PT consult, CM looking into options for LTC DVT Prophylaxis: Heparin Attending Dr. Schreiber Full code Quality Stroke Does the patient have a stroke diagnosis?: No VTE Prior VTE?: No VTE Risk Level:: Medical - moderate - high VTE Device Contraindication: Treatment Not Indicated VTE Drug Contraindication: N/A - Med Ordered
--- NOTE | 2023-12-05 11:58 | P.DS_ITS ---
DS: Providers Provider Date of admission: 12/03/23 08:00 Primary care physician: Unknown Physician Consults: 12/02/23 19:55 Consult to Nephrology Routine Consulting Provider: Lloyd Croewll Reason for consultation: Missed dialysis 12/03/23 00:21 Consult to Wound Care Routine Reason for consultation: 2 stage 2 to lucita butt,R great toe necrotic,lucita knee abassions,L lower leg r DS: Diagnosis Discharge Diagnosis (1) Pneumonia: Status: Acute (2) Anasarca: Status: Acute DS: Summary Hospital Course Hospital Course: history and physical as per admitting provider.This is a 72-year-old male with pertinent history of ESRD on hemodialysis (M/ W/ F), gastroesophageal reflux disease, mood disorder, essential hypertension, coronary artery disease who presents to the emergency department for evaluation of increasing edema. Patient states he has been having worsening swelling all over, that started 2 days prior to presentation. He missed his hemodialysis session on the day of presentation. his last hemodialysis session was on Tuesday. Denies shortness of breath, orthopnea or PND. Does endorse cough that started 2 days prior to presentation. It is associated with pleuritic chest discomfort. No fever, chills, nausea, vomiting, palpitations, abdominal pain, changes in bowel habits. Nephrology was consulted from the ER and plan was to get him for outpatient hemodialysis session in the day. Unfortunately patient was not discharged and no ambulance was able to get him for hemodialysis session. Nephrology was re- consulted who requested admission with plans for hemodialysis in a.m. Physical Exam Vital Signs: Vital Signs: Last Vital Signs Temp 97.8 F 12/05/23 07:23 Pulse 80 12/05/23 07:23 Resp 18 12/05/23 07:23 BP 122/80 12/05/23 07:23 Pulse Ox 97 12/05/23 07:23 O2 Del Method Room Air 12/05/23 07:23 BMI result Body Mass Index 24.5 DS: Data Data Completed and Pending Completed studies during hospitalization [Text1]: Procedures Drainage of Bone Marrow, Percutaneous Approach, Diagnostic (10/16/22) Extraction of Vertebral Bone Marrow, Percutaneous Approach, Diagnostic (10/16/22) Performance of Urinary Filtration, Intermittent, Less than 6 Hours Per Day (10/16/22) Labs on day of discharge: Laboratory Results - last 24 hr 12/03/23 12/04/23 12/04/23 10:34 16:54 19:50 POC Glucose 186 H 184 H Hep Bs Antigen Negative Hep Bs Antibody GRAYZONE Hep B Core Total Ab Nonreactive 12/05/23 12/05/23 07:26 11:35 POC Glucose 198 H 190 H Hep Bs Antigen Hep Bs Antibody Hep B Core Total Ab Discharge Plan Discharge Anticipated Discharge Date/Time: 12/05/23 10:24 Patient Disposition: Home Health Service Referrals: Physician,Unknown J [Primary Care Provider] - 1 Week Discharge Medications: New amoxicillin-pot clavulanate 875-125 mg tablet 1 tab PO BID 5 Days Qty: 10 0RF No Action loperamide [Imodium A-D] 2 mg Capsule 2 mg PO Q4H PRN (Reason: Loose Stool) Rx Instructions: administer after each loose stool until symptoms controlled; do not exceed 8 mg per 24 hrs isosorbide mononitrate 30 mg Tablet Extended Release 24 Hr 30 mg PO DAILY clopidogrel 75 mg Tablet 75 mg PO DAILY carvedilol 3.125 mg Tablet 3.125 mg PO BID Rx Instructions: must administer with a meal/food ondansetron 4 mg Tablet,Disintegrating 4 mg PO Q6H PRN (Reason: Nausea And Vomiting) amlodipine 5 mg tablet 5 mg PO SUTUTHSA@0900 Protocol: Hold for SBP< HOLD for SBP < : 90 Rx Instructions: On non-diaylsis days only pantoprazole 40 mg tablet,delayed release (DR/EC) 40 mg PO DAILY@0630 PRN (Reason: Gastric Reflux) Tabatha-Thiago Rx 1-60-300 mg-mg-mcg tablet 1 tab PO DAILY torsemide 20 mg tablet 20 mg PO BID@0900,1300 Stand Alone Forms: Patient Portal Discharge page Activity Restrictions/Additional Instructions: 1. Resume all home medications as prescribed. 2. Complete the entire course of antibiotics as prescribed. 3. Follow-up with primary care doctor for further evaluation of liver enzymes. 4. Arrangements have been made for you to attend dialysis at 16:00 today at [facility] Return to the ER for any worsening symptoms. Patient Instructions: Jaundice (ED), Pneumonia (ED), Edema (ED)
[2023-12-05 13:04] LABS: MANUAL DIFF FLAG NO
[2023-12-05 13:07] LABS: Basophils Absolute Auto 0.1 X10*3/uL (0.0-0.2); Basophils Percent Auto 0.8 % (0-2); Eosinophils Percent Auto 8.9 % (0-4); Hematocrit 29.2 % (42.0-52.0); Hemoglobin 9.4 g/dl (14.0-18.0); Imm Gran Abs Auto 0.06 X10*3/uL (0.00-0.03); Imm Gran Pct Auto 0.6 % (0.0-0.4); Lymphocytes Absolute Auto 1.1 X10*3/uL (1.2-4.9); Lymphocytes Percent Auto 9.9 % (20-40); Mean Corpuscular HGB Conc 32.2 g/dl (31.0-36.0); Mean Corpuscular Hemoglobin 31.1 pg (27.0-33.0); Mean Corpuscular Volume 96.7 fL (80.0-98.0); Mean Platelet Volume 10.2 fL (9.4-12.4); Monocytes Absolute Auto 0.5 X10*3/uL (0.1-1.2); Monocytes Percent Auto 4.9 % (2-11); Neutrophils Percent Auto 74.9 % (45-73); Platelet Count 236 X10*3/uL (160-400); Red Blood Count 3.02 X10*6/uL (4.60-5.80); Red Cell Distribution Width 16.5 % (11.0-16.0); White Blood Count 10.7 X10*3/uL (4.8-10.8)
[2023-12-05 13:14] LABS: INTERNATIONAL NORM RATIO 1.1 (0.9-1.1); Prothrombin Time 12.8 SEC (11.1-13.3)
[2023-12-05 13:17] LABS: Partial Thromboplastin Time 29.4 SEC (26.0-36.4)
[2023-12-05 13:29] LABS: Anion Gap 18 (12-20); Blood Urea Nitrogen 45 mg/dL (9-16); Calcium 9.1 mg/dL (8.4-10.2); Carbon Dioxide 24 mmol/L (22-29); Chloride 96 mmol/L (96-108); Creatinine Clr Calc Pharmacy 11.7; Estimated Glomerular Filt Rate 10; Glucose Random 184 mg/dL (60-115); Potassium 4.3 mmol/L (3.3-5.1); Sodium 134 mmol/L (135-145)
[2023-12-05 13:42] VITALS: BMI 24.5
--- NOTE | 2023-12-05 13:51 | MHC.CLN ---
NUTRITION DIET=DIABETIC 2000 KCAL, 2 GRAM SODIUM. PATIENT WITH ESRD AND RECEIVES HEMODIALYSIS. INCREASED NUTRITION NEEDS DUE TO STAGE II PRESSURE INJURY TO BILATERAL BUTTOCKS. INTAKE APPEARS GOOD, 75-100%. FOLLOW FOR INTAKE AND WOUND HEALING.
--- NOTE | 2023-12-05 14:53 | MHC.CM.PN ---
EMR reviewed. Patient is from home alone, but no longer able to manage. No family to assist. PT recommending LTC and patient is agreeable. [facility]. CM will continue to follow.
--- NOTE | 2023-12-05 15:17 | PM.EVENT ---
Event Note Date of Service: 12/05/23 Event Note: An order for a fistulagram was placed by the medical staff for inability to cannulate. Patient seen and examined. He has a left axillary artery to left axillary vein loop graft. On exam, there is no palpable thrill or audible bruit. He is currently eating his lunch. Will attempt declot procedure, possible permacath, if unsuccessful, tomorrow. Please keep NPO after midnight. Diony WONG Time Spent With Patient Time: Total time managing care of this patient today ____ minutes.
--- NOTE | 2023-12-05 15:46 | PC.NURSE ---
Libertad Valdez made aware via tiger text at 11:35 pt was sent back from HD. HD nurse stated she was unable to access fistula. PA Thompson at bedside, see IR note for details.
--- NOTE | 2023-12-05 15:48 | HO.WOUND ---
Wound Consult: Initial 72yr old female admitted to [facility] [place] on? 12/03/23 08:00- See progress notes and H&P for detailed history. Wound consult placed for Sacrum POA, Right great toe and left lower leg. Arrival to bedside pt is agreeable to assessment and photo documentation - he reports legs wounds and bilateral knees are from his wheelchair hitting his legs throughout the day. He reports he is aware of the wound on his sacrum and treats with VNA at home. See below for wound details. Sacrum Etiology: ?Stage 2 pressure Injury ?Present on Admission Measurements: two lesions measuring less then 2cm in size Wound Bed: Partial thickness tissue loss with red moist woud bed Drainage / Odor: None noted Edges: ? Irregular Caitlyn wound: ? MASD and dark red light purple slow to beti tissue - No Induration, Fluctuance or Warmth noted Pain: mild discomfort noted at times per statement Goals of Treatment: ? Moist wound healing with Foam dressing Left Lower Lateral Leg Left lower lateral leg Left Knee Right Knee Left Leg and bilateral knees Etiology: ??TRaumatic injuries from hitting his own wheelchair Measurements: see chart for details Wound Bed: dried scabbed areas with adherent scabs no swelling no erythema no fluctuance noted Drainage / Odor: none Edges: ? irregular Caitlyn wound: dry pink irritated tissue - ? No Induration, Fluctuance or Warmth noted Pain: pain reported to left leg Goals of Treatment: ? Moist wound healing Right Great Toe Etiology: Diabetic wound Measurements: 2cm x 1.5cm x 0.1cm Wound Bed: dried scabbed necrotic tissue vs scab stable intact - pt reports improvement over the last few weeks Drainage / Odor: none Edges: ? irregular and callused Caitlyn wound: Dry intact ? No Induration, Fluctuance or Warmth noted Pain: denies Goals of Treatment: ? Keep stable and dry with Betadine Recommendations: 1. Turn and Reposition every 2 hours and as needed for patient comfort.? Use pillows or wedges to support off loading positions. 2. Off Load all bony prominences with use of pillows and heel boots if needed.? Apply Preventative foams where needed. ? 3. Monitor for incontinence and moisture control, use barrier creams when needed for prevention and treatment. 4. Provide adequate and supplemental nutrition. 5. Order or Continue low air loss mattress. 6. Maintain blood glucose levels per Providers orders. 7. Right Great Toe = Cheriton with Betadine Daily. Allow to dry, cover with dry gauze change daily. 8. Left Leg and bilateral knees - Cleanse with NS, pat dry. Apply Vasleine to dry legs. Cover open wounds with single layer xeroform, followed by dry gauze. change daily. 9. Sacrum - Cleanse with PH balance spray or wipes, pat dry. ?Apply thin layer of Triad to wound bed. Do not remove all of paste between applications as this may cause further skin damage.? Cover with foam dressing to aid in off loading and protection from friction. Re-consult wound care Nurse for wound deterioration or wound changes.
[2023-12-05 16:00] VITALS: BP 122/73; PULSE 79; RESP 16; TEMP 36.4; O2SAT 96
[2023-12-05 16:43] LABS: Glucose, Whole Blood 233 mg/dL (60-115)
[2023-12-05] MEDS: Furosemide 100 MG/10 ML VIAL 80 MG IVPUSH (17:08)
[2023-12-05] MEDS: Insulin Lispro 100 UNIT/ML 3 ML VIAL SUBCUT (17:08)
[2023-12-05 20:00] VITALS: BP 112/72; PULSE 84; RESP 16; TEMP 36.7; O2SAT 97
--- NOTE | 2023-12-05 20:43 | PM.PNNEP ---
Subjective Subjective Date of Service: 12/05/23 Interval history: AVF clotted Physical Exam Vital Signs: Vital Signs: Last Vital Signs Temp 97.5 F 12/05/23 16:00 Pulse 79 12/05/23 16:00 Resp 16 12/05/23 16:00 BP 122/73 12/05/23 16:00 Pulse Ox 96 12/05/23 16:00 O2 Del Method Room Air 12/05/23 16:00 BMI result Body Mass Index 24.5 Appearing in no acute distress lung sounds are clear to auscultation heart regular rate rhythm, clear S1, S2 positive bowel sounds, abdomen is soft, nontender neuro patient is alert x3, no focal deficits WC bound Objective Data Labs 12/05/23 12:35 12/05/23 12:35 Labs: Laboratory Results - last 24 hr 12/03/23 12/05/23 12/05/23 10:34 07:26 11:35 WBC RBC Hgb Hct MCV MCH MCHC RDW Plt Count MPV Immature Gran % (Auto) Neut % (Auto) Lymph % (Auto) [place] % (Auto) Eos % (Auto) Baso % (Auto) Lymph # (Auto) [place] # (Auto) Eos # (Auto) Baso # (Auto) Abs Immat Gran (auto) Absolute Neuts (auto) Absolute Nucleated RBC Nucleated RBC % (auto) PT INR APTT Sodium Potassium Chloride Carbon Dioxide Anion Gap BUN Creatinine Estim Creat Clear Calc Estimated GFR POC Glucose 198 H 190 H Random Glucose Calcium Hep Bs Antigen Negative Hep Bs Antibody GRAYZONE Hep B Core Total Ab Nonreactive 12/05/23 12/05/23 12:35 16:32 WBC 10.7 RBC 3.02 L Hgb 9.4 L Hct 29.2 L MCV 96.7 MCH 31.1 MCHC 32.2 RDW 16.5 H Plt Count 236 MPV 10.2 Immature Gran % (Auto) 0.6 H Neut % (Auto) 74.9 H Lymph % (Auto) 9.9 L [place] % (Auto) 4.9 Eos % (Auto) 8.9 H Baso % (Auto) 0.8 Lymph # (Auto) 1.1 L [place] # (Auto) 0.5 Eos # (Auto) 1.0 H Baso # (Auto) 0.1 Abs Immat Gran (auto) 0.06 H Absolute Neuts (auto) 8.0 Absolute Nucleated RBC 0.000 Nucleated RBC % (auto) 0.0 PT 12.8 INR 1.1 APTT 29.4 Sodium 134 L Potassium 4.3 D Chloride 96 Carbon Dioxide 24 Anion Gap 18 BUN 45 H Creatinine 5.59 H* Estim Creat Clear Calc 11.7 Estimated GFR 10 POC Glucose 233 H Random Glucose 184 H Calcium 9.1 Hep Bs Antigen Hep Bs Antibody Hep B Core Total Ab Microbiology Microbiology Results: Microbiology 12/02/23 Unknown Urine clean catch - Urine palumbo top Urine Culture - Final Pseudomonas aeruginosa Procedures Date of Service Date of Service: 12/05/23 Assessment & Plan Assessment and plan (1) Missed dialysis: Status: Acute (2) ESRD (end stage renal disease) on dialysis: Status: Acute Plan This is a 71-year-old male with pertinent history of ESRD on dialysis (M/ W/ F), coronary artery disease, essential hypertension, chronic suprapubic catheter, PTSD, gastroesophageal reflux disease who presents to the emergency department for evaluation of generalized weakness /nausea/ vomiting. ESRD on dialysis (M/W/F) AVG clotted No HD today Will give Lokelma x 1 dose 10 g Lasix 80 mg Q12 x 3 doses Check PT / PTT Keep Pt npo pot midnight IR fistulogram/ Declott in AM by IR HD after above D/w Medical team in detail Time Spent With Patient Time: Total time managing care of this patient today ____ minutes. Progress Note: Quality Stroke Does the patient have a stroke diagnosis?: No
[2023-12-05 21:14] LABS: Glucose, Whole Blood 149 mg/dL (60-115)
[2023-12-05] MEDS: carvediloL 3.125 MG TABLET PO (21:27)
[2023-12-06 04:00] VITALS: BP 120/78; PULSE 81; RESP 18; TEMP 36.3; O2SAT 98
[2023-12-06 07:42] LABS: Glucose, Whole Blood 167 mg/dL (60-115)
[2023-12-06 08:00] VITALS: BP 124/76; PULSE 82; RESP 12; TEMP 36; O2SAT 95
[2023-12-06] MEDS: Furosemide 100 MG/10 ML VIAL 80 MG IVPUSH ×2 (09:12→17:35)
--- NOTE | 2023-12-06 09:23 | PC.NURSE ---
Per JUDITH Cunha Thompson pt may take sips of clear liquids until 1100. SARAH Valdez made aware and that pt refusing morning medications except IV Lasix.
--- NOTE | 2023-12-06 10:32 | HO.PM.IMPN ---
Subjective Subjective Date of Service: 12/06/23 Review of Systems Follow up anasarca feeling better no pain Physical Exam Vital Signs: Vital Signs: Last Vital Signs Temp 96.8 F 12/06/23 08:00 Pulse 82 12/06/23 08:00 Resp 12 12/06/23 08:00 BP 124/76 12/06/23 08:00 Pulse Ox 95 12/06/23 08:00 O2 Del Method Room Air 12/06/23 08:00 BMI result Body Mass Index 24.5 Appearing in no acute distress lung sounds are clear to auscultation heart regular rate rhythm, clear S1, S2 positive bowel sounds, abdomen is soft, nontender neuro patient is alert x3, no focal deficits Objective Data Active Medications Acetaminophen (Acetaminophen 325 Mg Tablet) 650 mg PO Q6H PRN PRN Reason: Pain, Mild (Pain Scale 1-3) Alteplase, Recombinant (Alteplase Cath Clear 2 Mg/2 Ml Vial) 6 mg INTRAARTER ONCE ONE Stop: 12/06/23 10:21 Amlodipine Besylate (Amlodipine Besylate 5 Mg Tablet) 5 mg PO SUTUTHSA@0900 [facility]; Protocol Last Admin: 12/06/23 09:16 Dose: Not Given Documented By: RAH Non-Admin Reason: Patient Refused Carvedilol (Carvedilol 3.125 Mg Tablet) 3.125 mg PO BID [facility]; Protocol Last Admin: 12/06/23 09:17 Dose: Not Given Documented By: RAH Non-Admin Reason: Patient Refused Clopidogrel Bisulfate (Clopidogrel Bisulfate 75 Mg Tablet) 75 mg PO DAILY [facility] Last Admin: 12/06/23 09:17 Dose: Not Given Documented By: RAH Non-Admin Reason: Patient Refused Dextrose (Dextrose 50 % 25 Gm/50 Ml Syringe) 25 gm IVPUSH Q15M PRN; Protocol PRN Reason: per Hypoglycemia Standing Ord. Furosemide (Furosemide 100 Mg/10 Ml Vial) 80 mg IVPUSH BID@0900,1800 [facility]; Protocol Stop: 12/06/23 18:01 Last Admin: 12/06/23 09:12 Dose: 80 mg Documented By: RAH Glucose (Glucose Gel 15 Gm Gel..Gram.) 15 gm PO Q15M PRN; Protocol PRN Reason: per Hypoglycemia Standing Ord. Heparin Sodium (Porcine) (Heparin Sodium,Porcine 5,000 Unit/Ml Vial) 5,000 unit SUBCUT Q12H [facility] Last Admin: 12/06/23 09:16 Dose: Not Given Documented By: RAH Non-Admin Reason: Patient Refused Ceftriaxone Sodium 1 gm/ (Sodium Chloride) 50 mls @ 100 mls/hr IV Q24H [facility] Last Admin: 12/05/23 21:10 Dose: Not Given Documented By: HENNA Non-Admin Reason: Patient Refused Azithromycin 500 mg/ Sodium (Chloride) 250 mls @ 125 mls/hr IV Q24H [facility] Last Admin: 12/05/23 21:10 Dose: Not Given Documented By: HENNA Non-Admin Reason: Patient Refused Insulin Human Lispro (Insulin Lispro 100 Unit/Ml 3 Ml Vial) 0 unit SUBCUT QIDACHS [facility]; Protocol Last Admin: 12/06/23 09:01 Dose: Not Given Documented By: RAH Non-Admin Reason: NPO Isosorbide Mononitrate (Isosorbide Mononitrate 30 Mg Tab.Er.24h) 30 mg PO DAILY [facility]; Protocol Last Admin: 12/06/23 09:17 Dose: Not Given Documented By: RAH Non-Admin Reason: Patient Refused Melatonin (Melatonin 3 Mg Tablet) 6 mg PO BEDTIME PRN PRN Reason: Insomnia Multivitamins/Vitamin C (Multivitamin Tablet) 1 tab PO DAILY [facility] Last Admin: 12/06/23 09:17 Dose: Not Given Documented By: RAH Non-Admin Reason: Patient Refused Ondansetron HCl (Ondansetron Hcl 4 Mg/2 Ml Vial) 4 mg IVPUSH Q8H PRN PRN Reason: Nausea and Vomiting Last Admin: 12/03/23 22:09 Dose: 4 mg Documented By: ULISES Sodium Chloride (0.9 % Sodium Chloride Flush 3 Ml Syringe) 3 ml IVFLUSH QSHIFT [facility] Last Admin: 12/06/23 09:12 Dose: 3 ml Documented By: RAH Labs 12/05/23 12:35 12/05/23 12:35 Labs: Laboratory Results - last 24 hr 12/05/23 12/05/23 12/05/23 11:35 12:35 16:32 MCV 96.7 MCH 31.1 MCHC 32.2 RDW 16.5 H Plt Count 236 MPV 10.2 Immature Gran % (Auto) 0.6 H Neut % (Auto) 74.9 H Lymph % (Auto) 9.9 L [place] % (Auto) 4.9 Eos % (Auto) 8.9 H Baso % (Auto) 0.8 Lymph # (Auto) 1.1 L [place] # (Auto) 0.5 Eos # (Auto) 1.0 H Baso # (Auto) 0.1 Abs Immat Gran (auto) 0.06 H Absolute Neuts (auto) 8.0 Absolute Nucleated RBC 0.000 Nucleated RBC % (auto) 0.0 PT 12.8 INR 1.1 APTT 29.4 Anion Gap 18 Estim Creat Clear Calc 11.7 Estimated GFR 10 POC Glucose 190 H 233 H Random Glucose 184 H Calcium 9.1 12/05/23 12/06/23 19:55 07:35 MCV MCH MCHC RDW Plt Count MPV Immature Gran % (Auto) Neut % (Auto) Lymph % (Auto) [place] % (Auto) Eos % (Auto) Baso % (Auto) Lymph # (Auto) [place] # (Auto) Eos # (Auto) Baso # (Auto) Abs Immat Gran (auto) Absolute Neuts (auto) Absolute Nucleated RBC Nucleated RBC % (auto) PT INR APTT Anion Gap Estim Creat Clear Calc Estimated GFR POC Glucose 149 H 167 H Random Glucose Calcium Assessment and Plan (1) Pneumonia: Status: Acute (2) Anasarca: Status: Acute Plan This is a 72-year-old male with pertinent history of ESRD on hemodialysis (M/ W/ F), gastroesophageal reflux disease, mood disorder, essential hypertension, coronary artery disease who presents to the emergency department for evaluation of increasing edema. Anasarca in a patient with ESRD on dialysis (M/W/F) due to missed HD session Nephrology following for dialysis scheduling On torsemide Plan for fistulagram today due to inability to access fistula, then dialysis Hyperglycemia with history of DM2 not previously on medication accuchecks with SSI. A1c 6.6 Right sided pneumonia Rocephin and azithromycin supplemental oxygen as needed CAD HTN continue home medications PTSD continue duloxetine GERD on pantoprazole Anemia of CKD hb above transfusion threshold Dispo PT consult, CM looking into options for LTC DVT Prophylaxis: Heparin Attending Dr. Dotson Full code DISPO continue hospital stay for tx of anasarca requiring dialysis Quality Stroke Does the patient have a stroke diagnosis?: No VTE Prior VTE?: No VTE Risk Level:: Medical - moderate - high VTE Device Contraindication: Treatment Not Indicated VTE Drug Contraindication: N/A - Med Ordered
[2023-12-06 11:43] LABS: Glucose, Whole Blood 173 mg/dL (60-115)
[2023-12-06 12:25] VITALS: BP 117/77; PULSE 81; RESP 16; TEMP 36.9; O2SAT 97
--- NOTE | 2023-12-06 12:30 | PC.NURSE ---
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
--- NOTE | 2023-12-06 15:08 | HO.RADPN ---
RADIOLOGY Narrative Narrative: Procedure Note LUE AVG declot Indications: clotted LUE AVG Events: LUE loop graft flow restored by pharmacological and mechanical. Full dictation to follow Diony WONG
[2023-12-06 15:25] VITALS: BP 133/72; PULSE 79; RESP 16; TEMP 36.3; O2SAT 99
[2023-12-06 15:40] VITALS: BP 126/53; PULSE 78; RESP 16; TEMP 36.3; O2SAT 99
[2023-12-06] MEDS: Acetaminophen 325 MG TABLET 650 MG PO (15:44)
[2023-12-06 16:28] LABS: Glucose, Whole Blood 140 mg/dL (60-115)
[2023-12-06 19:47] VITALS: BP 124/70; PULSE 80; RESP 18; TEMP 36.4; O2SAT 98
[2023-12-06 20:09] LABS: Glucose, Whole Blood 222 mg/dL (60-115)
[2023-12-06] MEDS: carvediloL 3.125 MG TABLET PO (21:25)
[2023-12-07 00:43] VITALS: BP 118/76; PULSE 85; RESP 16; TEMP 36.4; O2SAT 97
[2023-12-07 04:00] VITALS: BP 113/71; PULSE 79; RESP 16; TEMP 36.6; O2SAT 98
--- NOTE | 2023-12-07 04:37 | PC.NURSE ---
Assumed care of pt on 12/06 at 19:15. Med-surg pt seen on S3. Pt is A&Ox4. Refusing most meds including antibiotics, HSQ, and insulin SQ despite attempts to educate. Covering Dr. Barry verbally notified on rounds. See shift assessment and EMAR for full details.
--- NOTE | 2023-12-07 05:24 | PC.NURSE ---
Patient transported to dialysis this morning in stable condition 05:15.
[2023-12-07] MEDS: Acetaminophen 325 MG TABLET 650 MG PO (05:30)
[2023-12-07 09:03] LABS: Anion Gap 18 (12-20); Blood Urea Nitrogen 21 mg/dL (9-16); Calcium 8.9 mg/dL (8.4-10.2); Carbon Dioxide 24 mmol/L (22-29); Chloride 97 mmol/L (96-108); Creatinine Clr Calc Pharmacy 25.4; Estimated Glomerular Filt Rate 25; Glucose Random 132 mg/dL (60-115); Potassium 3.1 mmol/L (3.3-5.1); Sodium 136 mmol/L (135-145)
[2023-12-07 10:21] VITALS: BP 105/62; PULSE 78; RESP 12; TEMP 36; O2SAT 99
[2023-12-07 10:21] LABS: Glucose, Whole Blood 140 mg/dL (60-115)
--- NOTE | 2023-12-07 10:54 | HO.PM.IMPN ---
Subjective Subjective Date of Service: 12/07/23 Review of Systems Follow up anasarca feeling better no pain Physical Exam Vital Signs: Vital Signs: Last Vital Signs Temp 96.8 F 12/07/23 10:21 Pulse 78 12/07/23 10:21 Resp 12 12/07/23 10:21 BP 105/62 12/07/23 10:21 Pulse Ox 99 12/07/23 10:21 O2 Del Method Room Air 12/07/23 10:21 BMI result Body Mass Index 24.5 Appearing in no acute distress lung sounds are clear to auscultation heart regular rate rhythm, clear S1, S2 positive bowel sounds, abdomen is soft, nontender neuro patient is alert x3, no focal deficits Objective Data Active Medications Acetaminophen (Acetaminophen 325 Mg Tablet) 650 mg PO Q6H PRN PRN Reason: Pain, Mild (Pain Scale 1-3) Last Admin: 12/07/23 05:30 Dose: 650 mg Documented By: ZHOU Amlodipine Besylate (Amlodipine Besylate 5 Mg Tablet) 5 mg PO SUTUTHSA@0900 [facility]; Protocol Last Admin: 12/06/23 09:16 Dose: Not Given Documented By: RAH Non-Admin Reason: Patient Refused Carvedilol (Carvedilol 3.125 Mg Tablet) 3.125 mg PO BID [facility]; Protocol Last Admin: 12/06/23 21:25 Dose: 3.125 mg Documented By: INDERJIT Clopidogrel Bisulfate (Clopidogrel Bisulfate 75 Mg Tablet) 75 mg PO DAILY [facility] Last Admin: 12/06/23 09:17 Dose: Not Given Documented By: RAH Non-Admin Reason: Patient Refused Dextrose (Dextrose 50 % 25 Gm/50 Ml Syringe) 25 gm IVPUSH Q15M PRN; Protocol PRN Reason: per Hypoglycemia Standing Ord. Glucose (Glucose Gel 15 Gm Gel..Gram.) 15 gm PO Q15M PRN; Protocol PRN Reason: per Hypoglycemia Standing Ord. Heparin Sodium (Porcine) (Heparin Sodium,Porcine 5,000 Unit/Ml Vial) 5,000 unit SUBCUT Q12H [facility] Last Admin: 12/06/23 21:25 Dose: Not Given Documented By: INDERJIT Non-Admin Reason: Patient Refused Ceftriaxone Sodium 1 gm/ (Sodium Chloride) 50 mls @ 100 mls/hr IV Q24H [facility] Last Admin: 12/06/23 21:27 Dose: Not Given Documented By: INDERJIT Non-Admin Reason: Patient Refused Azithromycin 500 mg/ Sodium (Chloride) 250 mls @ 125 mls/hr IV Q24H [facility] Last Admin: 12/06/23 21:27 Dose: Not Given Documented By: INDERJIT Non-Admin Reason: Patient Refused Insulin Human Lispro (Insulin Lispro 100 Unit/Ml 3 Ml Vial) 0 unit SUBCUT QIDACHS [facility]; Protocol Last Admin: 12/07/23 09:22 Dose: Not Given Documented By: NATASHA Non-Admin Reason: Off unit: Dialysis Isosorbide Mononitrate (Isosorbide Mononitrate 30 Mg Tab.Er.24h) 30 mg PO DAILY [facility]; Protocol Last Admin: 12/06/23 09:17 Dose: Not Given Documented By: RAH Non-Admin Reason: Patient Refused Melatonin (Melatonin 3 Mg Tablet) 6 mg PO BEDTIME PRN PRN Reason: Insomnia Multivitamins/Vitamin C (Multivitamin Tablet) 1 tab PO DAILY [facility] Last Admin: 12/06/23 09:17 Dose: Not Given Documented By: RAH Non-Admin Reason: Patient Refused Ondansetron HCl (Ondansetron Hcl 4 Mg/2 Ml Vial) 4 mg IVPUSH Q8H PRN PRN Reason: Nausea and Vomiting Last Admin: 12/03/23 22:09 Dose: 4 mg Documented By: ULISES Sodium Chloride (0.9 % Sodium Chloride Flush 3 Ml Syringe) 3 ml IVFLUSH QSHIFT [facility] Last Admin: 12/07/23 09:22 Dose: Not Given Documented By: NATASHA Non-Admin Reason: Off unit: Dialysis Labs 12/05/23 12:35 12/07/23 08:38 Labs: Laboratory Results - last 24 hr 12/06/23 12/06/23 12/06/23 11:35 16:23 18:20 Anion Gap Cancelled Estim Creat Clear Calc Cancelled Estimated GFR Cancelled POC Glucose 173 H 140 H Random Glucose Cancelled Calcium Cancelled 12/06/23 12/07/23 12/07/23 19:51 08:38 10:15 Anion Gap 18 Estim Creat Clear Calc 25.4 Estimated GFR 25 POC Glucose 222 H 140 H Random Glucose 132 H Calcium 8.9 Assessment and Plan (1) Pneumonia: Status: Acute (2) Anasarca: Status: Acute Plan This is a 72-year-old male with pertinent history of ESRD on hemodialysis (M/ W/ F), gastroesophageal reflux disease, mood disorder, essential hypertension, coronary artery disease who presents to the emergency department for evaluation of increasing edema. Anasarca in patient with ESRD on dialysis (M/W/F) due to missed HD session resolved Nephrology following for dialysis scheduling On torsemide s/p fistulagram 12/06/22, now working well dialysis today Hyperglycemia with history of DM2 not previously on medication accuchecks with SSI. A1c 6.6 Right sided pneumonia s/p Rocephin and azithromycin, completed 5 days supplemental oxygen as needed CAD HTN continue home medications PTSD continue duloxetine GERD on pantoprazole Anemia of CKD hb above transfusion threshold Dispo PT consult, CM looking into options for LTC DVT Prophylaxis: Heparin Attending Dr. Dos Santos Full code DISPO continue hospital stay for tx of anasarca requiring dialysis Quality Stroke Does the patient have a stroke diagnosis?: No VTE Prior VTE?: No VTE Risk Level:: Medical - moderate - high VTE Device Contraindication: Treatment Not Indicated VTE Drug Contraindication: N/A - Med Ordered
--- NOTE | 2023-12-07 11:08 | MHC.CLN ---
F/U DIET=DIABETIC 2000 KCAL. PATIENT WITH ESRD AND RECEIVES HEMODIALYSIS. INCREASED NUTRITION NEEDS DUE TO STAGE II PRESSURE INJURY TO SACRUM. INTAKE APPEARS GOOD, 75-100%. FOLLOW FOR INTAKE AND WOUND HEALING.
[2023-12-07] MEDS: Multivitamin TABLET 1 TAB PO (11:17)
[2023-12-07] MEDS: Isosorbide Mononitrate 30 MG TAB.ER.24H PO (11:17)
[2023-12-07] MEDS: Clopidogrel Bisulfate 75 MG TABLET PO (11:17)
[2023-12-07] MEDS: carvediloL 3.125 MG TABLET PO ×2 (11:17→20:16)
[2023-12-07 11:38] LABS: Glucose, Whole Blood 126 mg/dL (60-115)
[2023-12-07 11:40] VITALS: BP 129/68; PULSE 77; RESP 16; TEMP 36.2; O2SAT 99
[2023-12-07 15:25] VITALS: BP 122/58; PULSE 78; RESP 18; TEMP 36.6; O2SAT 96
--- NOTE | 2023-12-07 16:06 | MHC.CM.PN ---
call placed to [facility] message left to check [facility] benefits
[2023-12-07 16:28] LABS: Glucose, Whole Blood 177 mg/dL (60-115)
--- NOTE | 2023-12-07 17:02 | PM.EVENT ---
Event Note Date of Service: 12/07/23 Event Note: diarrhea. Check cdiff and stool panel Time Spent With Patient Time: Total time managing care of this patient today ____ minutes.
[2023-12-07] MEDS: Insulin Lispro 100 UNIT/ML 3 ML VIAL SUBCUT (17:19)
--- NOTE | 2023-12-07 17:21 | PC.NURSE ---
Patient prefer that we do not disturb him during meal,while I was administering insulin,helping primary RN per her request,LINDA Bal notified,JOSE Bearden notified.
[2023-12-07 19:56] VITALS: BP 127/63; PULSE 82; RESP 18; TEMP 36.6; O2SAT 93
[2023-12-07 20:47] LABS: Glucose, Whole Blood 197 mg/dL (60-115)
[2023-12-08] VITALS (7 sets, daily range): BP systolic 117–137; BP diastolic 61–89; PULSE 71–83; RESP 12–18; TEMP 35.9–36.4; O2SAT 97–99
[2023-12-08 02:38] LABS: CDiff Gene PCR NEGATIVE (Negative)
[2023-12-08 06:30] LABS: MANUAL DIFF FLAG NO
[2023-12-08 06:34] LABS: Basophils Absolute Auto 0.1 X10*3/uL (0.0-0.2); Eosinophils Absolute Auto 0.8 X10*3/uL (0.0-0.4); Eosinophils Percent Auto 8.5 % (0-4); Hematocrit 27.1 % (42.0-52.0); Hemoglobin 8.7 g/dl (14.0-18.0); Imm Gran Abs Auto 0.09 X10*3/uL (0.00-0.03); Lymphocytes Absolute Auto 1.2 X10*3/uL (1.2-4.9); Lymphocytes Percent Auto 13.2 % (20-40); Mean Corpuscular HGB Conc 32.1 g/dl (31.0-36.0); Mean Corpuscular Hemoglobin 31.5 pg (27.0-33.0); Mean Corpuscular Volume 98.2 fL (80.0-98.0); Mean Platelet Volume 10.7 fL (9.4-12.4); Monocytes Absolute Auto 0.9 X10*3/uL (0.1-1.2); Monocytes Percent Auto 9.7 % (2-11); Neutrophils Absolute Auto 6.1 x10*3/uL (2.0-8.3); Neutrophils Percent Auto 66.6 % (45-73); Platelet Count 171 X10*3/uL (160-400); Red Blood Count 2.76 X10*6/uL (4.60-5.80); Red Cell Distribution Width 16.4 % (11.0-16.0); White Blood Count 9.1 X10*3/uL (4.8-10.8)
[2023-12-08 06:58] LABS: Anion Gap 16 (12-20); Blood Urea Nitrogen 43 mg/dL (9-16); Calcium 8.9 mg/dL (8.4-10.2); Carbon Dioxide 26 mmol/L (22-29); Chloride 98 mmol/L (96-108); Glucose Random 174 mg/dL (60-115); Potassium 4.4 mmol/L (3.3-5.1); Sodium 136 mmol/L (135-145)
[2023-12-08 07:17] LABS: Creatinine Clr Calc Pharmacy 13.7; Estimated Glomerular Filt Rate 12
[2023-12-08 07:45] LABS: Glucose, Whole Blood 170 mg/dL (60-115)
[2023-12-08] MEDS: Isosorbide Mononitrate 30 MG TAB.ER.24H PO (08:03)
[2023-12-08] MEDS: Multivitamin TABLET 1 TAB PO (08:03)
[2023-12-08] MEDS: levoFLOXacin 250 MG TABLET PO (08:03)
[2023-12-08] MEDS: carvediloL 3.125 MG TABLET PO ×2 (08:03→21:45)
[2023-12-08] MEDS: Clopidogrel Bisulfate 75 MG TABLET PO (08:03)
[2023-12-08] MEDS: amLODIPine Besylate 5 MG TABLET PO (08:03)
[2023-12-08] MEDS: Insulin Lispro 100 UNIT/ML 3 ML VIAL SUBCUT ×3 (08:04→17:13)
[2023-12-08 11:40] LABS: Glucose, Whole Blood 171 mg/dL (60-115)
[2023-12-08 13:29] LABS: Adenovirus F 40/41 Not Detected (Not Detect.); Astrovirus Not Detected (Not Detect.); Campylobacter Not Detected (Not Detect.); Cryptosporidium Not Detected (Not Detect.); Cyclospora cayetanensis Not Detected (Not Detect.); E. coli EAEC Not Detected (Not Detect.); E. coli EPEC Not Detected (Not Detect.); E. coli ETEC Not Detected (Not Detect.); E. coli STEC Not Detected (Not Detect.); Entamoeba histolytica Not Detected (Not Detect.); Giardia lamblia Not Detected (Not Detect.); Norovirus GI/GII Not Detected (Not Detect.); Plesiomonas shigelloides Not Detected (Not Detect.); Rotavirus A Not Detected (Not Detect.); Salmonella Not Detected (Not Detect.); Sapovirus Not Detected (Not Detect.); Shigella sp./EIEC Not Detected (Not Detect.); Vibrio Not Detected (Not Detect.); Vibrio Cholerae Not Detected (Not Detect.); Yersinia enterocolitica Not Detected (Not Detect.)
--- NOTE | 2023-12-08 14:05 | MHC.CM.PN ---
CM met with patient at bedside who states he would like to be seen by PT again - his goal is STR and return home. Patient re-evaluated by PT, now recommending STR. [facility] is following and will likely offer a bed. CM spoke with liathad Curran [phone]) who will fax over required application. Per [facility] facility will provide transportation to m/w/f dialysis and patient can transition to LTC there if needed. Patient is not medically cleared for dc at this time, awaiting urology for evaluation of leaking suprapubic catheter. CM will continue to follow for dc needs.
--- NOTE | 2023-12-08 16:12 | P.PNIM_ITS ---
Subjective Subjective Date of Service: 12/08/23 Interval History: seen and examined this morning follow up for fluid overload reporting that his suprapubic catheter is leaking no abdominal pain, nausea or vomiting Review of Systems Review of Systems: Yes all other systems are reviewed and are negative Constitutional Constitutional: Denies chills and Denies fever(s) Cardiovascular Cardiovascular: Denies chest pain, Denies palpitations and Denies dyspnea Respiratory Respiratory: Denies cough and Denies dyspnea Endocrine Endocrine: Denies palpitations Physical Exam 2 Vital Signs: Vital Signs: Last Vital Signs Temp 97.3 F 12/08/23 15:27 Pulse 72 12/08/23 15:27 Resp 18 12/08/23 15:27 BP 130/66 12/08/23 15:27 Pulse Ox 99 12/08/23 15:27 O2 Del Method Room Air 12/08/23 15:27 BMI result Body Mass Index 24.5 Const: General: cooperative, comfortable, no acute distress, alert and awake Nutritional Appearance: average body habitus Orientation/consciousness: p atient oriented x3 Resp: Effort & Inspection: normal respiratory effort, able to speak in complete sentences, no respiratory distress and no use of accessory muscles Cardio: Rate: regular rate GI: Inspection: No distended Palpation (GI): Soft to palpation and nontender : Other: suprapubic catheter in place, no surrounding erythema Neuro: General: patient oriented x3, moves all extremities and CN's II-XI intact bilaterally Objective Data Active Medications Acetaminophen (Acetaminophen 325 Mg Tablet) 650 mg PO Q6H PRN PRN Reason: Pain, Mild (Pain Scale 1-3) Last Admin: 12/07/23 05:30 Dose: 650 mg Documented By: ZHOU Amlodipine Besylate (Amlodipine Besylate 5 Mg Tablet) 5 mg PO SUTUTHSA@0900 [facility]; Protocol Last Admin: 12/08/23 08:03 Dose: 5 mg Documented By: MYLENE Carvedilol (Carvedilol 3.125 Mg Tablet) 3.125 mg PO BID [facility]; Protocol Last Admin: 12/08/23 08:03 Dose: 3.125 mg Documented By: MYLENE Clopidogrel Bisulfate (Clopidogrel Bisulfate 75 Mg Tablet) 75 mg PO DAILY [facility] Last Admin: 12/08/23 08:03 Dose: 75 mg Documented By: MYLENE Dextrose (Dextrose 50 % 25 Gm/50 Ml Syringe) 25 gm IVPUSH Q15M PRN; Protocol PRN Reason: per Hypoglycemia Standing Ord. Glucose (Glucose Gel 15 Gm Gel..Gram.) 15 gm PO Q15M PRN; Protocol PRN Reason: per Hypoglycemia Standing Ord. Heparin Sodium (Porcine) (Heparin Sodium,Porcine 5,000 Unit/Ml Vial) 5,000 unit SUBCUT Q12H [facility] Last Admin: 12/08/23 08:03 Dose: Not Given Documented By: MYLENE Non-Admin Reason: Patient Refused Insulin Human Lispro (Insulin Lispro 100 Unit/Ml 3 Ml Vial) 0 unit SUBCUT QIDACHS [facility]; Protocol Last Admin: 12/08/23 11:59 Dose: 2 unit Documented By: MYLENE Isosorbide Mononitrate (Isosorbide Mononitrate 30 Mg Tab.Er.24h) 30 mg PO DAILY [facility]; Protocol Last Admin: 12/08/23 08:03 Dose: 30 mg Documented By: MYLENE Levofloxacin (Levofloxacin 250 Mg Tablet) 250 mg PO Q48H [facility] Last Admin: 12/08/23 08:03 Dose: 250 mg Documented By: MYLENE Melatonin (Melatonin 3 Mg Tablet) 6 mg PO BEDTIME PRN PRN Reason: Insomnia Multivitamins/Vitamin C (Multivitamin Tablet) 1 tab PO DAILY [facility] Last Admin: 12/08/23 08:03 Dose: 1 tab Documented By: MYLENE Ondansetron HCl (Ondansetron Hcl 4 Mg/2 Ml Vial) 4 mg IVPUSH Q8H PRN PRN Reason: Nausea and Vomiting Last Admin: 12/03/23 22:09 Dose: 4 mg Documented By: ULISES Sodium Chloride (0.9 % Sodium Chloride Flush 3 Ml Syringe) 3 ml IVFLUSH QSHIFT [facility] Last Admin: 12/08/23 08:07 Dose: 3 ml Documented By: MYLENE Labs 12/08/23 05:55 12/08/23 05:55 Labs: Laboratory Results - last 24 hr 12/07/23 12/07/23 12/08/23 16:20 20:42 01:30 MCV MCH MCHC RDW Plt Count MPV Immature Gran % (Auto) Neut % (Auto) Lymph % (Auto) [place] % (Auto) Eos % (Auto) Baso % (Auto) Lymph # (Auto) [place] # (Auto) Eos # (Auto) Baso # (Auto) Abs Immat Gran (auto) Absolute Neuts (auto) Absolute Nucleated RBC Nucleated RBC % (auto) Anion Gap Estim Creat Clear Calc Estimated GFR POC Glucose 177 H 197 H Random Glucose Calcium Stl C. cayetanensis PCR Not Detected Stool Rotavirus A PCR Not Detected Stl Adenov F 40/ PCR Not Detected Stool Astrovirus (PCR) Not Detected Stool Campylobacter PCR Not Detected Stool Cryptosporidium PCR Not Detected Stl Sh Tox Pr E STEC PCR Not Detected Stool E coli O157 PCR Not applicable Stl Enterotoxigenic E PCR Not Detected Stool EPEC (PCR) Not Detected Stool EAEC (PCR) Not Detected Stl E. histolytica PCR Not Detected Stool Giardia Lamblia PCR Not Detected Stl P. shigelloides PCR Not Detected Stool Salmonella PCR Not Detected Stool Sapovirus (PCR) Not Detected Stl Shigella/EIEC PCR Not Detected St Y.enterocolitica PCR Not Detected Stool Vibrio (PCR) Not Detected Stl Vibrio cholerae PCR Not Detected Stl Norovirus GI/GII PCR Not Detected C. difficile Tox B Gene NEGATIVE 12/08/23 12/08/23 12/08/23 05:55 07:41 11:35 MCV 98.2 H MCH 31.5 MCHC 32.1 RDW 16.4 H Plt Count 171 D MPV 10.7 Immature Gran % (Auto) 1.0 H Neut % (Auto) 66.6 Lymph % (Auto) 13.2 L [place] % (Auto) 9.7 Eos % (Auto) 8.5 H Baso % (Auto) 1.0 Lymph # (Auto) 1.2 [place] # (Auto) 0.9 Eos # (Auto) 0.8 H Baso # (Auto) 0.1 Abs Immat Gran (auto) 0.09 H Absolute Neuts (auto) 6.1 Absolute Nucleated RBC 0.000 Nucleated RBC % (auto) 0.0 Anion Gap 16 Estim Creat Clear Calc 13.7 Estimated GFR 12 POC Glucose 170 H 171 H Random Glucose 174 H Calcium 8.9 Stl C. cayetanensis PCR Stool Rotavirus A PCR Stl Adenov F 40/ PCR Stool Astrovirus (PCR) Stool Campylobacter PCR Stool Cryptosporidium PCR Stl Sh Tox Pr E STEC PCR Stool E coli O157 PCR Stl Enterotoxigenic E PCR Stool EPEC (PCR) Stool EAEC (PCR) Stl E. histolytica PCR Stool Giardia Lamblia PCR Stl P. shigelloides PCR Stool Salmonella PCR Stool Sapovirus (PCR) Stl Shigella/EIEC PCR St Y.enterocolitica PCR Stool Vibrio (PCR) Stl Vibrio cholerae PCR Stl Norovirus GI/GII PCR C. difficile Tox B Gene Assessment and Plan (1) ESRD (end stage renal disease) on dialysis: Status: Acute (2) UTI (urinary tract infection): Status: Acute Plan This is a 72-year-old male with pertinent history of ESRD on hemodialysis (M/ W/ F), gastroesophageal reflux disease, mood disorder, essential hypertension, coronary artery disease who presents to the emergency department for evaluation of increasing edema. Anasarca in patient with ESRD on dialysis (M/W/F) due to missed HD session resolved Nephrology following for dialysis scheduling will resume home dose of torsemide s/p fistulagram 12/06/22, now working well dialysis today UTI related to suprapubic catheter urine culture growing pseudomonas no symptoms, no wbc count or fever ?colonization will start renal dosed levaquin will consult ID diarrhea cdif, GI panel negative diarrhea improving can use prn imodium if necessary Hyperglycemia with history of DM2 not previously on medication continue SSI A1c 6.6 Right sided pneumonia s/p Rocephin and azithromycin, completed 5 days saturating well on room air CAD HTN continue home medications PTSD no duloxetine on med list? will discuss with patient GERD on pantoprazole Anemia of CKD hb above transfusion threshold DVT Prophylaxis: Heparin Attending Dr. Schreiber Full code DISPO - seen by PT - rec STR continue hospital stay for tx of UTI, specialist evaluation and safe disposition Quality Stroke Does the patient have a stroke diagnosis?: No VTE Prior VTE?: No VTE Risk Level:: Medical - moderate - high VTE Device Contraindication: Treatment Not Indicated VTE Drug Contraindication: N/A - Med Ordered
[2023-12-08 16:19] LABS: Glucose, Whole Blood 230 mg/dL (60-115)
[2023-12-08] MEDS: Acetaminophen 325 MG TABLET 650 MG PO (18:34)
[2023-12-08 20:24] LABS: Glucose, Whole Blood 135 mg/dL (60-115)
[2023-12-09 03:05] VITALS: BP 132/60; PULSE 76; RESP 18; TEMP 36.1; O2SAT 97
[2023-12-09 07:09] VITALS: BP 149/75; PULSE 76; RESP 20; TEMP 36.6; O2SAT 98
[2023-12-09 07:29] LABS: Glucose, Whole Blood 239 mg/dL (60-115)
[2023-12-09] MEDS: Multivitamin TABLET 1 TAB PO (07:55)
[2023-12-09] MEDS: Clopidogrel Bisulfate 75 MG TABLET PO (07:55)
[2023-12-09] MEDS: Insulin Lispro 100 UNIT/ML 3 ML VIAL SUBCUT ×3 (07:55→22:02)
[2023-12-09] MEDS: Torsemide 20 MG TABLET PO ×2 (07:55→12:16)
[2023-12-09] MEDS: carvediloL 3.125 MG TABLET PO ×2 (07:55→22:01)
[2023-12-09] MEDS: Isosorbide Mononitrate 30 MG TAB.ER.24H PO (07:55)
[2023-12-09 09:23] LABS: Hematocrit 27.3 % (42.0-52.0); Hemoglobin 8.8 g/dl (14.0-18.0); Mean Corpuscular HGB Conc 32.2 g/dl (31.0-36.0); Mean Corpuscular Hemoglobin 31.7 pg (27.0-33.0); Mean Corpuscular Volume 98.2 fL (80.0-98.0); Mean Platelet Volume 10.8 fL (9.4-12.4); Platelet Count 173 X10*3/uL (160-400); Red Blood Count 2.78 X10*6/uL (4.60-5.80); Red Cell Distribution Width 16.6 % (11.0-16.0)
--- NOTE | 2023-12-09 10:59 | MHC.CLN ---
F/U DIET=DIABETIC 2000 KCAL. PATIENT WITH ESRD AND RECEIVES HEMODIALYSIS. INCREASED NUTRITION NEEDS DUE TO STAGE II PRESSURE INJURY TO SACRUM. INTAKE USUALLY 100%. FOLLOW FOR INTAKE AND WOUND HEALING.
[2023-12-09 11:19] LABS: Glucose, Whole Blood 169 mg/dL (60-115)
--- NOTE | 2023-12-09 11:37 | P.CNUR_ITS ---
History of Present Illness Consult details Consult date: 12/09/23 Narrative: 72-year-old male who has a history of hypertension, diabetes, ESRD on dialysis every Tuesday/Tuesday/Tuesday. He is followed by urology Dr. Valentino for urinary retention and has chronic SP tube. Urology consult requested due to SP tube leaking. The patient is on abx's for acute UTI. Pt evaluated SP tube changed at bedside Review of Systems 2 Review of Systems: Yes all other systems are reviewed and are negative Constitutional: Constitutional: Reports no additional constitutional complaints Eyes: Eyes: Reports no additional eye complaints ENT: Reports system reviewed and no additional complaints, except as documented Cardiovascular: Cardiovascular: Denies dyspnea Respiratory: Respiratory: Denies cough and Denies dyspnea Gastrointestinal: Gastrointestinal: Reports no additional gastrointestinal complaints Musculoskeletal: Musculoskeletal: Reports no additional musculoskeletal complaints Integumentary/Breasts: Skin/Breast: Denies rash and Denies unusual bruising Neurologic: Reports system reviewed and no additional complaints, except as documented Psychiatric: Psychiatric: Reports no additional psychiatric complaints Endocrine: Endocrine: Reports no additional endocrine complaints Hematologic/Lymphatic: Hematologic/Lymphatic: Reports no additional hematologic/lymphatic complaints Allergic/Immunologic: Allergic/Immunologic: Reports no additional allergic/immunologic complaints PMFSH Past Medical History Medical History Bacteremia due to methicillin susceptible Staphylococcus aureus (MSSA) Multiple sclerosis CVA (cerebral vascular accident) CAD (coronary artery disease) Diabetes mellitus Hyperlipidemia HTN (hypertension) with goal to be determined Surgical History Surgical History History of back surgery H/O cystostomy Social History Social History Household Members: None Housing: House Are you a primary healthcare advisory services manager to a significant other at home: No Do you presently have visiting nurse or other home services: Yes (one more PT apt per pt) Alcohol intake: former 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 Tobacco Use Status: Never used Tobacco Smoked in Last 30 Days: No Second Hand Smoke Exposure: No Use of substances other than those prescribed or required for medical reasons: No Currently Displaying Signs/Symptoms of Drug Intoxication Withdrawal: No Advance Directives: Yes Advance Directives on File: Yes Advance Directives Date on File: 06/30/22 Nutrition Risks: No Nutritional Risk service: Yes Current occupational status: retired Meds Allergies Allergy/AdvReac Type Severity Reaction Status Date / Time morphine [MORPHINE] Allergy Severe NAUSEA & Verified 12/02/23 11:38 VOMITING, vomiting, nausea and vomiting diphenhydramine AdvReac Mild Nausea Verified 12/03/23 00:15 [From Benadryl] Active Medications: Current Medications Acetaminophen (Acetaminophen 325 Mg Tablet) 650 mg PO Q6H PRN PRN Reason: Pain, Mild (Pain Scale 1-3) Last Admin: 12/08/23 18:34 Dose: 650 mg Amlodipine Besylate (Amlodipine Besylate 5 Mg Tablet) 5 mg PO SUTUTHSA@0900 [facility]; Protocol Last Admin: 12/08/23 08:03 Dose: 5 mg Carvedilol (Carvedilol 3.125 Mg Tablet) 3.125 mg PO BID [facility]; Protocol Last Admin: 12/09/23 07:55 Dose: 3.125 mg Clopidogrel Bisulfate (Clopidogrel Bisulfate 75 Mg Tablet) 75 mg PO DAILY [facility] Last Admin: 12/09/23 07:55 Dose: 75 mg Dextrose (Dextrose 50 % 25 Gm/50 Ml Syringe) 25 gm IVPUSH Q15M PRN; Protocol PRN Reason: per Hypoglycemia Standing Ord. Glucose (Glucose Gel 15 Gm Gel..Gram.) 15 gm PO Q15M PRN; Protocol PRN Reason: per Hypoglycemia Standing Ord. Heparin Sodium (Porcine) (Heparin Sodium,Porcine 5,000 Unit/Ml Vial) 5,000 unit SUBCUT Q12H [facility] Last Admin: 12/09/23 08:00 Dose: Not Given Insulin Human Lispro (Insulin Lispro 100 Unit/Ml 3 Ml Vial) 0 unit SUBCUT QIDACHS [facility]; Protocol Last Admin: 12/09/23 07:55 Dose: 4 unit Isosorbide Mononitrate (Isosorbide Mononitrate 30 Mg Tab.Er.24h) 30 mg PO DAILY [facility]; Protocol Last Admin: 12/09/23 07:55 Dose: 30 mg Levofloxacin (Levofloxacin 250 Mg Tablet) 250 mg PO Q48H [facility] Last Admin: 12/08/23 08:03 Dose: 250 mg Melatonin (Melatonin 3 Mg Tablet) 6 mg PO BEDTIME PRN PRN Reason: Insomnia Multivitamins/Vitamin C (Multivitamin Tablet) 1 tab PO DAILY [facility] Last Admin: 12/09/23 07:55 Dose: 1 tab Ondansetron HCl (Ondansetron Hcl 4 Mg/2 Ml Vial) 4 mg IVPUSH Q8H PRN PRN Reason: Nausea and Vomiting Last Admin: 12/03/23 22:09 Dose: 4 mg Sodium Chloride (0.9 % Sodium Chloride Flush 3 Ml Syringe) 3 ml IVFLUSH QSHIFT [facility] Last Admin: 12/09/23 08:00 Dose: 3 ml Torsemide (Torsemide 20 Mg Tablet) 20 mg PO BID@0900,1300 [facility]; Protocol Last Admin: 12/09/23 07:55 Dose: 20 mg Home Medications Medication Instructions Recorded Confirmed Last Taken Type torsemide 20 mg tablet 20 mg PO BID@0900,1300 07/14/21 12/02/23 10/15/22 History pantoprazole 40 mg tablet,delayed 40 mg PO DAILY@0630 PRN Gastric 10/14/22 12/02/23 10/15/22 History release Reflux vitamin B comp no.3-folic acid 1 1 tab PO DAILY 10/14/22 12/02/23 10/15/22 History mg-vit C 60 mg-biotin 300 mcg tablet ([facility] Rx) amlodipine 5 mg tablet 5 mg PO SUTUTHSA@0900 12/02/23 12/02/23 Unknown History carvedilol 3.125 mg tablet 3.125 mg PO BID 12/02/23 12/02/23 Unknown History clopidogrel 75 mg tablet 75 mg PO DAILY 12/02/23 12/02/23 Unknown History isosorbide mononitrate 30 mg 30 mg PO DAILY 12/02/23 12/02/23 Unknown History tablet,extended release 24 hr loperamide 2 mg capsule (Imodium 2 mg PO Q4H PRN Loose Stool 12/02/23 12/02/23 Unknown History A-D) ondansetron 4 mg disintegrating 4 mg PO Q6H PRN Nausea And Vomiting 12/02/23 12/02/23 Unknown History tablet Physical Exam 2 Vital Signs: Vital Signs: Last Vital Signs Temp 97.8 F 12/09/23 07:09 Pulse 76 12/09/23 07:09 Resp 20 12/09/23 07:09 BP 149/75 H 12/09/23 07:09 Pulse Ox 98 01/12/24 07:09 O2 Del Method Room Air 12/09/23 07:09 BMI result Body Mass Index 24.5 Const: General: healthy appearing, no acute distress and well developed O rientation/consciousness: patient oriented x3 HEENT: Head: Yes normocephalic and Yes atraumatic Eyes: Conjunctivae: conjunctivae normal Neck: Neck: Yes normal visual inspection Chest: Chest palpation & inspection: normal inspection of the chest Resp: Effort & Inspection: normal respiratory effort Cardio: Rate: regular rate GI: Inspection: Yes normal to inspection Palpation (GI): Soft to palpation : Other: SP tube site- no signs of infection Skin: General skin exam: no rashes or lesions noted Neuro: General: patient oriented x3 Extrem: General: No pedal edema Psych: Appearance: grossly normal Affect: normal affect Results Labs 12/10/23 11:34 12/10/23 11:34 Labs: Abnormal lab results 12/08/23 12/08/23 12/08/23 Range/Units 11:35 16:15 19:43 RBC (4.60-5.80) X10*6/uL Hgb (14.0-18.0) g/dl Hct (42.0-52.0) % MCV (80.0-98.0) fL RDW (11.0-16.0) % POC Glucose 171 H 230 H 135 H (60-115) mg/dL 12/09/23 12/09/23 12/09/23 Range/Units 07:11 08:36 11:12 RBC 2.78 L (4.60-5.80) X10*6/uL Hgb 8.8 L (14.0-18.0) g/dl Hct 27.3 L (42.0-52.0) % MCV 98.2 H (80.0-98.0) fL RDW 16.6 H (11.0-16.0) % POC Glucose 239 H 169 H (60-115) mg/dL Short CBC 12/09/23 Range/Units 08:36 WBC 9.0 (4.8-10.8) X10*3/uL Hgb 8.8 L (14.0-18.0) g/dl Hct 27.3 L (42.0-52.0) % Plt Count 173 (160-400) X10*3/uL Urine 12/02/23 Range/Units 21:25 Urine Color Yellow Urine Appearance Cloudy Urine pH >= 9.0 (5.0-9.0) Ur Specific [place] 1.010 (1.005-1.025) Urine Protein 300 (3+) H (Neg-Trace) mg/dL Urine Glucose (UA) 250 H (Negative) mg/dL All other labs normal. Assessment and Plan (1) UTI (urinary tract infection): Status: Acute (2) ESRD (end stage renal disease) on dialysis: Status: Acute (3) Neurogenic urinary bladder disorder: Status: Acute Plan SP tube changed at bedside 18 fr 15 mL in balloon Pt on levaquin for UTI Cont sched'd outpatient visits with Dr. Valentino, he does not need to be seen earlier than his routine FU Procedures Date of Service Date of Service: 12/10/23 Bladder/Catheter Procedure Details: The patient was prepped with betadine, 18 fr catheter placed and irrigated with 60 mL normal saline [id number] Cystotomy Tube, complicated Procedure code (CPT) selection complete
[2023-12-09 11:48] VITALS: BP 125/58; PULSE 78; RESP 20; TEMP 36.6; O2SAT 100
[2023-12-09] MEDS: Loperamide HCl 2 MG CAPSULE PO ×2 (12:16→22:04)
--- NOTE | 2023-12-09 12:43 | HO.PM.IMPN ---
Subjective Subjective Date of Service: 12/09/23 Interval History: seen and examined this morning follow up for fluid overload, UTI feeling well this am; suprapubic catheter changed this morning by urology Review of Systems Review of Systems: Yes all other systems are reviewed and are negative Constitutional Constitutional: Denies chills and Denies fever(s) Cardiovascular Cardiovascular: Denies chest pain, Denies palpitations and Denies dyspnea Respiratory Respiratory: Denies cough and Denies dyspnea Gastrointestinal Gastrointestinal: Denies abdominal pain, Denies nausea and Denies vomiting Endocrine Endocrine: Denies palpitations Physical Exam Vital Signs: Vital Signs: Last Vital Signs Temp 97.8 F 12/09/23 11:48 Pulse 78 12/09/23 11:48 Resp 20 12/09/23 11:48 BP 125/58 L 12/09/23 11:48 Pulse Ox 100 12/09/23 11:48 O2 Del Method Room Air 12/09/23 11:48 BMI result Body Mass Index 24.5 Const: General: cooperative, comfortable, no acute distress, alert and awake Nutritional Appearance: average body habitus Orientation/consciousness: patient oriented x3 Resp: Effort & Inspection: normal respiratory effort, able to speak in complete sentences, no respiratory distress and no use of accessory muscles Cardio: Rate: regular rate GI: Inspection: No distended Palpation (GI): Soft to palpation and nontender : Other: suprapubic catheter in place, no surrounding erythema Neuro: General: patient oriented x3, moves all extremities and CN's II-XI intact bilaterally Objective Data Active Medications Acetaminophen (Acetaminophen 325 Mg Tablet) 650 mg PO Q6H PRN PRN Reason: Pain, Mild (Pain Scale 1-3) Last Admin: 12/08/23 18:34 Dose: 650 mg Documented By: MYLENE Amlodipine Besylate (Amlodipine Besylate 5 Mg Tablet) 5 mg PO SUTUTHSA@0900 [facility]; Protocol Last Admin: 12/08/23 08:03 Dose: 5 mg Documented By: MYLENE Carvedilol (Carvedilol 3.125 Mg Tablet) 3.125 mg PO BID [facility]; Protocol Last Admin: 12/09/23 07:55 Dose: 3.125 mg Documented By: MYLENE Clopidogrel Bisulfate (Clopidogrel Bisulfate 75 Mg Tablet) 75 mg PO DAILY [facility] Last Admin: 12/09/23 07:55 Dose: 75 mg Documented By: MYLENE Dextrose (Dextrose 50 % 25 Gm/50 Ml Syringe) 25 gm IVPUSH Q15M PRN; Protocol PRN Reason: per Hypoglycemia Standing Ord. Glucose (Glucose Gel 15 Gm Gel..Gram.) 15 gm PO Q15M PRN; Protocol PRN Reason: per Hypoglycemia Standing Ord. Heparin Sodium (Porcine) (Heparin Sodium,Porcine 5,000 Unit/Ml Vial) 5,000 unit SUBCUT Q12H [facility] Last Admin: 12/09/23 08:00 Dose: Not Given Documented By: MYLENE Non-Admin Reason: Patient Refused Insulin Human Lispro (Insulin Lispro 100 Unit/Ml 3 Ml Vial) 0 unit SUBCUT QIDACHS [facility]; Protocol Last Admin: 12/09/23 12:16 Dose: 2 unit Documented By: MYLENE Isosorbide Mononitrate (Isosorbide Mononitrate 30 Mg Tab.Er.24h) 30 mg PO DAILY [facility]; Protocol Last Admin: 12/09/23 07:55 Dose: 30 mg Documented By: MYLENE Levofloxacin (Levofloxacin 250 Mg Tablet) 250 mg PO Q48H [facility] Last Admin: 12/08/23 08:03 Dose: 250 mg Documented By: MYLENE Loperamide HCl (Loperamide Hcl 2 Mg Capsule) 2 mg PO Q4H PRN PRN Reason: Loose Stool Last Admin: 12/09/23 12:16 Dose: 2 mg Documented By: MYLENE Melatonin (Melatonin 3 Mg Tablet) 6 mg PO BEDTIME PRN PRN Reason: Insomnia Multivitamins/Vitamin C (Multivitamin Tablet) 1 tab PO DAILY [facility] Last Admin: 12/09/23 07:55 Dose: 1 tab Documented By: MYLENE Ondansetron HCl (Ondansetron Hcl 4 Mg/2 Ml Vial) 4 mg IVPUSH Q8H PRN PRN Reason: Nausea and Vomiting Last Admin: 12/03/23 22:09 Dose: 4 mg Documented By: ULISES Sodium Chloride (0.9 % Sodium Chloride Flush 3 Ml Syringe) 3 ml IVFLUSH QSHIFT [facility] Last Admin: 12/09/23 08:00 Dose: 3 ml Documented By: MYLENE Torsemide (Torsemide 20 Mg Tablet) 20 mg PO BID@0900,1300 [facility]; Protocol Last Admin: 12/09/23 12:16 Dose: 20 mg Documented By: MYLENE Labs 12/09/23 08:36 12/08/23 05:55 Labs: Laboratory Results - last 24 hr 12/08/23 12/08/23 12/08/23 01:30 16:15 19:43 MCV MCH MCHC RDW Plt Count MPV Absolute Nucleated RBC Nucleated RBC % (auto) POC Glucose 230 H 135 H Stl C. cayetanensis PCR Not Detected Stool Rotavirus A PCR Not Detected Stl Adenov F 40/41 PCR Not Detected Stool Astrovirus (PCR) Not Detected Stool Campylobacter PCR Not Detected Stool Cryptosporidium PCR Not Detected Stl Sh Tox Pr E STEC PCR Not Detected Stool E coli O157 PCR Not applicable Stl Enterotoxigenic E PCR Not Detected Stool EPEC (PCR) Not Detected Stool EAEC (PCR) Not Detected Stl E. histolytica PCR Not Detected Stool Giardia Lamblia PCR Not Detected Stl P. shigelloides PCR Not Detected Stool Salmonella PCR Not Detected Stool Sapovirus (PCR) Not Detected Stl Shigella/EIEC PCR Not Detected St Y.enterocolitica PCR Not Detected Stool Vibrio (PCR) Not Detected Stl Vibrio cholerae PCR Not Detected Stl Norovirus GI/GII PCR Not Detected 12/09/23 12/09/23 12/09/23 07:11 08:36 11:12 MCV 98.2 H MCH 31.7 MCHC 32.2 RDW 16.6 H Plt Count 173 MPV 10.8 Absolute Nucleated RBC 0.000 Nucleated RBC % (auto) 0.0 POC Glucose 239 H 169 H Stl C. cayetanensis PCR Stool Rotavirus A PCR Stl Adenov F 40/41 PCR Stool Astrovirus (PCR) Stool Campylobacter PCR Stool Cryptosporidium PCR Stl Sh Tox Pr E STEC PCR Stool E coli O157 PCR Stl Enterotoxigenic E PCR Stool EPEC (PCR) Stool EAEC (PCR) Stl E. histolytica PCR Stool Giardia Lamblia PCR Stl P. shigelloides PCR Stool Salmonella PCR Stool Sapovirus (PCR) Stl Shigella/EIEC PCR St Y.enterocolitica PCR Stool Vibrio (PCR) Stl Vibrio cholerae PCR Stl Norovirus GI/GII PCR Assessment and Plan (1) UTI (urinary tract infection): Status: Acute (2) Pneumonia: Status: Acute (3) Anasarca: Status: Acute Plan This is a 72-year-old male with pertinent history of ESRD on hemodialysis (M/ W/ F), gastroesophageal reflux disease, mood disorder, essential hypertension, coronary artery disease who presents to the emergency department for evaluation of increasing edema. Anasarca in patient with ESRD on dialysis (M/W/F) due to missed HD session resolved Nephrology following for dialysis scheduling will resume home dose of torsemide s/p fistulagram 12/06/22, now working well dialysis planned 12/09 UTI related to suprapubic catheter (seen by urology and suprpubic catheter changed 12/09) urine culture growing pseudomonas no symptoms, no wbc count or fever ?colonization will start renal dosed levaquin will consult ID diarrhea cdif, GI panel negative diarrhea improving can use prn imodium if necessary Hyperglycemia with history of DM2 not previously on medication continue SSI A1c 6.6 Right sided pneumonia s/p Rocephin and azithromycin, completed 5 days saturating well on room air CAD HTN continue home medications GERD on pantoprazole Anemia of CKD hb above transfusion threshold H/H stable stage 2 pressure injury. POA local wound care per wound nurse recs left leg wounds - due to trauma do not appear infected local wound care per wound nurse recs DVT Prophylaxis: Heparin Attending Dr. Schrebier Full code DISPO - seen by PT - rec STR continue hospital stay for tx of UTI, specialist evaluation and safe disposition Quality Stroke Does the patient have a stroke diagnosis?: No VTE Prior VTE?: No VTE Risk Level:: Medical - moderate - high VTE Device Contraindication: Treatment Not Indicated VTE Drug Contraindication: N/A - Med Ordered
--- NOTE | 2023-12-09 13:48 | MHC.CM.PN ---
[facility] has offered a bed and has submitted for auth. PASRR complete.
[2023-12-09] MEDS: Acetaminophen 325 MG TABLET 650 MG PO (15:45)
--- NOTE | 2023-12-09 16:08 | W.PM.IDCN ---
History of Present Illness Data of Consult Service Date: 12/09/23 Requesting physician: Brigida Vernon Primary Care Provider: Unknown Physician HPI Reason for consult: Pseudomonas urine He presented with weakness and edema for three days. He has Pseudomonas urine. He has suprapubic catheter He has ESRD on dialysis. Review of Systems Review of Systems: Yes all other systems are reviewed and are negative PMFSH Past Medical History Medical History Bacteremia due to methicillin susceptible Staphylococcus aureus (MSSA) Multiple sclerosis CVA (cerebral vascular accident) CAD (coronary artery disease) Diabetes mellitus Hyperlipidemia HTN (hypertension) with goal to be determined Family History Family history: reviewed and not pertinent Surgical History Surgical History History of back surgery H/O cystostomy Social History Social History Household Members: None Housing: House Are you a primary health care analyst to a significant other at home: No Do you presently have visiting nurse or other home services: Yes (one more PT apt per pt) Alcohol intake: former 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 Tobacco Use Status: Never used Tobacco Smoked in Last 30 Days: No Second Hand Smoke Exposure: No Use of substances other than those prescribed or required for medical reasons: No Currently Displaying Signs/Symptoms of Drug Intoxication Withdrawal: No Advance Directives: Yes Advance Directives on File: Yes Advance Directives Date on File: 06/30/22 Nutrition Risks: No Nutritional Risk service: Yes Current occupational status: retired Meds Allergies Allergy/AdvReac Type Severity Reaction Status Date / Time morphine [MORPHINE] Allergy Severe NAUSEA & Verified 12/02/23 11:38 VOMITING, vomiting, nausea and vomiting diphenhydramine AdvReac Mild Nausea Verified 12/03/23 00:15 [From Benadryl] Active Medications: Current Medications Acetaminophen (Acetaminophen 325 Mg Tablet) 650 mg PO Q6H PRN PRN Reason: Pain, Mild (Pain Scale 1-3) Last Admin: 12/09/23 15:45 Dose: 650 mg Amlodipine Besylate (Amlodipine Besylate 5 Mg Tablet) 5 mg PO SUTUTHSA@0900 [facility]; Protocol Last Admin: 12/08/23 08:03 Dose: 5 mg Carvedilol (Carvedilol 3.125 Mg Tablet) 3.125 mg PO BID [facility]; Protocol Last Admin: 12/09/23 07:55 Dose: 3.125 mg Clopidogrel Bisulfate (Clopidogrel Bisulfate 75 Mg Tablet) 75 mg PO DAILY [facility] Last Admin: 12/09/23 07:55 Dose: 75 mg Dextrose (Dextrose 50 % 25 Gm/50 Ml Syringe) 25 gm IVPUSH Q15M PRN; Protocol PRN Reason: per Hypoglycemia Standing Ord. Glucose (Glucose Gel 15 Gm Gel..Gram.) 15 gm PO Q15M PRN; Protocol PRN Reason: per Hypoglycemia Standing Ord. Heparin Sodium (Porcine) (Heparin Sodium,Porcine 5,000 Unit/Ml Vial) 5,000 unit SUBCUT Q12H [facility] Last Admin: 12/09/23 08:00 Dose: Not Given Insulin Human Lispro (Insulin Lispro 100 Unit/Ml 3 Ml Vial) 0 unit SUBCUT QIDACHS [facility]; Protocol Last Admin: 12/09/23 12:16 Dose: 2 unit Isosorbide Mononitrate (Isosorbide Mononitrate 30 Mg Tab.Er.24h) 30 mg PO DAILY [facility]; Protocol Last Admin: 12/09/23 07:55 Dose: 30 mg Levofloxacin (Levofloxacin 250 Mg Tablet) 250 mg PO Q48H [facility] Last Admin: 12/08/23 08:03 Dose: 250 mg Loperamide HCl (Loperamide Hcl 2 Mg Capsule) 2 mg PO Q4H PRN PRN Reason: Loose Stool Last Admin: 12/09/23 12:16 Dose: 2 mg Melatonin (Melatonin 3 Mg Tablet) 6 mg PO BEDTIME PRN PRN Reason: Insomnia Multivitamins/Vitamin C (Multivitamin Tablet) 1 tab PO DAILY [facility] Last Admin: 12/09/23 07:55 Dose: 1 tab Omeprazole (Omeprazole 20 Mg Capsule.Dr) 20 mg PO DAILY@0630 PRN PRN Reason: Gastric Reflux Ondansetron HCl (Ondansetron Hcl 4 Mg/2 Ml Vial) 4 mg IVPUSH Q8H PRN PRN Reason: Nausea and Vomiting Last Admin: 12/03/23 22:09 Dose: 4 mg Sodium Chloride (0.9 % Sodium Chloride Flush 3 Ml Syringe) 3 ml IVFLUSH QSHIFT [facility] Last Admin: 12/09/23 08:00 Dose: 3 ml Torsemide (Torsemide 20 Mg Tablet) 20 mg PO BID@0900,1300 [facility]; Protocol Last Admin: 12/09/23 12:16 Dose: 20 mg Home Medications Medication Instructions Recorded Confirmed Last Taken Type torsemide 20 mg tablet 20 mg PO BID@0900,1300 07/14/21 12/02/23 10/15/22 History pantoprazole 40 mg tablet,delayed 40 mg PO DAILY@0630 PRN Gastric 10/14/22 12/02/23 10/15/22 History release Reflux vitamin B comp no.3-folic acid 1 1 tab PO DAILY 10/14/22 12/02/23 10/15/22 History mg-vit C 60 mg-biotin 300 mcg tablet ([facility]) amlodipine 5 mg tablet 5 mg PO SUTUTHSA@0900 12/02/23 12/02/23 Unknown History carvedilol 3.125 mg tablet 3.125 mg PO BID 12/02/23 12/02/23 Unknown History clopidogrel 75 mg tablet 75 mg PO DAILY 12/02/23 12/02/23 Unknown History isosorbide mononitrate 30 mg 30 mg PO DAILY 12/02/23 12/02/23 Unknown History tablet,extended release 24 hr loperamide 2 mg capsule (Imodium 2 mg PO Q4H PRN Loose Stool 12/02/23 12/02/23 Unknown History A-D) ondansetron 4 mg disintegrating 4 mg PO Q6H PRN Nausea And Vomiting 12/02/23 12/02/23 Unknown History tablet Physical Exam Vital Signs: Vital Signs: Last Vital Signs Temp 97.8 F 12/09/23 11:48 Pulse 78 12/09/23 11:48 Resp 20 12/09/23 11:48 BP 125/58 L 12/09/23 11:48 Pulse Ox 100 12/09/23 11:48 O2 Del Method Room Air 12/09/23 11:48 BMI result Body Mass Index 24.5 Const: General: cooperative and tired appearing Resp: Effort & Inspection: normal respiratory effort Cardio: Rate: regular rate Extrem: General: Yes normal to inspection Results Labs 12/09/23 08:36 12/08/23 05:55 Labs: Short CBC 12/09/23 Range/Units 08:36 WBC 9.0 (4.8-10.8) X10*3/uL Hgb 8.8 L (14.0-18.0) g/dl Hct 27.3 L (42.0-52.0) % Plt Count 173 (160-400) X10*3/uL Microbiology Microbiology Results: Microbiology 12/02/23 Unknown Urine clean catch - Urine palumbo top Urine Culture - Final Pseudomonas aeruginosa Assessment and Plan (1) UTI (urinary tract infection): Status: Acute He has Pseudomonas urinary infection He has suprapubic catheter. Would give po Levaquin 250 mg every 48 hours for 10 days. Follow Urology. (2) Anasarca: Status: Acute (3) Missed dialysis: Status: Acute (4) ESRD (end stage renal disease) on dialysis: Status: Acute
--- NOTE | 2023-12-09 17:20 | P.PNNP_ITS ---
Subjective Subjective Date of Service: 12/09/23 Interval history: seen and examined this morning comfortable feeling well this am; suprapubic catheter + Physical Exam 2 Vital Signs: Vital Signs: Last Vital Signs Temp 97.8 F 12/09/23 11:48 Pulse 78 12/09/23 11:48 Resp 20 12/09/23 11:48 BP 125/58 L 12/09/23 11:48 Pulse Ox 100 12/09/23 11:48 O2 Del Method Room Air 12/09/23 11:48 BMI result Body Mass Index 24.5 Const: General: cooperative and tired appearing Resp: Effort & Inspection: normal respiratory effort Cardio: Rate: regular rate Extrem: General: Yes normal to inspection Objective Data Labs 12/09/23 08:36 12/08/23 05:55 Labs: Laboratory Results - last 24 hr 12/08/23 12/09/23 12/09/23 19:43 07:11 08:36 WBC 9.0 RBC 2.78 L Hgb 8.8 L Hct 27.3 L MCV 98.2 H MCH 31.7 MCHC 32.2 RDW 16.6 H Plt Count 173 MPV 10.8 Absolute Nucleated RBC 0.000 Nucleated RBC % (auto) 0.0 POC Glucose 135 H 239 H 12/09/23 11:12 WBC RBC Hgb Hct MCV MCH MCHC RDW Plt Count MPV Absolute Nucleated RBC Nucleated RBC % (auto) POC Glucose 169 H Microbiology Microbiology Results: Microbiology 12/02/23 Unknown Urine clean catch - Urine palumbo top Urine Culture - Final Pseudomonas aeruginosa Procedures Date of Service Date of Service: 12/09/23 Assessment & Plan Assessment and plan (1) ESRD (end stage renal disease) on dialysis: Status: Acute (2) Missed dialysis: Status: Acute Plan This is a 71-year-old male with pertinent history of ESRD on dialysis (M/ W/ F), coronary artery disease, essential hypertension, chronic suprapubic catheter, PTSD, gastroesophageal reflux disease who presents to the emergency department for evaluation of generalized weakness /nausea/ vomiting. ESRD on dialysis (M/W/F) AVG clotted -s/p declott HDper schedule Urology f/u low salt diet Fluid restriction Na and K restriction Epo 20 K x i dose today Continue BP meds Antibiotics as per medical team D/w Medical team in detail Time Spent With Patient Time: Total time managing care of this patient today ____ minutes. Progress Note: Quality Stroke Does the patient have a stroke diagnosis?: No
[2023-12-09 19:14] LABS: Glucose, Whole Blood 194 mg/dL (60-115)
[2023-12-09 19:43] VITALS: BP 119/57; PULSE 74; RESP 18; TEMP 36.4; O2SAT 98
[2023-12-09 20:44] LABS: Glucose, Whole Blood 245 mg/dL (60-115)
[2023-12-09 23:34] VITALS: BP 153/70; PULSE 81; RESP 18; TEMP 36.4; O2SAT 98
[2023-12-10 03:31] VITALS: BP 123/65; PULSE 78; RESP 18; TEMP 36.3; O2SAT 97
[2023-12-10 06:59] VITALS: BP 134/66; PULSE 79; RESP 16; TEMP 36.8; O2SAT 96
[2023-12-10 07:12] LABS: Glucose, Whole Blood 139 mg/dL (60-115)
--- NOTE | 2023-12-10 08:22 | P.PNIM_ITS ---
Subjective Subjective Date of Service: 12/10/23 Interval History: seen and examined this morning follow up for fluid overload, UTI Interval history: No complaints. No sob, cp. Making urine, suprapubic catheter in place. Review of Systems Review of Systems: Yes all other systems are reviewed and are negative Constitutional Constitutional: Denies chills and Denies fever(s) Cardiovascular Cardiovascular: Denies chest pain, Denies palpitations and Denies dyspnea Respiratory Respiratory: Denies cough and Denies dyspnea Gastrointestinal Gastrointestinal: Denies abdominal pain, Denies nausea and Denies vomiting Endocrine Endocrine: Denies palpitations Physical Exam 2 Vital Signs: Vital Signs: Last Vital Signs Temp 98.2 F 12/10/23 06:59 Pulse 79 12/10/23 06:59 Resp 16 12/10/23 06:59 BP 134/66 12/10/23 06:59 Pulse Ox 96 12/10/23 06:59 O2 Del Method Room Air 12/10/23 06:59 BMI result Body Mass Index 24.5 Constitutional - Awake and Alert, No apparent distress Eyes - PERRLA, EOMI Cardiovascular - S1S2, RRR, No edema Respiratory - Normal lung expansion, Normal respiratory effort, No respiratory distress, CTA bilaterally Gastrointestinal - NT / ND; +BS; No rebound or guarding Extremities - no calf tenderness bilaterally, no swelling Skin - Warm/Dry Neurological - Alert & oriented x3 Psychological - Appropriate affect Objective Data Active Medications Acetaminophen (Acetaminophen 325 Mg Tablet) 650 mg PO Q6H PRN PRN Reason: Pain, Mild (Pain Scale 1-3) Last Admin: 12/09/23 15:45 Dose: 650 mg Documented By: NATASHA Amlodipine Besylate (Amlodipine Besylate 5 Mg Tablet) 5 mg PO SUTUTHSA@0900 [facility]; Protocol Last Admin: 12/08/23 08:03 Dose: 5 mg Documented By: MYLENE Carvedilol (Carvedilol 3.125 Mg Tablet) 3.125 mg PO BID [facility]; Protocol Last Admin: 12/09/23 22:01 Dose: 3.125 mg Documented By: PRADIP Clopidogrel Bisulfate (Clopidogrel Bisulfate 75 Mg Tablet) 75 mg PO DAILY [facility] Last Admin: 12/09/23 07:55 Dose: 75 mg Documented By: MYLENE Dextrose (Dextrose 50 % 25 Gm/50 Ml Syringe) 25 gm IVPUSH Q15M PRN; Protocol PRN Reason: per Hypoglycemia Standing Ord. Glucose (Glucose Gel 15 Gm Gel..Gram.) 15 gm PO Q15M PRN; Protocol PRN Reason: per Hypoglycemia Standing Ord. Heparin Sodium (Porcine) (Heparin Sodium,Porcine 5,000 Unit/Ml Vial) 5,000 unit SUBCUT Q12H [facility] Last Admin: 12/10/23 07:56 Dose: 5,000 unit Documented By: SAMARIA Insulin Human Lispro (Insulin Lispro 100 Unit/Ml 3 Ml Vial) 0 unit SUBCUT QIDACHS [facility]; Protocol Last Admin: 12/10/23 07:35 Dose: Not Given Documented By: SAMARIA Non-Admin Reason: No Insulin Coverage Isosorbide Mononitrate (Isosorbide Mononitrate 30 Mg Tab.Er.24h) 30 mg PO DAILY [facility]; Protocol Last Admin: 12/09/23 07:55 Dose: 30 mg Documented By: MYLENE Levofloxacin (Levofloxacin 250 Mg Tablet) 250 mg PO Q48H [facility] Last Admin: 12/08/23 08:03 Dose: 250 mg Documented By: MYLENE Loperamide HCl (Loperamide Hcl 2 Mg Capsule) 2 mg PO Q4H PRN PRN Reason: Loose Stool Last Admin: 12/09/23 22:04 Dose: 2 mg Documented By: PRADIP Melatonin (Melatonin 3 Mg Tablet) 6 mg PO BEDTIME PRN PRN Reason: Insomnia Multivitamins/Vitamin C (Multivitamin Tablet) 1 tab PO DAILY [facility] Last Admin: 12/09/23 07:55 Dose: 1 tab Documented By: MYLENE Omeprazole (Omeprazole 20 Mg Capsule.Dr) 20 mg PO DAILY@0630 PRN PRN Reason: Gastric Reflux Ondansetron HCl (Ondansetron Hcl 4 Mg/2 Ml Vial) 4 mg IVPUSH Q8H PRN PRN Reason: Nausea and Vomiting Last Admin: 12/03/23 22:09 Dose: 4 mg Documented By: ULISES Sodium Chloride (0.9 % Sodium Chloride Flush 3 Ml Syringe) [facility] Last Admin: 12/10/23 07:57 Dose: 3 ml Documented By: SAMARIA Torsemide (Torsemide 20 Mg Tablet) 20 mg PO BID@0900,1300 [facility]; Protocol Last Admin: 12/09/23 12:16 Dose: 20 mg Documented By: MYLENE Labs 12/09/23 08:36 12/08/23 05:55 Labs: Laboratory Results - last 24 hr 12/09/23 12/09/23 12/09/23 08:36 11:12 19:10 MCV 98.2 H MCH 31.7 MCHC 32.2 RDW 16.6 H Plt Count 173 MPV 10.8 Absolute Nucleated RBC 0.000 Nucleated RBC % (auto) 0.0 POC Glucose 169 H 194 H 12/09/23 12/10/23 20:40 06:58 MCV MCH MCHC RDW Plt Count MPV Absolute Nucleated RBC Nucleated RBC % (auto) POC Glucose 245 H 139 H Assessment and Plan (1) UTI (urinary tract infection): Status: Acute (2) Pneumonia: Status: Acute (3) Anasarca: Status: Acute Plan This is a 72-year-old male with pertinent history of ESRD on hemodialysis (M/ W/ F), gastroesophageal reflux disease, mood disorder, essential hypertension, coronary artery disease who presents to the emergency department for evaluation of increasing edema. Anasarca in patient with ESRD on dialysis (M/W/F) due to missed HD session resolved Nephrology following for dialysis scheduling will resume home dose of torsemide s/p fistulagram 12/06/22, now working well Continue HD schedule MWF BMP pending UTI related to suprapubic catheter (seen by urology and suprpubic catheter changed 12/09) urine culture growing pseudomonas no symptoms, no wbc count or fever ?colonization will start renal dosed levaquin- per ID levaquin 250mg q48h x10 days ID input appreciated diarrhea cdif, GI panel negative diarrhea improving can use prn imodium if necessary Hyperglycemia with history of DM2 not previously on medication continue SSI A1c 6.6 Right sided pneumonia s/p Rocephin and azithromycin, completed 5 days saturating well on room air CAD HTN continue home medications GERD on pantoprazole Anemia of CKD hb above transfusion threshold H/H stable stage 2 pressure injury. POA local wound care per wound nurse recs left leg wounds - due to trauma do not appear infected local wound care per wound nurse recs DVT Prophylaxis: Heparin Full code DISPO - seen by PT - rec STR continue hospital stay for tx of UTI, specialist evaluation and safe disposition Quality Stroke Does the patient have a stroke diagnosis?: No VTE Prior VTE?: No VTE Risk Level:: Medical - moderate - high VTE Device Contraindication: Treatment Not Indicated VTE Drug Contraindication: N/A - Med Ordered
[2023-12-10] MEDS: carvediloL 3.125 MG TABLET PO ×2 (08:26→20:44)
[2023-12-10] MEDS: amLODIPine Besylate 5 MG TABLET PO (08:27)
[2023-12-10] MEDS: Multivitamin TABLET 1 TAB PO (08:27)
[2023-12-10] MEDS: Clopidogrel Bisulfate 75 MG TABLET PO (08:27)
[2023-12-10] MEDS: Torsemide 20 MG TABLET PO ×2 (08:27→12:14)
[2023-12-10] MEDS: Isosorbide Mononitrate 30 MG TAB.ER.24H PO (08:27)
[2023-12-10] MEDS: levoFLOXacin 250 MG TABLET PO (08:27)
[2023-12-10 11:04] VITALS: BP 134/61; PULSE 80; RESP 18; TEMP 36.5; O2SAT 97
[2023-12-10 11:41] LABS: MANUAL DIFF FLAG NO
[2023-12-10 11:42] LABS: Basophils Absolute Auto 0.1 X10*3/uL (0.0-0.2); Basophils Percent Auto 0.8 % (0-2); Eosinophils Absolute Auto 0.7 X10*3/uL (0.0-0.4); Eosinophils Percent Auto 7.1 % (0-4); Hemoglobin 9.2 g/dl (14.0-18.0); Imm Gran Abs Auto 0.11 X10*3/uL (0.00-0.03); Imm Gran Pct Auto 1.1 % (0.0-0.4); Lymphocytes Absolute Auto 1.3 X10*3/uL (1.2-4.9); Lymphocytes Percent Auto 13.4 % (20-40); Mean Corpuscular HGB Conc 30.7 g/dl (31.0-36.0); Mean Corpuscular Hemoglobin 32.6 pg (27.0-33.0); Monocytes Absolute Auto 0.7 X10*3/uL (0.1-1.2); Monocytes Percent Auto 7.1 % (2-11); Neutrophils Absolute Auto 6.9 x10*3/uL (2.0-8.3); Neutrophils Percent Auto 70.5 % (45-73); Platelet Count 163 X10*3/uL (160-400); Red Blood Count 2.82 X10*6/uL (4.60-5.80); Red Cell Distribution Width 18.4 % (11.0-16.0); White Blood Count 9.8 X10*3/uL (4.8-10.8)
[2023-12-10 11:46] LABS: Mean Corpuscular Volume 106.4 fL (80.0-98.0)
[2023-12-10 12:03] LABS: Anion Gap 16 (12-20); Blood Urea Nitrogen 40 mg/dL (9-16); Calcium 9.3 mg/dL (8.4-10.2); Carbon Dioxide 27 mmol/L (22-29); Chloride 99 mmol/L (96-108); Creatinine Clr Calc Pharmacy 14.6; Estimated Glomerular Filt Rate 13; Glucose Random 225 mg/dL (60-115); Potassium 4.4 mmol/L (3.3-5.1); Sodium 138 mmol/L (135-145)
[2023-12-10 12:12] LABS: Glucose, Whole Blood 213 mg/dL (60-115)
[2023-12-10] MEDS: Insulin Lispro 100 UNIT/ML 3 ML VIAL SUBCUT ×2 (12:13→20:44)
[2023-12-10 15:34] VITALS: BP 113/61; PULSE 76; RESP 16; TEMP 36.7; O2SAT 98
[2023-12-10 16:07] LABS: Glucose, Whole Blood 120 mg/dL (60-115)
[2023-12-10 19:32] VITALS: BP 121/64; PULSE 84; RESP 18; TEMP 36.8; O2SAT 94
[2023-12-10 20:23] LABS: Glucose, Whole Blood 215 mg/dL (60-115)
[2023-12-10 23:25] VITALS: BP 111/59; PULSE 82; RESP 18; TEMP 36.7; O2SAT 95
[2023-12-11 03:02] VITALS: BP 127/63; PULSE 81; RESP 19; TEMP 36.7; O2SAT 96
[2023-12-11 06:35] LABS: Anion Gap 18 (12-20); Blood Urea Nitrogen 54 mg/dL (9-16); Carbon Dioxide 25 mmol/L (22-29); Chloride 99 mmol/L (96-108); Creatinine Clr Calc Pharmacy 11.6; Estimated Glomerular Filt Rate 10; Glucose Random 158 mg/dL (60-115); Potassium 4.7 mmol/L (3.3-5.1); Sodium 137 mmol/L (135-145)
[2023-12-11 07:17] LABS: Glucose, Whole Blood 181 mg/dL (60-115)
[2023-12-11 07:39] VITALS: BP 120/58; PULSE 78; RESP 16; TEMP 36.6; O2SAT 96
[2023-12-11] MEDS: Isosorbide Mononitrate 30 MG TAB.ER.24H PO (08:11)
[2023-12-11] MEDS: Multivitamin TABLET 1 TAB PO (08:11)
[2023-12-11] MEDS: Torsemide 20 MG TABLET PO ×2 (08:12→12:20)
[2023-12-11] MEDS: carvediloL 3.125 MG TABLET PO ×2 (08:12→20:12)
[2023-12-11] MEDS: Insulin Lispro 100 UNIT/ML 3 ML VIAL SUBCUT ×3 (08:12→16:34)
[2023-12-11] MEDS: Clopidogrel Bisulfate 75 MG TABLET PO (08:12)
[2023-12-11] MEDS: amLODIPine Besylate 5 MG TABLET PO (08:16)
--- NOTE | 2023-12-11 09:48 | P.PNIM_ITS ---
Subjective Subjective Date of Service: 12/11/23 Interval History: follow up for fluid overload, UTI Interval history:no new complaint, looking forward to md soon Physical Exam 2 Vital Signs: Vital Signs: Last Vital Signs Temp 97.8 F 12/11/23 07:39 Pulse 78 12/11/23 07:39 Resp 16 12/11/23 07:39 BP 120/58 L 12/11/23 07:39 Pulse Ox 96 12/11/23 07:39 O2 Del Method Room Air 12/11/23 07:39 BMI result Body Mass Index 24.5 Constitutional - Awake and Alert x 3, No apparent distress Cardiovascular - S1S2, RRR, No edema Respiratory - Normal lung expansion, Normal respiratory effort, No respiratory distress, CTA bilaterally Gastrointestinal - NT / ND; +BS; No rebound or guarding Extremities - no calf tenderness bilaterally, no swelling Skin - Warm/Dry Neurological - NF Psychological - Appropriate affect Objective Data Active Medications Acetaminophen (Acetaminophen 325 Mg Tablet) 650 mg PO Q6H PRN PRN Reason: Pain, Mild (Pain Scale 1-3) Last Admin: 12/09/23 15:45 Dose: 650 mg Documented By: NATASHA Amlodipine Besylate (Amlodipine Besylate 5 Mg Tablet) 5 mg PO SUTUTHSA@0900 [facility]; Protocol Last Admin: 12/11/23 08:16 Dose: 5 mg Documented By: SAMARIA Carvedilol (Carvedilol 3.125 Mg Tablet) 3.125 mg PO BID [facility]; Protocol Last Admin: 12/11/23 08:12 Dose: 3.125 mg Documented By: SAMARIA Clopidogrel Bisulfate (Clopidogrel Bisulfate 75 Mg Tablet) 75 mg PO DAILY [facility] Last Admin: 12/11/23 08:12 Dose: 75 mg Documented By: SAMARIA Dextrose (Dextrose 50 % 25 Gm/50 Ml Syringe) 25 gm IVPUSH Q15M PRN; Protocol PRN Reason: per Hypoglycemia Standing Ord. Glucose (Glucose Gel 15 Gm Gel..Gram.) 15 gm PO Q15M PRN; Protocol PRN Reason: per Hypoglycemia Standing Ord. Heparin Sodium (Porcine) (Heparin Sodium,Porcine 5,000 Unit/Ml Vial) 5,000 unit SUBCUT Q12H [facility] Last Admin: 12/11/23 08:11 Dose: Not Given Documented By: SAMARIA Non-Admin Reason: Patient Refused Insulin Human Lispro (Insulin Lispro 100 Unit/Ml 3 Ml Vial) 0 unit SUBCUT QIDACHS [facility]; Protocol Last Admin: 12/11/23 08:12 Dose: 2 unit Documented By: SAMARIA Isosorbide Mononitrate (Isosorbide Mononitrate 30 Mg Tab.Er.24h) 30 mg PO DAILY [facility]; Protocol Last Admin: 12/11/23 08:11 Dose: 30 mg Documented By: SAMARIA Levofloxacin (Levofloxacin 250 Mg Tablet) 250 mg PO Q48H [facility] Last Admin: 12/10/23 08:27 Dose: 250 mg Documented By: SAMARIA Loperamide HCl (Loperamide Hcl 2 Mg Capsule) 2 mg PO Q4H PRN PRN Reason: Loose Stool Last Admin: 12/09/23 22:04 Dose: 2 mg Documented By: PRADIP Melatonin (Melatonin 3 Mg Tablet) 6 mg PO BEDTIME PRN PRN Reason: Insomnia Multivitamins/Vitamin C (Multivitamin Tablet) 1 tab PO DAILY [facility] Last Admin: 12/11/23 08:11 Dose: 1 tab Documented By: SAMARIA Omeprazole (Omeprazole 20 Mg Capsule.Dr) 20 mg PO DAILY@0630 PRN PRN Reason: Gastric Reflux Ondansetron HCl (Ondansetron Hcl 4 Mg/2 Ml Vial) 4 mg IVPUSH Q8H PRN PRN Reason: Nausea and Vomiting Last Admin: 12/03/23 22:09 Dose: 4 mg Documented By: ULISES Sodium Chloride (0.9 % Sodium Chloride Flush 3 Ml Syringe) [facility] Last Admin: 12/11/23 08:13 Dose: 3 ml Documented By: SAMARIA Torsemide (Torsemide 20 Mg Tablet) 20 mg PO BID@0900,1300 [facility]; Protocol Last Admin: 12/11/23 08:12 Dose: 20 mg Documented By: SAMARIA Labs 12/10/23 11:34 12/11/23 05:29 Labs: Laboratory Results - last 24 hr 12/10/23 12/10/23 12/10/23 11:34 12:08 15:58 MCV 106.4 H D MCH 32.6 MCHC 30.7 L RDW 18.4 H Plt Count 163 MPV Not Reportable Immature Gran % (Auto) 1.1 H Neut % (Auto) 70.5 Lymph % (Auto) 13.4 L [place] % (Auto) 7.1 Eos % (Auto) 7.1 H Baso % (Auto) 0.8 Lymph # (Auto) 1.3 [place] # (Auto) 0.7 Eos # (Auto) 0.7 H Baso # (Auto) 0.1 Abs Immat Gran (auto) 0.11 H Absolute Neuts (auto) 6.9 Absolute Nucleated RBC 0.000 Nucleated RBC % (auto) 0.0 Anion Gap 16 Estim Creat Clear Calc 14.6 Estimated GFR 13 POC Glucose 213 H 120 H Random Glucose 225 H Calcium 9.3 12/10/23 12/11/23 12/11/23 20:20 05:29 07:14 MCV MCH MCHC RDW Plt Count MPV Immature Gran % (Auto) Neut % (Auto) Lymph % (Auto) [place] % (Auto) Eos % (Auto) Baso % (Auto) Lymph # (Auto) [place] # (Auto) Eos # (Auto) Baso # (Auto) Abs Immat Gran (auto) Absolute Neuts (auto) Absolute Nucleated RBC Nucleated RBC % (auto) Anion Gap 18 Estim Creat Clear Calc 11.6 Estimated GFR 10 POC Glucose 215 H 181 H Random Glucose 158 H Calcium 9.0 Assessment and Plan (1) UTI (urinary tract infection): Status: Acute (2) Pneumonia: Status: Acute (3) Anasarca: Status: Acute Plan This is a 72-year-old male with pertinent history of ESRD on hemodialysis (M/ W/ F), gastroesophageal reflux disease, mood disorder, essential hypertension, coronary artery disease who presents to the emergency department for evaluation of increasing edema. Anasarca in patient with ESRD on dialysis (M/W/F) due to missed HD session--resolved continue torsemide s/p fistulagram 12/06/22, now working well Continue HD schedule MWF UTI related to suprapubic catheter, changed by urology on 12/09 no symptoms, no wbc count or fever ?colonization urine culture = pseudomonas, ID rec Levaquin 250 qod x 10 days, 12/10 ends 12/19 diarrhea cdif, GI panel negative diarrhea improving can use prn imodium Hyperglycemia with history of DM2, diet controlled. continue SSI, A1C - 6 Right sided pneumonia s/p Rocephin and azithromycin, completed 5 days saturating well on room air CAD HTN continue home medications GERD on pantoprazole Anemia of CKD hb above transfusion threshold H/H stable stage 2 pressure injury. POA local wound care per wound nurse recs left leg wounds - due to trauma do not appear infected local wound care per wound nurse recs DVT Prophylaxis: Heparin Full code DISPO - seen by PT - rec STR continue hospital stay for tx of UTI, specialist evaluation and safe disposition pending rehab bed Quality Stroke Does the patient have a stroke diagnosis?: No VTE Prior VTE?: No VTE Risk Level:: Medical - moderate - high VTE Device Contraindication: Treatment Not Indicated VTE Drug Contraindication: N/A - Med Ordered
[2023-12-11] MEDS: Loperamide HCl 2 MG CAPSULE PO ×2 (10:15→20:12)
[2023-12-11 11:00] LABS: Glucose, Whole Blood 170 mg/dL (60-115)
[2023-12-11 11:47] VITALS: BP 124/66; PULSE 77; RESP 16; TEMP 36.7; O2SAT 99
[2023-12-11 14:58] VITALS: BP 119/60; PULSE 78; RESP 16; TEMP 36.6; O2SAT 99
[2023-12-11 15:58] LABS: Glucose, Whole Blood 184 mg/dL (60-115)
[2023-12-11 19:15] VITALS: BP 122/64; PULSE 82; RESP 16; TEMP 36.2; O2SAT 98
[2023-12-11 20:31] LABS: Glucose, Whole Blood 110 mg/dL (60-115)
--- NOTE | 2023-12-11 21:47 | P.PNNP_ITS ---
Subjective Subjective Date of Service: 12/11/23 Interval history: follow up for fluid overload, UTI Interval history:no new complaint, Waiting to be placed Physical Exam 2 Vital Signs: Vital Signs: Last Vital Signs Temp 97.2 F 12/11/23 19:15 Pulse 82 12/11/23 19:15 Resp 16 12/11/23 19:15 BP 122/64 12/11/23 19:15 Pulse Ox 98 12/11/23 19:15 O2 Del Method Room Air 12/11/23 19:15 BMI result Body Mass Index 24.5 Constitutional - Awake and Alert x 3, No apparent distress Cardiovascular - S1S2, RRR, No edema Respiratory - Normal lung expansion, Normal respiratory effort, No respiratory distress, CTA bilaterally Gastrointestinal - NT / ND; +BS; No rebound or guarding Extremities - no calf tenderness bilaterally, no swelling Skin - Warm/Dry Neurological - NF Psychological - Appropriate affect Objective Data Labs 12/10/23 11:34 12/11/23 05:29 Labs: Laboratory Results - last 24 hr 12/11/23 12/11/23 12/11/23 05:29 07:14 10:56 Sodium 137 Potassium 4.7 Chloride 99 Carbon Dioxide 25 Anion Gap 18 BUN 54 H Creatinine 5.63 H* Estim Creat Clear Calc 11.6 Estimated GFR 10 POC Glucose 181 H 170 H Random Glucose 158 H Calcium 9.0 12/11/23 12/11/23 15:47 20:28 Sodium Potassium Chloride Carbon Dioxide Anion Gap BUN Creatinine Estim Creat Clear Calc Estimated GFR POC Glucose 184 H 110 Random Glucose Calcium Microbiology Microbiology Results: Microbiology 12/02/23 Unknown Urine clean catch - Urine palumbo top Urine Culture - Final Pseudomonas aeruginosa Procedures Date of Service Date of Service: 12/11/23 Assessment & Plan Assessment and plan (1) ESRD (end stage renal disease) on dialysis: Status: Acute (2) Missed dialysis: Status: Acute Plan This is a 71-year-old male with pertinent history of ESRD on dialysis (M/ W/ F), coronary artery disease, essential hypertension, chronic suprapubic catheter, PTSD, gastroesophageal reflux disease who presents to the emergency department for evaluation of generalized weakness /nausea/ vomiting. ESRD on dialysis (M/W/F) AVG clotted -s/p declott HD per schedule Urology f/u Low salt diet Fluid restriction Na and K restriction Epo 20 K x i dose given this week Continue BP meds Waiting for [employer] D/w Medical team in detail Time Spent With Patient Time: Total time managing care of this patient today ____ minutes. Progress Note: Quality Stroke Does the patient have a stroke diagnosis?: No
[2023-12-12] VITALS (7 sets, daily range): BP systolic 105–138; BP diastolic 57–78; PULSE 64–85; RESP 16–18; TEMP 36.1–36.7; O2SAT 98–99
[2023-12-12 07:07] LABS: Glucose, Whole Blood 194 mg/dL (60-115)
[2023-12-12 07:42] LABS: Glucose, Whole Blood 205 mg/dL (60-115)
[2023-12-12] MEDS: Isosorbide Mononitrate 30 MG TAB.ER.24H PO (08:00)
[2023-12-12] MEDS: Torsemide 20 MG TABLET PO ×2 (08:01→13:43)
[2023-12-12] MEDS: carvediloL 3.125 MG TABLET PO ×2 (08:01→20:51)
[2023-12-12] MEDS: Clopidogrel Bisulfate 75 MG TABLET PO (08:01)
[2023-12-12] MEDS: Multivitamin TABLET 1 TAB PO (08:01)
[2023-12-12] MEDS: Insulin Lispro 100 UNIT/ML 3 ML VIAL SUBCUT ×2 (08:04→16:56)
[2023-12-12] MEDS: levoFLOXacin 250 MG TABLET PO (08:09)
--- NOTE | 2023-12-12 09:43 | P.PNIM_ITS ---
Subjective Subjective Date of Service: 12/12/23 Interval History: follow up for fluid overload, UTI Interval history:no new complaint, looking forward to de soon Physical Exam 2 Vital Signs: Vital Signs: Last Vital Signs Temp 97.8 F 12/12/23 06:58 Pulse 85 12/12/23 06:58 Resp 16 12/12/23 06:58 BP 126/78 12/12/23 06:58 Pulse Ox 99 12/12/23 06:58 O2 Del Method Room Air 12/12/23 06:58 BMI result Body Mass Index 24.5 Appearing in no acute distress lung sounds are clear to auscultation heart regular rate rhythm, clear S1, S2 positive bowel sounds, abdomen is soft, nontender neuro patient is alert x3, no focal deficits Objective Data Active Medications Acetaminophen (Acetaminophen 325 Mg Tablet) 650 mg PO Q6H PRN PRN Reason: Pain, Mild (Pain Scale 1-3) Last Admin: 12/09/23 15:45 Dose: 650 mg Documented By: NATASHA Amlodipine Besylate (Amlodipine Besylate 5 Mg Tablet) 5 mg PO SUTUTHSA@0900 [facility]; Protocol Last Admin: 12/11/23 08:16 Dose: 5 mg Documented By: SAMARIA Carvedilol (Carvedilol 3.125 Mg Tablet) 3.125 mg PO BID [facility]; Protocol Last Admin: 12/12/23 08:01 Dose: 3.125 mg Documented By: SIMON Clopidogrel Bisulfate (Clopidogrel Bisulfate 75 Mg Tablet) 75 mg PO DAILY [facility] Last Admin: 12/12/23 08:01 Dose: 75 mg Documented By: SIMON Dextrose (Dextrose 50 % 25 Gm/50 Ml Syringe) 25 gm IVPUSH Q15M PRN; Protocol PRN Reason: per Hypoglycemia Standing Ord. Glucose (Glucose Gel 15 Gm Gel..Gram.) 15 gm PO Q15M PRN; Protocol PRN Reason: per Hypoglycemia Standing Ord. Heparin Sodium (Porcine) (Heparin Sodium,Porcine 5,000 Unit/Ml Vial) 5,000 unit SUBCUT Q12H [facility] Last Admin: 12/12/23 08:05 Dose: Not Given Documented By: SIMON Non-Admin Reason: Patient Refused Insulin Human Lispro (Insulin Lispro 100 Unit/Ml 3 Ml Vial) 0 unit SUBCUT QIDACHS [facility]; Protocol Last Admin: 12/12/23 08:04 Dose: 2 unit Documented By: SIMON Isosorbide Mononitrate (Isosorbide Mononitrate 30 Mg Tab.Er.24h) 30 mg PO DAILY [facility]; Protocol Last Admin: 12/12/23 08:00 Dose: 30 mg Documented By: SIMON Levofloxacin (Levofloxacin 250 Mg Tablet) 250 mg PO Q48H [facility] Last Admin: 12/12/23 08:09 Dose: 250 mg Documented By: SIMON Loperamide HCl (Loperamide Hcl 2 Mg Capsule) 2 mg PO Q4H PRN PRN Reason: Loose Stool Last Admin: 12/11/23 20:12 Dose: 2 mg Documented By: SARAI Melatonin (Melatonin 3 Mg Tablet) 6 mg PO BEDTIME PRN PRN Reason: Insomnia Multivitamins/Vitamin C (Multivitamin Tablet) 1 tab PO DAILY [facility] Last Admin: 12/12/23 08:01 Dose: 1 tab Documented By: SIMON Omeprazole (Omeprazole 20 Mg Capsule.Dr) 20 mg PO DAILY@0630 PRN PRN Reason: Gastric Reflux Ondansetron HCl (Ondansetron Hcl 4 Mg/2 Ml Vial) 4 mg IVPUSH Q8H PRN PRN Reason: Nausea and Vomiting Last Admin: 12/03/23 22:09 Dose: 4 mg Documented By: ULISES Sodium Chloride (0.9 % Sodium Chloride Flush 3 Ml Syringe) 3 ml IVFLUSH QSHIFT [facility] Last Admin: 12/12/23 08:03 Dose: 3 ml Documented By: SIMON Torsemide (Torsemide 20 Mg Tablet) 20 mg PO BID@0900,1300 [facility]; Protocol Last Admin: 12/12/23 08:01 Dose: 20 mg Documented By: SIMON Labs 12/10/23 11:34 12/11/23 05:29 Labs: Laboratory Results - last 24 hr 12/10/23 12/11/23 12/11/23 10:58 10:56 15:47 POC Glucose 205 H 170 H 184 H 12/11/23 12/12/23 20:28 07:02 POC Glucose 110 194 H Assessment and Plan (1) UTI (urinary tract infection): Status: Acute (2) Pneumonia: Status: Acute (3) Anasarca: Status: Acute Plan This is a 72-year-old male with pertinent history of ESRD on hemodialysis (M/ W/ F), gastroesophageal reflux disease, mood disorder, essential hypertension, coronary artery disease who presents to the emergency department for evaluation of increasing edema. Anasarca in patient with ESRD on dialysis (M/W/F) due to missed HD session--resolved continue torsemide s/p fistulagram 12/06/22, now working well Continue HD schedule MWF UTI related to suprapubic catheter, changed by urology on 12/09 no symptoms, no wbc count or fever ?colonization urine culture = pseudomonas, ID rec Levaquin 250 qod x 10 days, 12/10 ends 12/19 diarrhea cdif, GI panel negative diarrhea improving can use prn imodium Hyperglycemia with history of DM2 diet controlled. continue SSI A1C - 6 Right sided pneumonia s/p Rocephin and azithromycin, completed 5 days saturating well on room air CAD HTN continue home medications GERD on pantoprazole Anemia of CKD hb above transfusion threshold H/H stable stage 2 pressure injury. POA local wound care per wound nurse recs left leg wounds - due to trauma do not appear infected local wound care per wound nurse recs DVT Prophylaxis: Heparin Attending Dr. Schreiber Full code DISPO - seen by PT - rec STR vs home with services continue hospital stay for tx of UTI, specialist evaluation and safe disposition pending rehab bed Quality Stroke Does the patient have a stroke diagnosis?: No VTE Prior VTE?: No VTE Risk Level:: Medical - moderate - high VTE Device Contraindication: Treatment Not Indicated VTE Drug Contraindication: N/A - Med Ordered
[2023-12-12 11:51] LABS: Glucose, Whole Blood 140 mg/dL (60-115)
--- NOTE | 2023-12-12 12:14 | P.PNNP_ITS ---
Subjective Subjective Date of Service: 12/12/23 Interval history: seen and examined on HD no complaints Physical Exam 2 Vital Signs: Vital Signs: Last Vital Signs Temp 97.8 F 12/12/23 06:58 Pulse 85 12/12/23 06:58 Resp 16 12/12/23 06:58 BP 126/78 12/12/23 06:58 Pulse Ox 99 12/12/23 06:58 O2 Del Method Room Air 12/12/23 06:58 BMI result Body Mass Index 24.5 Const: General: alert and awake HEENT: Head: Yes normocephalic and Yes atraumatic Neck: Neck: Yes supple Resp: Auscultation: diminished lung sounds Cardio: Heart sounds: S1 normal heart sound present and S2 normal heart sound present GI: Palpation (GI): Soft to palpation and nontender Objective Data Labs 12/10/23 11:34 12/11/23 05:29 Labs: Laboratory Results - last 24 hr 12/10/23 12/11/23 12/11/23 10:58 15:47 20:28 POC Glucose 205 H 184 H 110 12/12/23 12/12/23 07:02 11:48 POC Glucose 194 H 140 H Microbiology Microbiology Results: Microbiology 12/02/23 Unknown Urine clean catch - Urine palumbo top Urine Culture - Final Pseudomonas aeruginosa Procedures Date of Service Date of Service: 12/12/23 Assessment & Plan Assessment and plan (1) ESRD (end stage renal disease): Status: Acute (2) Anemia: Status: Acute Plan known ESRD on dialysis (M/W/F) AVG clotted s/p declot nephrogenic anemia REC HD today UF as tolerated renal diet phosdpahte binders DAVID Time Spent With Patient Time: Total time managing care of this patient today ____ minutes. Progress Note: Quality Stroke Does the patient have a stroke diagnosis?: No
--- NOTE | 2023-12-12 13:38 | MHC.CLN ---
F/U DIET=DIABETIC 2000 [facility]. PATIENT WITH ESRD AND RECEIVES HEMODIALYSIS. INCREASED NUTRITION NEEDS DUE TO STAGE II PRESSURE INJURY TO SACRUM. SEE WOUND RN NOTE 12/05/23. INTAKE USUALLY 100%. FOLLOW FOR INTAKE AND WOUND HEALING.
[2023-12-12 16:05] LABS: Glucose, Whole Blood 201 mg/dL (60-115)
[2023-12-12 19:58] LABS: Glucose, Whole Blood 123 mg/dL (60-115)
[2023-12-13 01:58] VITALS: BP 145/82; PULSE 75; RESP 18; TEMP 36.2; O2SAT 99
[2023-12-13 07:09] VITALS: BP 133/75; PULSE 78; RESP 14; TEMP 36.2; O2SAT 100
[2023-12-13 07:15] LABS: Glucose, Whole Blood 155 mg/dL (60-115)
[2023-12-13] MEDS: Isosorbide Mononitrate 30 MG TAB.ER.24H PO (08:28)
[2023-12-13] MEDS: carvediloL 3.125 MG TABLET PO ×2 (08:29→20:51)
[2023-12-13] MEDS: Clopidogrel Bisulfate 75 MG TABLET PO (08:29)
[2023-12-13] MEDS: amLODIPine Besylate 5 MG TABLET PO (08:29)
[2023-12-13] MEDS: Multivitamin TABLET 1 TAB PO (08:30)
[2023-12-13] MEDS: Torsemide 20 MG TABLET PO ×2 (08:30→13:24)
[2023-12-13 08:48] VITALS: BP 133/75; PULSE 78; O2SAT 100
--- NOTE | 2023-12-13 11:01 | P.PNNP_ITS ---
Subjective Subjective Date of Service: 12/13/23 Interval history: seen and examined had HD yesterday no complaints Physical Exam 2 Vital Signs: Vital Signs: Last Vital Signs Temp 97.1 F 12/13/23 07:09 Pulse 78 12/13/23 08:48 Resp 14 12/13/23 07:09 BP 133/75 12/13/23 08:48 Pulse Ox 100 12/13/23 08:48 O2 Del Method Room Air 12/13/23 07:09 BMI result Body Mass Index 24.5 Const: General: alert and awake HEENT: Head: Yes normocephalic and Yes atraumatic Neck: Neck: Yes supple Resp: Auscultation: diminished lung sounds Cardio: Heart sounds: S1 normal heart sound present and S2 normal heart sound present GI: Palpation (GI): Soft to palpation and nontender Objective Data Labs 12/10/23 11:34 12/11/23 05:29 Labs: Laboratory Results - last 24 hr 12/12/23 12/12/23 12/12/23 11:48 16:01 19:55 POC Glucose 140 H 201 H 123 H 12/13/23 07:12 POC Glucose 155 H Microbiology Microbiology Results: Microbiology 12/02/23 Unknown Urine clean catch - Urine palumbo top Urine Culture - Final Pseudomonas aeruginosa Procedures Date of Service Date of Service: 12/13/23 Assessment & Plan Assessment and plan (1) ESRD (end stage renal disease): Status: Acute (2) Anemia: Status: Acute Plan known ESRD on dialysis (M/W/F) AVG clotted s/p declot nephrogenic anemia REC HD tomorrow renal diet phosdpahte binders DAVID Time Spent With Patient Time: Total time managing care of this patient today ____ minutes. Progress Note: Quality Stroke Does the patient have a stroke diagnosis?: No
[2023-12-13 11:44] LABS: Glucose, Whole Blood 195 mg/dL (60-115)
[2023-12-13] MEDS: Insulin Lispro 100 UNIT/ML 3 ML VIAL SUBCUT ×2 (12:14→20:52)
--- NOTE | 2023-12-13 12:35 | P.PNIM_ITS ---
Subjective Subjective Date of Service: 12/13/23 Interval History: follow up for fluid overload, UTI Interval history:no new complaint, looking forward to [place] soon Physical Exam 2 Vital Signs: Vital Signs: Last Vital Signs Temp 97.1 F 12/13/23 07:09 Pulse 78 12/13/23 08:48 Resp 14 12/13/23 07:09 BP 133/75 12/13/23 08:48 Pulse Ox 100 12/13/23 08:48 O2 Del Method Room Air 12/13/23 07:09 BMI result Body Mass Index 24.5 Appearing in no acute distress lung sounds are clear to auscultation heart regular rate rhythm, clear S1, S2 positive bowel sounds, abdomen is soft, nontender neuro patient is alert x3, no focal deficits Objective Data Active Medications Acetaminophen (Acetaminophen 325 Mg Tablet) 650 mg PO Q6H PRN PRN Reason: Pain, Mild (Pain Scale 1-3) Last Admin: 12/09/23 15:45 Dose: 650 mg Documented By: NATASHA Amlodipine Besylate (Amlodipine Besylate 5 Mg Tablet) 5 mg PO SUTUTHSA@0900 [facility]; Protocol Last Admin: 12/13/23 08:29 Dose: 5 mg Documented By: SIMON Carvedilol (Carvedilol 3.125 Mg Tablet) 3.125 mg PO BID [facility]; Protocol Last Admin: 12/13/23 08:29 Dose: 3.125 mg Documented By: SIMON Clopidogrel Bisulfate (Clopidogrel Bisulfate 75 Mg Tablet) 75 mg PO DAILY [facility] Last Admin: 12/13/23 08:29 Dose: 75 mg Documented By: SIMON Dextrose (Dextrose 50 % 25 Gm/50 Ml Syringe) 25 gm IVPUSH Q15M PRN; Protocol PRN Reason: per Hypoglycemia Standing Ord. Glucose (Glucose Gel 15 Gm Gel..Gram.) 15 gm PO Q15M PRN; Protocol PRN Reason: per Hypoglycemia Standing Ord. Heparin Sodium (Porcine) (Heparin Sodium,Porcine 5,000 Unit/Ml Vial) 5,000 unit SUBCUT Q12H [facility] Last Admin: 12/13/23 08:32 Dose: Not Given Documented By: SIMON Non-Admin Reason: Patient Refused Insulin Human Lispro (Insulin Lispro 100 Unit/Ml 3 Ml Vial) 0 unit SUBCUT QIDACHS [facility]; Protocol Last Admin: 12/13/23 12:14 Dose: 2 unit Documented By: SIMON Isosorbide Mononitrate (Isosorbide Mononitrate 30 Mg Tab.Er.24h) 30 mg PO DAILY [facility]; Protocol Last Admin: 12/13/23 08:28 Dose: 30 mg Documented By: SIMON Levofloxacin (Levofloxacin 250 Mg Tablet) 250 mg PO Q48H [facility] Last Admin: 12/12/23 08:09 Dose: 250 mg Documented By: SIMON Loperamide HCl (Loperamide Hcl 2 Mg Capsule) 2 mg PO Q4H PRN PRN Reason: Loose Stool Last Admin: 12/11/23 20:12 Dose: 2 mg Documented By: SARAI Melatonin (Melatonin 3 Mg Tablet) 6 mg PO BEDTIME PRN PRN Reason: Insomnia Multivitamins/Vitamin C (Multivitamin Tablet) 1 tab PO DAILY [facility] Last Admin: 12/13/23 08:30 Dose: 1 tab Documented By: SIMON Omeprazole (Omeprazole 20 Mg Capsule.) 20 mg PO DAILY@0630 PRN PRN Reason: Gastric Reflux Ondansetron HCl (Ondansetron Hcl 4 Mg/2 Ml Vial) 4 mg IVPUSH Q8H PRN PRN Reason: Nausea and Vomiting Last Admin: 12/03/23 22:09 Dose: 4 mg Documented By: ULISES Sodium Chloride (0.9 % Sodium Chloride Flush 3 Ml Syringe) 3 ml IVFLUSH QSHIFT [facility] Last Admin: 12/13/23 08:20 Dose: Not Given Documented By: SIMON Non-Admin Reason: Patient Refused Torsemide (Torsemide 20 Mg Tablet) 20 mg PO BID@0900,1300 [facility]; Protocol Last Admin: 12/13/23 08:30 Dose: 20 mg Documented By: SIMON Labs 12/10/23 11:34 12/11/23 05:29 Labs: Laboratory Results - last 24 hr 12/12/23 12/12/23 12/13/23 16:01 19:55 07:12 POC Glucose 201 H 123 H 155 H 12/13/23 11:40 POC Glucose 195 H Assessment and Plan (1) UTI (urinary tract infection): Status: Acute (2) Pneumonia: Status: Acute (3) Anasarca: Status: Acute Plan This is a 72-year-old male with pertinent history of ESRD on hemodialysis (M/ W/ F), gastroesophageal reflux disease, mood disorder, essential hypertension, coronary artery disease who presents to the emergency department for evaluation of increasing edema. Anasarca in patient with ESRD on dialysis (M/W/F) due to missed HD session--resolved continue torsemide s/p fistulagram 12/06/22, now working well Continue HD schedule MWF UTI related to suprapubic catheter, changed by urology on 12/09 no symptoms, no wbc count or fever ?colonization urine culture = pseudomonas, ID rec Levaquin 250 qod x 10 days, 12/10 ends 12/19 diarrhea cdif, GI panel negative diarrhea improving can use prn imodium Hyperglycemia with history of DM2 diet controlled. continue SSI A1C - 6 Right sided pneumonia s/p Rocephin and azithromycin, completed 5 days saturating well on room air CAD HTN continue home medications GERD on pantoprazole Anemia of CKD hb above transfusion threshold H/H stable stage 2 pressure injury. POA local wound care per wound nurse recs left leg wounds - due to trauma do not appear infected local wound care per wound nurse recs DVT Prophylaxis: Heparin Attending Dr. Schreiber Full code DISPO - seen by PT - rec STR, waiting on placement continue hospital stay for tx of UTI, specialist evaluation and safe disposition pending rehab bed Quality Stroke Does the patient have a stroke diagnosis?: No VTE Prior VTE?: No VTE Risk Level:: Medical - moderate - high VTE Device Contraindication: Treatment Not Indicated VTE Drug Contraindication: N/A - Med Ordered
--- NOTE | 2023-12-13 13:13 | MHC.CM.PN ---
Pt. has [employer] insurance, was awaiting auth from [facility] for STR there, received a call from [facility] (Ambar El [phone]. [phone]) to say that they are not contracted with [facility]. [facility] explained that [facility] has dialysis right there, so this is a benefit for Pt. Ambar said that he can go there under his other insurance ([employer]). Ambar from [facility] said that they are contracted with [facility], and they have dialysis there. has sent message to [facility] to ask if they will take [employer], and to [place] to see if they have a bed. Pt. is aware, and waiting to here. He said he does prefer [place], but will go to [facility] if that is who will take his ins and has a bed.
--- NOTE | 2023-12-13 14:57 | MHC.CM.PN ---
Update: patient accepted by [facility] and is arranging transport to HD. Plan to admit patient tomorrow after HD.
[2023-12-13 15:29] VITALS: BP 100/54; PULSE 76; RESP 18; TEMP 36.3; O2SAT 98
[2023-12-13 16:32] LABS: Glucose, Whole Blood 156 mg/dL (60-115)
[2023-12-13 19:35] VITALS: BP 121/59; PULSE 76; RESP 18; TEMP 36.1; O2SAT 96
[2023-12-13 20:28] LABS: Glucose, Whole Blood 207 mg/dL (60-115)
--- NOTE | 2023-12-13 22:56 | PC.NURSE ---
Pt's IV is outdated and pt c/o burning when it's flushed. Pt refusing a new IV because he's being discharged tomorrow. IV removed, Dr. Neal LANDA'd pt to not have access.
[2023-12-14 03:59] VITALS: BP 137/68; PULSE 74; RESP 18; TEMP 36; O2SAT 99
--- NOTE | 2023-12-14 07:17 | P.DS_ITS ---
DS: Providers Provider Date of Service: 12/14/23 Date of admission: 12/03/23 08:00 Primary care physician: Unknown Physician Consults: 12/02/23 19:55 Consult to Nephrology Routine Consulting Provider: Lloyd Crowell Reason for consultation: Missed dialysis 12/03/23 00:21 Consult to Wound Care Routine Reason for consultation: 2 stage 2 to lucita butt,R great toe necrotic,lucita knee abassions,L lower leg r 12/08/23 09:58 Consult to Infectious Diseases [place]ine [place]ing [place] [facility] [place] Reason for consultation: pseudomonas UTI; suprapubic cath Has provider been notified: No 12/08/23 09:59 Consult to Urology Routine Consulting Provider: Bernardino Mayer Reason for consultation: suprapubic catheter leaking Has provider been notified: No DS: Diagnosis Discharge Diagnosis (1) UTI (urinary tract infection): Status: Acute (2) Pneumonia: Status: Acute (3) Anasarca: Status: Acute DS: Summary Hospital Course Hospital Course: history and physical as per admitting provider. This is a 72-year-old male with pertinent history of ESRD on hemodialysis (M/ W/ F), gastroesophageal reflux disease, mood disorder, essential hypertension, coronary artery disease who presents to the emergency department for evaluation of increasing edema. Patient states he has been having worsening swelling all over, that started 2 days prior to presentation. He missed his hemodialysis session on the day of presentation. his last hemodialysis session was on Tuesday. Denies shortness of breath, orthopnea or PND. Does endorse cough that started 2 days prior to presentation. It is associated with pleuritic chest discomfort. No fever, chills, nausea, vomiting, palpitations, abdominal pain, changes in bowel habits. Nephrology was consulted from the ER and plan was to get him for outpatient hemodialysis session in the day. Unfortunately patient was not discharged and no ambulance was able to get him for hemodialysis session. Nephrology was re- consulted who requested admission with plans for hemodialysis in a.m. 72-year-old man treated for anasarca secondary to missed dialysis session. Patient has improved significantly with scheduled dialysis sessions while inpatient. He did have an issue with his fistula and had a fistulogram on 12/06/2022 and since then there has been no issue. He was also noted to have a Pseudomonas UTI, he does have a suprapubic catheter. He was treated with Levaquin. He can complete his course outpatient. He was also noted to have diarrhea, C diff and GI panel was negative diarrhea improved significantly with as needed Imodium. He was also treated for right-sided pneumonia with Rocephin and azithromycin and completed 5 total days, he was not hypoxic and remained on room air. Plan is for patient to be transferred to short-term rehab and then the plan would hopefully be to get back home with services at some point. Coronary artery disease. Continue Plavix, carvedilol Hypertension. Continue amlodipine, isosorbide GERD. Continue PPI Anemia of chronic disease secondary to chronic kidney disease/end-stage renal disease. Remained above transfusion threshold during hospitalization Stage II pressure injury. Present on admission. Local wound care Left leg wound. Secondary to trauma, did not appear to be infected, continue local wound care Diabetes mellitus type 2. A1c 6. Was not on any home medications. Was treated with sliding scale insulin while inpatient. May continue to monitor facility and determine if patient would need to start treatment if blood sugars are frequently elevated. Time Attestation Discharge coordination time: Greater than 30 minutes Quality: Safe Use of Opioids Does Pt have an Active Cancer Diagnosis on the Problem List?: No Quality: Stroke Does the patient have a stroke diagnosis?: No Physical Exam Vital Signs: Vital Signs: Last Vital Signs Temp 96.8 F 12/14/23 03:59 Pulse 74 12/14/23 03:59 Resp 18 12/14/23 03:59 BP 137/68 12/14/23 03:59 Pulse Ox 99 12/14/23 03:59 O2 Del Method Room Air 12/14/23 03:59 BMI result Body Mass Index 24.5 Appearing in no acute distress head is normocephalic atraumatic eyes pupils are PERRLA sclera is anicteric mouth throat mucous membranes are intact and moist neck is supple no lymphadenopathy, no JVD noted lung sounds are clear to auscultation heart regular rate rhythm, clear S1, S2 positive bowel sounds, abdomen is soft, nontender neuro patient is alert x3, no focal deficits AV fistula Suprapubic catheter DS: Data Data Completed and Pending Completed studies during hospitalization [Text1]: Procedures Drainage of Bone Marrow, Percutaneous Approach, Diagnostic (10/16/22) Extraction of Vertebral Bone Marrow, Percutaneous Approach, Diagnostic (10/16/22) Performance of Urinary Filtration, Intermittent, Less than 6 Hours Per Day (10/16/22) Labs on day of discharge: Laboratory Results - last 24 hr 12/13/23 12/13/23 12/13/23 11:40 16:27 20:25 POC Glucose 195 H 156 H 207 H Discharge Plan Discharge Anticipated Discharge Date/Time: 12/14/23 07:11 Patient Disposition: Xfer SNF Discharge Diagnosis: Anasarca End-stage renal disease on dialysis UTI Diarrhea Pneumonia Referrals: [facility] [Outside] - 1 Day (Short term rehab) Discharge Medications: New levofloxacin 250 mg tablet 250 mg PO Q48H Qty: 5 0RF Rx Instructions: dialysis days Continued loperamide [Imodium A-D] 2 mg Capsule 2 mg PO Q4H PRN (Reason: Loose Stool) Rx Instructions: administer after each loose stool until symptoms controlled; do not exceed 8 mg per 24 hrs isosorbide mononitrate 30 mg Tablet Extended Release 24 Hr 30 mg PO DAILY clopidogrel 75 mg Tablet 75 mg PO DAILY carvedilol 3.125 mg Tablet 3.125 mg PO BID Rx Instructions: must administer with a meal/food ondansetron 4 mg Tablet,Disintegrating 4 mg PO Q6H PRN (Reason: Nausea And Vomiting) amlodipine 5 mg tablet 5 mg PO SUTUTHSA@0900 Protocol: Hold for SBP< HOLD for SBP < : 90 Rx Instructions: On non-diaylsis days only pantoprazole 40 mg tablet,delayed release (DR/EC) 40 mg PO DAILY@0630 PRN (Reason: Gastric Reflux) Tabatha-Thiago Rx 1-60-300 mg-mg-mcg tablet 1 tab PO DAILY torsemide 20 mg tablet 20 mg PO BID@0900,1300 Discharge Orders: Discharge Order (Routine); Ordered 12/14/23 Ordered By: Libertad Valdez Diet: Advance to usual diet Activity on Discharge: As tolerated Stand Alone Forms: Patient Portal Discharge page Care Plan Goals: Transfer to short-term rehab for physical therapy Levaquin 250 mg every other day on dialysis days, 5 more doses, last dose 12/14/2023 Health Concerns: Anasarca End-stage renal disease on dialysis UTI Diarrhea Pneumonia Plan of Treatment: Follow-up primary care provider as needed Take all medications as prescribed Assessment: See discharge summary
--- NOTE | 2023-12-14 08:59 | MHC.CM.PN ---
EMR reviewed. Per hospitalist patient is medically cleared for dc to STR at [facility] via BLS at 12:00pm. [facility] at [facility]. Patient dialyzed this AM. IMM delivered. RN aware.
[2023-12-14] MEDS: Clopidogrel Bisulfate 75 MG TABLET PO (10:15)
[2023-12-14] MEDS: levoFLOXacin 250 MG TABLET PO (10:15)
[2023-12-14] MEDS: Isosorbide Mononitrate 30 MG TAB.ER.24H PO (10:15)
[2023-12-14] MEDS: Multivitamin TABLET 1 TAB PO (10:15)
[2023-12-14] MEDS: Torsemide 20 MG TABLET PO (10:15)
[2023-12-14] MEDS: carvediloL 3.125 MG TABLET PO (10:15)
[2023-12-14 11:27] LABS: Glucose, Whole Blood 127 mg/dL (60-115)
--- NOTE | 2023-12-14 11:27 | P.PNNP_ITS ---
Subjective Subjective Date of Service: 12/14/23 Interval history: seen and examined had HD earlier no complaints Physical Exam 2 Vital Signs: Vital Signs: Last Vital Signs Temp 96.8 F 12/14/23 03:59 Pulse 74 12/14/23 03:59 Resp 18 12/14/23 03:59 BP 137/68 12/14/23 03:59 Pulse Ox 99 12/14/23 03:59 O2 Del Method Room Air 12/14/23 03:59 BMI result Body Mass Index 24.5 Const: General: alert and awake HEENT: Head: Yes normocephalic and Yes atraumatic Neck: Neck: Yes supple Resp: Auscultation: diminished lung sounds Cardio: Heart sounds: S1 normal heart sound present and S2 normal heart sound present GI: Palpation (GI): Soft to palpation and nontender Objective Data Labs 12/10/23 11:34 12/11/23 05:29 Labs: Laboratory Results - last 24 hr 12/13/23 12/13/23 12/13/23 11:40 16:27 20:25 POC Glucose 195 H 156 H 207 H 12/14/23 11:22 POC Glucose 127 H Microbiology Microbiology Results: Microbiology 12/02/23 Unknown Urine clean catch - Urine palumbo top Urine Culture - Final Pseudomonas aeruginosa Procedures Date of Service Date of Service: 12/14/23 Assessment & Plan Assessment and plan (1) ESRD (end stage renal disease): Status: Acute (2) Anemia: Status: Acute Plan known ESRD on dialysis (M/W/F) AVG clotted s/p declot nephrogenic anemia REC HD today with volume optimization renal diet phosdpahte binders DAVID dc to rehab today, will arrange for o/p HD Time Spent With Patient Time: Total time managing care of this patient today ____ minutes. Progress Note: Quality Stroke Does the patient have a stroke diagnosis?: No
== END 2023-12-14 12:54 | disposition skilled nursing facility (03) | DRG 981 ==
LOC: HO.ED 19:53 → HO.EDOVER 20:06 → HO.S3 21:29
PROVIDERS: Internal Medicine; Physician Assistant; Physician Assistant Medical; Radiology Vascular & Interventional Radiology; Admitting Provider Student in an Organized Health Care Education/Training Program; Emergency Provider Student in an Organized Health Care Education/Training Program; PCP Nurse Practitioner Family; Referring Provider Internal Medicine; Visit Provider Nurse Practitioner Acute Care
DX: T83.518A Infection and inflammatory reaction due to other urinary catheter, initial encounter (principal); J18.9 Pneumonia, unspecified organism; N18.6 End stage renal disease; I12.0 Hypertensive chronic kidney disease with stage 5 chronic kidney disease or end stage renal disease; T82.590A Other mechanical complication of surgically created arteriovenous fistula, initial encounter; N39.0 Urinary tract infection, site not specified; T82.868A Thrombosis due to vascular prosthetic devices, implants and grafts, initial encounter; E87.70 Fluid overload, unspecified; B96.5 Pseudomonas (aeruginosa) (mallei) (pseudomallei) as the cause of diseases classified elsewhere; N31.9 Neuromuscular dysfunction of bladder, unspecified; E11.22 Type 2 diabetes mellitus with diabetic chronic kidney disease; I25.10 Atherosclerotic heart disease of native coronary artery without angina pectoris; D63.1 Anemia in chronic kidney disease; R19.7 Diarrhea, unspecified; L89.322 Pressure ulcer of left buttock, stage 2; L89.312 Pressure ulcer of right buttock, stage 2; E11.65 Type 2 diabetes mellitus with hyperglycemia; F43.10 Post-traumatic stress disorder, unspecified; Z75.1 Person awaiting admission to adequate facility elsewhere; Z99.2 Dependence on renal dialysis; Z91.158 Patient's noncompliance with renal dialysis for other reason; Z20.822 Contact with and (suspected) exposure to COVID-19; Z79.02 Long term (current) use of antithrombotics/antiplatelets; Z79.899 Other long term (current) drug therapy
CPT/HCPCS: 0241U; 36415; 36902; 36905; 51710; 71045; 80048; 80053; 81001; 82947; 83036; 85025; 85027; 85610; 85730; 86704; 86706; 87086; 87088; 87186; 87340; 87493; 87507; 90999; 93005; 97110; 97162; 99152; 99153; 99285; C1725; C1757; C1769; C1893; J0456; J0696; J0885; J1644; J1940; J2405

== ENCOUNTER → 2023-12-02 11:35 | Outpatient (BNV) | payer OTHER, MEDICARE, SELFPAY | PROVIDERS: Admitting Provider Student in an Organized Health Care Education/Training Program; Emergency Provider Student in an Organized Health Care Education/Training Program; Visit Provider Internal Medicine Cardiovascular Disease | DX: R94.31 Abnormal electrocardiogram [ECG] [EKG] (principal) | CPT/HCPCS: 93010 ==

== ENCOUNTER → 2023-12-02 19:57 | Outpatient (BNV) | payer OTHER, SELFPAY | PROVIDERS: Admitting Provider Student in an Organized Health Care Education/Training Program; Emergency Provider Student in an Organized Health Care Education/Training Program; Visit Provider Student in an Organized Health Care Education/Training Program | DX: N39.0 Urinary tract infection, site not specified (principal); J18.9 Pneumonia, unspecified organism; R60.1 Generalized edema | CPT/HCPCS: 99223; 99232; 99238 ==

== ENCOUNTER 2023-12-03 08:00 | Outpatient (BNV) | payer OTHER, MEDICARE, SELFPAY | END 2023-12-06 13:00 | PROVIDERS: Admitting Provider Student in an Organized Health Care Education/Training Program; Emergency Provider Student in an Organized Health Care Education/Training Program; Visit Provider Student in an Organized Health Care Education/Training Program | DX: T85.868A Thrombosis due to other internal prosthetic devices, implants and grafts, initial encounter (principal) | CPT/HCPCS: 36905 ==

== ENCOUNTER → 2023-12-03 08:00 | Outpatient (BNV) | payer OTHER, MEDICARE, SELFPAY | PROVIDERS: Admitting Provider Student in an Organized Health Care Education/Training Program; Emergency Provider Student in an Organized Health Care Education/Training Program; Visit Provider Urology | DX: N39.0 Urinary tract infection, site not specified (principal); N18.6 End stage renal disease; Z99.2 Dependence on renal dialysis; N31.9 Neuromuscular dysfunction of bladder, unspecified | CPT/HCPCS: 99232 ==

== ENCOUNTER → 2023-12-03 08:00 | Outpatient (BNV) | payer OTHER, MEDICARE, SELFPAY | PROVIDERS: Admitting Provider Student in an Organized Health Care Education/Training Program; Emergency Provider Student in an Organized Health Care Education/Training Program; Visit Provider Internal Medicine | DX: N39.0 Urinary tract infection, site not specified (principal); R60.1 Generalized edema; N18.6 End stage renal disease; Z99.2 Dependence on renal dialysis | CPT/HCPCS: 99222 ==

== ENCOUNTER → 2024-01-10 09:58 | Outpatient (BNVA) | payer OTHER, SELFPAY | PROVIDERS: PCP Nurse Practitioner Family; Visit Provider Urology | DX: N31.9 Neuromuscular dysfunction of bladder, unspecified (principal) | CPT/HCPCS: 51705 ==

== ENCOUNTER 2024-01-13 20:57 | Emergency (ER) | payer OTHER, SELFPAY ==
--- NOTE | ~2024-01-13 | XR_ITS ---
EXAMINATION: XR CHEST CLINICAL INFORMATION: Rule out pulmonary edema. COMPARISON: Chest radiograph 12/02/2023. TECHNIQUE: AP view of the chest was obtained. FINDINGS: Stable prominence of the cardiomediastinal silhouette. Moderate atherosclerotic disease of the aortic arch. Similar degree of central vasculature engorgement and diffuse interstitial thickening. No new focal airspace opacities. No pleural effusion or pneumothorax. Redemonstration of vascular stents projecting over the left axillary/brachial region. No acute osseous findings. XR/XR chest 1V IMPRESSION: 1. Mild diffuse interstitial prominence that could be seen with interstitial pulmonary edema. 2. No consolidation or pleural effusion.
[2024-01-13 21:04] VITALS: BP 136/74; PULSE 82; O2SAT 99
[2024-01-13 21:12] VITALS: BP 123/67; PULSE 82; RESP 16; TEMP 37; O2SAT 99; BMI 22.7
--- NOTE | 2024-01-13 21:24 | ED.GENADULT ---
HPI - General Adult General Chief complaint: Extremity Problem Stated complaint: from dialysis,edema in face, hands,feet,weak Time Seen by Provider: 01/13/24 21:22 Source: patient Mode of arrival: EMS Limitations: no limitations History of Present Illness HPI narrative: Patient comes to the emergency room complaining of swelling around his face, upper and lower extremities. Patient states that he has been hospitalized before for anasarca. The last time that the patient was hospitalized was secondary to missing dialysis. However, patient just came out of dialysis. Patient was on his way home after being dialyzed, 2 L were extracted, patient states that the EMT crew suggested for him to come to the hospital to get checked out for anasarca. Patient grudgingly accepted to come. Patient denies chest pain or shortness of breath. Related Data Home Medications Medication Instructions Recorded Confirmed torsemide 20 mg tablet 20 mg PO BID@0900,1300 07/14/21 12/02/23 pantoprazole 40 mg tablet,delayed 40 mg PO DAILY@0630 PRN Gastric 10/14/22 12/02/23 release Reflux vitamin B comp no.3-folic acid 1 1 tab PO DAILY 10/14/22 12/02/23 mg-vit C 60 mg-biotin 300 mcg tablet (Tabatha-Thiago Rx) amlodipine 5 mg tablet 5 mg PO SUTUTHSA@0900 12/02/23 12/02/23 carvedilol 3.125 mg tablet 3.125 mg PO BID 12/02/23 12/02/23 clopidogrel 75 mg tablet 75 mg PO DAILY 12/02/23 12/02/23 isosorbide mononitrate 30 mg 30 mg PO DAILY 12/02/23 12/02/23 tablet,extended release 24 hr loperamide 2 mg capsule (Imodium 2 mg PO Q4H PRN Loose Stool 12/02/23 12/02/23 A-D) ondansetron 4 mg disintegrating 4 mg PO Q6H PRN Nausea And Vomiting 12/02/23 12/02/23 tablet Previous Rx's Medication Instructions Recorded levofloxacin 250 mg tablet 250 mg PO Q48H #5 tabs 12/14/23 nystatin 100,000 unit/gram topical 1 appl topical TID fungal 01/12/24 powder infection #30 grams sulfamethoxazole 800 1 tab PO .COMPLEX #30 tabs 01/12/24 mg-trimethoprim 160 mg tablet (Bactrim DS) torsemide 20 mg tablet 40 mg (2 x 20 mg) PO BID 3 days 01/13/24 #12 tabs Allergies Allergy/AdvReac Type Severity Reaction Status Date / Time morphine [MORPHINE] Allergy Severe NAUSEA & Verified 12/02/23 11:38 VOMITING, vomiting, nausea and vomiting diphenhydramine AdvReac Mild Nausea Verified 12/03/23 00:15 [From Benadryl] Review of Systems Review of Systems: Constitutional : No Weight loss, No Fever, No Chills, No Night Sweats, No Fatigue, No Malaise ENT/Mouth : No Hearing loss, No Ear Pain, No Nasal Congestion, No Sinus Pain, No Hoarseness, No sore throat, No Rhinorrhea, No Swallowing Difficulty Eyes: No Eye Pain, No Swelling, No Redness, No Foreign Body, No Discharge, No Vision Changes Cardiovascular : No Chest Pain, No SOB, No Dyspnea on Exertion, No Orthopnea, No Edema, No Palpitations Respiratory : No Cough, No Sputum, No Wheezing, No Smoke Exposure, No Dyspnea Gastrointestinal : No Nausea, No Vomiting, No Diarrhea, No Constipation, No abdominal Pain, No Hematochezia, No Melena Genitourinary : no irregular bleeding, No Dysuria, No Urinary Frequency, No Hematuria, No Urinary Incontinence, No Urgency, No Flank Pain, No Urinary Flow Changes, No Hesitancy Musculoskeletal : No joint pain, No Myalgias, No Joint Swelling Skin : Patient complaining of swelling on his face arms and feet Neuro : No Weakness, No Numbness, No Paresthesias, No Loss of Consciousness, No Dizziness, No Headache Psych : No Anxiety/Panic, No Depression, No SI/HI/AH/VH, No Social Issues, Heme/Lymph: No Bruising, No Bleeding,No Lymphadenopathy Endocrine : No Polyuria, No Polydipsia, No Temperature Intolerance PMFSH Past Medical History Medical History ESRD (end stage renal disease) Anemia ESRD (end stage renal disease) on dialysis Neurogenic urinary bladder disorder Bacteremia due to methicillin susceptible Staphylococcus aureus (MSSA) Multiple sclerosis CVA (cerebral vascular accident) CAD (coronary artery disease) Diabetes mellitus Hyperlipidemia HTN (hypertension) with goal to be determined Surgical History History of back surgery H/O cystostomy Social History Social History Household Members: None Housing: House Are you a primary manager long term care to a significant other at home: No Do you presently have visiting nurse or other home services: Yes (one more PT apt per pt) Alcohol intake: never 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 Oriented X3. No acute distress. Eyes: Pupils equal, round and reactive to light. ENT: Pharynx normal. Neck: Normal inspection. Neck supple. No lymph nodes noted. No crepitus CVS: Normal heart rate and rhythm. Pulses normal. Normal S1 and S2 Respiratory: No respiratory distress. Breath sounds normal. No Wheezing. No rales Abdomen: Soft and nontender. No rigidity. No distention. Skin: Skin warm and dry. Normal skin color. Normal skin turgor. Patient has facial edema as well. Extremities: Upper and lower extremity +2 pitting edema Neuro: Oriented X 3. No motor deficit. No sensory deficit. Moving all extremities. No slurred speech. CN 2 through 12 grossly intact Psych: calm, cooperative, normal affect Course Course Course Narrative: -I reviewed patient's medical records from his past visit to the ED when he came in with anasarca. My colleague Dr. Amin had spoken with patient's offset printer Dr. Crowell. At that time, patient personally with pneumonia was given Augmentin. However, patient was given 40 mg of Lasix in the ED to help with the diuresis process. Patient still produces a fair amount of urine. Also, I reviewed patient's inpatient records for anasarca. Anasarca improved with consistent dialysis. -all of patient's labs pending and chest x-ray Medical Decision Making Medical Decision Making MDM Narrative: -patient takes daily torsemide 20 mg b.i.d.. Patient states that his bottle says torsemide daily. However, he was instructed to take it twice a day due to the swelling. -patient instructed to take 40 mg of torsemide b.i.d. for 2 days. Patient has dialysis on Tuesday, then he can be dialyzed and discuss the torsemide dose with his offset printer -my interpretation of chest x-ray: Cardiomegaly, no overt edema -patient does not have any urinary symptoms or concern for infection. Patient's urinalysis will likely be positive for UTI. However, patient is chronically colonized due to suprapubic catheter patient's white blood cell count normal, normal blood pressure, no fever. At this time, UTI treatment not indicated -please follow-up chest x-ray and labs. Patient very likely to be discharged home. Patient instructed to double his dose of torsemide for 2 days as mentioned above. -sign out given to my colleague Dr. Gutiérrez Differential Diagnosis Differential Diagnoses: The differential diagnosis associated with the presentation includes (Anasarca, renal failure) Admission/Observation Consideration of admission/observation: Escalation of care including admission/observation considered (Given patient's initial presentation, admission considered) Lab Data MDM Lab Attestation statement: I reviewed the patient's lab results. Labs: Lab Results 01/13/24 Range/Units 21:38 Urine Color Yellow Urine Appearance Cloudy Urine pH 8.5 (5.0-9.0) Ur Specific [place] 1.015 (1.005-1.025) Urine Protein 300 (3+) H (Neg-Trace) mg/dL Urine Glucose (UA) 250 H (Negative) mg/dL Urine Ketones Negative (Negative) mg/dL Urine Blood Moderate (2+) H (Negative) Urine Nitrite Negative (Negative) Ur Leukocyte Esterase Large (3+) H (Negative) Urine RBC >20 H (0-2) /HPF Urine WBC >50 H (0-5) /HPF Ur Squamous Epith Cells 0-2 (0-2) /HPF Urine Bacteria 2+ (None Seen) Hyaline Casts 3-5 (0-2) /LPF Independent Interpretation I performed an independent interpretation of an: Plain X-Ray Independent Historian Clinical information obtained from an independent historian. History obtained from or confirmed by: EMS Critical Care Time Critical Care Time Critical Care Time: Yes Total Critical Care Time: 45 Attestation: I have personally provided critical care time. Time includes review of lab data, radiology results, discussion with consultants, and monitoring for potential decompensation. Intervention performed as documented. Discharge Plan Discharge Clinical Impression: Renal anasarca Patient Disposition: Home, Self-Care Instructions: Edema (ED) Additional Instructions: Double up your dose of torsemide. Take 40 mg twice a day for the next 2 days and then discuss the dose with your offset printer when you go for dialysis on Tuesday. Please follow-up with your primary care physician tomorrow. If you have any worsening or new symptoms, please return to the emergency room or call 911 Prescriptions: New torsemide 20 mg tablet 40 mg PO BID 3 Days Qty: 12 0RF No Action nystatin 100,000 unit/gram powder 1 appl topical TID Qty: 30 1RF Rx Instructions: apply to groin, abd folds three time daily for fungal infection keep area dry sulfamethoxazole-trimethoprim [Bactrim DS] 800-160 mg tablet 1 tab PO .COMPLEX Qty: 30 1RF Rx Instructions: 1 tab orally on days of catheter changes loperamide [Imodium A-D] 2 mg Capsule 2 mg PO Q4H PRN (Reason: Loose Stool) Rx Instructions: administer after each loose stool until symptoms controlled; do not exceed 8 mg per 24 hrs isosorbide mononitrate 30 mg Tablet Extended Release 24 Hr 30 mg PO DAILY clopidogrel 75 mg Tablet 75 mg PO DAILY carvedilol 3.125 mg Tablet 3.125 mg PO BID Rx Instructions: must administer with a meal/food ondansetron 4 mg Tablet,Disintegrating 4 mg PO Q6H PRN (Reason: Nausea And Vomiting) amlodipine 5 mg tablet 5 mg PO SUTUTHSA@0900 Protocol: Hold for SBP< HOLD for SBP < : 90 Rx Instructions: On non-diaylsis days only levofloxacin 250 mg tablet 250 mg PO Q48H Qty: 5 0RF Rx Instructions: dialysis days pantoprazole 40 mg tablet,delayed release (DR/EC) 40 mg PO DAILY@0630 PRN (Reason: Gastric Reflux) Tabatha-Thiago Rx 1-60-300 mg-mg-mcg tablet 1 tab PO DAILY torsemide 20 mg tablet 20 mg PO BID@0900,1300
[2024-01-13 21:49] LABS: Appearance Urine Cloudy; Color Urine Yellow; Glucose Urine UA 250 mg/dL (Negative); Leukocyte Esterase Urine Large (3+) (Negative); Nitrite Urine Negative (Negative); PH 8.5 (5.0-9.0); Specific Gravity - Urine 1.015 (1.005-1.025); UMIC TRIGGER UACC YES; Urine Blood Moderate (2+) (Negative); Urine Ketones Negative (Negative); Urine Protein 300 (3+) mg/dL (Neg-Trace)
[2024-01-13 21:54] LABS: Bacteria Urine 2+ (None Seen); RBC Urine >20 /HPF (0-2); Squamous Epithelial Cell Urine 0-2 /HPF (0-2); UACC Culture Trigger YES; WBC Urine >50 /HPF (0-5)
--- NOTE | 2024-01-13 22:15 | MHC.EDTECH ---
This Tech assumed care of this PT. Pt changed over into a hospital gown and placed on a lunchroom monitor. red fall risk precaution wristband and socks puit on pt. Urine was snet to labs for processing
[2024-01-13 22:17] LABS: Amphetamine Screen Urine Not Detected (Not Detect); Barbiturates, Urine Not Detected (Not Detect); Benzodiazepines Screen Urine Not Detected (Not Detect); Cannabinoid Screen Urine Not Detected (Not Detect); Cocaine Screen Urine Not Detected (Not Detect); Fentanyl, urine Not Detected (Not Detect); Opiate Screen Urine Not Detected (Not Detect); Phencyclidine Screen Urine Not Detected (Not Detect)
--- NOTE | 2024-01-13 23:03 | MHC.EDTECH ---
This Tech assumed care of this Pt. Pt changed over by security into POD clothing. PT clothing secured and locked in POD. PT bloodwork and urine sent to lab for processing
--- NOTE | 2024-01-13 23:23 | PC.NURSE ---
pt is a difficult stick and is refusing additional labs to be attempted, dr Gutiérrez made aware and pt wants to go home.
--- NOTE | 2024-01-14 00:09 | MHC.EDTECH ---
call out to kim at [id number], estimated eta given was 0300
[2024-01-14 02:08] VITALS: BP 123/74; PULSE 80; RESP 14; TEMP 37.1
== END 2024-01-14 02:09 | disposition home or self-care (01) ==
PROVIDERS: Emergency Provider Emergency Medicine
DX: N04.9 Nephrotic syndrome with unspecified morphologic changes (principal); R60.1 Generalized edema; R60.0 Localized edema; I51.7 Cardiomegaly; Z79.899 Other long term (current) drug therapy
CPT/HCPCS: 71045; 80307; 81001; 87086; 87088; 87186; 99284

== ENCOUNTER 2024-03-26 15:38 | Emergency (ER) | payer OTHER, SELFPAY ==
[2024-03-26 15:54] VITALS: BP 122/70; BP 138/77; PULSE 87; PULSE 90; RESP 16; TEMP 36.4; O2SAT 99; BMI 23.8
[2024-03-26 15:58] VITALS: BP 138/77; PULSE 90; RESP 17; TEMP 36.4; O2SAT 99
--- NOTE | 2024-03-26 16:22 | PC.NURSE ---
Pt presents to ED via EMS, reports he was on his way to dialysis with EMS when his suprapubic catheter became dislodged. Pt reports he has had this catheter for many years, has it changed out by his doctor every 8 weeks. Pt reports he thinks he sat on it and it became dislodged. Pt denies any pain or other complaints. Did not make it to his dialysis appointment today. Pt is alert and oriented, breathing even and unlabored, skin WNL. VSS. Pt noted to be wet with urine. Pt has catheter in a bag, 18 occ[address].
--- NOTE | 2024-03-26 16:30 | ED.MALEGU ---
HPI - Male Genitourinary General Chief complaint: Urogenital-Male Stated complaint: subpubic cath dislodgement Time Seen by Provider: 03/26/24 16:07 Source: patient and EMS Mode of arrival: EMS Limitations: no limitations History of Present Illness HPI Narrative: Patient comes to the emergency room complaining of a dislodged suprapubic catheter. Patient states that EMS picked him up and they were on the way to dialysis, his suprapubic catheter accidentally dislodged. Patient states that he has 2 more weeks to go until his suprapubic catheter gets changed. Patient has had a catheter since 2017. Denies any pain, no fever or chills. Related Data Home Medications ?Medication ?Instructions ?Recorded ?Confirmed torsemide 20 mg tablet 20 mg PO BID@0900,1300 07/14/21 12/02/23 pantoprazole 40 mg tablet,delayed 40 mg PO DAILY@0630 PRN Gastric 10/14/22 12/02/23 release Reflux vitamin B comp no.3-folic acid 1 1 tab PO DAILY 10/14/22 12/02/23 mg-vit C 60 mg-biotin 300 mcg tablet (Tabatha-Thiago Rx) amlodipine 5 mg tablet 5 mg PO SUTUTHSA@0900 12/02/23 12/02/23 carvedilol 3.125 mg tablet 3.125 mg PO BID 12/02/23 12/02/23 clopidogrel 75 mg tablet 75 mg PO DAILY 12/02/23 12/02/23 isosorbide mononitrate 30 mg 30 mg PO DAILY 12/02/23 12/02/23 tablet,extended release 24 hr loperamide 2 mg capsule (Imodium 2 mg PO Q4H PRN Loose Stool 12/02/23 12/02/23 A-D) ondansetron 4 mg disintegrating 4 mg PO Q6H PRN Nausea And Vomiting 12/02/23 12/02/23 tablet Previous Rx's ?Medication ?Instructions ?Recorded levofloxacin 250 mg tablet 250 mg PO Q48H #5 tabs 12/14/23 nystatin 100,000 unit/gram topical 1 appl topical TID fungal 01/12/24 powder infection #30 grams torsemide 20 mg tablet 40 mg (2 x 20 mg) PO BID 3 days 01/13/24 #12 tabs catheterization tray 18 Fr #10 ea 03/06/24 drainage bag 2,000 mL (Curity #20 ea 03/06/24 Drainage Bag) irrigation set #20 ea 03/06/24 levofloxacin 250 mg tablet 250 mg PO ONCE Take one tab on 03/06/24 catheter change day #30 tabs urinary bag (Urinary Leg Bag) #10 ea 03/06/24 water for irrigation, sterile 1 irrig irrigation DAILY #6,000 mL 03/06/24 Allergies Allergy/AdvReac Type Severity Reaction Status Date / Time morphine [MORPHINE] Allergy Severe NAUSEA & Verified 03/26/24 15:56 VOMITING, vomiting, nausea and vomiting diphenhydramine AdvReac Mild Nausea Verified 12/03/23 00:15 [From Benadryl] bactrim Allergy Mild rash Uncoded 03/06/24 14:39 Review of Systems Review of Systems: Constitutional : No Weight loss, No Fever, No Chills, No Night Sweats, No Fatigue, No Malaise ENT/Mouth : No Hearing loss, No Ear Pain, No Nasal Congestion, No Sinus Pain, No Hoarseness, No sore throat, No Rhinorrhea, No Swallowing Difficulty Eyes: No Eye Pain, No Swelling, No Redness, No Foreign Body, No Discharge, No Vision Changes Cardiovascular : No Chest Pain, No SOB, No Dyspnea on Exertion, No Orthopnea, No Edema, No Palpitations Respiratory : No Cough, No Sputum, No Wheezing, No Smoke Exposure, No Dyspnea Gastrointestinal : No Nausea, No Vomiting, No Diarrhea, No Constipation, No abdominal Pain, No Hematochezia, No Melena Genitourinary : Complaining of a dislodged suprapubic catheter, No Dysuria, No Urinary Frequency, No Hematuria, No Urinary Incontinence, No Urgency, No Flank Pain, No Urinary Flow Changes, No Hesitancy Musculoskeletal : No joint pain, No Myalgias, No Joint Swelling Skin : No Skin Lesions, No rash Neuro : No Weakness, No Numbness, No Paresthesias, No Loss of Consciousness, No Dizziness, No Headache Psych : No Anxiety/Panic, No Depression, No SI/HI/AH/VH, No Social Issues, Heme/Lymph: No Bruising, No Bleeding,No Lymphadenopathy Endocrine : No Polyuria, No Polydipsia, No Temperature Intolerance PMFSH Past Medical History Medical History ESRD (end stage renal disease) Anemia ESRD (end stage renal disease) on dialysis Neurogenic urinary bladder disorder Bacteremia due to methicillin susceptible Staphylococcus aureus (MSSA) Multiple sclerosis CVA (cerebral vascular accident) CAD (coronary artery disease) Diabetes mellitus Hyperlipidemia HTN (hypertension) with goal to be determined Surgical History History of back surgery H/O cystostomy Social History Social History Household Members: None Housing: House Are you a primary day care teacher to a significant other at home: No Do you presently have visiting nurse or other home services: Yes (one more PT apt per pt) Alcohol intake: never 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 Tobacco Use Status: Never used Tobacco Smoked in Last 30 Days: No Second Hand Smoke Exposure: No Use of substances other than those prescribed or required for medical reasons: No Advance Directives: Yes Advance Directives on File: Yes Advance Directives Date on File: 06/30/22 service: Yes Current occupational status: retired Physical Exam Vital Signs: Vital Signs: Last Vital Signs Temp 97.5 F 03/26/24 15:58 Pulse 90 03/26/24 15:58 Resp 17 03/26/24 15:58 BP 138/77 03/26/24 15:58 Pulse Ox 99 03/26/24 15:58 O2 Del Method Room Air 03/26/24 15:58 BMI result Body Mass Index 23.8 Const: Other: Appearance: Alert. Oriented X3. No acute distress. Eyes: Pupils equal, round and reactive to light. ENT: Pharynx normal. Neck: Normal inspection. Neck supple. No lymph nodes noted. No crepitus CVS: Normal heart rate and rhythm. Pulses normal. Normal S1 and S2 Respiratory: No respiratory distress. Breath sounds normal. No Wheezing. No rales Abdomen: Soft and nontender. No rigidity. No distention. Dislodged suprapubic catheter, draining urine Skin: Skin warm and dry. Normal skin color. Normal skin turgor. Extremities: No lower extremity edema. No Lacerations. No Rash Neuro: Oriented X 3. No motor deficit. No sensory deficit. Moving all extremities. No slurred speech. CN 2 through 12 grossly intact Psych: calm, cooperative, normal affect Course Course Course Narrative: Patient uses an 18 Danish suprapubic catheter. Medical Decision Making Medical Decision Making [facility] Narrative: -suprapubic catheter was replaced with a new Leal, 18 Danish -patient will be discharged, there may be enough time for the patient to get 3 hours of dialysis. Patient states that if he does not get dialysis today, he can arrange for dialysis tomorrow. -new Leal catheter draining well Discharge Plan Discharge Clinical Impression: Suprapubic catheter dysfunction Patient Disposition: Home, Self-Care Instructions: Leal Catheter Placement and Care (ED) Additional Instructions: Please follow-up with your primary care physician tomorrow. If you have any worsening or new symptoms, please return to the emergency room or call 911 Prescriptions: No Action nystatin 100,000 unit/gram powder 1 appl topical TID Qty: 30 1RF Rx Instructions: apply to groin, abd folds three time daily for fungal infection keep area dry (DME) catheterization tray 18 Fr tray See Rx Instructions .Route Qty: 10 5RF Rx Instructions: As directed (DME) Curity Drainage Bag 2,000 mL misc See Rx Instructions .Route Qty: 20 5RF Rx Instructions: As directed (DME) Urinary Leg Bag Misc See Rx Instructions .Route Qty: 10 5RF Rx Instructions: As directed (DME) irrigation set Irrigation Set See Rx Instructions .Route Qty: 20 5RF Rx Instructions: As directed water for irrigation, sterile Solution 1 irrig irrigation DAILY Qty: 6000 5RF levofloxacin 250 mg tablet 250 mg PO ONCE Qty: 30 5RF loperamide [Imodium A-D] 2 mg Capsule 2 mg PO Q4H PRN (Reason: Loose Stool) Rx Instructions: administer after each loose stool until symptoms controlled; do not exceed 8 mg per 24 hrs isosorbide mononitrate 30 mg Tablet Extended Release 24 Hr 30 mg PO DAILY clopidogrel 75 mg Tablet 75 mg PO DAILY carvedilol 3.125 mg Tablet 3.125 mg PO BID Rx Instructions: must administer with a meal/food ondansetron 4 mg Tablet,Disintegrating 4 mg PO Q6H PRN (Reason: Nausea And Vomiting) amlodipine 5 mg tablet 5 mg PO SUTUTHSA@0900 Protocol: Hold for SBP< HOLD for SBP < : 90 Rx Instructions: On non-diaylsis days only levofloxacin 250 mg tablet 250 mg PO Q48H Qty: 5 0RF Rx Instructions: dialysis days torsemide 20 mg tablet 40 mg PO BID 3 Days Qty: 12 0RF pantoprazole 40 mg tablet,delayed release (DR/EC) 40 mg PO DAILY@0630 PRN (Reason: Gastric Reflux) Tabatha-Thiago Rx 1-60-300 mg-mg-mcg tablet 1 tab PO DAILY torsemide 20 mg tablet 20 mg PO BID@0900,1300 Print Language: Luxembourgish
[2024-03-26 17:56] VITALS: BP 138/77; PULSE 90; RESP 17; TEMP 36.4; O2SAT 99
== END 2024-03-26 17:57 | disposition home or self-care (01) ==
PROVIDERS: Emergency Provider Emergency Medicine
DX: T82.49XA Other complication of vascular dialysis catheter, initial encounter (principal); Y82.9 Unspecified medical devices associated with adverse incidents; Y92.9 Unspecified place or not applicable; Z79.899 Other long term (current) drug therapy
CPT/HCPCS: 99283; 99284

== ENCOUNTER 2024-06-01 10:33 | Emergency (ER) | payer OTHER, SELFPAY ==
[2024-06-01] VITALS (8 sets, daily range): BP systolic 130–146; BP diastolic 64–73; PULSE 60–90; RESP 13–20; TEMP 36.3–37.3; O2SAT 98–100; BMI 19.7
[2024-06-01 12:11] LABS: MANUAL DIFF FLAG NO
[2024-06-01 12:16] LABS: Basophils Absolute Auto 0.1 X10*3/uL (0.0-0.2); Eosinophils Absolute Auto 0.4 X10*3/uL (0.0-0.4); Eosinophils Percent Auto 3.8 % (0-4); Hematocrit 35.2 % (42.0-52.0); Hemoglobin 11.4 g/dl (14.0-18.0); Imm Gran Abs Auto 0.03 X10*3/uL (0.00-0.03); Imm Gran Pct Auto 0.3 % (0.0-0.4); Lymphocytes Absolute Auto 0.8 X10*3/uL (1.2-4.9); Lymphocytes Percent Auto 6.9 % (20-40); Mean Corpuscular HGB Conc 32.4 g/dl (31.0-36.0); Mean Corpuscular Hemoglobin 32.1 pg (27.0-33.0); Mean Corpuscular Volume 99.2 fL (80.0-98.0); Mean Platelet Volume 10.4 fL (9.4-12.4); Monocytes Absolute Auto 0.6 X10*3/uL (0.1-1.2); Monocytes Percent Auto 5.5 % (2-11); Neutrophils Absolute Auto 9.2 x10*3/uL (2.0-8.3); Neutrophils Percent Auto 82.5 % (45-73); Platelet Count 248 X10*3/uL (160-400); Red Blood Count 3.55 X10*6/uL (4.60-5.80); Red Cell Distribution Width 14.6 % (11.0-16.0); White Blood Count 11.1 X10*3/uL (4.8-10.8)
[2024-06-01 12:23] LABS: Lactic Acid 1.3 mmol/L (0.5-2.0)
[2024-06-01 12:33] LABS: Alanine Aminotransferase 6 U/L (0-40); Albumin Level 3.7 g/dL (3.5-5.0); Alkaline Phosphatase 307 U/L (39-117); Anion Gap 31 (12-20); Aspartate Amino Transferase 24 U/L (5-37); Bilirubin Total 0.8 mg/dL (0.0-1.0); Blood Urea Nitrogen 118 mg/dL (9-16); Calcium 10.3 mg/dL (8.4-10.2); Carbon Dioxide 26 mmol/L (22-29); Chloride 91 mmol/L (96-108); Creatinine Clr Calc Pharmacy 4.7; Estimated Glomerular Filt Rate 4; Glucose Random 143 mg/dL (60-115); Potassium 5.9 mmol/L (3.3-5.1); Sodium 142 mmol/L (135-145); Total Protein 7.5 g/dL (6.5-8.0)
--- NOTE | 2024-06-01 15:25 | MHC.EDTECH ---
This auto body repair technician gave the pt a sandwich, along with other small food items upon pt requesting after first asking the nurse if the pt was cleared to eat.
--- NOTE | 2024-06-01 15:28 | ED_ITS ---
HPI - Male Genitourinary General Chief complaint: Urogenital-Male Stated complaint: SWOLLEN [employer] CATHETER ISSUES Time Seen by Provider: 06/01/24 13:28 Source: patient Mode of arrival: EMS Limitations: no limitations History of Present Illness ED Provider: Dr. Brent Cordova HPI Narrative: 73-year-old male with a history of end-stage renal disease, anemia, neurogenic bladder, multiple sclerosis, stroke, coronary disease, diabetes, hypertension, hyperlipidemia presents emergency department for evaluation of dislodged suprapubic catheter. Patient states that his visiting nurse was changing the catheter and felt that there was pus coming out around the catheter. She was unable to reinsert the catheter therefore the patient was sent to the emergency department for evaluation. Patient states that he has been having nausea and vomiting. This is often triggered by pain that he gets in his joints. He states he has been fatigued. Patient states he gets dialyzed on Tuesdays, and Saturdays but he missed his dialysis. He denied fever, chills, abdominal pain, fatigue. Related Data Home Medications ?Medication ?Instructions ?Recorded ?Confirmed torsemide 20 mg tablet 20 mg PO BID@0900,1300 07/14/21 12/02/23 pantoprazole 40 mg tablet,delayed 40 mg PO DAILY@0630 PRN Gastric 10/14/22 12/02/23 release Reflux vitamin B comp no.3-folic acid 1 1 tab PO DAILY 10/14/22 12/02/23 mg-vit C 60 mg-biotin 300 mcg tablet (Tabatha-Thiago Rx) amlodipine 5 mg tablet 5 mg PO SUTUTHSA@0900 12/02/23 12/02/23 carvedilol 3.125 mg tablet 3.125 mg PO BID 12/02/23 12/02/23 clopidogrel 75 mg tablet 75 mg PO DAILY 12/02/23 12/02/23 isosorbide mononitrate 30 mg 30 mg PO DAILY 12/02/23 12/02/23 tablet,extended release 24 hr loperamide 2 mg capsule (Imodium 2 mg PO Q4H PRN Loose Stool 12/02/23 12/02/23 A-D) ondansetron 4 mg disintegrating 4 mg PO Q6H PRN Nausea And Vomiting 12/02/23 12/02/23 tablet Previous Rx's ?Medication ?Instructions ?Recorded levofloxacin 250 mg tablet 250 mg PO Q48H #5 tabs 12/14/23 nystatin 100,000 unit/gram topical 1 appl topical TID fungal 01/12/24 powder infection #30 grams torsemide 20 mg tablet 40 mg (2 x 20 mg) PO BID 3 days 01/13/24 #12 tabs catheterization tray 18 Fr #10 ea 03/06/24 drainage bag 2,000 mL (Curity #20 ea 03/06/24 Drainage Bag) irrigation set #20 ea 03/06/24 levofloxacin 250 mg tablet 250 mg PO ONCE Take one tab on 03/06/24 catheter change day #30 tabs urinary bag (Urinary Leg Bag) #10 ea 03/06/24 water for irrigation, sterile 1 irrig irrigation DAILY #6,000 mL 03/06/24 Allergies Allergy/AdvReac Type Severity Reaction Status Date / Time morphine [MORPHINE] Allergy Severe NAUSEA & Verified 06/01/24 10:42 VOMITING, vomiting, nausea and vomiting diphenhydramine AdvReac Mild Nausea Verified 06/01/24 10:42 [From Benadryl] bactrim Allergy Mild rash Uncoded 03/06/24 14:39 Review of Systems 2 Review of Systems: Yes all other systems are reviewed and are negative [facility] Past Medical History [facility] Narrative: Social history: Patient states he lives at home but he does have home aides and a visiting nurse. Medical History ESRD (end stage renal disease) Anemia ESRD (end stage renal disease) on dialysis Neurogenic urinary bladder disorder Bacteremia due to methicillin susceptible Staphylococcus aureus (MSSA) Multiple sclerosis CVA (cerebral vascular accident) CAD (coronary artery disease) Diabetes mellitus Hyperlipidemia HTN (hypertension) with goal to be determined Surgical History History of back surgery H/O cystostomy Social History Social History Household Members: None Housing: House Are you a primary toddler caregiver to a significant other at home: No Do you presently have visiting nurse or other home services: Yes (one more PT apt per pt) Alcohol intake: never 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 Tobacco Use Status: Never used Tobacco Smoked in Last 30 Days: No Second Hand Smoke Exposure: No Use of substances other than those prescribed or required for medical reasons: No Advance Directives: Yes Advance Directives on File: Yes Advance Directives Date on File: 12/15/23 Do you have a plan to hurt others: No Plan service: Yes Current occupational status: retired Physical Exam 2 Vital Signs: Vital Signs: Last Vital Signs Temp 97.4 F 06/01/24 17:47 Pulse 85 06/01/24 17:47 Resp 17 06/01/24 17:47 BP 135/71 06/01/24 17:47 Pulse Ox 99 06/01/24 17:47 O2 Del Method Room Air 06/01/24 17:47 BMI result Body Mass Index 19.7 Vital signs were normal. Exam: General: Awake, alert in no distress Head: Normocephalic, atraumatic EENT: PERRL, Lids normal, sclera normal, conjunctiva normal, nose normal , ears normal, throat without erythema or exudates Neck: Supple, no adenopathy Lung: breath sounds symmetric, no wheezing, rales or rhonchi Chest: symmetric movement, nontender Heart: regular rate and rhythm, normal S1, S2 no murmurs or rubs Abdomen: soft, non-tender, nondistended, patient's suprapubic stoma is nonbleeding, there has no purulent discharge : Uncircumcised penis, no testicular or scrotal tenderness Back: no vertebral tenderness, no CVAT Extremities: no deformities, moves all extremities symmetrically Neuro: Awake, alert, oriented, normal speech, cranial nerves intact, moves all extremities symmetrically Psych: Pleasant, cooperative Medications Administered Discontinued Medications Generic Name Dose Route Start Last Admin Trade Name Sanjay PRN Reason Stop Dose Admin Lidocaine HCl 10 ml 06/01/24 16:12 06/01/24 16:19 Lidocaine Hcl 2 % Urojet 10 Ml Jel.Pf.Bijal TOPICAL 06/01/24 16:13 10 ml ONCE ONE Administration Ondansetron HCl 4 mg 06/01/24 15:58 06/01/24 16:04 Ondansetron Odt 4 Mg Tab.Rapdis TRANSLINGU 06/01/24 15:59 4 mg ONCE ONE Administration Sodium Zirconium Cyclosilicate 10 gm 06/01/24 16:37 06/01/24 16:51 Sodium Zirconium Cyclosilicate 10 Gm Powd.Pack PO 06/01/24 16:38 10 gm ONCE ONE Administration Medical Decision Making Medical Decision Making [facility] Narrative: 73-year-old male with a history of end-stage renal disease, anemia, neurogenic bladder, multiple sclerosis, stroke, coronary disease, diabetes, hypertension, hyperlipidemia presents emergency department for evaluation of dislodged suprapubic catheter. Patient states that his visiting nurse was changing the catheter and felt that there was pus coming out around the catheter. She was unable to reinsert the catheter therefore the patient was sent to the emergency department for evaluation. Patient states that he has been having nausea and vomiting. This is often triggered by pain that he gets in his joints. He states he has been fatigued. Patient states he gets dialyzed on Tuesdays, and Saturdays but he missed his dialysis. Vital signs were normal physical examination was unremarkable Differential diagnosis: ?Includes but is not limited to dislodged suprapubic catheter, urinary tract infection, electrolyte abnormalities, anemia Following evaluation was ordered: CBC, CMP, lactic acid, urinalysis Course: 17:09 My interpretation patient's laboratory evaluation is as follows: WBC elevated 11,100 with left shift 82 neutrophils no bands, a microcytic anemia H&H of 11.4 and 35.2 and MCV of 99.2-chronic. BUN and creatinine elevated 118 and 12.35. Potassium elevated 5.9. Chloride low 91, alk-phos elevated 307. I was unable to pass the Leal catheter through the patient's suprapubic ostomy. I then attempted to place a 18 Icelandic coude catheter through the patient's penile meatus however I met immediate resistance and was unsuccessful. I did discuss the patient's presentation with Dr. Valentino and Dr. Valentino came to the emergency department , evaluated the patient and was able to place a suprapubic catheter over a wire with dilatation of the stoma. Therefore the patient will be discharged home. He was advised to keep his dialysis appointment for tomorrow. Admission/Observation Consideration of admission/observation: Escalation of care including admission/observation considered Consult Healthcare Provider Management of the patient was discussed with: Rn Provider Relations (Dr. Valentino) Lab Data 06/01/24 12:06 06/01/24 12:06 Labs: Lab Results 06/01/24 Range/Units 12:06 WBC 11.1 H (4.8-10.8) X10*3/uL RBC 3.55 L D (4.60-5.80) X10*6/uL Hgb 11.4 L D (14.0-18.0) g/dl Hct 35.2 L (42.0-52.0) % MCV 99.2 H (80.0-98.0) fL MCH 32.1 (27.0-33.0) pg MCHC 32.4 (31.0-36.0) g/dl RDW 14.6 (11.0-16.0) % Plt Count 248 D (160-400) X10*3/uL MPV 10.4 (9.4-12.4) fL Immature Gran % (Auto) 0.3 (0.0-0.4) % Neut % (Auto) 82.5 H (45-73) % Lymph % (Auto) 6.9 L (20-40) % Jerauld % (Auto) 5.5 (2-11) % Eos % (Auto) 3.8 (0-4) % Baso % (Auto) 1.0 (0-2) % Lymph # (Auto) 0.8 L (1.2-4.9) X10*3/uL [place] # (Auto) 0.6 (0.1-1.2) X10*3/uL Eos # (Auto) 0.4 (0.0-0.4) X10*3/uL Baso # (Auto) 0.1 (0.0-0.2) X10*3/uL Abs Immat Gran (auto) 0.03 (0.00-0.03) X10*3/uL Absolute Neuts (auto) 9.2 H (2.0-8.3) x10*3/uL Absolute Nucleated RBC 0.000 (0.0-0.012) X10*3/uL Nucleated RBC % (auto) 0.0 (0.0-0.2) /100WBC Sodium 142 (135-145) mmol/L Potassium 5.9 H D (3.3-5.1) mmol/L Chloride 91 L (96-108) mmol/L Carbon Dioxide 26 (22-29) mmol/L Anion Gap 31 H (12-20) BUN 118 H (9-16) mg/dL Creatinine 12.35 H* (0.5-1.4) mg/dL Estim Creat Clear Calc 4.7 Estimated GFR 4 Random Glucose 143 H (60-115) mg/dL Lactic Acid 1.3 (0.5-2.0) mmol/L Calcium 10.3 H D (8.4-10.2) mg/dL Total Bilirubin 0.8 (0.0-1.0) mg/dL AST 24 (5-37) U/L ALT 6 (0-40) U/L Alkaline Phosphatase 307 H (39-117) U/L Total Protein 7.5 (6.5-8.0) g/dL Albumin 3.7 (3.5-5.0) g/dL Independent Interpretation I performed an independent interpretation of an: EKG Interpretation: My independent interpretation patient's 12 EKG done at 16:55 hours is as follows: Normal sinus rhythm with a rate of 86, normal SC interval, prolonged QRS duration of 100 milliseconds, normal QTC interval, no ST segment elevation, no ST segment depression, no peaked T-waves. Chronic Conditions Patient?s care impacted by: Other (End-stage renal disease) Discharge Plan Discharge Clinical Impression: Suprapubic catheter dysfunction, Acute hyperkalemia, Chronic kidney disease with end stage renal failure on dialysis Patient Disposition: Home, Self-Care Additional Instructions: Your blood work did reveal a high potassium, you were given a medicine called kelde to help bring down your potassium Is very important that you make your dialysis appointment tomorrow. Dr. Valentino was able to replace your suprapubic catheter, follow-up with him for further evaluation as instructed. Prescriptions: No Action nystatin 100,000 unit/gram powder 1 appl topical TID Qty: 30 1RF Rx Instructions: apply to groin, abd folds three time daily for fungal infection keep area dry (DME) catheterization tray 18 Fr tray See Rx Instructions .Route Qty: 10 5RF Rx Instructions: As directed (DME) Curity Drainage Bag 2,000 mL misc See Rx Instructions .Route Qty: 20 5RF Rx Instructions: As directed (DME) Urinary Leg Bag Misc See Rx Instructions .Route Qty: 10 5RF Rx Instructions: As directed (DME) irrigation set Irrigation Set See Rx Instructions .Route Qty: 20 5RF Rx Instructions: As directed water for irrigation, sterile Solution 1 irrig irrigation DAILY Qty: 6000 5RF levofloxacin 250 mg tablet 250 mg PO ONCE Qty: 30 5RF loperamide [Imodium A-D] 2 mg Capsule 2 mg PO Q4H PRN (Reason: Loose Stool) Rx Instructions: administer after each loose stool until symptoms controlled; do not exceed 8 mg per 24 hrs isosorbide mononitrate 30 mg Tablet Extended Release 24 Hr 30 mg PO DAILY clopidogrel 75 mg Tablet 75 mg PO DAILY carvedilol 3.125 mg Tablet 3.125 mg PO BID Rx Instructions: must administer with a meal/food ondansetron 4 mg Tablet,Disintegrating 4 mg PO Q6H PRN (Reason: Nausea And Vomiting) amlodipine 5 mg tablet 5 mg PO SUTUTHSA@0900 Protocol: Hold for SBP< HOLD for SBP < : 90 Rx Instructions: On non-diaylsis days only levofloxacin 250 mg tablet 250 mg PO Q48H Qty: 5 0RF Rx Instructions: dialysis days torsemide 20 mg tablet 40 mg PO BID 3 Days Qty: 12 0RF pantoprazole 40 mg tablet,delayed release (DR/EC) 40 mg PO DAILY@0630 PRN (Reason: Gastric Reflux) Tabatha-Thiago Rx 1-60-300 mg-mg-mcg tablet 1 tab PO DAILY torsemide 20 mg tablet 20 mg PO BID@0900,1300 Print Language: Danish
--- NOTE | 2024-06-01 15:53 | PC.NURSE ---
Patient vomited notified Dr. Cordova. K-5.9 CR-12.35 right chest permacath for dialysis. left AV fistula placed + bruit and thrill has not been used 3+ edema in that arm. Patient has wounds BLE taken care of by [facility] every other day. Patient is a hard stick. Patient has a chronic bradley that was removed at home then nurse could not replace. tele: Sinus rythym 70's
[2024-06-01] MEDS: Ondansetron ODT 4 MG TAB.RAPDIS TRANSLINGU (16:04)
[2024-06-01] MEDS: Lidocaine HCl 2 % Urojet 10 ML JEL.PF.APP TOPICAL (16:19)
--- NOTE | 2024-06-01 16:37 | ECG_ITS ---
Test Reason : HIGH POTASSIUM Blood Pressure : / mmHG Vent. Rate : 086 BPM Atrial Rate : 086 BPM P-R Int : 190 ms QRS Dur : 100 ms QT Int : 376 ms P-R-T Axes : 034 -32 141 degrees QTc Int : 449 ms Normal sinus rhythm Left axis deviation Left ventricular hypertrophy with repolarization abnormality ( R in aVL , Sanchez product ) Abnormal ECG When compared with ECG of 02-DEC-2023 12:23, Inverted T waves have replaced nonspecific T wave abnormality in Lateral leads Referred By: Brent Cordova Electronically Signed By:WENDY SIGALA
[2024-06-01] MEDS: Sodium Zirconium Cyclosilicate 10 GM POWD.PACK PO (16:51)
--- NOTE | 2024-06-01 21:30 | PC.NURSE ---
pt reports he only has CHAIRMAN AND CHIEF EXECUTIVE OFFICER come to house 3 hours a day which pt feels is not enough for his needs. Dr. Camara notified however per MD pt is to continue f/u with social group worker as pt verbalizes he has a social group worker who follows his case. pt states he has CHAIRMAN AND CHIE[employer] EXECUTIVE OFFICER who comes in AM to help get ready for dialysis Tuesday, and Saturdays. per pt d/c to ensure pt makes to dialysis tomorrow AM. school speech language pathologist Jasmin made aware.
== END 2024-06-01 22:00 | disposition home or self-care (01) ==
PROVIDERS: Emergency Provider Emergency Medicine Emergency Medical Services; Referring Provider Emergency Medicine Emergency Medical Services
DX: T83.098A Other mechanical complication of other urinary catheter, initial encounter (principal); Y73.8 Miscellaneous gastroenterology and urology devices associated with adverse incidents, not elsewhere classified; Y92.9 Unspecified place or not applicable; G35 Multiple sclerosis; E11.22 Type 2 diabetes mellitus with diabetic chronic kidney disease; I12.0 Hypertensive chronic kidney disease with stage 5 chronic kidney disease or end stage renal disease; N18.6 End stage renal disease; Z99.2 Dependence on renal dialysis; Z91.158 Patient's noncompliance with renal dialysis for other reason; Z79.899 Other long term (current) drug therapy
CPT/HCPCS: 51705; 36415; 80053; 83605; 85025; 93005; 99285

== ENCOUNTER → 2024-06-01 16:37 | Outpatient (BNV) | payer OTHER, SELFPAY | PROVIDERS: Emergency Provider Emergency Medicine Emergency Medical Services; Visit Provider Internal Medicine | DX: R94.31 Abnormal electrocardiogram [ECG] [EKG] (principal) | CPT/HCPCS: 93010 ==